=== PATIENT | male | born 1950 | race Caucasian/White ===

== ENCOUNTER → 2019-12-02 14:34 | Outpatient (CLI) | payer MEDICARE, OTHER, SELFPAY ==
[2019-12-02 12:15] VITALS: BMI 26.7
--- NOTE | 2019-12-02 14:45 | RAD_ITS ---
STUDY: X-RAY CHEST REASON FOR EXAM: Male, 69 years old. Chest pain TECHNIQUE: Frontal and lateral views of the chest COMPARISON: None. FINDINGS: The lungs are clear. There are no pleural effusions. There is no pneumothorax. The heart is normal in size. The visualized osseous structures are within normal limits. RAD/Chest PA and Lateral IMPRESSION: Clear lungs. Electronically Signed: Regis Donaldson, at 22:52 EST Tel , Service support ,
[2019-12-02 15:16] LABS: Absolute Lymphocyte Count 0.86 X10^3/uL (0.83-4.51); Basophil# 0.02 X10^3/uL; Basophil% 0.6 % (0-1); Eosinophil# 0.07 X10^3/uL; Eosinophils% 2.1 % (0-5); Hematocrit 41.8 % (40-54); Hemoglobin 14.2 g/dL (13.0-16.5); Lymphocyte # 0.86 X10^3/ul (4.0); Lymphocyte % 26.4 % (19-41); Mean Corpuscular Hgb 30.3 pg (27.0-32.0); Mean Corpuscular Volume 89.3 fL (80-94); Monocyte# 0.26 X10^3/uL; NRBC Flagged by Analyzer 0 % (0-5); Neutrophil # 2.04 X10^3/uL (2.7-7.7); Neutrophil % 62.6 % (47-70); Platelet Count 116 K/mm3 (150-450); RBC Distribution Width CV 12.1 % (11.6-14.6); RBC Distribution Width SD 39.5 fl (35.1-43.9); Red Blood Count 4.68 M/mm3 (4.6-6.2); White Blood Count 3.3 K/mm3 (4.4-11.0)
[2019-12-02 15:53] LABS: Anion Gap 4 (5-15); BUN 11 mg/dL (7-18); BUN/Creat Ratio 10.6 RATIO (10-20); Calcium,Total 9.3 mg/dL (8.5-10.1); Chloride 97 mmol/L (98-107); Creatinine, Serum 1.04 mg/dL (0.70-1.30); EST Glomerular Filtration Rate 75 mL/min (>60); Est Glom Filt Rate - Afr Amer 91 mL/min (>60); Glucose 104 mg/dL (74-106); Sodium Level 130 mmol/L (136-145); Thyroid Stim Hormone (TSH) 2.17 uIU/mL (0.358-3.74)
== END ==
PROVIDERS: Referring Provider Internal Medicine Cardiovascular Disease; Visit Provider Internal Medicine Cardiovascular Disease
DX: R07.9 Chest pain, unspecified (principal); E87.1 Hypo-osmolality and hyponatremia
CPT/HCPCS: 36415; 71046; 80048; 84443; 85025

== ENCOUNTER → 2019-12-16 06:31 | Outpatient (CLI) | payer MEDICARE, OTHER, SELFPAY ==
[2019-12-02 12:15] VITALS: BMI 26.7
--- NOTE | 2019-12-16 12:14 | STRESSREP ---
Stress Test Report Exercise myocardial perfusion stress test. 69-year-old man with a history of chest pain. Medications: Omeprazole. Stress protocol: Resting EKG demonstrates normal sinus rhythm with a rate of 76 bpm normal intervals are noted resting blood pressure is 132/84 mmHg. The patient exercised according to the regular Andres protocol for a total duration of 4 minutes and 15 seconds. Patient completed 1 minute and 15 seconds to stage II of the Andres protocol the maximum heart rate attained was 133 bpm which was 88% of maximum predicted heart rate the maximum workload was 6 metabolic equivalents. At rest there were nonspecific ST-T wave changes noted with no meet the criteria for ischemia at peak exercise upsloping ST changes were noted with no meet the criteria for ischemia. During recovery however there was mild downsloping ST depression of approximately 2 mm suggestive of ischemia. The patient also experienced mild bilateral arm pain and left-sided chest discomfort. The resting blood pressure was 132/84 with a peak blood pressure 190/86. Myocardial perfusion protocol. 11.9 mCi of technetium 99m sestamibi was injected at rest. The patient exercised according to regular Andres protocol for 4 minutes and 15 seconds attaining 88% of maximum predicted heart rate at peak exercise 34.2 mCi of technetium 99m sestamibi was injected stress images were obtained stress and rest images were reconstructed and compared in the short axis vertical and horizontal long axis. Gated images were also obtained Perfusion SPECT analysis: Review of the stress images demonstrate normal uptake of tracer noted in the septum anterior wall and lateral wall. There is a medium-sized defect noted in the mid inferior wall extending to the apex. The resting images demonstrate near complete reversibility suggesting a moderate amount of inferior ischemia. Gated SPECT analysis: The gated ejection fraction is noted to be 69%. Conclusion: Abnormal exercise myocardial perfusion stress test at a moderate workload with evidence of inferior ischemia. Intermediate risk scan. Preserved ejection fraction.
== END ==
PROVIDERS: Referring Provider Internal Medicine Cardiovascular Disease; Visit Provider Internal Medicine Cardiovascular Disease
DX: R07.9 Chest pain, unspecified (principal)
CPT/HCPCS: 78452; 93017; A9500; A4216

== ENCOUNTER 2019-12-18 06:50 | Day surgery (SDC) | payer MEDICARE, OTHER, SELFPAY ==
[2019-12-02 12:15] VITALS: BMI 26.7
[2019-12-17 09:12] VITALS: BMI 26.7
[2019-12-18] VITALS (28 sets, daily range): BP systolic 106–177; BP diastolic 56–100; PULSE 60–74; RESP 12–20; TEMP 36.5–36.9; O2SAT 95–100; BMI 26.4
--- NOTE | 2019-12-18 08:25 | CL.D_ITS ---
Patient Name: DARIEL SUERO Study Date: 12/18/2019 Performing: Lyle Albert MD Ht: 66.92 inches 170 cm : 1950 Wt: 171.96 lbs 78 kg Age: 69 Gender: male BSA: 1.89 PROCEDURE(S) PERFORMED HC46-TTR/COR/LV CLINICAL PROFILE AND INDICATIONS Indications: Suspected CAD Heart Failure: None Stress/Imaging Date: 12/16/2019Stress Test with SPECT MPI: Positive High Risk CAD Presentations: Unstable angina. CONCLUSIONS Significant CAD with high-grade right coronary lesion and mild to moderate disease noted in the LAD RECOMMENDATIONS Referred for immediate PCI DESCRIPTION OF PROCEDURE The patient arrived to the procedure lab. The risks and benefits of the procedure as well as a full d escription of our services here and current unavailability of surgical backup were fully explained to the patient and/or their significant other prior to the catheterization. The Timeout was completed, verifying the correct patient and procedure. The patient's procedural site was prepped and draped in the usual fashion. Local anesthetic was given subcutaneously to right groin region with Lidocaine 2%. Using a modified Seldinger technique, arterial access was obtained via the right femoral artery, a 5 Fr sheath was inserted. Left Coronary Artery selective angiography was performed in multiple views u sing a 5 Fr. JL4 catheter. Right Coronary Artery selective angiography was then performed in multiple views using a 5 Fr. 3DRC (Glenn) catheter. Left Ventriculography was performed in CARVALHO projection using a 5 Fr. Pigtail catheter. LV to AO pullback pressures were then recorded. CORONARY ANGIOGRAPHY DOMINANCE: Right Dominant LEFT HEART ASSESSMENT Left Ventricular Ejection Fraction: by LV Gram 60 % Normal LV wall motion Normal Left Ventricular systolic function LEFT MAIN: Moderate calcification, No significant disease noted LEFT ANTERIOR DESCENDING ARTERY: Mild luminal irregularities less than 30% DIAGONAL 1: Proximal - 60 % Stenosis CIRCUMFLEX ARTERY: Mild luminal irregularities less than 30% RIGHT CORONARY ARTERY: PROX RCA: 99 % Stenosis RT PDA: Proximal - Mild luminal irregularities COMPLICATIONS PROCEDURE MEDICATIONS Versed 1 mg IV Versed 1 mg IV Oxygen: 2 L/min via nasal cannula SUMMARY OF HEMODYNAMIC DATA Time AIR REST ECG 07:07:30 AO 118/68 (91) SA 08:03:39 LV 133/0, 3 08:10:00 LV 137/0, 3 08:10:06 LV 127/2, 5 08:10:40 LVp 140/2, 7 08:10:56 AOp () 08:11:01 Signed By Lyle Albert MD On 12/18/2019 08:24:58 Lyle Albert MD
[2019-12-18 09:01] LABS: ACT Activated Clotting Time 219 sec (74-137)
--- NOTE | 2019-12-18 09:04 | CL.I_ITS ---
Patient Name: DARIEL SUERO Study Date: 12/18/2019 Performing: Deny Varela MD Ht: 66.92 inches 170 cm : 1950 Wt: 171.96 lbs 78 kg Age: 69 Gender: male BSA: 1.89 PROCEDURE(S) PERFORMED HJ46-UXV W OR WO PTCA, SINGLE CORONARY ARTERY CLINICAL PROFILE AND CO-MORBIDITIES Indications: Suspected CAD, New Onset Angina <= 2 months Heart Failure: None Stress/Imaging Date: 12/16/2019 Stress Test with SPECT MPI: Positive High Risk Angina Classification Anginal Classification w/in 2 Weeks: CCS I CAD Presentations: Unstable angina. Unstable angina. Comorbidities/Risk Factors: Hypertension Dyslipidemia CONCLUSIONS Successful PTCA/NATALIO mid RCA with a 3.0 x 16 Promus Synergy stent; 85%-->0%, no dissection. RECOMMENDATIONS Highly recommend quitting all tobacco products Follow up with primary production clerks supervisor Risk factor modification ASA Indefinitley Plavix for at least 12 months Routine post interventional care Refer for Outpatient Cardiac Rehab Manual sheath removal per protocol Follow up with Dr. Albert Manual sheath removal; sheath sized up to 7Fr given small oozing around sheath at conclusion of proce dure. Medical management of mid LAD disease unless or until pt has recurrent symptoms. DESCRIPTION OF PROCEDURE The patient arrived to the procedure lab. The risks and benefits of the procedure as well as a full d escription of our services here and current unavailability of surgical backup were fully explained to the patient and/or their significant other prior to the catheterization. The Timeout was completed, verifying the correct patient and procedure. The patient's procedural site was prepped and draped in the usual fashion. Local anesthetic was given subcutaneously to right groin region with Lidocaine 2% Using a modified Seldinger technique,arterial access was obtained via the right femoral artery, a 5Fr sheath was inserted. Left Coronary Artery selective angiography was performed in multiple views usin g a 5 Fr. JL4 catheter. Right Coronary Artery selective angiography was then performed in multiple vi ews using a 5 Fr. 3DRC (Glenn) catheter. Left Ventriculography was performed in CARVALHO projection usi ng a 5 Fr. Pigtail catheter. LV to AO pullback pressures were then recorded.The images were reviewed and options discussed. A decision was then made to proceed with an Intervention, IVUS o r other adjunct procedure. Arterial sheath was exchanged for a 6 Fr Sheath. HSII Guide catheter was inserted and engaged int o the RCA. BMW Guide wire was advanced to the RCA. 2x12 emerge Balloon catheter was inserted. Balloon catheter was advanced across lesion in the right coronary, proximal. PTCA balloon inflated at 6 atms for 15 secs. PTCA balloon inflated at 6atms for 4 secs. 3x16 synergy Drug Eluting stent was inserted . Drug Eluting stent was advanced across the lesion in the right coronary, proximal. Angiogram perfor med post stent deployment. Arterial sheath was exchanged for a 7 Fr Sheath. Contrast was injected thr ough the sheath and the Right Iliac and Femoral artery were assessed for possible closure device. Th e arterial sheath was sutured in place and capped INTERVENTION INFORMATION LESION SITE: RCA (Proximal) Lesion Complexity: Non-High/Non-C, lesion at bifurcation: No, thrombus present: No, lesion length: 16 mm, culprit lesion: Yes Pre Stenosis: 85 % Pre intervention GIUSEPPE flow: 3 PROCEDURE: Drug Eluting Stent with pre dilatation. Post Stenosis: 0 % Post intervention GIUSEPPE flow: 3 Lesion Devices: Wilcox .014 BMW [place] Straight 190cm Rhythmia Medicaltronic 6 Fr HSII 100cm Guide Catheter Sanchez Sci EMERGE MR 2.00x12 BALLOON Sanchez Sci Synergy MR NATALIO 3.00x16 COMPLICATIONS No Complications PROCEDURE MEDICATIONS Versed 1 mg IV Versed 1 mg IV Oxygen: 2 L/min via nasal cannula Heparin 6000 unit(s) IV 12/18/2019 08:29:34 Nitro 200 mcg IC 12/18/2019 08:31:15 Nitro 200 mcg IC 12/18/2019 08:31:15 IV Bolus: .9 NaCl 450 ml total 12/18/2019 08:44:07 SUMMARY OF HEMODYNAMIC DATA Time AIR REST ECG 07:07:30 AO 118/68 (91) SA 08:03:39 LV 133/0, 3 08:10:00 LV 137/0, 3 08:10:06 LV 127/2, 5 08:10:40 LVp 140/2, 7 08:10:56 AOp 0/-31 (68) 08:11:01 Signed By Deny Varela MD On 12/18/2019 09:03:33 Deny Varela MD
--- NOTE | 2019-12-18 09:21 | EKG12_ITS ---
Test Reason : POST PCI Blood Pressure : / mmHG Vent. Rate : 067 BPM Atrial Rate : 067 BPM P-R Int : 192 ms QRS Dur : 096 ms QT Int : 384 ms P-R-T Axes : 052 028 030 degrees QTc Int : 405 ms Normal sinus rhythm Normal ECG No previous ECGs available Confirmed by MITCH LINO ([id number]), general expeditor KODI MEI ([id number]) on 12/24/2019 9:56:23 AM Referred By: Lyle Albert Confirmed By:MITCH LINO
[2019-12-18] MEDS: 0.9% Normal Saline 1,000 ML 150 ML IV (09:34)
--- NOTE | 2019-12-18 10:31 | CRPHASE1_ITS ---
Patient Communication PHII Cardiac Rehab Discussed with Patient:: Yes Guide to Cardiac Rehab Given to Patient:: Yes Cardiac Rehab Facility Choice List Given to Patient:: Yes Choice Program [facility] CR PHII:: Communication Given to CR, Refer to [facility] [employer] Set Up Operator:: Deny Varela Phase II Cardiac Rehab:: Yes Sessions:: 36 sessions - 3 days/wk, 12 weeks Risk Factors/Lifestyle Smoking Status: Former smoker Hx Hypertension: No Hx Diabetes Mellitus Type 1: No Hx Diabetes Mellitus Type 2: No Hx Dyslipidemia: No Hx Obesity: No - BMI 26.8 Stress: Home/Family Family History: Family History (Last Reviewed 12/02/19 @ 14:08 by Lyle Albert MD) Mother Cancer Ascending aortic aneurysm CVA (cerebral vascular accident) Brother Cancer Other Hypertension Phase I Education Given On:: [place], Nutrition, Antiplatelet medication Issues Affecting Care:: None Knowledge of Condition:: Yes Learning Preferences: Verbal, Written Discharge/Home/Social Eval Discharge Disposition: Home Marital Status: - at bedside Cardiac Rehabilitation Info Cardiac Rehabilitation Program Information: Cardiac Rehabilitation is important for patients like you who are recovering from a heart problem. Cardiac rehabilitation programs are recognized as integral to the continued care of the patient with coronary heart disease. The cardiac rehabilitation program is designed to optimize a patient's physical, psychological, and social functioning. Health care management associate work in cardiac rehabilitation programs and assist you with getting the treatments you need to get stronger and healthier - like exercise, healthy eating habits, and medications. Cardiac rehabilitation has been show to help people with heart problems live longer and have better life enjoyment than people who do not go to cardiac rehabilitation. Please contact the Cardiac Rehabilitation Program at [facility] at in two weeks if you have not heard from them.
--- NOTE | 2019-12-18 10:35 | CRPH1.INSTRU ---
General Education CAD and cardiac anatomy and function:: Patient communicates acknowledgment Explanation of diagnoses and procedures:: Patient communicates acknowledgment Sign/Symptoms of SC:: Patient communicates acknowledgment Antiplatelet therapy: Patient communicates acknowledgment Proper use of NTG-SL: Not instructed Emergency procedures and activation of EMS: Patient communicates acknowledgment Compliance of all prescribed medications: Patient communicates acknowledgment Smoking Recommendations Include:: Previous smoker; encourage continued cessation Nicotine/Smoking Response Code:: Patient communicates acknowledgment Dyslipidemia Dyslipidemia Response Code:: Patient communicates acknowledgment Overweight/Obesity Patient Overweight/Obesity Risk Factors Are:: BMI Normal [24-29 & > 65 years old] Overweight/Obesity:: Patient communicates acknowledgment Hypertension Hypertension:: Patient communicates acknowledgment Heart Disease Heart Disease Response Code:: Patient communicates acknowledgment Diabetes Patient Diabetes Risk Factors Are:: No documented hx of diabetes Diabetes:: Patient communicates acknowledgment Metabolic Syndrome Metabolic Syndrome Response Code:: Patient communicates acknowledgment Sedentary Sedentary Response Code:: Patient communicates acknowledgment Stress Stress Response Code:: Patient communicates acknowledgment
[2019-12-18] MEDS: Lisinopril 5 MG Tablet PO ×2 (10:44→10:45)
[2019-12-18] MEDS: Metoprolol Tartrate 25 MG Tablet 12.5 MG PO ×2 (10:44→21:04)
[2019-12-18] MEDS: 0.9% Saline Lock 10 ML Syringe IV (10:45)
[2019-12-18 11:06] LABS: ACT Activated Clotting Time 158 sec (74-137)
--- NOTE | 2019-12-18 15:38 | DCINST_ITS ---
Discharge Diet: Low fat/ Low Cholesterol Discharge Activity: Return to Normal Activity May shower in (days): 1 Lifting Restrictions: 10 pounds and also avoid any pushing or pulling for 3 days after your test. Call your doctor if your incision/area has: Continuous Slow Oozing, Sudden Increased Bleeding, Increased Pain/ Swelling, Increased Redness, Foul Smelling Discharge, Swelling at the incision site Call your doctor if you observe: Fever of 101 or Higher, Shortness of breath, Dizziness, Chest pain Remove Dressing in (days):: 1 Additional Dressing/Incision Instructions:: Keep the dressing (bandage) on until the next morning. You may then shower, but do not take a tub bath for 5 days after your test. It is normal to have some tenderness and discomfort at the puncture site. Sometimes bruising also occurs. However, if pain, numbness, or coldness occurs below the puncture site (in your leg, toes, arms or fingers) call your doctor at once. You may have a small, marble sized knot at the puncture site. This is normal. Do not rub it. It will go away in 4-6 weeks. Bleeding can occur from the area where the puncture was done. Blood may spurt or drip from the site. If blood spurts, apply pressure right away to stop bleeding and call 911. Although rare, bleeding into the tissue (hematoma) can also occur. If this happens, a large, firm area goose egg under the skin will appear. If any of these occur, lie down as flat as you can and have someone apply firm pressure to the cath site with a gauze pad or a clean washcloth for 10-15 minutes. Call 911 or go to the Emergency Department. Additional Instructions: You will need to stay on your Plavix for at least one year prior to stopping this. Several new medications were started. Each of these will help protect your heart. You were started on 1: Metoprolol, this is a low dose and is a beta maranda which does help control your heart rate 2: Lisinopril- this is a LIZANDRO inhibitor and controls your blood pressure 3: Atorvastatin: this is a statin and will help lower your cholesterol. If you cholesterol has not been elevated, this will help with the plaque build up in your arteries. 4: Aspirin: You will need to stay on the baby ASA indefinitely 5: Plavix: this was started prior to your heart cath, this is an antiplatelet, it will help to keep you stent open. You will need to be on this for at least one year prior to stopping. If you have any concerns please call the [facility] You have a f/u appt with us on 12/30/2019 at 1530 Allergies/Adverse Reactions: Allergies clindamycin Allergy (Verified 12/02/19 12:16) Other Penicillins Allergy (Verified 12/02/19 12:16) Rash Sulfa (Sulfonamide Antibiotics) Allergy (Verified 12/02/19 12:16) Hives tetracycline [Tetracycline] Allergy (Verified 12/02/19 12:16) Anaphylaxis Medications to take at Discharge ibuprofen 200 mg capsule 200 mg PO Q6H PRN 12/01/19 latanoprost 0.005 % eye drops 1 drp OPHTHALMIC DAILY 12/01/19 lorazepam 1 mg tablet 1 mg PO BID PRN 12/01/19 omeprazole 20 mg tablet,delayed release 20 mg PO DAILY 12/01/19 fluconazole 200 mg tablet 400 mg PO .weekly tab 12/02/19 aspirin 81 mg tablet,delayed release 81 mg PO DAILY 12/16/19 Atorvastatin Calcium [Lipitor] 80 mg PO QHS #30 tab 12/18/19 Clopidogrel Bisulfate [Clopidogrel] 75 mg PO DAILY #30 tab 12/18/19 Lisinopril [Zestril] 5 mg PO DAILY #30 tab 12/18/19 Metoprolol Tartrate [Lopressor (beta maranda)] 12.5 mg PO BID #30 tab 12/18/19 Nitroglycerin (INPATIENT USE) [Nitrostat] 0.4 mg SUBLINGUAL Q5M PRN #25 tab.subl 12/18/19 The following prescriptions were given: Clopidogrel Bisulfate [Clopidogrel] 75 mg PO DAILY #30 tab Transmission Status: Pending to [facility] Atorvastatin Calcium [Lipitor] 80 mg PO QHS #30 tab Transmission Status: Pending to [facility] Metoprolol Tartrate [Lopressor (beta maranda)] 12.5 mg PO BID #30 tab Transmission Status: Pending to [facility] Nitroglycerin (INPATIENT USE) [Nitrostat] 0.4 mg SUBLINGUAL Q5M PRN #25 tab.subl PRN Reason: Cardiac/Chest Pain Transmission Status: Pending to [facility] Lisinopril [Zestril] 5 mg PO DAILY #30 tab Transmission Status: Pending to [facility] Orders to be completed after discharge: Phase II, Outpatient Cardiac Rehab Location: None Selected Primary Care Physician: Neo Yeung MD [Primary Care Provider] - Test Results: Test results from this visit will be discussed in further detail at your follow- up appointment, if applicable. Please Follow Up With: Kimberley Packer PA When: 12/30/2019 at 3:30 pm Cardiac Rehabilitation Info Cardiac Rehabilitation Program Information: Cardiac Rehabilitation is important for patients like you who are recovering from a heart problem. Cardiac rehabilitation programs are recognized as integral to the continued care of the patient with coronary heart disease. The cardiac rehabilitation program is designed to optimize a patient's physical, psychological, and social functioning. Health career consultant work in cardiac rehabilitation programs and assist you with getting the treatments you need to get stronger and healthier - like exercise, healthy eating habits, and medications. Cardiac rehabilitation has been show to help people with heart problems live longer and have better life enjoyment than people who do not go to cardiac rehabilitation. Please contact the Cardiac Rehabilitation Program at [facility] at in two weeks if you have not heard from them.
[2019-12-18] MEDS: Atorvastatin Calcium 80 MG Tablet PO (21:04)
[2019-12-18] MEDS: Latanoprost 0.005% 1 Bottle 1 DRP OPHTHALMIC (21:06)
[2019-12-19] VITALS (12 sets, daily range): BP systolic 104–137; BP diastolic 57–77; PULSE 58–79; RESP 12–20; TEMP 36.5–36.8; O2SAT 94–99
[2019-12-19] MEDS: LORazepam 1 MG Tablet PO (00:17)
[2019-12-19 04:43] LABS: Hematocrit 36.3 % (40-54); Hemoglobin 12.4 g/dL (13.0-16.5); Mean Corp Hgb Conc 34.2 g/dL (32-36); Mean Corpuscular Hgb 30.2 pg (27.0-32.0); Mean Corpuscular Volume 88.5 fL (80-94); Mean Platelet Vol. 8.7 fl (6.2-12.0); Platelet Count 158 K/mm3 (150-450); RBC Distribution Width CV 12.4 % (11.6-14.6); White Blood Count 4.4 K/mm3 (4.4-11.0)
[2019-12-19 05:02] LABS: ALB/GLOB Ratio 1.2 RATIO (0.9-2.4); AST(SGOT) 18 U/L (15-37); Alanine Aminotransfer ALT/SGPT 28 U/L (16-61); Albumin, Serum 3.4 g/dL (3.2-5.0); Alkaline Phosphatase 60 U/L (45-117); Anion Gap 7 (5-15); BUN 10 mg/dL (7-18); BUN/Creat Ratio 12.7 RATIO (10-20); Calcium,Total 8.6 mg/dL (8.5-10.1); Chloride 101 mmol/L (98-107); Creatinine, Serum 0.79 mg/dL (0.70-1.30); EST Glomerular Filtration Rate 103 mL/min (>60); Est Glom Filt Rate - Afr Amer 125 mL/min (>60); Estimated Creatinine Clearance 65.18 ml/min; Globulin 2.8 g/dL (2.2-4.2); Glucose 101 mg/dL (74-106); Potassium 3.8 mmol/L (3.5-5.1); Protein, Total 6.2 g/dL (6.4-8.2); Sodium Level 133 mmol/L (136-145)
[2019-12-19] MEDS: Clopidogrel Bisulfate 75 MG Tablet PO (08:35)
[2019-12-19] MEDS: Aspirin E.C. 81 MG Tablet PO (08:35)
[2019-12-19] MEDS: Metoprolol Tartrate 25 MG Tablet 12.5 MG PO (08:35)
[2019-12-19] MEDS: Lisinopril 5 MG Tablet PO (08:36)
[2019-12-19] MEDS: Pantoprazole Sodium 20 MG Tablet PO (08:36)
--- NOTE | 2019-12-19 09:27 | PCM.PN.CARD ---
Subjectve: Patient doing very well, feels much better after his angioplasty. No 24-hour events. No chest pain. EKG shows normal sinus rhythm, no acute changes. Telemetry negative. Right groin is clean/dry/intact without evidence of thrills, bruits or hematoma. Hemoglobin and creatinine within nominal limits. Objective: Vital Signs Temp Pulse Resp BP Pulse Ox 97.7 F L 79 17 127/75 H 97 12/19/19 04:00 12/19/19 08:35 12/19/19 06:00 12/19/19 06:00 12/19/19 06:00 Oxygen Delivery Method Room Air Weight: 168 lb 3.403 oz Body Mass Index (BMI) 26.4 Intake and Output for Last 24 Hours 12/17/19 12/18/19 12/19/19 23:59 23:59 23:59 Intake Total 1820 / 1820 300 / 300 Output Total 1900 / 1900 500 / 500 Balance -80 / -80 -200 / -200 General: Awake, Alert, Oriented x 3 HEENT: PERRL, EOMI, Sclera Non Icteric Neck: Supple, Good ROM, No Lymph Node Enlargement Lungs: Clear to auscultation Cardiovascular: Regular Rhythm, Normal S1, Normal S2, No Murmurs, No Rubs, No Gallops Vascular: No Carotid Bruits, Normal Femoral Pulses, Normal Radial Pulses, Normal Dorsalis Pedal Pulse, Normal Posterior Tibial Pulses Abdomen: Bowel Sounds Present, Soft, Non Tender, No HSM, No Organomegaly Extremities: No Cyanosis, No Clubbing, No edema Neurological: No Focal Motor or Sensory Deficit 12/19/19 04:20: WBC 4.4, RBC 4.10 L, Hgb 12.4 L, Hct 36.3 L, MCV 88.5, MCH 30.2, MCHC 34.2, Plt Count 158, MPV 8.7 12/19/19 04:20: Sodium 133 L, Potassium 3.8, Chloride 101, Carbon Dioxide 25.0, Anion Gap 7, BUN 10, Creatinine 0.79, Est GFR (MDRD) Af Amer 125, Est GFR (MDRD) Non-Af 103, BUN/Creatinine Ratio 12.7, Glucose 101, Calcium 8.6, Total Bilirubin 0.50 Rhythm: EKG: ECHO: Stress Test: Cardiac Cath: PCI: CT Surgery: Holter monitor: EPS: PPM: CXR: Chest CT Scan: Medical Necessity - Tobacco Use Smoking Status: Former smoker Assessment/Plan 1. Coronary artery disease: Patient status post angioplasty and stenting of his right coronary artery receiving a 3.0 816 Promus Synergy stent with an excellent result. The patient has immediately felt better, and is doing quite well. Telemetry is negative. EKG is within normal limits. Right groin is clean/dry/intact. The patient will continue his baby aspirin, Plavix, and low-dose lisinopril and metoprolol. He will be enrolled in cardiac rehab, and adjustments will be made to his antihypertensive therapy going forward. 2. Hyperlipidemia: Continue statin based medications. Repeat lipid profile at the conclusion of cardiac rehab. 3. Patient may be discharged home and follow-up with Dr. Albert going forward. Code Visit Inpatient E&M: 06151 Subs Hosp L2
--- NOTE | 2019-12-19 10:00 | EKG12_ITS ---
Test Reason : POST PCI Blood Pressure : / mmHG Vent. Rate : 066 BPM Atrial Rate : 066 BPM P-R Int : 176 ms QRS Dur : 096 ms QT Int : 390 ms P-R-T Axes : 051 027 035 degrees QTc Int : 408 ms Normal sinus rhythm Normal ECG When compared with ECG of 18-DEC-2019 09:28, MANUAL COMPARISON REQUIRED, DATA IS UNCONFIRMED Confirmed by MITCH LINO ([id number]), copy editor KODI MEI ([id number]) on 12/24/2019 9:56:33 AM Referred By: Lyle Albert Confirmed By:MITCH LINO
== END 2019-12-19 09:30 | disposition home or self-care (01) ==
LOC: CLSP 06:50 → ICU 09:09
PROVIDERS: Internal Medicine Cardiovascular Disease; Referring Provider Internal Medicine Cardiovascular Disease; Visit Provider Internal Medicine Cardiovascular Disease
DX: I25.110 Atherosclerotic heart disease of native coronary artery with unstable angina pectoris (principal); E87.1 Hypo-osmolality and hyponatremia; I10 Essential (primary) hypertension; E78.5 Hyperlipidemia, unspecified; K21.9 Gastro-esophageal reflux disease without esophagitis; Z79.82 Long term (current) use of aspirin; Z79.02 Long term (current) use of antithrombotics/antiplatelets; Z79.899 Other long term (current) drug therapy; Z87.891 Personal history of nicotine dependence; Z95.5 Presence of coronary angioplasty implant and graft
CPT/HCPCS: 80053; 85027; 85347; 92928; 93005; 93458; 99152; 99153; J7030; J7040; Q9967; A4216; C1725; C1769; C1874; C1887; C1894; C9600

== ENCOUNTER → 2020-01-07 07:43 | Outpatient (CLI) | payer MEDICARE, OTHER, SELFPAY ==
[2019-12-30 15:30] VITALS: BMI 25.7
--- NOTE | 2020-01-07 08:13 | CR.ITP_ITS ---
Diagnosis - General Information Admitting Diagnosis: PCI with stent Personal Learning Style:: Audio/Visual, Demonstration, Group, Individual Preference, Written Barriers to Learning: Vision Impairment - wears glasses Stage of change r/t lifestyle modifications:: Action Gave educational material for:: Treating Heart Disease, Emotions & Heart Disease, Stress Management & Relaxation, Sleep Disorders & Heart Disease, How The Heart Works, What it means to have Heart Disease, How Coronary Artery Disease is Diagnosed, Heart Procedures, What Heart Medications Do, Risk Factors & Modifications, Living an Active Life, Nutrition - Education/Goals Individual Counseling: Initial Assessment: Abnormal Cholesterol Levels, Overweight/Obesity, Sedentary Lifestyle Cardiac Rehabilitation Goals: 1. Maintain the individual as the primary focus of care. 2. To improve the patient's quality of life. 3. Identification of cardiac risk factors and provide cardiac risk factor management. 4. Enhance the psychosocial status of the patient. 5. Reconditioning enough to allow the patient to resume customary activities. 6. Control symptoms of cardiac disease Personal Goals: Initial Assessment: Improve energy level, Participate in home exercise program, Improve knowledge of cardiac disease, Improve muscle strength and endurance, Other goal: Scale for measuring improvement of personal goals: Enter appropriate number in Comments. 2 = Unchanged. 3 = Slightly Better. 4 = Moderate Improvement. 5 = Met my Goal - Diagnosis & Disease Process Outcomes/Goals: Pt IDs own risk factors & lifestyle modifications by Session 10, Verbalizes symptoms of angina & response by session 3., Pt independently manages, Other Additional Outcomes/Goals: Plan/Interventions: Assist Pt to ID & engage in lifestyle modification to reduce CVD risk, Instruct on individual risk factors, Review symptoms of angina & emergency actions, Review secondary diagnosis & identify educational needs., Other see comment - Safety Referral to Physical Therapy: No Referral to [facility] Case Management: No Fall Risk Assessed:: Yes Assistive Devices:: None Exercise - Initial Assessment - Visit Date of Eval: 01/07/20 Mets: Pre-: >5 METS for 30 minutes by discharge - Physician Prescribed Exercise Modalities: Treadmill, Biodyne, Rower, Airdyne, NuStep, SciFit Frequency: 3x/week for 12 weeks [36 sessions] Intensity: 60-80% of age predicted maximum heart rate reserve METs - Progression 0.5-1.0 weekly:: 0.5-1.0 progression - Outcomes & Goals Goals:: Verbalizes understanding of THR, RPE & goal METS by session 6, Documents in home exercise log/reports 30 min aerobic 5 day/wk by DC, Demonstrates accurate pulse taking by DC, Other additional outcome/goals: see below - Intervention & Plan Exercise Program Goals: Instruct on personal THR & RPE, Instruct on MET level & personal MET goal, Show patient to take own pulse /validate performance until accurate, Instruct on home exercise, Other additional plan/int - Physical Activity Home Exercise Physical Activity - Home Exercise: Safe Exercise, Warm-up, Self-monitoring, Cool-Down, Home Exercise > 30 min Daily, Sitting Time <3 hours/daily - Outcomes & Goals Outcomes/Goals: Demonstrates correct Warm-up/exercise Cool-Down (S3) if = 2.5 METs, Verbalizes symptoms of exercise intolerance by Session 3 (S3), Demonstrate safe equipment use (S3) & follows exercise prescrition (6), Other: See below - Intervention & Plan Plan/Intervention: Instruct warm-up & cool-down if exercising at > 2 METs, Instruct on symptoms of exercise intolerance & actions to take, Instruct & monitor on saf, Assess intial functional capacity & safety risk, Other See below Nutrition - Initial Assessment - Program Goals Nutrition Program Goals: LDL <100 optimal. 100 - 129 Near optimal. 130 - 159 Borderline High. 160 - 189 High. Total Cholesterol <200 desirable. 200 - 239 Borderline High. >/= 240 High. HDL < 40 Low >/=60 High. Triglycerides <150 desirable. <199 optimal. VlDL 5 - 40. HgbA1C <7%. BMI <25 - Cholesterol/Lipids Determine presence & major risk factors that modify LDL goal: Hypertension or hypertensive medication, Low HDL cholesterol <40 mg/dL* Outcomes/Goals: Pt IDs own risk factors & lifestyle modifications by Session 10, Verbalizes symptoms of angina & response by session 3., Pt independently manages, Other Additional Outcomes/Goals: Intervention/Plan: Advocate for lipid panel cholesterol medication if applicable, Instruct on personal lipid levels & lipid goals/NCEP guidelines, Instruct on cholesterol, Other additional plan/int Referral to dietitian:: No - Diabetes (Other Core Measures) Diabetes Type: Not Applicable - Weight Mgt (Other Care) Not Applicable: Yes Height: 5 ft 7 in Weight:: 159 lb BMI: 24.9 Diagnosis Overweight/Obesity BMI> 30% ICD-10 E66: No Diagnosis High BMI/Morbid Obesity BMI> 35% ICD-10 Z68: No Outcomes/Goals: Pt sets, maintains & shows weight loss goal & trend during rehab, Other additional outcomes/goals Intervention/Plan: Other additional plan/interventions - Healthy Eating Habits Will attend diet classes:: Yes Outcomes/Goals:: Consume diet rich in vegs,fruits,whole grain/high fiber,fish,lean meat, Limit sat/trans fats,cholesterol & added salts & sugars, Other additional outcome/goals: Intervention/Plan:: Assess current eating habits, Other Additional plan/interventions - Education Gave educational materials for:: Healthy eating Medical - Initial Assessment - Visit Date of Eval: 01/07/20 - Medication Compliance Preventative Medication(s):: Aspirin, LIZANDRO inhibitor, Clopidogrel/P2Y12 inhibit, Statin/lipid, Beta maranda H/O mental health issues: depression, anxiety, or addiction?: No Doesn?t believe in the benefits of treatment?: No Believes medications are unnecessary or harmful?: No Has a concern about medication side effects?: No Expresses concern over the cost of medications?: No Outcomes/Goals: Verbalizes medications,desired effect & common side effects @ DC, Pt self-reports following medication regimen, Keeps card in wallet w/medications listed by DC, Other additional outcome/goals: Interventions/plans: Instruct on medication effects & side effects, Review medication list w/patient every two weeks, Instruct importance of taking meds as ordered & assist problem solving, Other additional - Tobacco Use Tobacco Use: Non-smoker How long ago did you quit using tobacco products?: Greater than or equal to 6 months ago - quit 20 years ago Do you use smokeless tobacco?: No Outcomes/Goals: Other additional outcome/goals Interventions/plan: Assist pt to develop strategies to achieve/maintain quit date - maintain - Hypertension [place] [employer] Hypertension Guidelines: [place] [employer] Hypertension Guidelines. Normal BP Less than 120/80. Elevated BP 120/80. Hypertension Stage 1: BP 130-139/80-89. Hypertesnion Stage 2: BP 140 or higher/90 or higher. Hypertension Crisis: BP higher than 180/120 Outcomes/Goals: Able to verbalize/achieve optimal blood pressure <130/80, Incorporates diet changes & exercise for blood pressure control by DC, Other additional outcomes/goals - Tobacco Cessation Referral Smoking Cessation Referral:: No Individual Education/Counseling:: No Education Schedule Given:: Yes Psychosocial - Initial Assess - VIsit Date of Eval: 01/07/20 History of previous Mental disease:: No - Target Goals Target Goals: Assess presence or absence of depression. Using a valid screening tool, maximizes coping skills. Positive support system - Psychosocial Test Tool Used:: Lorin Leary QOL Cardiac, PHQ-9 Questionnaire Self-reported stress:: no phq-9 Severity: Severity. 1-4 Minimal Depression. 5-9 Mild Depression. 10-14 Moderate Depression. 15-19 Moderately Sever Depression. 20-27 Severe Depression. Rule: See PHQ-9 Score: 1 - Referral to Behavioral Health PS - Interventions: Yes Attend Stress Management Classes - group setting, No Referral to Behavioral Health if PHQ-9 score >9:, No Referral to [facility], No Referral to Physician if PHQ-9 if score is 5-9: - Outcomes/Goals: See list Psychosocial Outcomes/Goals:: ID's personal stressors & 2 strategies to manage stress by discharge - Intervention/Plan: See List Interventions/Plan:: Assess stressors,coping strategies & signs of derpression on admission, Instruct/assist pt to develop coping & personal stress Mgt strategies, Refer to Behavioral Health if appropriate, Refer to Physician if appropriate, Instruct patient to recognize signs & symptoms of depression, Instruct patient to recog, Other additional plan/intervention Patient Health Questionnaire Initial Assessment 1. Little interest or pleasure in doing things: Not at all 2. Feeling down, depressed, or hopeless: Not at all 3. Trouble falling or staying asleep, or sleeping too much: Not at all 4. Feeling tired or having little energy: Several days 5. Poor appetite or overeating: Not at all 6. Feeling bad about yourself -- or that you are a failure or have let yourself or your family down: Not at all 7. Trouble concentrating on things, such as reading the newspaper or watching te levision: Not at all 8. Moving or speaking so slowly that other people could have noticed. Or the opposite - being so fidgety or restless that you have been moving around a lot more than usual: Not at all 9. Thoughts that you would be better off , or of hurting yourself in some way: Not at all How difficult have these problems made it for you to do your work, take care of things at home, or get along with other people?: Not difficult at all Total Score: 1 SIRI-Q SV Test - Statements CAD is a disease of the arteries in the heart: False Examples of risk factors for heart disease: True Angina is chest pain or discomfort: True The benefits of resistance training include: True Eating more meat and dairy products: False Anti-platelet medications such as aspirin are important: True The only effective way to manage stress: False An exercise warm-up slowly increases heart rate: I Don't Know Prepared, processed foods usually have high sodium: True Depression is common after a heart attack: I Don't Know The statin medications lower cholesterol: True To control blood pressure, lower the amount of sodium: True If someone gets chest discomfort during walking: False Transfats are partially hydrogenated vegetable oils: True Sleep apnea that is not treated increases the risk: True To control cholesterol, one should become a vegetarian: False Someone knows if he/she is exercising at the right level: True Diabetes cannot be prevented with exercise & health eating: True Stress is a large risk for heart attack: True A diet that can help lower blood pressure is rich in: True - Total Score Total Correct Responses: 16 Self-Efficacy Initial Assessment We would like to know how confident you are in doing certain activities. Please select your confidence level for:: Select your confidence level for the following using the scale 1-10 where 1 is not at all confident and 10 is totally confident. Your score is the average of all 6 responses. Fatigue: How confident are you that you can keep the fatigue caused by your disease from interfering with the things you want to do? Select Number: 10 Physical Discomfort or Pain: How confident are you that you can keep the ph ysical discomfort or pain of your disease from interfering with the things you want to do? Select Number: 10 Emotional Distress: How confident are you that you can keep the emotional distress caused by your disease from interfering with the things you want to do? Select Number: 10 Other Symptoms or Health Problems: How confident are you that you can keep other symptoms or health problems from interfering with the things you want to do? Select Number: 10 Different Tasks and Activities: How confident are you that you can do the different tasks and activities needed to manage your health condition so as to reduce your need to see a doctor? Select Number: 10 Medication: How confident are you that you can do things other than just taking medication to reduce how much your illness affects your everyday life? Select Number: 10 Total Score:: 10 Nutrition Survey - Nutrition Survey Instructions Scoring Instructions: Scoring is as follows: Yes = 1 points. No = 0 point. Patient score that is >/=12 is considered to be at potential nutritional risk and could benefit from a referral to a registered dietitian. - Nutrition Survey Initial Have you lost >10 lbs over the past 2 months without trying?: No Are you following a special diet at home for diabetes, low fat, or low salt?: No Are you interested in meeting with a dietitian for help understanding your diet?: Yes Do you eat less than 3 meals a day?: No Do you eat fatty meats (garcia, sausage, ribs, etc), fried foods, desserts, large amounts of salad dressings, margarine, butter, or cheese most days?: Yes Do you have food allergies? [Enter types in comment field]: No Do you eat in restaurants more than 3 times a week?: No Do you season food with salt, seasoning salt, or garlic salt?: Yes Do you used canned, boxed, frozen meals, or soups, seasoning packets?: Yes Total Score:: 4
--- NOTE | 2020-01-07 08:16 | CR.HP_ITS ---
CR - History & Physical - General Arrival date:: 01/07/20 Arrival time:: 08:22 Date of Referral:: 12/18/19 Date of CR Evaluation:: 01/07/20 Referring Physician: Dr. Betty Albert Primary Diagnosis: PCI with stent - History of Present Cardiac Event Onset Date: Enter Onset Date of cardiac illnesses in Comment field below Current stable Angina Pectoris:: No Acute Myocardial Infarction within 12 months:: No Coronary Artery Bypass Graft:: No Heart valve replacement or repair:: No PTCA or coronary stenting:: Yes - 12/18/19 Heart or Heart-Lung Transplant:: No Heart Failure EF <35%:: No Type of Symptoms:: chest pain and across both arms between 3-4 am. Noted more fatigue. Interventions with present event:: nuclear stress test, heart cath Were there any complications?: no - Medications Home Medications: Ambulatory Orders Medication Instructions Recorded ibuprofen 200 mg capsule 200 mg PO Q6H PRN 12/01/19 latanoprost 0.005 % eye drops 1 drp OPHTHALMIC DAILY 12/01/19 lorazepam 1 mg tablet 1 mg PO BID PRN 12/01/19 omeprazole 20 mg tablet,delayed 20 mg PO DAILY 12/01/19 release fluconazole 200 mg tablet 400 mg PO .weekly tab 12/02/19 aspirin 81 mg tablet,delayed 81 mg PO DAILY 12/16/19 release Atorvastatin Calcium [Lipitor] 80 mg PO QHS #30 tab 12/18/19 Clopidogrel Bisulfate [Clopidogrel] 75 mg PO DAILY #30 tab 12/18/19 Lisinopril [Zestril] 5 mg PO DAILY #30 tab 12/18/19 Metoprolol Tartrate [Lopressor 12.5 mg PO BID #30 tab 12/18/19 (beta maranda)] Nitroglycerin (INPATIENT USE) 0.4 mg SUBLINGUAL Q5M PRN #25 12/18/19 [Nitrostat] tab.subl - Allergies Allergies/Adverse Reactions: Allergies clindamycin Allergy (Verified 12/30/19 15:30) Other Penicillins Allergy (Verified 12/30/19 15:30) Rash Sulfa (Sulfonamide Antibiotics) Allergy (Verified 12/30/19 15:30) Hives tetracycline [Tetracycline] Allergy (Verified 12/30/19 15:30) Anaphylaxis - Sleep Disorder Evaluation Hx of Sleep Apnea: No Do you snore loudly (louder than talking or can be heard through closed doors)?: No Do you often feel tired/ fatigued/ sleepy during daytime?: No Has anyone observed you stop breathing during sleep?: No History of Hypertension (for STOP score): No STOP Results: Negative Advanced Directives - Advanced Directives 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 of 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: Yes Living Will: Yes Advance Directives Information Provided: Yes Advance Directives on File: No Past Medical History - Past Medical Illness Medical History: Past Medical History (Last Reviewed 01/01/20 @ 15:42 by BRIGHT Horan) Atherosclerosis of coronary artery without angina pectoris (Chronic) I25.10 Hyponatremia (Chronic) E87.1 GERD (gastroesophageal reflux disease) K21.9 Squamous cell carcinoma - Past Surgical History Surgical History: Past Surgical History (Last Reviewed 01/01/20 @ 15:42 by BRIGHT Horan) Stented coronary artery (Chronic) Onset Date: 12/18/19 Z95.5 Successful PTCA/NATALIO mid RCA with a 3.0 x 16 Promus Synergy stent H/O cervical spine surgery Z98.890 History of repair of rotator cuff Z98.890 left Surgical History: rotator cuff repair, - - cervical spinal surgery - Family History Summary Family History: Family History (Last Reviewed 01/01/20 @ 15:42 by BRIGHT Horan) Mother Cancer Ascending aortic aneurysm Carotid artery disease CVA (cerebral vascular accident) Brother Cancer Other Hypertension Social History - Smoking History Smoking Status: Former smoker - quit 20 years ago Hx Tobacco Use: No Hx Smoking Exposure: No - Alcohol Use Alcohol Usage: Yes - usually up to 12 / week, beer, wine - Substance Abuse Hx Substance Use: No - Occupation Occupation (List type of work in comments):: Retired - Hobbies, Recreation, Social Activities Hobbies: Other - metal working, golf Recreational Activities: I am able to engage in all my recreational activities Social Environment - Status Marital Status: - Current Living Arrangements Living Environment:: Spouse - Children How many children do you have?: 0 - Safety Do you feel safe in your surroundings?: Yes - Assistance Do you need any assistance at home?: no Review of Systems - Review of Systems Hints: Right click = Denies (Slash). Left click = Reports (Pledger) Review of Present Symptoms: Reports: Dizziness/Lightheadedness - only standing up quickly, Appetite - Normal, Appetite - Special Diet, Sleep - Normal. Denies: Shortness of Breath at Rest, Shortness of Breath with Exertion, PVD, Operative Discomfort, Angina, Wound Healing, Fatigue, Heart Arrhythmia/Irregularities, Sexual Changes - Pain Is Patient Pain Free?: No Pain Location: neck Pain Level: 3/10 Previous experience dealing with pain?: rub neck and hot showers, 2 Ibuprofen at bedtime Risk Factor Assessment - Vital Signs Pulse Ox: 98 - Pulse Pulse Rate: 65 Pulse Rhythm: Regular - Hypertension Blood Pressure Sitting - Right Arm: 128/70 Blood Pressure Sitting - Left Arm: 112/70 - Obesity Height: 5 ft 7 in Weight:: 159 lb Weight in Pounds: 159.0 lbs Weight Source: Stated by Patient Body Mass Index (BMI): 24.9 Nutritional Referral for Obesity: No - Physical Inactivity Physical Inactivity: Recreational activity - doing some exercise daily - Risk Stratification Risk Guidelines: Lowest Risk: Risk Factor for Smoking, Risk Factor for Diabetes, Risk Factor for Obesity, Risk Factor for Hypertension, Risk Factor for Sedentary Lifestyle, Risk Factor for Depression, Moderate Risk: Risk Factor for Dyslipidemia - For Smoking Smoking Risk Guidelines: Smoking Low Risk: None or quit greater than 6 months ago. Smoking Moderate Risk: Smoker or quit 6 months or less ago. Smoking High Risk: Smoker - For Dyslipidemia Dyslipidemia Risk Guidelines: Low Risk: Moderate Risk: High Risk: 15-25% fat 25.1-29% fat >/= 30% fat. <7% sat fat 7-9% sat fat >9% sat fat. <150 mg chol 150-299 mg chol >/= 300 mg chol. LDL <100 LDL 100-129 LDL >/= 130. Chol/HDL ratio <5.0 Chol/HDL ratio 5.0-6.0 Chol/HDL ratio >6.0. Triglycerides <100 Triglycerides 100- 149 Triglycerides >/= 150 - For Diabetes Mellitus Diabetes Risk Guidelines: Diabetes Low Risk: HgA1c <6.5% and/or FBG <120. Diabetes Moderate Risk: HgA1c 6.6-7.9% and/or FBG 120-180. Diabetes High Risk: HgA1c >/= 8% and/or FBG >180 - For Obesity/Overweight Obesity/Overweight Risk Guidelines: Obesity Low Risk: BMI <25.0. Obesity Moderate Risk: BMI 25-29.9. Obesity High Risk: BMI >/= 30.0 - For Hypertension Hypertension Risk Guidelines: Hypertension Low Risk: Systolic <120 and Diastolic <80. Hypertension Moderate Risk: Systolic 120-139 and Diastolic 80-89. Hypertension High Risk: Systolic >/= 140 and Diastolic >/= 90 - For Sedentary Lifestyle Sedentary Lifestyle Risk Guidelines: Sedentary Lifestyle Low Risk: >/= 1,500 kcal/week. Sedentary Lifestyle Moderate Risk: 700-1,499 kcal/week. Sedentary Lifestyle High Risk: < 700 kcal/week - For Depression Depression Risk Guidelines: Depression Low Risk: Not clinically depressed. Depression Moderate Risk: Mildly depressed. Depression High Risk: Clinically depressed - Family History Family History: Family History (Last Reviewed 01/01/20 @ 15:42 by BRIGHT Horan) Mother Cancer Ascending aortic aneurysm CVA (cerebral vascular accident) Brother Cancer Other Hypertension Motivation - Motivation to Participate On a scale of 1 to 10, how prepared are you to commit to attending program?: 10
[2020-01-07 08:53] VITALS: BP 112/70; BP 128/70; PULSE 65; O2SAT 98; BMI 24.9
[2020-01-07 09:28] VITALS: BMI 24.9
== END ==
PROVIDERS: Referring Provider Internal Medicine Cardiovascular Disease; Visit Provider Internal Medicine Cardiovascular Disease
DX: Z95.5 Presence of coronary angioplasty implant and graft (principal)

== ENCOUNTER 2020-01-29 10:15 | Outpatient (RCR) | payer MEDICARE, OTHER, SELFPAY ==
[2019-12-30 15:30] VITALS: BMI 25.7
== END 2020-02-02 23:59 ==
LOC: CR 10:15
PROVIDERS: Referring Provider Internal Medicine Cardiovascular Disease; Visit Provider Internal Medicine Cardiovascular Disease
DX: I25.10 Atherosclerotic heart disease of native coronary artery without angina pectoris (principal); Z95.5 Presence of coronary angioplasty implant and graft
CPT/HCPCS: 93798

== ENCOUNTER → 2020-03-22 09:56 | Outpatient (CLI) | payer MEDICARE, OTHER, SELFPAY ==
[2020-01-07 09:28] VITALS: BMI 24.9
[2020-03-18 14:12] VITALS: BMI 23.9
[2020-03-22 10:47] LABS: AST(SGOT) 40 U/L (15-37); Alanine Aminotransfer ALT/SGPT 47 U/L (16-61); Albumin, Serum 3.9 g/dL (3.2-5.0); Alkaline Phosphatase 78 U/L (45-117); Bilirubin, Direct 0.23 mg/dL (0.00-0.30); Cholesterol 106 mg/dL (200); High Density Lipoprotein 44 mg/dL; Protein, Total 6.9 g/dL (6.4-8.2); Triglycerides 52 mg/dL; Very Low Density Lipoprotein 10 mg/dL (5-40)
== END ==
PROVIDERS: Referring Provider Internal Medicine Cardiovascular Disease; Visit Provider Internal Medicine Cardiovascular Disease
DX: I25.10 Atherosclerotic heart disease of native coronary artery without angina pectoris (principal)
CPT/HCPCS: 36415; 80061; 80076

== ENCOUNTER → 2020-09-15 15:49 | Outpatient (CLI) | payer MEDICARE, OTHER, SELFPAY ==
[2020-01-07 09:28] VITALS: BMI 24.9
[2020-03-18 14:12] VITALS: BMI 23.9
[2020-09-15 17:46] LABS: Absolute Lymphocyte Count 1.02 X10^3/uL (0.83-4.51); Absolute Neutrophil Count 2.6 X10^3/uL (2.0-7.7); Basophil# 0.03 X10^3/uL; Basophil% 0.7 % (0-1); Eosinophil# 0.17 X10^3/uL; Eosinophils% 4.1 % (0-5); Hematocrit 38.7 % (40-54); Hemoglobin 12.9 g/dL (13.0-16.5); Lymphocyte # 1.02 X10^3/ul (4.0); Lymphocyte % 24.5 % (19-41); Mean Corp Hgb Conc 33.3 g/dL (32-36); Mean Corpuscular Hgb 30.7 pg (27.0-32.0); Mean Corpuscular Volume 92.1 fL (80-94); Mean Platelet Vol. 9.7 fl (6.2-12.0); Monocyte# 0.35 X10^3/uL; Monocyte% 8.4 % (0-10); NRBC Flagged by Analyzer 0 % (0-5); Neutrophil # 2.59 X10^3/uL (2.7-7.7); Neutrophil % 62.1 % (47-70); Platelet Count 157 K/mm3 (150-450); RBC Distribution Width CV 12.2 % (11.6-14.6); RBC Distribution Width SD 41.4 fl (35.1-43.9); White Blood Count 4.2 K/mm3 (4.4-11.0)
[2020-09-15 18:33] LABS: ALB/GLOB Ratio 1.3 RATIO (0.9-2.4); AST(SGOT) 27 U/L (15-37); Alanine Aminotransfer ALT/SGPT 37 U/L (16-61); Alkaline Phosphatase 96 U/L (45-117); Anion Gap 4 (5-15); BUN 17 mg/dL (7-18); BUN/Creat Ratio 16.8 RATIO (10-20); Calcium,Total 8.9 mg/dL (8.5-10.1); Chloride 98 mmol/L (98-107); Creatinine, Serum 1.01 mg/dL (0.70-1.30); EST Glomerular Filtration Rate 78 mL/min (>60); Est Glom Filt Rate - Afr Amer 94 mL/min (>60); Globulin 3.1 g/dL (2.2-4.2); Glucose 98 mg/dL (74-106); PSA,Total - Annual Screen 1.87 ng/mL (0.00-4.00); Potassium 4.2 mmol/L (3.5-5.1); Protein, Total 7.1 g/dL (6.4-8.2); Sodium Level 131 mmol/L (136-145); Thyroid Stim Hormone (TSH) 1.76 uIU/mL (0.358-3.74)
[2020-09-15 19:12] LABS: Hepatitis C Antibody Non-Reactive (Nonreactive); Vitamin D,25 Hydroxy 83.5 ng/mL
== END ==
PROVIDERS: Visit Provider Family Medicine Geriatric Medicine
DX: R53.83 Other fatigue (principal); Z12.5 Encounter for screening for malignant neoplasm of prostate; Z13.89 Encounter for screening for other disorder; E55.9 Vitamin D deficiency, unspecified
CPT/HCPCS: 36415; 80053; 82306; 84153; 84443; 85025; 86803; G0103

== ENCOUNTER → 2020-09-23 07:45 | Outpatient (CLI) | payer MEDICARE, OTHER, SELFPAY ==
[2020-01-07 09:28] VITALS: BMI 24.9
[2020-03-18 14:12] VITALS: BMI 23.9
--- NOTE | 2020-09-23 07:47 | AAVD_ITS ---
Reason For Study: AAA Without rupture Aorta Measurements Aorta Doppler Measurements Proximal aorta measures1.56 x 1.66cm. in cross- Peak systolic flow velocities within the proximal sectional axis. aorta measure 62.0 cm/sec. Proximal aorta measures1.66cm. in longitudinal Peak systolic flow velocities within the mid aorta axis. measure 75.4 cm/sec. Mid aorta measures1.95 x 1.89cm. in cross- Peak systolic flow velocities within the distal sectional axis. aorta measure 77.6 cm/sec. Mid aorta measures1.9cm. in longitudinal axis. Distal aorta measures1.56 x 1.59cm. in cross- sectional axis. Distal aorta measures1.52cm. in longitudinal axis. Left Iliac Artery Left iliac artery measures 0.86 x 0.88 cm. in the cross-sectional axis. Left iliac artery measures 0.83 cm. in the longitudinal axis. Peak systolic velocity in the left iliac artery measures 61.4 cm/sec. Right Iliac Artery Right iliac artery measures 0.83 x 0.89 cm. in the cross-sectional axis. Right iliac artery measures 0.82 cm. in the longitudinal axis. Peak systolic velocity in the right iliac artery measures 128.6 cm/sec. Procedure Aorta IVC Iliac vasculature or bypass grafts [id number]. Exam performed in department. Interpretation Summary The dimensions of the intra-abdominal aorta appear normal, without evidence of aneurysmal dilatation. The iliac arteries appear normal in size bilaterally. The intra-abdominal aorta and iliac arteries appear to be patent, demonstrating normal, pulsatile arterial flow. Ordering Physician: Brayan Pierre Referring Physician: Brayan Pierre Chi Performed By: Josey Villafana RVT and Student
== END ==
PROVIDERS: PCP Family Medicine Geriatric Medicine; Referring Provider Family Medicine Geriatric Medicine; Visit Provider Family Medicine Geriatric Medicine
DX: I71.4 Abdominal aortic aneurysm, without rupture (principal)
CPT/HCPCS: 93978

== ENCOUNTER → 2020-09-26 14:35 | Outpatient (CLI) | payer MEDICARE, OTHER, SELFPAY ==
[2020-01-07 09:28] VITALS: BMI 24.9
[2020-03-18 14:12] VITALS: BMI 23.9
[2020-09-26 15:18] LABS: Urine Sodium 66 mmol/L (Not Establ.)
[2020-09-26 15:47] LABS: Anion Gap 5 (5-15); BUN 20 mg/dL (7-18); BUN/Creat Ratio 17.9 RATIO (10-20); Chloride 97 mmol/L (98-107); Creatinine, Serum 1.12 mg/dL (0.70-1.30); EST Glomerular Filtration Rate 69 mL/min (>60); Est Glom Filt Rate - Afr Amer 83 mL/min (>60); Glucose 96 mg/dL (74-106); Potassium 4.1 mmol/L (3.5-5.1); Sodium Level 129 mmol/L (136-145)
[2020-09-26 16:27] LABS: Osmolality, Serum 271 mOsm/KG (280-301); Osmolality, Urine 426 mOsm/KG
== END ==
PROVIDERS: PCP Family Medicine Geriatric Medicine; Visit Provider Family Medicine Geriatric Medicine
DX: E87.1 Hypo-osmolality and hyponatremia (principal)
CPT/HCPCS: 36415; 80048; 83930; 83935; 84300

== ENCOUNTER → 2020-10-13 16:02 | Outpatient (CLI) | payer MEDICARE, OTHER, SELFPAY ==
[2020-01-07 09:28] VITALS: BMI 24.9
[2020-03-18 14:12] VITALS: BMI 23.9
[2020-10-13 17:45] LABS: Anion Gap 8 (5-15); BUN 14 mg/dL (7-18); BUN/Creat Ratio 15.1 RATIO (10-20); Calcium,Total 9.3 mg/dL (8.5-10.1); Chloride 95 mmol/L (98-107); Creatinine, Serum 0.93 mg/dL (0.70-1.30); EST Glomerular Filtration Rate 86 mL/min (>60); Est Glom Filt Rate - Afr Amer 104 mL/min (>60); Glucose 100 mg/dL (74-106); Sodium Level 130 mmol/L (136-145)
== END ==
PROVIDERS: PCP Family Medicine Geriatric Medicine; Visit Provider Family Medicine Geriatric Medicine
DX: E87.1 Hypo-osmolality and hyponatremia (principal)
CPT/HCPCS: 36415; 80048

== ENCOUNTER → 2020-12-12 15:13 | Outpatient (CLI) | payer MEDICARE, OTHER, SELFPAY ==
[2020-01-07 09:28] VITALS: BMI 24.9
[2020-03-18 14:12] VITALS: BMI 23.9
== END ==
PROVIDERS: PCP Family Medicine Geriatric Medicine; Referring Provider Family Medicine Geriatric Medicine; Visit Provider Family Medicine Geriatric Medicine
DX: R68.83 Chills (without fever) (principal)
CPT/HCPCS: 87633; 87635; C9803; U0005; U0003

== ENCOUNTER → 2020-12-16 10:33 | Outpatient (CLI) | payer MEDICARE, OTHER, SELFPAY ==
[2020-01-07 09:28] VITALS: BMI 24.9
[2020-03-18 14:12] VITALS: BMI 23.9
[2020-12-16 13:06] LABS: Absolute Lymphocyte Count 0.34 X10^3/uL (0.83-4.51); Absolute Neutrophil Count 7.5 X10^3/uL (2.0-7.7); Basophil# 0.01 X10^3/uL; Basophil% 0.1 % (0-1); Eosinophil# 0.01 X10^3/uL; Eosinophils% 0.1 % (0-5); Hematocrit 32.3 % (40-54); Hemoglobin 11.1 g/dL (13.0-16.5); Lymphocyte # 0.34 X10^3/ul (4.0); Lymphocyte % 3.9 % (19-41); Mean Corp Hgb Conc 34.4 g/dL (32-36); Mean Corpuscular Hgb 30.5 pg (27.0-32.0); Mean Corpuscular Volume 88.7 fL (80-94); Mean Platelet Vol. 8.9 fl (6.2-12.0); Monocyte# 0.76 X10^3/uL; Monocyte% 8.8 % (0-10); NRBC Flagged by Analyzer 0 % (0-5); Neutrophil # 7.46 X10^3/uL (2.7-7.7); Neutrophil % 86.8 % (47-70); POSITIVE DIFFERENTIAL YES; Platelet Count 252 K/mm3 (150-450); RBC Distribution Width CV 13.6 % (11.6-14.6); Red Blood Count 3.64 M/mm3 (4.6-6.2); White Blood Count 8.6 K/mm3 (4.4-11.0)
[2020-12-16 13:09] LABS: Differential Indicated SCAN CRITERIA MET
--- NOTE | 2020-12-16 13:14 | RAD_ITS ---
STUDY: X-RAY CHEST REASON FOR EXAM: Male, 70 years old. fever, short of breath TECHNIQUE: Frontal and lateral views of the chest. COMPARISON: 12/02/2019. FINDINGS: The lungs are clear and expanded. There is no demonstrated pleural abnormality. Normal size heart. Normal mediastinum and jaleel. Normal visualized pulmonary arteries. Normal visualized aortic arch and descending thoracic aorta. Normal visualized thoracic spine. Normal visualized ribs, clavicles, and shoulders. There is no demonstrated abnormality of the visualized soft tissue structures of the upper abdomen. RAD/Chest PA and Lateral IMPRESSION: Normal x-ray examination of the chest. Electronically Signed: Domenic Regalado MD at 17:16 EST , Service support ,
[2020-12-16 13:25] LABS: Anion Gap 10 (5-15); BUN 24 mg/dL (7-18); BUN/Creat Ratio 24.6 RATIO (10-20); Calcium,Total 9.1 mg/dL (8.5-10.1); Chloride 89 mmol/L (98-107); Creatinine, Serum 0.98 mg/dL (0.70-1.30); EST Glomerular Filtration Rate 81 mL/min (>60); Est Glom Filt Rate - Afr Amer 98 mL/min (>60); Glucose 128 mg/dL (74-106); Potassium 4.7 mmol/L (3.5-5.1); Sodium Level 119 mmol/L (136-145)
== END ==
PROVIDERS: PCP Family Medicine Geriatric Medicine; Referring Provider Family Medicine Geriatric Medicine; Visit Provider Family Medicine Geriatric Medicine
DX: J18.9 Pneumonia, unspecified organism (principal); N39.0 Urinary tract infection, site not specified
CPT/HCPCS: 36415; 71046; 80048; 85025; 87040; 87077; 87086; 87088; 87186; 87449

== ENCOUNTER 2020-12-18 15:08 | Inpatient (IN) | payer MEDICARE, OTHER, SELFPAY ==
[2020-01-07 09:28] VITALS: BMI 24.9
[2020-03-18 14:12] VITALS: BMI 23.9
[2020-12-18] VITALS (10 sets, daily range): BP systolic 123–177; BP diastolic 77–99; PULSE 73–97; RESP 14–20; TEMP 36.6–37.1; O2SAT 96–99; BMI 23.8; BMI 24.5; BMI 24.6
--- NOTE | 2020-12-18 15:14 | EKG12_ITS ---
Test Reason : FEVER Blood Pressure : / mmHG Vent. Rate : 087 BPM Atrial Rate : 087 BPM P-R Int : 164 ms QRS Dur : 092 ms QT Int : 348 ms P-R-T Axes : 053 038 034 degrees QTc Int : 418 ms Normal sinus rhythm Normal ECG Confirmed by ISRAEL LEIVA, MICHAEL ([id number]), newspaper managing editor FREDY RENNER ([id number]) on 12/22/2020 1:30:22 PM Referred By: Confirmed By:MICHAEL WOOD MD
--- NOTE | 2020-12-18 15:24 | ED.VIS.GEN ---
History of Present Illness Chief Complaint: Fever Informant: Patient, Significant Other Onset: Days - Onset of illness 8 days ago with fever 104.8. Cough started 4 days ago. Cough is essentially nonproductive Context: Sudden Onset Timing: Continuous Quality: Fever chills and cough Location: Generalized in respiratory Current Severity: Mild Maximum Severity: Moderate Worsened by: Nothing Relieved by: Nothing Associated Symptoms: Shaking chills today Narrative: Patient 70-year-old male who reports documented fever to 104.8 degrees starting 8 days ago. 4 days ago he developed a cough which is essentially nonproductive. He did have a negative Covid test on Saturday. Chest x-ray on Saturday was negative. He was treated for pneumonia. He lists allergy to clindamycin, penicillin, sulfa and tetracycline. He was sent to the emergency room because 2 of 2 blood cultures were positive for gram-positive cocci bacilli. Patient does report mild headache and nasal symptoms. He denies sore throat. He reports minimal dyspnea with exertion. He denies anginal or anginal equivalent symptoms. He denies GI symptoms. He denies symptoms. He does report myalgias and arthralgias. He has not noted a rash. He is presently on antibiotics and prednisone. 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 Status: Chronic (2) Hyponatremia Status: Acute Past Medical History - Allergies and Home Meds Allergies/Adverse Reactions: Allergies clindamycin Allergy (Verified 12/18/20 15:14) Other Penicillins Allergy (Verified 03/18/20 14:14) Rash Sulfa (Sulfonamide Antibiotics) Allergy (Verified 03/18/20 14:14) Hives tetracycline [Tetracycline] Allergy (Verified 03/18/20 14:14) Anaphylaxis Primary Care Physician: Brayan Pierre Chi, MD [Primary Care Provider] - Prior records reviewed: Yes - Stent placed 1 year ago Surgical History: rotator cuff repair, - - cervical spinal surgery Lives: Spouse/ Significant Other Smoking Status: Former smoker Alcohol: None Drugs: None - Family History Maternal Family History: Family History (Last Reviewed 12/18/20 @ 16:41 by Briseida Moreno NP, PRESS HELPER-C) Mother Cancer Ascending aortic aneurysm CVA (cerebral vascular accident) Brother Cancer Other Hypertension Family History: Reports: - - Leukemia Paternal Family History: Family History (Last Reviewed 12/18/20 @ 16:41 by Briseida Moreno NP, PRESS HELPER-C) Mother Cancer Ascending aortic aneurysm CVA (cerebral vascular accident) Brother Cancer Other Hypertension Family History: Reports: - - Denies known paternal medical history including cardiac history. Review of Systems General: Reports: Chills, Fever, Malaise, Sweats - Patient is presently diaphoretic.. Denies: Subjective, Weight loss Eyes: Denies: Visual changes - bilaterally, Blurred Vision - bilaterally, Diplopia ENT: Reports: Rhinorrhea. Denies: Bilateral ear pain, Sore throat Cardiovascular: Reports: Chest pain, Palpitations Respiratory: Reports: Dyspnea, Cough, Dyspnea on exertion. Denies: Orthopnea, Paroxysmal nocturnal dyspnea Gastrointestinal: Denies: Abdominal pain, Nausea, Vomiting, Diarrhea, Melena, Hematochezia Genitourinary: Denies: Dysuria, Hematuria, Frequency Musculoskeletal: Reports: Myalgias, Arthralgias. Denies: Neck pain, Back pain, Swelling, Extremity Pain, -, - Skin: Denies: Rash, Wounds Neurological: Reports: Weakness. Denies: Headache, Parasthesia Psych: Denies: Depression, Anxiety Endocrine: Denies: Polyuria, Polydipsia Hematologic: Denies: Easy bruising, Easy bleeding Physical Exam Vital Signs/Narrative: Vital Signs Temp Pulse Resp BP Pulse Ox 12/18/20 15:09 98.7 F 97 20 H 151/87 H 97 Inital Vital Signs reviewed: Yes General: Well nourished, Well developed, No Acute Distress Head: Normocephalic, Atraumatic Eyes: Perrl, EOMI. Negative for: Pale conjunctiva, Scleral icterus ENT: Moist mucous membranes, No rhinorrhea Neck: Supple, Nontender, No lymphadenopathy, No JVD Cardiovascular: Regular rate, Regular rhythm, No murmurs, Normal S1, Normal S2 Respiratory: No distress, Chest nontender, Rales - Rales noted right lower lobe with egophony and increased increased vocal fremitus.. Negative for: CTA bilaterally Abdomen: Soft, Nontender, Nondistended, Normal bowel sounds Back: Nontender, Normal Inspection Extremities: Nontender, No edema Skin: Normal color, No rash, Diaphoresis, No Trauma. Negative for: Cyanosis, Jaundice Neurological: Alert, Oriented x3, Cranial nerves II-XII grossly intact, Normal Strength, Normal Sensation Psychological: Normal affect, Normal Mood Diagnostic/Tx/Re-eval Chest X-Ray - ED: 1 View, Read by ED Physician, Normal, Heart, Lungs, Mediastinum, Bony Structures, No Acute Disease, - - Interpreted at 1632 Impressions Chest X-Ray 12/18/20 15:52 IMPRESSION: No definite acute or significant abnormality seen. Electronically Signed: Domenic Regalado MD at 16:42 EST , Service support , 12/18/20 15:52 Chest 1 View (Portable) [RAD] Stat 12/18/20 16:08 US Gallbladder [Gallbladder] [US] Stat Laboratory Results 12/18/20 12/18/20 12/18/20 15:30 15:30 15:30 WBC 10.0 RBC 3.63 L Hgb 11.2 L Hct 32.8 L MCV 90.4 MCH 30.9 MCHC 34.1 RDW Std Deviation 45.0 H RDW Coeff of George 13.7 Plt Count 281 MPV 8.6 Immature Gran % (Auto) 0.700 Neut % (Auto) 89.3 H Lymph % (Auto) 5.2 L Hodgeman % (Auto) 4.7 Eos % (Auto) 0.0 Baso % (Auto) 0.1 Absolute Neuts (auto) 8.9 H Absolute Lymphs (auto) 0.52 L Nucleated RBC % 0 Differential Comment SCANNED PT 14.7 INR 1.2 APTT 30.1 Sodium 126 L Potassium 4.4 Chloride 95 L Carbon Dioxide 21.0 Anion Gap 10 BUN 26 H Creatinine 1.01 Estim Creat Clear Calc 61.41 Est GFR (MDRD) Af Amer 94 Est GFR (MDRD) Non-Af 78 BUN/Creatinine Ratio 25.7 H Glucose 215 H Lactic Acid Calcium 8.8 Total Bilirubin 0.40 AST 133 H ALT 214 H Alkaline Phosphatase 219 H Total Protein 6.8 Albumin 2.5 L Globulin 4.3 H Albumin/Globulin Ratio 0.6 L Urine Color Urine Clarity Urine pH Ur Specific [place] Urine Protein Urine Glucose (UA) Urine Ketones Urine Occult Blood Urine Nitrite Urine Bilirubin Urine Urobilinogen Ur Leukocyte Esterase Urine RBC Urine WBC Ur Squamous Epith Cells Urine Bacteria Urine Mucus 02/14/21 02/14/21 15:30 15:55 WBC RBC Hgb Hct MCV MCH MCHC RDW Std Deviation RDW Coeff of George Plt Count MPV Immature Gran % (Auto) Neut % (Auto) Lymph % (Auto) Hod[place]eman % (Auto) Eos % (Auto) Baso % (Auto) Absolute Neuts (auto) Absolute Lymphs (auto) Nucleated RBC % Differential Comment PT INR APTT Sodium Potassium Chloride Carbon Dioxide Anion Gap BUN Creatinine Estim Creat Clear Calc Est GFR (MDRD) Af Amer Est GFR (MDRD) Non-Af BUN/Creatinine Ratio Glucose Lactic Acid 2.4 H* Calcium Total Bilirubin AST ALT Alkaline Phosphatase Total Protein Albumin Globulin Albumin/Globulin Ratio Urine Color Yellow Urine Clarity Clear Urine pH 7.0 Ur Specific [place] 1.005 Urine Protein 15 H Urine Glucose (UA) 250 H Urine Ketones Negative Urine Occult Blood 10 H Urine Nitrite Negative Urine Bilirubin Negative Urine Urobilinogen Normal Ur Leukocyte Esterase Negative Urine RBC 0 SEEN Urine WBC 0 SEEN Ur Squamous Epith Cells 0 SEEN Urine Bacteria 0 SEEN Urine Mucus 0 SEEN Ultrasound reading by radiologist is pending. The gallbladder appears normal. There is no gallstones. There may be slight dilatation of the biliary system. - EKG Initial EKG Interpretation: Sinus Rhythm - Normal sinus rhythm with a ventricular rate 87. PA interval is under 64 ms. QS duration 92 ms. QT duration 348 ms. [place] is normal. EKG is normal. - Medical Decision Making Clinically patient has right lower lobe pneumonia. Sepsis work-up was initiated. Because of his multiple allergies and knowing that he has gram-positive cocci bacillus in 2 out of 2 blood cultures he received vancomycin. She was informed he will need admission to the hospital. AST, ALT and alk phos are significantly elevated. Stat ultrasound of the gallbladder was ordered. And, 400 mg ciprofloxacin IV piggyback was ordered for gram-negative coverage. There is a port?6% incidence of elevated ALT and AST due to Zithromax. If there is no abnormality on the right upper quadrant ultrasound this is the most likely cause. - Critical Care Time Critical care time (excluding procedures): 30-74 minutes - 31 minutes, includes history, physical, review of outside records and past medical history, interpretation of laboratory results and initiation of therapy, Discussing w/Patient &/or Family/Environmental Property Assessor, Discussing w/Consultants, Arranging Admission or Transfer ED Disposition - Plan for ED Patient: Disposition: [facility] Diagnosis: Bacteremia due to Gram-positive bacteria, Lactic acidosis, Elevated liver transaminase level, Clinical right lower lobe pneumonia, Hyponatremia Referrals: Brayan Pierre Chi, MD [Primary Care Provider] -
--- NOTE | 2020-12-18 15:52 | RAD_ITS ---
STUDY: X-RAY CHEST REASON FOR EXAM: Male, 70 years old. Pt has been running a fever up to 104.8 off and on for approx one week. TECHNIQUE: Single AP portable view of the chest. COMPARISON: 12/16/2020. FINDINGS: The lungs are clear and expanded. There is no demonstrated pleural abnormality. Normal size heart. Normal mediastinum and jaleel. Normal visualized pulmonary arteries. Normal visualized aortic arch and descending thoracic aorta. There are diffuse degenerative changes of the visualized thoracic spine. Normal visualized ribs, clavicles, and shoulders. There is no demonstrated abnormality of the visualized soft tissue structures of the upper abdomen. RAD/Chest 1 View (Portable) IMPRESSION: No definite acute or significant abnormality seen. Electronically Signed: Domenic Regalado MD at 16:42 EST , Service support ,
[2020-12-18 15:53] LABS: Absolute Lymphocyte Count 0.52 X10^3/uL (0.83-4.51); Absolute Neutrophil Count 8.9 X10^3/uL (2.0-7.7); Basophil# 0.01 X10^3/uL; Basophil% 0.1 % (0-1); Hematocrit 32.8 % (40-54); Hemoglobin 11.2 g/dL (13.0-16.5); Lymphocyte # 0.52 X10^3/ul (4.0); Lymphocyte % 5.2 % (19-41); Mean Corp Hgb Conc 34.1 g/dL (32-36); Mean Corpuscular Hgb 30.9 pg (27.0-32.0); Mean Corpuscular Volume 90.4 fL (80-94); Mean Platelet Vol. 8.6 fl (6.2-12.0); Monocyte# 0.47 X10^3/uL; Monocyte% 4.7 % (0-10); NRBC Flagged by Analyzer 0 % (0-5); Neutrophil # 8.91 X10^3/uL (2.7-7.7); Neutrophil % 89.3 % (47-70); POSITIVE DIFFERENTIAL YES; Platelet Count 281 K/mm3 (150-450); RBC Distribution Width CV 13.7 % (11.6-14.6); Red Blood Count 3.63 M/mm3 (4.6-6.2)
[2020-12-18 15:58] LABS: Differential Indicated SCAN CRITERIA MET
[2020-12-18] MEDS: Vancomycin IV 1,000 MG/200 ML BAG 200 MG IV (16:01)
[2020-12-18] MEDS: 0.9% Normal Saline 1,000 ML 250 ML IV (16:01)
[2020-12-18 16:02] LABS: International Normalized Ratio 1.2; Prothrombin Time (Protime)PT. 14.7 SECONDS (11.7-14.9)
[2020-12-18 16:03] LABS: Partial Thromboplast Time 30.1 Seconds (24.1-36.2)
[2020-12-18 16:05] LABS: ALB/GLOB Ratio 0.6 RATIO (0.9-2.4); AST(SGOT) 133 U/L (15-37); Alanine Aminotransfer ALT/SGPT 214 U/L (16-61); Albumin, Serum 2.5 g/dL (3.2-5.0); Alkaline Phosphatase 219 U/L (45-117); Anion Gap 10 (5-15); BUN 26 mg/dL (7-18); BUN/Creat Ratio 25.7 RATIO (10-20); Calcium,Total 8.8 mg/dL (8.5-10.1); Chloride 95 mmol/L (98-107); Creatinine, Serum 1.01 mg/dL (0.70-1.30); EST Glomerular Filtration Rate 78 mL/min (>60); Est Glom Filt Rate - Afr Amer 94 mL/min (>60); Estimated Creatinine Clearance 61.41 ml/min; Globulin 4.3 g/dL (2.2-4.2); Glucose 215 mg/dL (74-106); Potassium 4.4 mmol/L (3.5-5.1); Protein, Total 6.8 g/dL (6.4-8.2); Sodium Level 126 mmol/L (136-145)
--- NOTE | 2020-12-18 16:08 | US_ITS ---
STUDY: ULTRASOUND GALLBLADDER REASON FOR VISIT: Male, 70 years old. Elevated liver enzymes. TECHNIQUE: Ultrasound evaluation of the gallbladder was performed with real-time and static abdi-scale imaging. TECHNICAL QUALITY: Limited. Examination limited by bowel gas. COMPARISON: CT scan 05/21/2014. FINDINGS: Gallbladder: Normal distended gallbladder. The gallbladder wall measures 2 mm. There is a negative sonographic Aldrich''s sign. There is no pericholecystic fluid. There are no gallstones. Common Bile Duct (C.B.D.): The common bile duct measures 7 mm. Incomplete evaluation of the liver shows a 10 cm mass in the right lobe which was not present on the previous exam and is consistent with neoplasm. Complete CT of the abdomen and pelvis with contrast is recommended. US/Gallbladder IMPRESSION: Normal gallbladder. Mildly dilated common bile duct. 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 Electronically Signed: Domenic Regalado MD at 18:10 EST , Service support ,
[2020-12-18 16:09] LABS: Bacteria 0 SEEN /hpf (None Seen); Color, Urine Yellow (Yellow); Glucose, Dipstick 250 mg/dl (Normal); Ketone-Dipstick Negative (Negative); Leukocyte Esterase-Dipstick Negative /ul (Negative); Mucous, Urine 0 SEEN /hpf (<or=2+); Nitrite-Dipstick Negative (Negative); Occult Blood-Urine 10 /ul (Negative); Protein-Dipstick 15 mg/dl (Negative); Red Blood Cells-Urine 0 SEEN /hpf (0-5); Specific Gravity, Urine 1.005 (1.002-1.030); Squamous Epithelial Cells - UA 0 SEEN /hpf (0-5); Urine Bilirubin Dipstick Negative (Negative); Urine Clarity Clear (Clear); Urine Urobilinogen Normal (Normal); White Blood Cells 0 SEEN /hpf (0-5)
[2020-12-18 16:17] LABS: Lactic Acid 2.4 mmol/L (0.4-1.9)
[2020-12-18 16:23] LABS: Differential Comment SCANNED
--- NOTE | 2020-12-18 16:33 | HP.PCM_ITS ---
<Briseida Moreno [employer] - Last Filed: 12/18/20 16:57> Problem List (1) Atherosclerosis of coronary artery without angina pectoris Status: Chronic Qualifiers: Coronary Disease-Associated Artery/Lesion type: sioux artery Andreafski vs. transplanted heart: sioux heart Qualified Code(s): I25.10 - Atherosclerotic heart disease of sioux coronary artery without angina pectoris (2) History of coronary artery stent placement Status: Chronic Comment: PCI-NATALIO mid RCA with a 3.0 x 16 Promus Synergy stent 12/18/2019 (3) Hyponatremia Status: Acute (4) HTN (hypertension) Status: Chronic (5) HLD (hyperlipidemia) Status: Chronic (6) GERD (gastroesophageal reflux disease) Status: Chronic History of Present Illness Date of Admission: 12/18/20 Chief Complaint: Fever, fatigue. The patient is a 70 year old M who presents to emergency room due to fever, fatigue. Notified by primary care provider of positive blood cultures. Patient states over the past week he has had fever up to 104.8 Fahrenheit. He denies cough, shortness of breath. States he has been sleeping a lot and has felt very fatigued. Denies urinary symptoms. Denies abdominal pain. States he had diarrhea for 1 day over the past week which has resolved. Denies nausea, vomiting. Patient was started on azithromycin and cefdinir on 12/16/2020 by PCP and states he has not had fever since that time. He was also started on prednisone at that time and patient states he is unsure why. Patient states he receives routine steroid injections by primary care provider for ongoing neck pain. He states he had cervical fusion approximately 5 years ago and has had ongoing mobility issues and muscle tension. He denies other associated symptoms or complaints. Denies URI symptoms. Denies loss of taste or smell. Covid test 2 days ago negative. He has a past medical history of CAD with history of PCI/NATALIO to mid RCA 12/18/2019, hypertension, hyperlipidemia, GERD. Past Medical History Past Medical History (Chronic Problems): Chronic Problems (Last Reviewed 03/18/20 @ 14:[address] Lyle Albert MD) HTN (hypertension) (Chronic) HLD (hyperlipidemia) (Chronic) GERD (gastroesophageal reflux disease) (Chronic) Atherosclerosis of coronary artery without angina pectoris (Chronic) History of coronary artery stent placement (Chronic 12/18/19) PCI-NATALIO mid RCA with a 3.0 x 16 Promus Synergy stent 12/18/2019 Hyponatremia (Chronic) Medical History: Medical History (Last Reviewed 03/18/20 @ 14:[address] Lyle Albert MD) Atherosclerosis of coronary artery without angina pectoris (Chronic) I25.10 Hyponatremia (Chronic) E87.1 GERD (gastroesophageal reflux disease) K21.9 Squamous cell carcinoma Allergies clindamycin Allergy (Verified 12/18/20 15:14) Other Penicillins Allergy (Verified 03/18/20 14:14) Rash Sulfa (Sulfonamide Antibiotics) Allergy (Verified 03/18/20 14:14) Hives tetracycline [Tetracycline] Allergy (Verified 03/18/20 14:14) Anaphylaxis Home Medications: Ambulatory Orders Medication Instructions Recorded latanoprost 0.005 % eye drops 1 drp OPHTHALMIC DAILY 12/01/19 lorazepam 1 mg tablet 1 mg PO BID PRN 12/01/19 omeprazole 20 mg tablet,delayed 20 mg PO DAILY 12/01/19 release fluconazole 200 mg tablet 400 mg PO .weekly tab 12/02/19 aspirin 81 mg tablet,delayed 81 mg PO DAILY 12/16/19 release Nitroglycerin (INPATIENT USE) 0.4 mg SUBLINGUAL Q5M PRN #25 12/18/19 [Nitrostat] tab.subl atorvastatin 80 mg tablet 80 mg PO QHS #30 tab 11/11/20 clopidogrel 75 mg tablet 75 mg PO DAILY #30 tab 11/11/20 lisinopril 5 mg tablet 5 mg PO DAILY #30 tab 11/11/20 metoprolol tartrate 25 mg tablet 12.5 mg PO BID #30 tab 11/11/20 Azithromycin [Zithromax Z-Panchito] 250 mg PO UD 12/18/20 Doxepin HCl [Sinequan] 10 mg PO PRN PRN 12/18/20 Surgical History: Surgical History (Last Reviewed 12/18/20 @ 16:41 by Briseida Moreno NP, [employer]) History of coronary artery stent placement (Chronic) Onset Date: 12/18/19 Z95.5 PCI-NATALIO mid RCA with a 3.0 x 16 Promus Synergy stent 12/18/2019 H/O cervical spine surgery Z98.890 History of repair of rotator cuff Z98.890 left Surgical History: rotator cuff repair, - - cervical spinal surgery Psychiatric History: No pertinent psych hx Lives: Spouse/ Significant Other Smoking Status: Former smoker Alcohol: Occasional Drugs: None - *Family History Maternal Family History: Family History (Last Reviewed 12/18/20 @ 16:41 by Briseida Moreno NP, [employer]-C) Mother Cancer Ascending aortic aneurysm CVA (cerebral vascular accident) Brother Cancer Other Hypertension History Items: - - Leukemia Paternal Family History: Family History (Last Reviewed 12/18/20 @ 16:41 by Briseida Moreno NP, [employer]) Mother Cancer Ascending aortic aneurysm CVA (cerebral vascular accident) Brother Cancer Other Hypertension History Items: - - Denies known paternal medical history including cardiac h istory. Review of Systems Constitutional: Reports: Chills, Fever, Malaise, Fatigue HEENT: Denies: Head Aches, Sinus Congestion, Sinus Drainage Cardiovascular: Denies: Chest Pain, Palpitations Respiratory: Denies: Cough, Shortness of breath at rest, Sputum production Gastrointestinal: Denies: Abdominal Pain, Nausea, Vomiting Genitourinary: Denies: Dysuria Musculoskeletal: Denies: Joint Pain, Joint Tenderness Skin: Denies: Rash, Wounds Neurological: Denies: Numbness, Tingling, Focal weakness Psychiatric: Denies: Anxiety, Depression, Homicidal Ideations, Suicidal Ideations Hematologic/ Lymphatic: Denies: Easy Bruising, Easy Bleeding VTE Information - Inpt Only VTE Present on Admission: No VTE Mechan Device Prophylaxis: None VTE Pharm Prophylaxis ordered?: Yes Patient Problems: Active and Suspected Problems (Last Reviewed 03/18/20 @ 14:[address] Lyle Albert MD) Bacteremia due to Gram-positive bacteria (Acute) Lactic acidosis (Acute) Elevated liver transaminase level (Acute) - Physical Exam Vitals/I&O's: Vital Signs Temp Pulse Resp BP Pulse Ox 97.8 F 82 19 H 149/77 H 98 12/18/20 16:14 12/18/20 16:14 12/18/20 16:14 12/18/20 16:14 12/18/20 16:14 Oxygen Delivery Method Room Air Weight: 148 lb Body Mass Index (BMI) 23.8 General: Alert, Oriented x3, Cooperative HEENT: Atraumatic, PERRLA, EOMI, Normocephalic Neck: Supple, No JVD, Negative Carotid Bruits Lungs: Clear to auscultation, Normal air movement Cardiovascular: Regular rate, No murmurs Abdomen: Bowel Sounds Present, Soft, Non Tender, Non-Distended Extremities: No clubbing, No cyanosis, No edema, Capillary Refill Less than 3 Seconds Skin: No rashes, No breakdown Musculoskeletal: No Tenderness to Palpation of Joints or Extremities Neurological: Cranial nerves II-XII grossly intact, Neuro grossly intact Psych/Mental Status: Normal Affect, Appropriate Laboratory Results 12/18/20 15:30: WBC 10.0, RBC 3.63 L, Hgb 11.2 L, Hct 32.8 L, MCV 90.4, MCH 30.9, MCHC 34.1, RDW Std Deviation 45.0 H, RDW Coeff of George 13.7, Plt Count 281, MPV 8.6, Immature Gran % (Auto) 0.700, Neut % (Auto) 89.3 H, Lymph % (Auto) 5.2 L, Izard % (Auto) 4.7, Eos % (Auto) 0.0, Baso % (Auto) 0.1, Absolute Neuts (auto) 8.9 H, Absolute Lymphs (auto) 0.52 L, Nucleated RBC % 0, Differential Comment SCANNED 12/18/20 15:30: PT 14.7, INR 1.2, APTT 30.1 12/18/20 15:30: Sodium 126 L, Potassium 4.4, Chloride 95 L, Carbon Dioxide 21.0, Anion Gap 10, BUN 26 H, Creatinine 1.01, Estim Creat Clear Calc 61.41, Est GFR (MDRD) Af Amer 94, Est GFR (MDRD) Non-Af 78, BUN/Creatinine Ratio 25.7 H, Glucos e 215 H, Calcium 8.8, Total Bilirubin 0.40, AST 133 H, ALT 214 H, Alkaline Phosphatase 219 H, Total Protein 6.8, Albumin 2.5 L, Globulin 4.3 H, Albumin/Globulin Ratio 0.6 L 12/18/20 15:30: Lactic Acid 2.4 H* 12/18/20 15:55: Urine Color Yellow, Urine Clarity Clear, Urine pH 7.0, Ur Specific Hood 1.005, Urine Protein 15 H, Urine Glucose (UA) 250 H, Urine Ketones Negative, Urine Occult Blood 10 H, Urine Nitrite Negative, Urine Bilirubin Negative, Urine Urobilinogen Normal, Ur Leukocyte Esterase Negative, Urine RBC 0 SEEN, Urine WBC 0 SEEN, Ur Squamous Epith Cells 0 SEEN, Urine Bacteria 0 SEEN, Urine Mucus 0 SEEN Current Medications Sodium Chloride () 1,000 mls @ 250 mls/hr IV .Q4H ELDA Last Admin: 12/18/20 16:01 Dose: 250 mls/hr Documented by: Ciprofloxacin (Cipro) 400 mg in 200 mls @ 200 mls/hr IV X1 ONE Stop: 12/18/20 17:17 Assessment/Plan All Active Problems (Last Reviewed 03/18/20 @ 14:[address] Lyle Albert MD) Bacteremia due to Gram-positive bacteria (Acute) Lactic acidosis (Acute) Elevated liver transaminase level (Acute) Liver mass (Acute) Abnormal nuclear stress test (Resolved) Chest pain (Resolved) 1. Severe sepsis secondary to GPC bacteremia-unclear etiology. Initiated on azithromycin and cefdinir 12/16/20. Blood cultures preliminary growing gram-posit maddison cocci. Urine culture 12/16/2020 grew mixed gram-positive organisms less than 1000 colony count. Covid test negative 12/12/20. Will repeat PCR. Continue IV Cipro and IV Vanc. Repeat cultures drawn in ER. IV fluids per sepsis protocol. Obtain echocardiogram. ID consult. Gallbladder ultrasound pending. 2. Hyponatremia-improved from prior lab on Saturday. Suspect secondary to hypovolemia. IV fluids, trend BMP. 3. Transaminitis/elevated alk phos-unclear etiology. Patient denies abdominal pain. Stat gallbladder ultrasound ordered in ED, pending. 4. Hyperglycemia-suspect secondary to recent steroid use. 5. CAD with history of PCI/NATALIO to mid RCA 12/18/2019-continue aspirin, statin, Plavix, metoprolol, lisinopril. 6. Hypertension-continue lisinopril, metoprolol. 7. Hyperlipidemia-continue statin. 8. GERD-continue PPI. 9. Chronic normocytic anemia-mild, stable. DVT prophylaxis- Lovenox sc CODE STATUS: Discussed in length with patient and patient's who is healthcare power of mergers and acquisitions attorney in length including differences between full code, DNR CCA and DNR CC. Patient requests full code status. This patient was seen by ANTHONY Obrien under the supervision of Dr. Nancy diaz. <Roseann Rivera - Last Filed: 12/18/20 19:38> Problem List (1) Liver mass Status: Acute (2) HTN (hypertension) Status: Chronic (3) HLD (hyperlipidemia) Status: Chronic (4) GERD (gastroesophageal reflux disease) Status: Chronic (5) Bacteremia due to Gram-positive bacteria Status: Acute (6) Lactic acidosis Status: Acute (7) Elevated liver transaminase level Status: Acute (8) Atherosclerosis of coronary artery without angina pectoris Status: Chronic Qualifiers: Coronary Disease-Associated Artery/Lesion type: sioux artery Andreafski vs. transplanted heart: sioux heart Qualified Code(s): I25.10 - Atherosclerotic heart disease of sioux coronary artery without angina pectoris (9) History of coronary artery stent placement Status: Chronic Comment: PCI-NATALIO mid RCA with a 3.0 x 16 Promus Synergy stent 12/18/2019 (10) Hyponatremia Status: Chronic History of Present Illness Mr. Johnston is a 70 year old WM with a PMH of CAD status post PCI, HTN, HPL, and GERD who presented to the emergency department on 12/18/2020 to being notified by his primary care provider that he had positive blood cultures. The patient reports that he had been feeling poorly for approximately a week or so and was undergoing outpatient work-up by his primary care physician. He had multiple tests and reports that he had a T-max of 104.8 earlier this week. He denied fever, shortness of breath, chest pain, sputum production, chills, nausea, vomiting, diarrhea, constipation, tingling, numbness, or weakness. He does state that he is just had general malaise and had increased fatigue. He has been undergoing Kenalog, Norflex and Toradol injections weekly by his primary care physician for chronic neck pain that he has had since he had a fusion. He has been taking cefdinir and azithromycin since Saturday to 10/23/2021. He had a negative Covid rapid test 2 days ago. Vital signs in the emergency department are overall unremarkable other than elevated blood pressure with systolics from 150-170. His CBC showed a mild anemia with a hemoglobin of 11.2 appears that this is relatively stable for him over the last approximate year, coag studies were unremarkable, his CMP showed hyponatremia with a sodium of 126 and it appears that his baseline is 130-135 (this has been a chronic issue for him since 2013), a mildly elevated BUN at 26 with a normal creatinine, a mildly elevated lactic acid at 2.4, elevated transaminases with an alk phos of 219, an ALT of 214, and an AST of 133. With his positive cultures in the emergency department he was given vancomycin. I suspect based on the cultures being gram-positive and change that this is going to be a staph species. 2 of 2 cultures from different sites were positive for the same organisms though, so I suspect this is a real infection. His transaminases were overall markedly elevated when compared to previous studies and therefore liver ultrasound was obtained in the emergency department. The ultrasound showed a normal gallbladder, a mildly dilated common bile duct and a probable neoplastic liver mass that was [address] in size[address] A [address] with IV and p.o. contrast of the abdomen and pelvis was ordered and is pending at the time of this dictation. The patient was admitted to medical surgical unit for antibiotics, consultation to infectious disease and hematology oncology. Past Medical History Medical History: Medical History (Last Reviewed 12/18/20 @ 19:[address] Roseann Rivera DO) Atherosclerosis of coronary artery without angina pectoris (Chronic) I25.10 Hyponatremia (Chronic) E87.1 GERD (gastroesophageal reflux disease) K21.9 Squamous cell carcinoma Allergies clindamycin Allergy (Verified 12/18/20 15:14) Other Penicillins Allergy (Verified 03/18/20 14:14) Rash Sulfa (Sulfonamide Antibiotics) Allergy (Verified 03/18/20 14:14) Hives tetracycline [Tetracycline] Allergy (Verified 03/18/20 14:14) Anaphylaxis Surgical History: Surgical History (Last Reviewed 12/18/20 @ 19:[address] Roseann Rivera DO) History of coronary artery stent placement (Chronic) Onset Date: 12/18/19 Z95.5 PCI-NATALIO mid RCA with a 3.0 x 16 Promus Synergy stent 12/18/2019 H/O cervical spine surgery Z98.890 History of repair of rotator cuff Z98.890 left - *Family History Maternal Family History: Family History (Last Reviewed 12/18/20 @ 19:[address] Roseann Rivera DO) Mother Cancer Ascending aortic aneurysm CVA (cerebral vascular accident) Brother Cancer Other Hypertension Paternal Family History: Family History (Last Reviewed 12/18/20 @ 19:[address] Roseann Rivera DO) Mother Cancer Ascending aortic aneurysm CVA (cerebral vascular accident) Brother Cancer Other Hypertension Review of Systems Constitutional: Reports: Chills, Fever, Malaise, Weakness, Fatigue. Denies: Anorexia, Weight Change Eyes: Denies: Blurred vision, Cataracts, Conjunctivae Inflammation, Double vision, Drainage, Eyelid Inflammation, Pain, Redness, Vision Change HEENT: Denies: Difficulty Hearing, Dysphasia, Ear Pain, Eye Pain, Head Aches, Nasal bleeding, Nasal Congestion, Post Nasal Drip, Sinus Congestion, Sinus Drainage, Sore Throat, Visual Changes Cardiovascular: Denies: Chest Pain, Claudication, Chest Pressure, Chest Tightness, Edema, Heaviness, Light Headedness, Orthopnea, Palpitations, Paroxysmal Noc. Dyspnea, Syncope Respiratory: Denies: Cough, Hemoptysis, Pleuritic Pain, Shortness of Breath, Shortness of breath upon exertion, Sputum production, Wheezing Gastrointestinal: Denies: Abdominal Pain, Constipation, Diarrhea, Dyspepsia, Hematemesis, Hematochezia, Nausea, Melena, Vomiting Genitourinary: Denies: Dysuria, Frequency, Hematuria, Hesitancy, Incontinence, Nocturia, Retention, Urgency Musculoskeletal: Reports: Neck Pain - Chronic. Denies: Back Pain, Joint Pain, Joint stiffness, Joint swelling, Muscle pain Skin: Denies: Dryness, Jaundice, Lesions, Pruritis, Rash, Skin Changes, Wounds Neurological: Denies: Balance problems, Blurred vision, Double vision, Change in Speech, Slurred speech, Confusion, Difficulty swallowing, Focal weakness, Headaches, Incoordination, Numbness, Tingling, Tremor, Seizures Psychiatric: Denies: Anxiety, Depression Endocrine: Denies: Change in Body Habitus, Heat/ Cold Intolerance, Polydipsia, Polyuria Hematologic/ Lymphatic: Denies: Adenopathy, Anemia, Easy Bruising, Easy Bleeding, Petechiae, Purpura - Physical Exam Vitals/I&O's: Vital Signs Temp Pulse Resp BP Pulse Ox 98.0 F 84 20 H 171/99 H 98 12/18/20 19:00 12/18/20 19:00 12/18/20 19:00 12/18/20 19:00 12/18/20 19:00 Oxygen Delivery Method Room Air Weight: 67.132 kg Body Mass Index (BMI) 23.8 Intake and Output for Last 24 Hours 12/16/20 12/17/20 12/18/20 23:59 23:59 23:59 Intake Total 400 / 400 Balance 400 / 400 General: Alert, Oriented x3, Cooperative, No apparent distress, Well developed, Well nourished, - - Very pleasant older white male, sitting up in bed, appears comfortable, at bedside HEENT: Atraumatic, PERRLA, EOMI, Normocephalic, EAC Clear Oral: Moist Mucosa, No Gingival or Mucosal Lesions/ Ulcerations, - - Fair dentition, no infection noted Neck: Supple, No JVD, Negative Carotid Bruits, Negative Hepatojugular Reflux, No Nodes, No Nuchal Rigidity, Trachea Midline, Thyroid Normal Size and Texture Lungs: Clear to auscultation, Normal air movement, No rhonchi, No wheeze, No rales Cardiovascular: Regular rate, Regular Rhythm, Normal S1, Normal S2, No murmurs, No Ectopic Activity, No rub noted, No Gallop Abdomen: Bowel Sounds Present, Soft, Non Tender, Non-Distended, No Hepato- splenomegaly Extremities: No clubbing, No cyanosis, No edema, Capillary Refill Less than 3 Seconds, Peripheral Pulses Normal Skin: No rashes, No breakdown Musculoskeletal: No Tenderness to Palpation of Joints or Extremities, No Muscle Wasting, Arthritic Changes Lymphatic: No Cervical, Supraclavicular, or Inguinal Adenopathy Neurological: Cranial nerves II-XII grossly intact, Deep Tendon Reflexes 2+/4 and Symmetrical, Neuro grossly intact, Muscle tone normal, Sensory exam intact to light touch and pain, Coordination normal Laboratory Results 12/18/20 15:30: WBC 10.0, RBC 3.63 L, Hgb 11.2 L, Hct 32.8 L, MCV 90.4, MCH 30.9, MCHC 34.1, RDW Std Deviation 45.0 H, RDW Coeff of George 13.7, Plt Count 281, MPV 8.6, Immature Gran % (Auto) 0.700, Neut % (Auto) 89.3 H, Lymph % (Auto) 5.2 L, Izard % (Auto) 4.7, Eos % (Auto) 0.0, Baso % (Auto) 0.1, Absolute Neuts (auto) 8.9 H, Absolute Lymphs (auto) 0.52 L, Nucleated RBC % 0, Differential Comment SCANNED 12/18/20 15:30: PT 14.7, INR 1.2, APTT 30.1 12/18/20 15:30: Sodium 126 L, Potassium 4.4, Chloride 95 L, Carbon Dioxide 21.0, Anion Gap 10, BUN 26 H, Creatinine 1.01, Estim Creat Clear Calc 61.41, Est GFR (MDRD) Af Amer 94, Est GFR (MDRD) Non-Af 78, BUN/Creatinine Ratio 25.7 H, Glucose 215 H, Calcium 8.8, Total Bilirubin 0.40, AST 133 H, ALT 214 H, Alkaline Phosphatase 219 H, Total Protein 6.8, Albumin 2.5 L, Globulin 4.3 H, Albumin/Globulin Ratio 0.6 L 12/18/20 15:30: Lactic Acid 2.4 H* 12/18/20 15:55: Urine Color Yellow, Urine Clarity Clear, Urine pH 7.0, Ur Specific Hood 1.005, Urine Protein 15 H, Urine Glucose (UA) 250 H, Urine Ketones Negative, Urine Occult Blood 10 H, Urine Nitrite Negative, Urine Bilirubin Negative, Urine Urobilinogen Normal, Ur Leukocyte Esterase Negative, Urine RBC 0 SEEN, Urine WBC 0 SEEN, Ur Squamous Epith Cells 0 SEEN, Urine Bacte rodger 0 SEEN, Urine Mucus 0 SEEN 12/18/20 17:21: COVID-19 (RAJAN) Pending Current Medications Sodium Chloride () 1,000 mls @ 250 mls/hr IV .Q4H ELDA Last Admin: 12/18/20 16:01 Dose: 250 mls/hr Documented by: Iopamidol (Contrast Allergy Safety Check) 0 ml IV X1 [facility] Assessment/Plan ASSESSMENT Severe sepsis secondary to gram-positive bacteremia -Source uncertain at this time-? Related to mass versus recent injections Mild lactic acidosis Liver mass Hyponatremia Transaminitis Mildly dilated common bile duct Hyperglycemia CAD status post PCI in 2019 HTN HPL GERD Chronic anemia PLAN -Continue vancomycin and cefepime -Echocardiogram -Would recommend repeat blood cultures on 12/20/2020 -Consult infectious disease -Fluid restriction of 1500 cc daily -CT with IV and p.o. contrast of the abdomen and pelvis -Will likely need a biopsy of this mass -Would be able to stop Plavix as his PCI was 1 year ago today -Check AFP, CA 19-9, CEA -Consult oncology -Continue home medications -Lovenox for DVT prophylaxis -Full code Inpatient E&M: 04727 Init Hosp L3
[2020-12-18] MEDS: Ciprofloxacin 400 MG/200 ML BAG 200 MG IV (17:30)
--- NOTE | 2020-12-18 18:57 | CT_ITS ---
STUDY: CT ABDOMEN AND PELVIS WITH CONTRAST REASON FOR EXAM: Male, 70 years old. FEVER X 1 WEEK, FATIGUE, + BLOOD CULTURES, CONCERN FOR HEPATIC NEOPLASM ON US EARLIER, HX APPY, CAD, HTN, SQUAMOUS CELL CA RADIATION DOSAGE (If Supplied By Facility): CTDIvol = ( 12.57 ) mGy, DLP = ( 990.70 ) mGycm TECHNIQUE: Transaxial images were obtained from the dome of the diaphragm to the symphysis pubis with oral contrast. Oral and amp; IV Gastrografin and amp; 100mL Isovue-370 was administered. Sagittal and coronal images were reconstructed. Individualized dose optimization techniques were used for this CT. COMPARISON: Previous CT scan 05/21/2014, previous ultrasound earlier today. FINDINGS: The visualized lung bases are unremarkable. The visualized portions of the heart are within normal limits. Confirmation of abnormal liver showing a multiloculated mass in the posterior dome of the right lobe. Greatest dimension approximately 9.8 cm. Mildly enhancing wall and septations. Findings could be either abscess or neoplasm. Biopsy recommended. Also noted on this study is marked splenomegaly. Spleen measures 15.9 x 12.6 x 16.5 cm. Enlargement of the portal vein is seen, measuring 3 cm across. Splenic vein also markedly enlarged. Grossly negative gallbladder and pancreas. Unremarkable adrenal glands and kidneys. Normal visualized stomach. Normal small intestine. There are multiple colonic diverticula consistent with diverticulosis. There is non-visualization of the appendix. There is diffuse atherosclerotic calcification of the abdominal aorta, without a demonstrated aneurysm. Normal inferior vena cava. Normal retroperitoneum. Normal urinary bladder. Normal abdominal wall. There are diffuse degenerative changes of the visualized lumbar spine. CT/Abdomen/Pelvis WITH Contrast IMPRESSION: Confirmation of 9.8 cm multiloculated mass in the posterior right hepatic lobe. This could be abscess or neoplasm. Biopsy recommended. Marked splenomegaly. Electronically Signed: Domenic Regalado MD at 21:53 EST , Service support ,
[2020-12-18 19:46] LABS: Reflex Lactate? Y
--- NOTE | 2020-12-18 20:04 | ECHOD_ITS ---
Reason For Study: Bacteremia Procedure This was a 2D Doppler, Color Flow transthoracic echocardiogram. Myocardial strain analysis was performed in this exam to aid in the assessment of cardiac function. The study was technically difficult. Exam performed portable in patient room. Left Ventricle Normal LV size. Sigmoid septum. Left ventricular systolic function is normal. The estimated ejection fraction is 65 %. The global longitudinal strain = -22 % (normal). No evidence for diastolic dysfunction. Right Ventricle Normal RV size. Normal systolic function. Atria Normal left atrium. Normal right atrium. No doppler evidence for ASD. Mitral Valve There is no mitral annular calcification. Mild diffuse mitral valve thickening. The mitral valve chordae are thickened and/or calcified. Mild (1+) mitral valve insufficiency. Tricuspid Valve Normal tricuspid valve. Trivial tricuspid valve insufficiency. Right ventricular systolic pressure estimated to be 29 mmHg. Aortic Valve Trisinus/trileaflet aortic valve. Normal aortic valve. Pulmonic Valve The pulmonic valve is not well visualized. Great Vessels The aortic root is not well visualized. Pericardium/Pleural No pericardial effusion. MMode/2D Measurements & Calculations LVIDd: 3.9 cm IVSd: 1.0 cm LA dimension: 3.5 cm LVIDs: 2.2 cm LVPWd: 1.2 cm RVDd: 3.3 cm FS: 43.7 % LAV(MOD-bp): 29.1 ml LA A4 area: 13.4 cm2 RA A4 area: 12.8 cm2 LAV(MOD-bp) Indexed: 16.4 ml/m2 LAV(MOD-sp2): 23.7 ml LAV(MOD-sp4): 30.7 ml Time Measurements MV dec time: 0.20 sec Doppler Measurements & Calculations MV E max rafael: 71.2 cm/sec Lat Peak E' Rafael: 10.1 cm/sec Med Peak E' Rafael: 7.3 cm/sec MV A max rafael: 86.8 cm/sec E/E' lat: 7.0 E/E' med: 9.8 MV E/A: 0.82 MV V2 max: 86.7 cm/sec MV P1/2t max rafael: 74.4 cm/sec Ao V2 max: 101.4 cm/sec MV max P.0 mmHg MV P1/2t: 49.8 msec Ao max P.1 mmHg MV V2 mean: 53.3 cm/sec MV dec slope: 437.4 cm/sec2 MV mean P.3 mmHg MVA(P1/2t): 4.4 cm2 MV V2 VTI: 17.6 cm LV V1 max: 93.8 cm/sec PA V2 max: 75.1 cm/sec TR max raafel: 252.4 cm/sec LV V1 max P.5 mmHg TR max P.5 mmHg Interpretation Summary The study was technically difficult. Left ventricular systolic function is normal. The estimated ejection fraction is 65 %. The global longitudinal strain = -22 % (normal). Sigmoid septum. Mild diffuse mitral valve thickening. The mitral valve chordae are thickened and/or calcified. Mild (1+) mitral valve insufficiency. Trivial tricuspid valve insufficiency. Right ventricular systolic pressure estimated to be 29 mmHg. No evidence for diastolic dysfunction. Ordering Physician: Briseida Moreno Referring Physician: Brayan Pierre Chi Performed By: Jean Pierre Jordan RCS
--- NOTE | 2020-12-18 20:51 | PCM.RX.CS ---
Consult Pharmacy has been consulted to manage selected antiobiotic: Vancomycin Type of Consult: New start Suspected Infection: Sepsis Labs: Sodium 126 mmol/L (136-145) L 12/18/20 15:30 Potassium 4.4 mmol/L (3.5-5.1) 12/18/20 15:30 Chloride 95 mmol/L (98-107) L 12/18/20 15:30 Carbon Dioxide 21.0 mmol/L (21.0-32.0) 12/18/20 15:30 Anion Gap 10 (5-15) 12/18/20 15:30 BUN 26 mg/dL (7-18) H 12/18/20 15:30 Creatinine 1.01 mg/dL (0.70-1.30) 12/18/20 15:30 Est GFR (MDRD) Af Amer 94 mL/min (>60) 12/18/20 15:30 Est GFR (MDRD) Non-Af 78 mL/min (>60) 12/18/20 15:30 BUN/Creatinine Ratio 25.7 RATIO (10-20) H 12/18/20 15:30 Glucose 215 mg/dL (74-106) H 12/18/20 15:30 Weight used for dosin kg Estimated Creatinine Clearance: 61.4 Goal Trough: 15-20 mcg/mL Pharmacy Plan for Drug Dosing: Pharmacy Service will continue to monitor and adjust dosing as required. Medications Vancomycin HCl 750 mg/ Sodium (Chloride) 265 mls @ 250 mls/hr IV Q12H ELDA Discontinued Medications Vancomycin HCl (Vancomycin) 1,000 mg in 200 mls @ 200 mls/hr IV NOW STA Stop: 12/18/20 16:16 Last Admin: 12/18/20 17:15 Dose: Infused Documented by: Follow-Up Labs: Trough Vancomycin Labs to be done on [date and time ordered]: 12/20 @ 9798
[2020-12-18 21:03] LABS: Lactic Acid 2.2 mmol/L (0.4-1.9)
[2020-12-18] MEDS: Metoprolol Tartrate 25 MG Tablet 12.5 MG PO (21:53)
[2020-12-18] MEDS: 0.9% Normal Saline 1,000 ML 125 ML IV (22:30)
[2020-12-19] VITALS (11 sets, daily range): BP systolic 132–162; BP diastolic 73–91; PULSE 66–87; RESP 14–18; TEMP 36.7–38.7; O2SAT 97–98
[2020-12-19] MEDS: metroNIDAZOLE 500 MG/100 ML BAG 100 MG IV ×2 (00:12→07:02)
--- NOTE | 2020-12-19 06:51 | NURSING ---
12/18/2020 220 Antibiotic hung late d/t no IV pumps available on floor. Marco, RN
--- NOTE | 2020-12-19 06:59 | CT_ITS ---
STUDY: CT CERVICAL SPINE WITHOUT CONTRAST REASON FOR EXAM: Male, 70 years old. NECK PAIN, PREV NECK SURG 6 YRS AGO, CAD-STENTS, HTN, SQUAMOUS CELL CARCINOMA RADIATION DOSAGE (If Supplied By Facility): CTDIvol = ( 19.79 ) mGy, DLP = ( 460.81 ) mGycm TECHNIQUE: High resolution transaxial imaging was performed without contrast material. Sagittal and coronal images were reconstructed. Individualized dose optimization techniques were used for this CT. COMPARISON: None FINDINGS: Normal craniovertebral junction. There are degenerative changes of the anterior atlantoaxial articulation. Normal odontoid process. Normal cervical lordosis. Normal vertebral bodies and posterior osseous elements. C2-3: Moderate right facet hypertrophy with ankylosis of facet joint produces mild right neural foraminal stenosis. Mild left facet hypertrophy produces mild left neural foraminal stenosis. No central spinal stenosis. C3-4: Status post anterior cervical discectomy and fusion with anatomic alignment and no spinal stenosis or neural foraminal stenosis. C4-5: Moderate right facet hypertrophy produces moderate left neural foraminal stenosis. Mild right facet hypertrophy produces mild right neural foraminal stenosis. No central spinal stenosis. C5-6: Moderate bilateral facet hypertrophy with mild bilateral neural foraminal stenosis. Mild broad disc osteophyte complex produces mild spinal stenosis. C6-7: Status post anterior cervical discectomy and fusion with anatomic alignment and no spinal stenosis or neural foraminal stenosis. C7-T1: Normal endplates. Normal disc height and morphology. Normal central canal and intervertebral neuroforamina. Normal visualized soft tissue structures. CT/Spine Cervical without Contras IMPRESSION: Postsurgical changes and degenerative disc disease as described above. Electronically Signed: Will Espinosa MD at 9:53 EST Tel , Service support ,
--- NOTE | 2020-12-19 07:14 | PCS.PANDOC ---
PANDEMIC DOCUMENTATION INITIATED: Date: 12/18/20 Time: 2004
[2020-12-19 07:22] LABS: Absolute Lymphocyte Count 0.98 X10^3/uL (0.83-4.51); Absolute Neutrophil Count 5.7 X10^3/uL (2.0-7.7); Basophil# 0.01 X10^3/uL; Basophil% 0.1 % (0-1); Eosinophil# 0.02 X10^3/uL; Eosinophils% 0.3 % (0-5); Hematocrit 31.1 % (40-54); Hemoglobin 10.3 g/dL (13.0-16.5); Lymphocyte # 0.98 X10^3/ul (4.0); Lymphocyte % 13.4 % (19-41); Mean Corp Hgb Conc 33.1 g/dL (32-36); Mean Corpuscular Hgb 30.6 pg (27.0-32.0); Mean Corpuscular Volume 92.3 fL (80-94); Mean Platelet Vol. 8.6 fl (6.2-12.0); Monocyte# 0.55 X10^3/uL; Monocyte% 7.5 % (0-10); NRBC Flagged by Analyzer 0 % (0-5); Neutrophil % 77.7 % (47-70); Platelet Count 274 K/mm3 (150-450); RBC Distribution Width CV 13.6 % (11.6-14.6); RBC Distribution Width SD 46.5 fl (35.1-43.9); Red Blood Count 3.37 M/mm3 (4.6-6.2); White Blood Count 7.3 K/mm3 (4.4-11.0)
[2020-12-19 07:38] LABS: ALB/GLOB Ratio 0.8 RATIO (0.9-2.4); AST(SGOT) 115 U/L (15-37); Alanine Aminotransfer ALT/SGPT 240 U/L (16-61); Albumin, Serum 2.3 g/dL (3.2-5.0); Alkaline Phosphatase 198 U/L (45-117); Anion Gap 7 (5-15); BUN 19 mg/dL (7-18); BUN/Creat Ratio 26.6 RATIO (10-20); Calcium,Total 8.2 mg/dL (8.5-10.1); Chloride 100 mmol/L (98-107); Creatinine, Serum 0.71 mg/dL (0.70-1.30); EST Glomerular Filtration Rate 116 mL/min (>60); Est Glom Filt Rate - Afr Amer 140 mL/min (>60); Estimated Creatinine Clearance 62.03 ml/min; Glucose 124 mg/dL (74-106); Potassium 4.1 mmol/L (3.5-5.1); Protein, Total 5.3 g/dL (6.4-8.2); Sodium Level 130 mmol/L (136-145)
[2020-12-19] MEDS: Pantoprazole Sodium 20 MG Tablet PO (08:34)
[2020-12-19] MEDS: Metoprolol Tartrate 25 MG Tablet 12.5 MG PO ×2 (08:34→21:38)
[2020-12-19] MEDS: Lisinopril 5 MG Tablet PO (08:34)
[2020-12-19 09:19] LABS: International Normalized Ratio 1.3; Prothrombin Time (Protime)PT. 15.5 SECONDS (11.7-14.9)
--- NOTE | 2020-12-19 10:27 | MRI_ITS ---
STUDY: MRI ABDOMEN WITH AND WITHOUT CONTRAST REASON FOR EXAM: Male, 70 years old. liver mass vs abcess, ruq PAIN, FEVER TECHNIQUE: Standardized fat and water weighted pulse sequences were obtained in all 3 orthogonal planes post contrast administration. IV Yes YES was administered for the contrast portion of the examination. COMPARISON: CT 12/18/2020 FINDINGS: The visualized lung bases are unremarkable. The visualized portions of the heart are within normal limits. 9.5 cm T1 hypointense, T2 hyperintense mass in the posterior segment the right lobe of liver demonstrates peripheral septal enhancement suggestive of a multiseptated cystic mass. Differential diagnosis includes echinicoccal cyst, hepatic abscess, biliary cystadenoma, or necrotic metastasis. Normal gallbladder and extrahepatic biliary system. There is moderate splenomegaly. Normal pancreas. Normal bilateral adrenal glands. Normal right kidney. Normal left kidney. Normal visualized stomach. Normal small intestine. Normal colon. There is non-visualization of the appendix. Normal abdominal aorta. Normal inferior vena cava. Normal retroperitoneum. Normal abdominal wall. Normal osseous structures. MRI/MRI Abd WITH and W/O Contrast IMPRESSION: MRI confirms a enhancing multiseptated cystic mass in the posterior segment the right lobe of the liver. Differential diagnosis includes echinococcal cyst, hepatic abscess, biliary cystadenoma, or necrotic metastasis. Electronically Signed: Will Espinosa MD at 16:56 EST Tel , Service support ,
--- NOTE | 2020-12-19 11:33 | CON.PCM_ITS ---
Reason for Consult Date of Consultation: 12/19/20 History of Present Illness: The patient is a 70 year old M Presented to the ER yesterday due to gram- positive cocci bacteremia obtained at his PCPs office on 12/16. Patient states prior to that he was having fevers for about a week to have a high fever about 1 04. Patient did get some antibiotics at the PCPs office. Previously patient was getting some Kenalog shots for his neck patient states he has got about 3 of these with about 3 weeks in between and also did therapy.Patient CT abdomen pelvis which showed liver mass versus abscess.Patient has not had a fever here per the records. Past Medical History Past Medical History (Chronic Problems): Chronic Problems (Last Reviewed 12/18/20 @ 19:[address] Roseann Rivera DO) HTN (hypertension) (Chronic) HLD (hyperlipidemia) (Chronic) GERD (gastroesophageal reflux disease) (Chronic) Atherosclerosis of coronary artery without angina pectoris (Chronic) History of coronary artery stent placement (Chronic 12/18/19) PCI-NATALIO mid RCA with a 3.0 x 16 Promus Synergy stent 12/18/2019 Hyponatremia (Chronic) Medical History: Medical History (Last Reviewed 12/18/20 @ 19:[address] Roseann Rivera DO) Atherosclerosis of coronary artery without angina pectoris (Chronic) I25.10 Hyponatremia (Chronic) E87.1 GERD (gastroesophageal reflux disease) K21.9 Squamous cell carcinoma Allergies clindamycin Allergy (Verified 12/18/20 15:14) Other Penicillins Allergy (Verified 03/18/20 14:14) Rash Sulfa (Sulfonamide Antibiotics) Allergy (Verified 03/18/20 14:14) Hives tetracycline [Tetracycline] Allergy (Verified 03/18/20 14:14) Anaphylaxis Home Medications: Ambulatory Orders Medication Instructions Recorded latanoprost 0.005 % eye drops 1 drp OPHTHALMIC DAILY 12/01/19 lorazepam 1 mg tablet 1 mg PO BID PRN 12/01/19 omeprazole 20 mg tablet,delayed 20 mg PO DAILY 12/01/19 release fluconazole 200 mg tablet 400 mg PO .weekly tab 12/02/19 aspirin 81 mg tablet,delayed 81 mg PO DAILY 12/16/19 release Nitroglycerin (INPATIENT USE) 0.4 mg SUBLINGUAL Q5M PRN #25 12/18/19 [Nitrostat] tab.subl atorvastatin 80 mg tablet 80 mg PO QHS #30 tab 11/11/20 clopidogrel 75 mg tablet 75 mg PO DAILY #30 tab 11/11/20 lisinopril 5 mg tablet 5 mg PO DAILY #30 tab 11/11/20 metoprolol tartrate 25 mg tablet 12.5 mg PO BID #30 tab 11/11/20 Azithromycin [Zithromax Z-Panchito] 250 mg PO UD 12/18/20 Doxepin HCl [Sinequan] 10 mg PO PRN PRN 12/18/20 Surgical History: Surgical History (Last Reviewed 12/18/20 @ 19:[address] Roseann Rivera DO) History of coronary artery stent placement (Chronic) Onset Date: 12/18/19 Z95.5 PCI-NATALIO mid RCA with a 3.0 x 16 Promus Synergy stent 12/18/2019 H/O cervical spine surgery Z98.890 History of repair of rotator cuff Z98.890 left Surgical History: rotator cuff repair, - - cervical spinal surgery Psychiatric History: No pertinent psych hx Lives: Spouse/ Significant Other Smoking Status: Former smoker Alcohol: Occasional Drugs: None - *Family History Maternal Family History: Family History (Last Reviewed 12/18/20 @ 19:[address] Roseann Rivera DO) Mother Cancer Ascending aortic aneurysm CVA (cerebral vascular accident) Brother Cancer Other Hypertension History Items: - - Leukemia Paternal Family History: Family History (Last Reviewed 12/18/20 @ 19:[address] Roseann Rivera DO) Mother Cancer Ascending aortic aneurysm CVA (cerebral vascular accident) Brother Cancer Other Hypertension History Items: - - Denies known paternal medical history including cardiac history. Review of Systems Constitutional: Reports: Fever Eyes: Denies: Drainage HEENT: Denies: Difficulty Swallowing Cardiovascular: Denies: Chest Pain Respiratory: Denies: Cough Gastrointestinal: Reports: Abdominal Pain. Denies: Diarrhea Genitourinary: Denies: Dysuria Skin: Denies: Jaundice Psychiatric: Denies: Anxiety, Depression Hematologic/ Lymphatic: Denies: Anemia Patient Problems: Active and Suspected Problems (Last Reviewed 12/18/20 @ 19:[address] Roseann Rivera DO) Bacteremia due to Gram-positive bacteria (Acute) Lactic acidosis (Acute) Elevated liver transaminase level (Acute) Liver mass (Acute) - Physical Exam Vitals/I&O's: Vital Signs Temp Pulse Resp BP Pulse Ox 98.9 F 84 18 162/91 H 98 12/19/20 08:30 12/19/20 08:34 12/19/20 08:30 12/19/20 08:30 12/19/20 08:30 Oxygen Delivery Method Room Air Weight: 152 lb 1.903 oz Body Mass Index (BMI) 24.5 Intake and Output for Last 24 Hours 12/17/20 12/18/20 12/19/20 23:59 23:59 23:59 Intake Total 1450 / 1690 1462.50 / 1462.50 Balance 1450 / 1690 1462.50 / 1462.50 General: Alert, Oriented x3, Cooperative, No apparent distress HEENT: Atraumatic Lungs: Normal air movement Cardiovascular: Regular rate Abdomen: Soft, Non-Distended, Tender - Mild right upper quadrant, no peritoneal signs Extremities: No clubbing, No cyanosis, No edema Neurological: Cranial nerves II-XII grossly intact Psych/Mental Status: Normal Affect Laboratory Results 12/18/20 15:30: WBC 10.0, RBC 3.63 L, Hgb 11.2 L, Hct 32.8 L, MCV 90.4, MCH 30.9, MCHC 34.1, RDW Std Deviation 45.0 H, RDW Coeff of George 13.7, Plt Count 281, MPV 8.6, Immature Gran % (Auto) 0.700, Neut % (Auto) 89.3 H, Lymph % (Auto) 5.2 L, [place] % (Auto) 4.7, Eos % (Auto) 0.0, Baso % (Auto) 0.1, Absolute Neuts (auto) 8.9 H, Absolute Lymphs (auto) 0.52 L, Nucleated RBC % 0, Differential Comment SCANNED 12/18/20 15:30: PT 14.7, INR 1.2, APTT 30.1 12/18/20 15:30: Sodium 126 L, Potassium 4.4, Chloride 95 L, Carbon Dioxide 21.0, Anion Gap 10, BUN 26 H, Creatinine 1.01, Estim Creat Clear Calc 61.41, Est GFR (MDRD) Af Amer 94, Est GFR (MDRD) Non-Af 78, BUN/Creatinine Ratio 25.7 H, Glucose 215 H, Calcium 8.8, Total Bilirubin 0.40, AST 133 H, ALT 214 H, Alkaline Phosphatase 219 H, Total Protein 6.8, Albumin 2.5 L, Globulin 4.3 H, Albumi n/Globulin Ratio 0.6 L 12/18/20 15:30: Lactic Acid 2.4 H* 12/18/20 15:55: Urine Color Yellow, Urine Clarity Clear, Urine pH 7.0, Ur Specific Nursery 1.005, Urine Protein 15 H, Urine Glucose (UA) 250 H, Urine Ketones Negative, Urine Occult Blood 10 H, Urine Nitrite Negative, Urine Bilirubin Negative, Urine Urobilinogen Normal, Ur Leukocyte Esterase Negative, Urine RBC 0 SEEN, Urine WBC 0 SEEN, Ur Squamous Epith Cells 0 SEEN, Urine Bacteria 0 SEEN, Urine Mucus 0 SEEN 12/18/20 17:21: COVID-19 (RAJAN) Not Detected 12/18/20 20:14: Lactic Acid 2.2 H* 12/19/20 05:52: WBC 7.3, RBC 3.37 L, Hgb 10.3 L, Hct 31.1 L, MCV 92.3, MCH 30.6, MCHC 33.1, RDW Std Deviation 46.5 H, RDW Coeff of George 13.6, Plt Count 274, MPV 8.6, Immature Gran % (Auto) 1.000 H, Neut % (Auto) 77.7 H, Lymph % (Auto) 13.4 L , [place] % (Auto) 7.5, Eos % (Auto) 0.3, Baso % (Auto) 0.1, Absolute Neuts (auto) 5.7, Absolute Lymphs (auto) 0.98, Nucleated RBC % 0 12/19/20 05:52: Sodium 130 L, Potassium 4.1, Chloride 100, Carbon Dioxide 23.0, Anion Gap 7, BUN 19 H, Creatinine 0.71, Estim Creat Clear Calc 62.03, Est GFR (MDRD) Af Amer 140, Est GFR (MDRD) Non-Af 116, BUN/Creatinine Ratio 26.6 H, Glucose 124 H, Calcium 8.2 L, Total Bilirubin 0.40, AST 115 H, ALT 240 H, Alkaline Phosphatase 198 H, Total Protein 5.3 L, Albumin 2.3 L, Globulin 3.0, Albumin/Globulin Ratio 0.8 L 12/19/20 05:58: Tumor Marker AFP Cancelled, Carcinoembryonic Ag Cancelled, CEA Serial Monitoring Cancelled, CA 19-9 Antigen Cancelled 12/19/20 08:37: PT 15.5 H, INR 1.3, APTT 34.0 Current Medications Acetaminophen (Acetaminophen 325 Mg Tablet) 650 mg PO Q6H PRN PRN PRN Reason: Pain Score 1-10/Temp > 100.7 F Hydralazine HCl (Hydralazine 20 Mg/Ml Vial) 10 mg IV Q6H PRN PRN PRN Reason: sbp>160 Sodium Chloride () 1,000 mls @ 125 mls/hr IV .Q8H [facility] Last Infusion: 12/19/20 08:35 Dose: 125 mls/hr Documented by: Meropenem 1 gm/ Sodium (Chloride) 120 mls @ 33 mls/hr IV Q8 [facility] Last Admin: 12/19/20 10:12 Dose: 33 mls/hr Documented by: Latanoprost (Latanoprost 0.005% 1 Bottle) 1 drop OPHTHALMIC DAILY [facility] Last Admin: 12/19/20 08:35 Dose: Not Given Documented by: Lisinopril (Lisinopril 5 Mg Tablet) 5 mg PO DAILY [facility] Last Admin: 12/19/20 08:34 Dose: 5 mg Documented by: Metoprolol Tartrate (Metoprolol Tartrate 25 Mg Tablet) 12.5 mg PO BID [facility] Last Admin: 12/19/20 08:34 Dose: 12.5 mg Documented by: Ondansetron HCl (Ondansetron 4 Mg/2 Ml Vial) 4 mg IV Q8H PRN PRN PRN Reason: NAUSEA/VOMITING Oxycodone HCl (Oxycodone 5 Mg Tablet) 5 mg PO Q4H PRN PRN PRN Reason: Pain Score 4-10 Pantoprazole Sodium (Pantoprazole Sodium 20 Mg Tablet) 20 mg PO DAILY [facility] Last Admin: 12/19/20 08:34 Dose: 20 mg Documented by: Sodium Chloride (0.9% Saline Lock 10 Ml Syringe) 10 - 40 ml IV UD PRN PRN Reason: SALINE FLUSH Assessment/Plan All Active Problems (Last Reviewed 12/18/20 @ 19:[address] Roseann Miguel, DO) Bacteremia due to Gram-positive bacteria (Acute) Lactic acidosis (Acute) Elevated liver transaminase level (Acute) Liver mass (Acute) Abnormal nuclear stress test (Resolved) Chest pain (Resolved) 70-year-old male with a liver mass Versus abscess, Bacteremia?gram-positive cocci from12/16. 1. Liver mass?did discuss with Dr. Horan (radiologist). He is unsure if it could be neoplasm or abscess. We will plan to get an MRI as biopsy/Drain is n ot possible today as patient has been on Plavix and IR would like Plavix to be held for 5 days. Addendum: patient did have fever of 101 this afternoon. Helena Moore M.D. Pager: [phone] [facility] [address] [place] [address], [facility], [address] [place] [address] Office: [phone] Inpatient E&M: [id number] Init Hosp L3
--- NOTE | 2020-12-19 11:44 | CASEMGMT ---
HAYDEE GUERRA assessment: Face to Face with patient for initial transition planning/care coordination assessment. HAYDEE GUERRA introduced self and role at [facility], pt voices understanding and consents to assessment at this time. Pt is sitting up in bed in no distress at this time. Pt is A/Ox4 at this time and answers all questions appropriately at this time. Care providers, pharmacy, and demographics verified at this time. Presentation: Pt has been running a fever up to 104.8 off and on for approx one week. was seen by mona and placed on antibx for UTI. Pt was called and told to come in today for positive blood cultures. Admitting dx: Severe sepsis, bacteremia PCP: Mona Specialists: Bety, cardio; alex Desir Preferred Pharmacy: [facility] Insurance: MCR/MMO Prescription Benefit: MCR D Living Will/HPOA: Pt states has LW/HPOA and is aware that they are not on file at [facility] at this time. states she will try to bring in. LNOK: Dawn Johnston, Living Arrangements: Pt states lives with in ranch-style home with a couple steps in and states no concerns at home at this time. Pt states is independent with ADL's. Transportation: Pt states drives self and states no transportation concerns at this time. DME/HHC: Pt states no current DME or need for any at this time. Pt states no hx of HHC or SNF in the past. Pt states no concerns with going home at time of discharge. Pt states is retired. Pt states does not smoke cigarettes or drink ETOH. Pt states no further concerns/needs at this time. CM to follow for any further discharge planning/needs. Advised pt to ask for CM if any further questions/concerns/needs arise, voices understanding. Pt Goal: Home Plan[place] HAYDEE GUERRA
[2020-12-19] MEDS: 0.9% Normal Saline 1,000 ML 125 ML IV ×2 (12:00→21:38)
--- NOTE | 2020-12-19 13:40 | EKG12_ITS ---
Test Reason : CP Blood Pressure : / mmHG Vent. Rate : 093 BPM Atrial Rate : 093 BPM P-R Int : 162 ms QRS Dur : 094 ms QT Int : 334 ms P-R-T Axes : 052 032 037 degrees QTc Int : 415 ms Normal sinus rhythm Normal ECG Confirmed by ISRAEL LEIVA, MICHAEL ([id number]), acquisition editor FREDY RENNER ([id number]) on 12/22/2020 1:55:50 PM Referred By: ELPIDIO Confirmed By:MICHAEL WOOD MD
--- NOTE | 2020-12-19 13:44 | PCM.PROGNOTE ---
Patient Problems: Active and Suspected Problems (Last Reviewed 12/18/20 @ 19:[address] Roseann Rivera, DO) Bacteremia due to Gram-positive bacteria (Acute) Lactic acidosis (Acute) Elevated liver transaminase level (Acute) Liver mass (Acute) Subjective: Patient seen and examined. Reports fever this afternoon with sudden onset of feeling flushed and sharp pain in his rib area which radiated to his back. EKG unremarkable. Temp 101.7. - Physical Exam Vitals/I&O's: Vital Signs Temp Pulse Resp BP Pulse Ox 101.7 F H 84 18 162/91 H 98 12/19/20 13:42 12/19/20 08:34 12/19/20 08:30 12/19/20 08:30 12/19/20 08:30 Oxygen Delivery Method Room Air Weight: 152 lb 1.903 oz Body Mass Index (BMI) 24.5 Intake and Output for Last 24 Hours 12/17/20 12/18/20 12/19/20 23:59 23:59 23:59 Intake Total 1450 / 1690 2235.00 / 2235.00 Balance 1450 / 1690 2235.00 / 2235.00 General: Alert, Oriented x3, Cooperative HEENT: Atraumatic, PERRLA, EOMI, Normocephalic Neck: Supple, No JVD, Negative Carotid Bruits Lungs: Clear to auscultation, Normal air movement Cardiovascular: Regular rate, No murmurs Abdomen: Bowel Sounds Present, Soft, Non Tender, Non-Distended Extremities: No clubbing, No cyanosis, No edema, Capillary Refill Less than 3 Seconds Skin: No rashes, No breakdown Musculoskeletal: No Tenderness to Palpation of Joints or Extremities Neurological: Cranial nerves II-XII grossly intact, Neuro grossly intact Psych/Mental Status: Normal Affect, Appropriate Laboratory Results 12/18/20 15:30: WBC 10.0, RBC 3.63 L, Hgb 11.2 L, Hct 32.8 L, MCV 90.4, MCH 30.9, MCHC 34.1, RDW Std Deviation 45.0 H, RDW Coeff of George 13.7, Plt Count 281, MPV 8.6, Immature Gran % (Auto) 0.700, Neut % (Auto) 89.3 H, Lymph % (Auto) 5.2 L, Winn % (Auto) 4.7, Eos % (Auto) 0.0, Baso % (Auto) 0.1, Absolute Neuts (auto) 8.9 H, Absolute Lymphs (auto) 0.52 L, Nucleated RBC % 0, Differential Comment SCANNED 12/18/20 15:30: PT 14.7, INR 1.2, APTT 30.1 12/18/20 15:30: Sodium 126 L, Potassium 4.4, Chloride 95 L, Carbon Dioxide 21.0, Anion Gap 10, BUN 26 H, Creatinine 1.01, Estim Creat Clear Calc 61.41, Est GFR (MDRD) Af Amer 94, Est GFR (MDRD) Non-Af 78, BUN/Creatinine Ratio 25.7 H, Glucose 215 H, Calcium 8.8, Total Bilirubin 0.40, AST 133 H, ALT 214 H, Alkaline Phosphatase 219 H, Total Protein 6.8, Albumin 2.5 L, Globulin 4.3 H, Albumin/Globulin Ratio 0.6 L 12/18/20 15:30: Lactic Acid 2.4 H* 12/18/20 15:55: Urine Color Yellow, Urine Clarity Clear, Urine pH 7.0, Ur Specific [place] 1.005, Urine Protein 15 H, Urine Glucose (UA) 250 H, Urine Ketones Negative, Urine Occult Blood 10 H, Urine Nitrite Negative, Urine Bilirubin Negative, Urine Urobilinogen Normal, Ur Leukocyte Esterase Negative, Urine RBC 0 SEEN, Urine WBC 0 SEEN, Ur Squamous Epith Cells 0 SEEN, Urine Bacteria 0 SEEN, Urine Mucus 0 SEEN 12/18/20 17:21: COVID-19 (RAJAN) Not Detected 12/18/20 20:14: Lactic Acid 2.2 H* 12/19/20 05:52: WBC 7.3, RBC 3.37 L, Hgb 10.3 L, Hct 31.1 L, MCV 92.3, MCH 30.6, MCHC 33.1, RDW Std Deviation 46.5 H, RDW Coeff of George 13.6, Plt Count 274, MPV 8.6, Immature Gran % (Auto) 1.000 H, Neut % (Auto) 77.7 H, Lymph % (Auto) 13.4 L, Winn % (Auto) 7.5, Eos % (Auto) 0.3, Baso % (Auto) 0.1, Absolute Neuts (auto) 5.7, Absolute Lymphs (auto) 0.98, Nucleated RBC % 0 12/19/20 05:52: Sodium 130 L, Potassium 4.1, Chloride 100, Carbon Dioxide 23.0, Anion Gap 7, BUN 19 H, Creatinine 0.71, Estim Creat Clear Calc 62.03, Est GFR (MDRD) Af Amer 140, Est GFR (MDRD) Non-Af 116, BUN/Creatinine Ratio 26.6 H, Glucose 124 H, Calcium 8.2 L, Total Bilirubin 0.40, AST 115 H, ALT 240 H, Alkaline Phosphatase 198 H, Total Protein 5.3 L, Albumin 2.3 L, Globulin 3.0, Albumin/Globulin Ratio 0.8 L 12/19/20 05:58: Tumor Marker AFP Cancelled, Carcinoembryonic Ag Cancelled, CEA Serial Monitoring Cancelled, CA 19-9 Antigen Cancelled 12/19/20 08:37: PT 15.5 H, INR 1.3, APTT 34.0 Current Medications Acetaminophen (Acetaminophen 325 Mg Tablet) 650 mg PO Q6H PRN PRN PRN Reason: Pain Score 1-10/Temp > 100.7 F Hydralazine HCl (Hydralazine 20 Mg/Ml Vial) 10 mg IV Q6H PRN PRN PRN Reason: sbp>160 Sodium Chloride () 1,000 mls @ 125 mls/hr IV .Q8H [facility] Last Admin: 12/19/20 12:00 Dose: 125 mls/hr Documented by: Meropenem 1 gm/ Sodium (Chloride) 120 mls @ 33 mls/hr IV Q8 [facility] Last Admin: 12/19/20 10:12 Dose: 33 mls/hr Documented by: Latanoprost (Latanoprost 0.005% 1 Bottle) 1 drop OPHTHALMIC DAILY [facility] Last Admin: 12/19/20 08:35 Dose: Not Given Documented by: Lisinopril (Lisinopril 5 Mg Tablet) 5 mg PO DAILY [facility] Last Admin: 12/19/20 08:34 Dose: 5 mg Documented by: Metoprolol Tartrate (Metoprolol Tartrate 25 Mg Tablet) 12.5 mg PO BID [facility] Last Admin: 12/19/20 08:34 Dose: 12.5 mg Documented by: Ondansetron HCl (Ondansetron 4 Mg/2 Ml Vial) 4 mg IV Q8H PRN PRN PRN Reason: NAUSEA/VOMITING Oxycodone HCl (Oxycodone 5 Mg Tablet) 5 mg PO Q4H PRN PRN PRN Reason: Pain Score 4-10 Pantoprazole Sodium (Pantoprazole Sodium 20 Mg Tablet) 20 mg PO DAILY [facility] Last Admin: 12/19/20 08:34 Dose: 20 mg Documented by: Sodium Chloride (0.9% Saline Lock 10 Ml Syringe) 10 - 40 ml IV UD PRN PRN Reason: SALINE FLUSH Medical Necessity - Tobacco Use Smoking Status: Former smoker Assessment/Plan All Active Problems (Last Reviewed 12/18/20 @ 19:[address] Roseann Rivera, DO) Bacteremia due to Gram-positive bacteria (Acute) Lactic acidosis (Acute) Elevated liver transaminase level (Acute) Liver mass (Acute) Abnormal nuclear stress test (Resolved) Chest pain (Resolved) 1. Severe sepsis secondary to strep bacteremia, possible liver abscess- Initiated on azithromycin and cefdinir 12/16/20. Blood cultures preliminary growing strep. Urine culture 12/16/2020 grew mixed gram-positive organisms less than 1000 colony count. Covid test negative 12/12/20. Repeat PCR negative as well. Continue IV meropenem. Repeat blood cultures pending. Echocardiogram pending. ID consult. General surgery consulted. CT of abdomen pelvis shows 9.8 cm multiloculated mass which could be abscess versus neoplasm. Unable to obtain biopsy at this time due to aspirin, Plavix which are now on hold. Plan for MRI of abdomen with and without contrast for further evaluation. 2. Hyponatremia-improved. Suspect secondary to hypovolemia. IV fluids, trend BMP. 3. Transaminitis/elevated alk phos-secondary to liver mass as noted on CT per above. MRI with and without contrast of abdomen pending. 4. Hyperglycemia-suspect secondary to recent steroid use as well as active infection. 5. CAD with history of PCI/NATALIO to mid RCA 12/18/2019-continue aspirin, statin, Plavix, metoprolol, lisinopril. 6. Hypertension-continue lisinopril, metoprolol. 7. Hyperlipidemia-continue statin. 8. GERD-continue PPI. 9. Chronic normocytic anemia-mild, stable. DVT prophylaxis- Lovenox sc This patient was seen by ANTHONY Obrien under the supervision of Dr. Nuñez.
[2020-12-19] MEDS: Acetaminophen 325 MG Tablet 650 MG PO (13:48)
--- NOTE | 2020-12-19 15:08 | CON.PCM_ITS ---
Problem List (1) Bacteremia due to Gram-positive bacteria Status: Acute Reason for Consult: bacteremia Consulted by: Dr. Nuñez History of Present Illness: The patient is a 70 year old M presented to [facility] 12/18 with bacteremia. Sx started about a week prior with fever, fatigue, not feeling well, diarrhea. No recent infections, dental work, or abx. No change in taste or smell. Some mild RUQ pain which resolved quickly. Has not seen a dentist in 1.5 years. Reports normal colonoscopy about 3 years ago. Saw PCP, bcx sent, started on azithro and cefdinir. Fever resolved, came to ED, imaging show liver collection. On cefepime, changed to meropenem. Reports rash with PCN as a child. Full ROS performed and neg except as noted above. - Medical History Past Medical History (Chronic Problems): Chronic Problems (Last Reviewed 12/18/20 @ 19:[address] Roseann Rivera, DO) HTN (hypertension) (Chronic) HLD (hyperlipidemia) (Chronic) GERD (gastroesophageal reflux disease) (Chronic) Atherosclerosis of coronary artery without angina pectoris (Chronic) History of coronary artery stent placement (Chronic 12/18/19) PCI-NATALIO mid RCA with a 3.0 x 16 Promus Synergy stent 12/18/2019 Hyponatremia (Chronic) Allergies/Adverse Reactions: Allergies clindamycin Allergy (Verified 12/18/20 15:14) Other Penicillins Allergy (Verified 03/18/20 14:14) Rash Sulfa (Sulfonamide Antibiotics) Allergy (Verified 03/18/20 14:14) Hives tetracycline [Tetracycline] Allergy (Verified 03/18/20 14:14) Anaphylaxis Home Medications: Ambulatory Orders Medication Instructions Recorded latanoprost 0.005 % eye drops 1 drp OPHTHALMIC DAILY 12/01/19 lorazepam 1 mg tablet 1 mg PO BID PRN 12/01/19 omeprazole 20 mg tablet,delayed 20 mg PO DAILY 12/01/19 release fluconazole 200 mg tablet 400 mg PO .weekly tab 12/02/19 aspirin 81 mg tablet,delayed 81 mg PO DAILY 12/16/19 release Nitroglycerin (INPATIENT USE) 0.4 mg SUBLINGUAL Q5M PRN #25 12/18/19 [Nitrostat] tab.subl atorvastatin 80 mg tablet 80 mg PO QHS #30 tab 11/11/20 clopidogrel 75 mg tablet 75 mg PO DAILY #30 tab 11/11/20 lisinopril 5 mg tablet 5 mg PO DAILY #30 tab 11/11/20 metoprolol tartrate 25 mg tablet 12.5 mg PO BID #30 tab 11/11/20 Azithromycin [Zithromax Z-Panchito] 250 mg PO UD 12/18/20 Doxepin HCl [Sinequan] 10 mg PO PRN PRN 12/18/20 - Social History SMOKING STATUS:: Former smoker Vital Signs Temp Pulse Resp BP Pulse Ox 101.7 F H 84 18 162/91 H 98 12/19/20 13:42 12/19/20 08:34 12/19/20 08:30 12/19/20 08:30 12/19/20 08:30 Oxygen Delivery Method Room Air Weight: 69 kg Body Mass Index (BMI) 24.5 Laboratory Tests Past 24 Hrs 12/18/20 12/18/20 12/18/20 15:30 15:30 15:30 WBC 10.0 RBC 3.63 L Hgb 11.2 L Hct 32.8 L MCV 90.4 MCH 30.9 MCHC 34.1 RDW Std Deviation 45.0 H RDW Coeff of George 13.7 Plt Count 281 MPV 8.6 Immature Gran % (Auto) 0.700 Neut % (Auto) 89.3 H Lymph % (Auto) 5.2 L Morrison % (Auto) 4.7 Eos % (Auto) 0.0 Baso % (Auto) 0.1 Absolute Neuts (auto) 8.9 H Absolute Lymphs (auto) 0.52 L Nucleated RBC % 0 Differential Comment SCANNED PT 14.7 INR 1.2 APTT 30.1 Sodium 126 L Potassium 4.4 Chloride 95 L Carbon Dioxide 21.0 Anion Gap 10 BUN 26 H Creatinine 1.01 Estim Creat Clear Calc 61.41 Est GFR (MDRD) Af Amer 94 Est GFR (MDRD) Non-Af 78 BUN/Creatinine Ratio 25.7 H Glucose 215 H Lactic Acid Calcium 8.8 Total Bilirubin 0.40 AST 133 H ALT 214 H Alkaline Phosphatase 219 H Total Protein 6.8 Albumin 2.5 L Globulin 4.3 H Albumin/Globulin Ratio 0.6 L Tumor Marker AFP Carcinoembryonic Ag CEA Serial Monitoring CA 19-9 Antigen Urine Color Urine Clarity Urine pH Ur Specific [place] Urine Protein Urine Glucose (UA) Urine Ketones Urine Occult Blood Urine Nitrite Urine Bilirubin Urine Urobilinogen Ur Leukocyte Esterase Urine RBC Urine WBC Ur Squamous Epith Cells Urine Bacteria Urine Mucus COVID-19 (RAJAN) 12/18/20 12/18/20 12/18/20 15:30 15:55 17:21 WBC RBC Hgb Hct MCV MCH MCHC RDW Std Deviation RDW Coeff of George Plt Count MPV Immature Gran % (Auto) Neut % (Auto) Lymph % (Auto) [place] % (Auto) Eos % (Auto) Baso % (Auto) Absolute Neuts (auto) Absolute Lymphs (auto) Nucleated RBC % Differential Comment PT INR APTT Sodium Potassium Chloride Carbon Dioxide Anion Gap BUN Creatinine Estim Creat Clear Calc Est GFR (MDRD) Af Amer Est GFR (MDRD) Non-Af BUN/Creatinine Ratio Glucose Lactic Acid 2.4 H* Calcium Total Bilirubin AST ALT Alkaline Phosphatase Total Protein Albumin Globulin Albumin/Globulin Ratio Tumor Marker AFP Carcinoembryonic Ag CEA Serial Monitoring CA 19-9 Antigen Urine Color Yellow Urine Clarity Clear Urine pH 7.0 Ur Specific [place] 1.005 Urine Protein 15 H Urine Glucose (UA) 250 H Urine Ketones Negative Urine Occult Blood 10 H Urine Nitrite Negative Urine Bilirubin Negative Urine Urobilinogen Normal Ur Leukocyte Esterase Negative Urine RBC 0 SEEN Urine WBC 0 SEEN Ur Squamous Epith Cells 0 SEEN Urine Bacteria 0 SEEN Urine Mucus 0 SEEN COVID-19 (RAJAN) Not Detected 12/18/20 12/19/20 12/19/20 20:14 05:52 05:52 WBC 7.3 RBC 3.37 L Hgb 10.3 L Hct 31.1 L MCV 92.3 MCH 30.6 MCHC 33.1 RDW Std Deviation 46.5 H RDW Coeff of George 13.6 Plt Count 274 MPV 8.6 Immature Gran % (Auto) 1.000 H Neut % (Auto) 77.7 H Lymph % (Auto) 13.4 L [place] % (Auto) 7.5 Eos % (Auto) 0.3 Baso % (Auto) 0.1 Absolute Neuts (auto) 5.7 Absolute Lymphs (auto) 0.98 Nucleated RBC % 0 Differential Comment PT INR APTT Sodium 130 L Potassium 4.1 Chloride 100 Carbon Dioxide 23.0 Anion Gap 7 BUN 19 H Creatinine 0.71 Estim Creat Clear Calc 62.03 Est GFR (MDRD) Af Amer 140 Est GFR (MDRD) Non-Af 116 BUN/Creatinine Ratio 26.6 H Glucose 124 H Lactic Acid 2.2 H* Calcium 8.2 L Total Bilirubin 0.40 AST 115 H ALT 240 H Alkaline Phosphatase 198 H Total Protein 5.3 L Albumin 2.3 L Globulin 3.0 Albumin/Globulin Ratio 0.8 L Tumor Marker AFP Carcinoembryonic Ag CEA Serial Monitoring CA 19-9 Antigen Urine Color Urine Clarity Urine pH Ur Specific [place] Urine Protein Urine Glucose (UA) Urine Ketones Urine Occult Blood Urine Nitrite Urine Bilirubin Urine Urobilinogen Ur Leukocyte Esterase Urine RBC Urine WBC Ur Squamous Epith Cells Urine Bacteria Urine Mucus COVID-19 (RAJAN) 12/19/20 12/19/20 05:58 08:37 WBC RBC Hgb Hct MCV MCH MCHC RDW Std Deviation RDW Coeff of George Plt Count MPV Immature Gran % (Auto) Neut % (Auto) Lymph % (Auto) [place] % (Auto) Eos % (Auto) Baso % (Auto) Absolute Neuts (auto) Absolute Lymphs (auto) Nucleated RBC % Differential Comment PT 15.5 H INR 1.3 APTT 34.0 Sodium Potassium Chloride Carbon Dioxide Anion Gap BUN Creatinine Estim Creat Clear Calc Est GFR (MDRD) Af Amer Est GFR (MDRD) Non-Af BUN/Creatinine Ratio Glucose Lactic Acid Calcium Total Bilirubin AST ALT Alkaline Phosphatase Total Protein Albumin Globulin Albumin/Globulin Ratio Tumor Marker AFP Cancelled Carcinoembryonic Ag Cancelled CEA Serial Monitoring Cancelled CA 19-9 Antigen Cancelled Urine Color Urine Clarity Urine pH Ur Specific [place] Urine Protein Urine Glucose (UA) Urine Ketones Urine Occult Blood Urine Nitrite Urine Bilirubin Urine Urobilinogen Ur Leukocyte Esterase Urine RBC Urine WBC Ur Squamous Epith Cells Urine Bacteria Urine Mucus COVID-19 (RAJAN) - Other Studies Radiology: [] reviewed Other Studies: [] Route of nutrition/ use of supplements: [] Nutritional Intake: [] IV Site: [] Doherty Catheter: [] - Physical Exam General: Alert, Oriented x3, Cooperative, No apparent distress HEENT: Atraumatic, PERRLA, EOMI Neck: Supple, No Nodes Lungs: Clear to auscultation, Normal air movement Cardiovascular: Regular rate, Regular Rhythm, Murmur Abdomen: Soft, Non Tender, Non-Distended Extremities: No edema Skin: No rashes, - - splinter hemorrhages on L 3rd finger and R 2nd finger, 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 IV Site: Peripheral, without redness Musculoskeletal: No Tenderness to Palpation of Joints or Extremities Neurological: Cranial nerves II-XII grossly intact - Assessment/Plan Antibiotics: [] Assessment/Plan: [] Active and Suspected Problems (Last Reviewed 12/18/20 @ 19:[address] Roseann Rivera, DO) Bacteremia due to Gram-positive bacteria (Acute) Lactic acidosis (Acute) Elevated liver transaminase level (Acute) Liver mass (Acute) alpha hemolytic strep bacteremia with possible liver abscess vs malignancy - TTE pending, MRCP pending. Narrow abx back to cefepime/flagyl. Will get dental xrays to try to rule out dental abscess as a source. Will follow, thank you, d/w primary team.
--- NOTE | 2020-12-19 15:40 | RAD_ITS ---
STUDY: X-RAY - MANDIBLE (COMPLETE) REASON FOR EXAM: Male, 70 years old. eval for dental abscess, pt denies any pain TECHNIQUE: 5 view(s) of the mandible were obtained. COMPARISON: None. FINDINGS: Normal mandible. Normal visualized right temporomandibular joint. Normal visualized left temporomandibular joint. The remaining visualized osseous structures are normal. The soft tissue structures are unremarkable. RAD/Mandible Min 4 Views IMPRESSION: Normal x-ray examination of the mandible. Electronically Signed: Will Espinosa MD at 17:14 EST Tel , Service support ,
[2020-12-19 17:31] LABS: SARS-COV-2 TOTAL ABS Nonreactive (Nonreactive)
[2020-12-19] MEDS: metroNIDAZOLE 500 MG Tablet PO (21:39)
[2020-12-20] VITALS (12 sets, daily range): BP systolic 116–148; BP diastolic 58–82; PULSE 67–104; RESP 18; TEMP 36.8–39.4; O2SAT 95–98
[2020-12-20] MEDS: Acetaminophen 325 MG Tablet 650 MG PO ×3 (00:19→20:29)
[2020-12-20] MEDS: 0.9% Normal Saline 1,000 ML 125 ML IV ×3 (05:39→21:46)
[2020-12-20] MEDS: metroNIDAZOLE 500 MG Tablet PO ×3 (05:39→21:53)
[2020-12-20 07:18] LABS: Hematocrit 30.4 % (40-54); Mean Corp Hgb Conc 32.9 g/dL (32-36); Mean Corpuscular Hgb 29.9 pg (27.0-32.0); Mean Corpuscular Volume 90.7 fL (80-94); Mean Platelet Vol. 8.6 fl (6.2-12.0); Platelet Count 255 K/mm3 (150-450); RBC Distribution Width CV 13.5 % (11.6-14.6); RBC Distribution Width SD 45.6 fl (35.1-43.9); Red Blood Count 3.35 M/mm3 (4.6-6.2); White Blood Count 7.7 K/mm3 (4.4-11.0)
[2020-12-20 07:33] LABS: Anion Gap 7 (5-15); BUN 16 mg/dL (7-18); BUN/Creat Ratio 21.2 RATIO (10-20); Calcium,Total 8.4 mg/dL (8.5-10.1); Chloride 98 mmol/L (98-107); Creatinine, Serum 0.75 mg/dL (0.70-1.30); EST Glomerular Filtration Rate 109 mL/min (>60); Est Glom Filt Rate - Afr Amer 131 mL/min (>60); Estimated Creatinine Clearance 62.03 ml/min; Glucose 111 mg/dL (74-106); Potassium 4.1 mmol/L (3.5-5.1); Sodium Level 128 mmol/L (136-145)
[2020-12-20 08:46] LABS: AST(SGOT) 69 U/L (15-37); Alanine Aminotransfer ALT/SGPT 204 U/L (16-61); Albumin, Serum 2.1 g/dL (3.2-5.0); Alkaline Phosphatase 170 U/L (45-117); Bilirubin, Direct 0.22 mg/dL (0.00-0.30); Globulin 3.9 g/dL (2.2-4.2)
--- NOTE | 2020-12-20 09:07 | PCM.PN.SRG ---
Patient Problems: Active and Suspected Problems (Last Reviewed 12/18/20 @ 19:[address] Roseann Rivera, DO) Bacteremia due to Gram-positive bacteria (Acute) Lactic acidosis (Acute) Elevated liver transaminase level (Acute) Liver mass (Acute) Subjective: Patient still been having occasional fevers 101-102. Patient states he still hasDiscomfort with deep breaths. - Physical Exam Vitals/I&O's: Vital Signs Temp Pulse Resp BP Pulse Ox 99.1 F 92 18 126/76 H 95 12/20/20 02:30 12/20/20 07:00 12/20/20 02:30 12/20/20 02:30 12/20/20 02:30 Oxygen Delivery Method Room Air Weight: 152 lb 1.903 oz Body Mass Index (BMI) 24.5 Intake and Output for Last 24 Hours 12/18/20 12/19/20 12/20/20 23:59 23:59 23:59 Intake Total 1450 / 1690 3935.00 / 3935.00 1600 / 1600 Balance 1450 / 1690 3935.00 / 3935.00 1600 / 1600 General: Alert, Oriented x3, Cooperative, No apparent distress HEENT: Atraumatic Abdomen: Soft, Non-Distended, Tender - Mild in the right upper quadrant, No peritoneal signs Microbiology Past 72 Hours 12/18/20 15:55 Urine, Clean Catch Urine Culture - Preliminary Culture exhibits no growth. 12/19/20 11:20 Stool C. difficile DNA Amplification - Final Laboratory Results 12/18/20 15:30: SARS Serology Nonreactive 12/19/20 08:37: PT 15.5 H, INR 1.3, APTT 34.0 12/20/20 06:35: WBC 7.7, RBC 3.35 L, Hgb 10.0 L, Hct 30.4 L, MCV 90.7, MCH 29.9, MCHC 32.9, RDW Std Deviation 45.6 H, RDW Coeff of George 13.5, Plt Count 255, MPV 8.6 12/20/20 06:35: Sodium 128 L, Potassium 4.1, Chloride 98, Carbon Dioxide 23.0, Anion Gap 7, BUN 16, Creatinine 0.75, Estim Creat Clear Calc 62.03, Est GFR (MDRD) Af Amer 131, Est GFR (MDRD) Non-Af 109, BUN/Creatinine Ratio 21.2 H, Glucose 111 H, Calcium 8.4 L 12/20/20 06:35: Total Bilirubin 0.70, Direct Bilirubin 0.22, AST 69 H, ALT 204 H, Alkaline Phosphatase 170 H, Total Protein 6.0 L, Albumin 2.1 L, Globulin 3.9 Current Medications Acetaminophen (Acetaminophen 325 Mg Tablet) 650 mg PO Q6H PRN PRN PRN Reason: Pain Score 1-10/Temp > 100.7 F Last Admin: 12/20/20 00:19 Dose: 650 mg Documented by: Hydralazine HCl (Hydralazine 20 Mg/Ml Vial) 10 mg IV Q6H PRN PRN PRN Reason: sbp>160 Sodium Chloride () 1,000 mls @ 125 mls/hr IV .Q8H COUNTS INCLUDE 234 BEDS AT THE [facility] Last Admin: 12/20/20 05:39 Dose: 125 mls/hr Documented by: Cefepime HCl 2 gm/ Sodium (Chloride) 100 mls @ 200 mls/hr IV Q8 COUNTS INCLUDE 234 BEDS AT THE [facility] Last Infusion: 12/20/20 06:10 Dose: Infused Documented by: Latanoprost (Latanoprost 0.005% 1 Bottle) 1 drop OPHTHALMIC DAILY COUNTS INCLUDE 234 BEDS AT THE [facility] Last Admin: 12/19/20 08:35 Dose: Not Given Documented by: Lisinopril (Lisinopril 5 Mg Tablet) 5 mg PO DAILY COUNTS INCLUDE 234 BEDS AT THE [facility] Last Admin: 12/19/20 08:34 Dose: 5 mg Documented by: Metoprolol Tartrate (Metoprolol Tartrate 25 Mg Tablet) 12.5 mg PO BID COUNTS INCLUDE 234 BEDS AT THE [facility] Last Admin: 12/19/20 21:38 Dose: 12.5 mg Documented by: Metronidazole (Metronidazole 500 Mg Tablet) 500 mg PO TID COUNTS INCLUDE 234 BEDS AT THE [facility] Last Admin: 12/20/20 05:39 Dose: 500 mg Documented by: Ondansetron HCl (Ondansetron 4 Mg/2 Ml Vial) 4 mg IV Q8H PRN PRN PRN Reason: NAUSEA/VOMITING Oxycodone HCl (Oxycodone 5 Mg Tablet) 5 mg PO Q4H PRN PRN PRN Reason: Pain Score 4-10 Pantoprazole Sodium (Pantoprazole Sodium 20 Mg Tablet) 20 mg PO DAILY COUNTS INCLUDE 234 BEDS AT THE [facility] Last Admin: 12/19/20 08:34 Dose: 20 mg Documented by: Sodium Chloride (0.9% Saline Lock 10 Ml Syringe) 10 - 40 ml IV UD PRN PRN Reason: SALINE FLUSH Medical Necessity - Tobacco Use Smoking Status: Former smoker Assessment/Plan All Active Problems (Last Reviewed 12/18/20 @ 19:[address] Roseann Rivera, DO) Bacteremia due to Gram-positive bacteria (Acute) Lactic acidosis (Acute) Elevated liver transaminase level (Acute) Liver mass (Acute) Abnormal nuclear stress test (Resolved) Chest pain (Resolved) 70-year-old male with a likely liver abscess, Bacteremia?gram-positive cocci from 12/16. 1. Liver mass?Patient's MRI report still does not distinguish the etiology of the mass. Did also discuss this with hepatobiliary surgeon and he did agree it looks like an abscess on CT/MRI. Either way would plan to await drain placement by IR which will be scheduled for Saturday due to Plavix. We will plan to keep patient off the Plavix as patient will likely need multiple drains as this is multicystic/lobulated. Did discuss with patient that this can be a longer process and surgery is the very last resort. We will also plan on talking to patient's . Helena Moore M.D. Pager: [phone] [facility] [address] [place] [address], Outpatient [place], [address] [place] [address] Office: [phone] Inpatient E&M: [id number] [facility] [address]
[2020-12-20] MEDS: Metoprolol Tartrate 25 MG Tablet 12.5 MG PO ×2 (10:26→21:53)
[2020-12-20] MEDS: Lisinopril 5 MG Tablet PO (10:28)
[2020-12-20] MEDS: Pantoprazole Sodium 20 MG Tablet PO (10:28)
--- NOTE | 2020-12-20 10:45 | PCM.PN.ID ---
Patient Problems: Active and Suspected Problems (Last Reviewed 12/18/20 @ 19:[address] Roseann Rivera, DO) Bacteremia due to Gram-positive bacteria (Acute) Lactic acidosis (Acute) Elevated liver transaminase level (Acute) Liver mass (Acute) Subjective: Fever last night, still diarrhea and some RUQ pain. - Physical Exam Vitals/I&O's: Vital Signs Temp Pulse Resp BP Pulse Ox 99.7 F H 104 H 18 148/82 H 97 12/20/20 08:30 12/20/20 10:26 12/20/20 08:30 12/20/20 10:26 12/20/20 08:30 Oxygen Delivery Method Room Air Weight: 69 kg Body Mass Index (BMI) 24.5 Intake and Output for Last 24 Hours 12/18/20 12/19/20 12/20/20 23:59 23:59 23:59 Intake Total 1450 / 1690 3935.00 / 3935.00 1600 / 1600 Balance 1450 / 1690 3935.00 / 3935.00 1600 / 1600 General: Alert, Cooperative, No apparent distress Lungs: Clear to auscultation, Normal air movement Cardiovascular: Regular rate, Regular Rhythm Abdomen: Soft, Non Tender, Non-Distended Skin: No rashes Microbiology Past 72 Hours 12/19/20 11:20 Stool Enteric Bacteriology - Final 12/18/20 15:55 Urine, Clean Catch Urine Culture - Preliminary Culture exhibits no growth. 12/19/20 11:20 Stool C. difficile DNA Amplification - Final Laboratory Results 12/18/20 15:30: SARS Serology Nonreactive 12/20/20 06:35: WBC 7.7, RBC 3.35 L, Hgb 10.0 L, Hct 30.4 L, MCV 90.7, MCH 29.9, MCHC 32.9, RDW Std Deviation 45.6 H, RDW Coeff of George 13.5, Plt Count 255, MPV 8.6 12/20/20 06:35: Sodium 128 L, Potassium 4.1, Chloride 98, Carbon Dioxide 23.0, Anion Gap 7, BUN 16, Creatinine 0.75, Estim Creat Clear Calc 62.03, Est GFR (MDRD) Af Amer 131, Est GFR (MDRD) Non-Af 109, BUN/Creatinine Ratio 21.2 H, Glucose 111 H, Calcium 8.4 L 02/16/21 06:35: Total Bilirubin 0.70, Direct Bilirubin 0.22, AST 69 H, ALT 204 H, Alkaline Phosphatase 170 H, Total Protein 6.0 L, Albumin 2.1 L, Globulin 3.9 Current Medications Acetaminophen (Acetaminophen 325 Mg Tablet) 650 mg PO Q6H PRN PRN PRN Reason: Pain Score 1-10/Temp > 100.7 F Last Admin: 12/20/20 10:26 Dose: 650 mg Documented by: Hydralazine HCl (Hydralazine 20 Mg/Ml Vial) 10 mg IV Q6H PRN PRN PRN Reason: sbp>160 Sodium Chloride () 1,000 mls @ 125 mls/hr IV .Q8H [facility] Last Admin: 12/20/20 05:39 Dose: 125 mls/hr Documented by: Cefepime HCl 2 gm/ Sodium (Chloride) 100 mls @ 200 mls/hr IV Q8 [facility] Last Infusion: 12/20/20 06:10 Dose: Infused Documented by: Latanoprost (Latanoprost 0.005% 1 Bottle) 1 drop OPHTHALMIC DAILY [facility] Last Admin: 12/20/20 10:30 Dose: Not Given Documented by: Lisinopril (Lisinopril 5 Mg Tablet) 5 mg PO DAILY [facility] Last Admin: 12/20/20 10:28 Dose: 5 mg Documented by: Metoprolol Tartrate (Metoprolol Tartrate 25 Mg Tablet) 12.5 mg PO BID [facility] Last Admin: 12/20/20 10:26 Dose: 12.5 mg Documented by: Metronidazole (Metronidazole 500 Mg Tablet) 500 mg PO TID [facility] Last Admin: 12/20/20 05:39 Dose: 500 mg Documented by: Ondansetron HCl (Ondansetron 4 Mg/2 Ml Vial) 4 mg IV Q8H PRN PRN PRN Reason: NAUSEA/VOMITING Oxycodone HCl (Oxycodone 5 Mg Tablet) 5 mg PO Q4H PRN PRN PRN Reason: Pain Score 4-10 Pantoprazole Sodium (Pantoprazole Sodium 20 Mg Tablet) 20 mg PO DAILY [facility] Last Admin: 12/20/20 10:28 Dose: 20 mg Documented by: Sodium Chloride (0.9% Saline Lock 10 Ml Syringe) 10 - 40 ml IV UD PRN PRN Reason: SALINE FLUSH Medical Necessity - Tobacco Use Smoking Status: Former smoker Route of nutrition/ use of supplements: [] Nutritional Intake: [] IV Site: [] Doherty Catheter: [] - Assessment/Plan Antibiotics: [] Assessment/Plan: [] Active and Suspected Problems (Last Reviewed 12/18/20 @ 19:[address] Roseann Rivera, DO) Bacteremia due to Gram-positive bacteria (Acute) Lactic acidosis (Acute) Elevated liver transaminase level (Acute) Liver mass (Acute) alpha hemolytic strep bacteremia with possible liver abscess vs malignancy - TTE pending, MRCP report reviewed. Cont cefepime/flagyl. Cdiff neg. Dental xray neg for abscess. Plan is for aspiration in 2 days. Will follow, d/w primary team.
--- NOTE | 2020-12-20 14:30 | PN_ITS ---
<Briseida Moreno [employer] - Last Filed: 12/20/20 14:40> Patient Problems: Active and Suspected Problems (Last Reviewed 12/18/20 @ 19:[address] Roseann diaz, DO) Bacteremia due to Gram-positive bacteria (Acute) Lactic acidosis (Acute) Elevated liver transaminase level (Acute) Liver mass (Acute) Subjective: Patient seen and examined. Reports ongoing right rib area discomfort. Patient reports this is improved from prior. Fever improved. Patient reports intermittent diarrhea. Denies other symptoms or complaints. - Physical Exam Vitals/I&O's: Vital Signs Temp Pulse Resp BP Pulse Ox 99.7 F H 104 H 18 148/82 H 97 12/20/20 08:30 12/20/20 10:26 12/20/20 08:30 12/20/20 10:26 12/20/20 08:30 Oxygen Delivery Method Room Air Weight: 152 lb 1.903 oz Body Mass Index (BMI) 24.5 Intake and Output for Last 24 Hours 12/18/20 12/19/20 12/20/20 23:59 23:59 23:59 Intake Total 1450 / 1690 3935.00 / 3935.00 2840 / 2840 Balance 1450 / 1690 3935.00 / 3935.00 2840 / 2840 General: Alert, Oriented x3, Cooperative HEENT: Atraumatic, PERRLA, EOMI, Normocephalic Neck: Supple, No JVD, Negative Carotid Bruits Lungs: Clear to auscultation, Normal air movement Cardiovascular: Regular rate, No murmurs Abdomen: Bowel Sounds Present, Soft, Non Tender Extremities: No clubbing, No cyanosis, No edema, Capillary Refill Less than 3 Seconds Skin: No rashes, No breakdown Musculoskeletal: No Tenderness to Palpation of Joints or Extremities Neurological: Cranial nerves II-XII grossly intact, Neuro grossly intact Psych/Mental Status: Normal Affect, Appropriate Microbiology Past 72 Hours 12/19/20 11:20 Stool Enteric Bacteriology - Final 12/18/20 15:55 Urine, Clean Catch Urine Culture - Preliminary Culture exhibits no growth. 12/19/20 11:20 Stool C. difficile DNA Amplification - Final Laboratory Results 12/18/20 15:30: SARS Serology Nonreactive 12/20/20 06:35: WBC 7.7, RBC 3.35 L, Hgb 10.0 L, Hct 30.4 L, MCV 90.7, MCH 29.9, MCHC 32.9, RDW Std Deviation 45.6 H, RDW Coeff of George 13.5, Plt Count 255, MPV 8.6 12/20/20 06:35: Sodium 128 L, Potassium 4.1, Chloride 98, Carbon Dioxide 23.0, Anion Gap 7, BUN 16, Creatinine 0.75, Estim Creat Clear Calc 62.03, Est GFR (MDRD) Af Amer 131, Est GFR (MDRD) Non-Af 109, BUN/Creatinine Ratio 21.2 H, Glucose 111 H, Calcium 8.4 L 12/20/20 06:35: Total Bilirubin 0.70, Direct Bilirubin 0.22, AST 69 H, ALT 204 H , Alkaline Phosphatase 170 H, Total Protein 6.0 L, Albumin 2.1 L, Globulin 3.9 Current Medications Acetaminophen (Acetaminophen 325 Mg Tablet) 650 mg PO Q6H PRN PRN PRN Reason: Pain Score 1-10/Temp > 100.7 F Last Admin: 12/20/20 10:26 Dose: 650 mg Documented by: Hydralazine HCl (Hydralazine 20 Mg/Ml Vial) 10 mg IV Q6H PRN PRN PRN Reason: sbp>160 Sodium Chloride () 1,000 mls @ 125 mls/hr IV .Q8H ON LICENSE OF [facility] Last Admin: 12/20/20 14:03 Dose: 125 mls/hr Documented by: Cefepime HCl 2 gm/ Sodium (Chloride) 100 mls @ 200 mls/hr IV Q8 ON LICENSE OF [facility] Last Admin: 12/20/20 14:03 Dose: 200 mls/hr Documented by: Latanoprost (Latanoprost 0.005% 1 Bottle) 1 drop OPHTHALMIC DAILY ON [facility] OF [facility] Last Admin: 12/20/20 10:30 Dose: Not Given Documented by: Lisinopril (Lisinopril 5 Mg Tablet) 5 mg PO DAILY [facility] OF [facility] Last Admin: 12/20/20 10:28 Dose: 5 mg Documented by: Metoprolol Tartrate (Metoprolol Tartrate 25 Mg Tablet) 12.5 mg PO BID ON [facility] OF [facility] Last Admin: 12/20/20 10:26 Dose: 12.5 mg Documented by: Metronidazole (Metronidazole 500 Mg Tablet) 500 mg PO TID ON [facility] OF [facility] Last Admin: 12/20/20 14:15 Dose: 500 mg Documented by: Ondansetron HCl (Ondansetron 4 Mg/2 Ml Vial) 4 mg IV Q8H PRN PRN PRN Reason: NAUSEA/VOMITING Oxycodone HCl (Oxycodone 5 Mg Tablet) 5 mg PO Q4H PRN PRN PRN Reason: Pain Score 4-10 Pantoprazole Sodium (Pantoprazole Sodium 20 Mg Tablet) 20 mg PO DAILY ON [facility] OF [facility] Last Admin: 12/20/20 10:28 Dose: 20 mg Documented by: Sodium Chloride (0.9% Saline Lock 10 Ml Syringe) 10 - 40 ml IV UD PRN PRN Reason: SALINE FLUSH Medical Necessity - Tobacco Use Smoking Status: Former smoker Assessment/Plan All Active Problems (Last Reviewed 12/18/20 @ 19:[address] Roseann Rivera, DO) Bacteremia due to Gram-positive bacteria (Acute) Lactic acidosis (Acute) Elevated liver transaminase level (Acute) Liver mass (Acute) Abnormal nuclear stress test (Resolved) Chest pain (Resolved) 1. Severe sepsis secondary to strep bacteremia, liver abscess- Initiated on azithromycin and cefdinir 12/16/20. Prior blood cultures preliminary growing strep. Urine culture 12/16/2020 grew mixed gram-positive organisms less than 1000 colony count. Covid test negative 12/12/20. Repeat PCR negative as well. Continue IV cefepime and IV Flagyl. Repeat blood cultures pending. Echocardiogram demonstrates an EF of 65%. ID consulted. General surgery consulted. CT of abdomen pelvis shows 9.8 cm multiloculated mass which could be abscess versus neoplasm. Unable to obtain biopsy at this time due to aspirin, Plavix which are now on hold. Plan for drain placement on Saturday. MRI of abdomen completed which was also nonspecific for abscess versus metastasis. 2. Liver mass-suspected abscess. Plan for drain placement on Saturday, Plavix on hold. 3. Acute on chronic hyponatremia-improved. Trend BMP. 4. Hyperglycemia-suspect secondary to recent steroid use as well as active infection. Check hemoglobin A1c. 5. CAD with history of PCI/NATALIO to mid RCA 12/18/2019-continue aspirin, statin, Plavix, metoprolol, lisinopril. 6. Hypertension-continue lisinopril, metoprolol. 7. Hyperlipidemia-continue statin. 8. GERD-continue PPI. 9. Chronic normocytic anemia-mild, stable. DVT prophylaxis- Lovenox sc This patient was seen by ANTHONY Obrien under the supervision of Dr. Soto. <Lakeisha Soto - Last Filed: 12/21/20 07:55> - Physical Exam Vitals/I&O's: Vital Signs Temp Pulse Resp BP Pulse Ox 98.3 F 86 18 116/58 L 98 12/20/20 14:30 12/20/20 15:00 12/20/20 14:30 12/20/20 14:30 12/20/20 14:30 Oxygen Delivery Method Room Air Weight: 69 kg Body Mass Index (BMI) 24.5 Intake and Output for Last 24 Hours 12/18/20 12/19/20 12/20/20 23:59 23:59 23:59 Intake Total 1450 / 1690 3935.00 / 3935.00 3420 / 3420 Balance 1450 / 1690 3935.00 / 3935.00 3420 / 3420 Microbiology Past 72 Hours 12/19/20 11:20 Stool Enteric Bacteriology - Final 12/18/20 15:55 Urine, Clean Catch Urine Culture - Preliminary Culture exhibits no growth. 12/19/20 11:20 Stool C. difficile DNA Amplification - Final Laboratory Results 12/20/20 06:35: WBC 7.7, RBC 3.35 L, Hgb 10.0 L, Hct 30.4 L, MCV 90.7, MCH 29.9, MCHC 32.9, RDW Std Deviation 45.6 H, RDW Coeff of George 13.5, Plt Count 255, MPV 8.6 12/20/20 06:35: Sodium 128 L, Potassium 4.1, Chloride 98, Carbon Dioxide 23.0, Anion Gap 7, BUN 16, Creatinine 0.75, Estim Creat Clear Calc 62.03, Est GFR (MDRD) Af Amer 131, Est GFR (MDRD) Non-Af 109, BUN/Creatinine Ratio 21.2 H, Glucose 111 H, Calcium 8.4 L 12/20/20 06:35: Total Bilirubin 0.70, Direct Bilirubin 0.22, AST 69 H, ALT 204 H , Alkaline Phosphatase 170 H, Total Protein 6.0 L, Albumin 2.1 L, Globulin 3.9 12/20/20 06:35: Hemoglobin A1c 6.2 H Current Medications Acetaminophen (Acetaminophen 325 Mg Tablet) 650 mg PO Q6H PRN PRN PRN Reason: Pain Score 1-10/Temp > 100.7 F Last Admin: 12/20/20 10:26 Dose: 650 mg Documented by: Hydralazine HCl (Hydralazine 20 Mg/Ml Vial) 10 mg IV Q6H PRN PRN PRN Reason: sbp>160 Sodium Chloride () 1,000 mls @ 125 mls/hr IV .Q8H ON [facility] OF [facility] Last Admin: 12/20/20 14:03 Dose: 125 mls/hr Documented by: Cefepime HCl 2 gm/ Sodium (Chloride) 100 mls @ 200 mls/hr IV Q8 [facility] Last Infusion: 12/20/20 14:57 Dose: Infused Documented by: Latanoprost (Latanoprost 0.005% 1 Bottle) 1 drop OPHTHALMIC DAILY ON [facility] Last Admin: 12/20/20 10:30 Dose: Not Given Documented by: Lisinopril (Lisinopril 5 Mg Tablet) 5 mg PO DAILY [facility] Last Admin: 12/20/20 10:28 Dose: 5 mg Documented by: Metoprolol Tartrate (Metoprolol Tartrate 25 Mg Tablet) 12.5 mg PO BID ON [facility] OF [facility] Last Admin: 12/20/20 10:26 Dose: 12.5 mg Documented by: Metronidazole (Metronidazole 500 Mg Tablet) 500 mg PO TID ON [facility] Last Admin: 12/20/20 14:15 Dose: 500 mg Documented by: Ondansetron HCl (Ondansetron 4 Mg/2 Ml Vial) 4 mg IV Q8H PRN PRN PRN Reason: NAUSEA/VOMITING Oxycodone HCl (Oxycodone 5 Mg Tablet) 5 mg PO Q4H PRN PRN PRN Reason: Pain Score 4-10 Pantoprazole Sodium (Pantoprazole Sodium 20 Mg Tablet) 20 mg PO DAILY [facility] Last Admin: 12/20/20 10:28 Dose: 20 mg Documented by: Sodium Chloride (0.9% Saline Lock 10 Ml Syringe) 10 - 40 ml IV UD PRN PRN Reason: SALINE FLUSH Assessment/Plan This patient was seen in conjunction with Briseida Moreno NP. I have independently interviewed and examined the patient and reviewed pertinent historical, laboratory, and other data. Please refer to her note for patient's presentation, findings, and recommendations. Patient was seen and examined. Pain is fairly controlled. Denies any fever or chills. No acute events overnight. Vitals were reviewed -stable Physical Exam: Gen: Comfortable, not pale, not jaundiced, alert oriented x3 CVS:HS I +II, regular, no murmurs RESP: CTA GI: BS present and normal, nontender, no palpable organs EXT:No edema Labs reviewed: ASSESSMENT: 1. Severe sepss secondary to strept bacteremia, liver abscess 2. Hyponatremia 3. Hyperglycemia 4. Hypertension 5. Hyperlipidemia 6. GERD 7. CAD s/p PCI Meds reviewed Plan: Continue on Cefepime and Flagyl Await IR drain placement on Saturday Repeat labs in am Inpatient E&M: [id number] [facility] L3
[2020-12-20 15:54] LABS: Hemoglobin A1c 6.2 % (3.8-5.6)
[2020-12-21] VITALS (10 sets, daily range): BP systolic 119–147; BP diastolic 65–92; PULSE 62–83; RESP 16–18; TEMP 36.2–36.8; O2SAT 96–99
[2020-12-21] MEDS: 0.9% Normal Saline 1,000 ML 125 ML IV ×3 (06:13→22:00)
[2020-12-21] MEDS: Acetaminophen 325 MG Tablet 650 MG PO ×3 (06:13→19:58)
[2020-12-21] MEDS: metroNIDAZOLE 500 MG Tablet PO ×3 (06:14→23:05)
[2020-12-21 07:26] LABS: Hematocrit 32.1 % (40-54); Hemoglobin 10.7 g/dL (13.0-16.5); Mean Corp Hgb Conc 33.3 g/dL (32-36); Mean Corpuscular Hgb 30.3 pg (27.0-32.0); Mean Corpuscular Volume 90.9 fL (80-94); Mean Platelet Vol. 8.6 fl (6.2-12.0); Platelet Count 290 K/mm3 (150-450); RBC Distribution Width CV 13.6 % (11.6-14.6); RBC Distribution Width SD 44.7 fl (35.1-43.9); Red Blood Count 3.53 M/mm3 (4.6-6.2); White Blood Count 9.3 K/mm3 (4.4-11.0)
[2020-12-21 07:53] LABS: ALB/GLOB Ratio 0.5 RATIO (0.9-2.4); AST(SGOT) 45 U/L (15-37); Alanine Aminotransfer ALT/SGPT 167 U/L (16-61); Albumin, Serum 2.2 g/dL (3.2-5.0); Alkaline Phosphatase 186 U/L (45-117); Anion Gap 5 (5-15); BUN 14 mg/dL (7-18); BUN/Creat Ratio 20.7 RATIO (10-20); Calcium,Total 8.8 mg/dL (8.5-10.1); Chloride 100 mmol/L (98-107); Creatinine, Serum 0.68 mg/dL (0.70-1.30); EST Glomerular Filtration Rate 123 mL/min (>60); Est Glom Filt Rate - Afr Amer 149 mL/min (>60); Estimated Creatinine Clearance 62.03 ml/min; Globulin 4.3 g/dL (2.2-4.2); Glucose 115 mg/dL (74-106); Potassium 4.1 mmol/L (3.5-5.1); Protein, Total 6.5 g/dL (6.4-8.2); Sodium Level 130 mmol/L (136-145)
[2020-12-21] MEDS: Pantoprazole Sodium 20 MG Tablet PO ×3 (10:21)
[2020-12-21] MEDS: Lisinopril 5 MG Tablet PO (10:21)
[2020-12-21] MEDS: Metoprolol Tartrate 25 MG Tablet 12.5 MG PO ×2 (10:21→23:06)
--- NOTE | 2020-12-21 12:20 | PCM.PROGNOTE ---
<JoshBriseida LEATHER STITCHER - Last Filed: 12/21/20 12:29> Patient Problems: Active and Suspected Problems (Last Reviewed 12/18/20 @ 19:[address] Roseann Rivera DO) Bacteremia due to Gram-positive bacteria (Acute) Lactic acidosis (Acute) Elevated liver transaminase level (Acute) Liver mass (Acute) Subjective: Patient seen and examined. Reports improvement in fever. Denies current symptoms or complaints. - Physical Exam Vitals/I&O's: Vital Signs Temp Pulse Resp BP Pulse Ox 97.4 F L 73 18 129/65 H 98 12/21/20 10:00 12/21/20 10:21 12/21/20 10:00 12/21/20 10:12/21/20 10:00 Oxygen Delivery Method Room Air Weight: 152 lb 1.903 oz Body Mass Index (BMI) 24.5 Intake and Output for Last 24 Hours 12/19/20 12/20/20 12/21/20 23:59 23:59 23:59 Intake Total 3935.00 / 3935.00 4964.58 / 4964.58 1340 / 1340 Balance 3935.00 / 3935.00 4964.58 / 4964.58 1340 / 1340 General: Alert, Oriented x3, Cooperative HEENT: Atraumatic, PERRLA, EOMI, Normocephalic Neck: Supple, No JVD, Negative Carotid Bruits Lungs: Clear to auscultation, Normal air movement Cardiovascular: Regular rate, No murmurs Abdomen: Bowel Sounds Present, Soft, Non Tender, Non-Distended Extremities: No clubbing, No cyanosis, No edema, Capillary Refill Less than 3 Seconds Skin: No rashes, No breakdown Musculoskeletal: No Tenderness to Palpation of Joints or Extremities Neurological: Cranial nerves II-XII grossly intact, Neuro grossly intact Psych/Mental Status: Normal Affect, Appropriate Microbiology Past 72 Hours 12/18/20 15:55 Urine, Clean Catch Urine Culture - Final Culture exhibits no growth. 12/19/20 11:20 Stool Enteric Bacteriology - Final 12/19/20 11:20 Stool C. difficile DNA Amplification - Final Laboratory Results 12/20/20 06:35: Hemoglobin A1c 6.2 H 12/21/20 06:40: WBC 9.3, RBC 3.53 L, Hgb 10.7 L, Hct 32.1 L, MCV 90.9, MCH 30.3, MCHC 33.3, RDW Std Deviation 44.7 H, RDW Coeff of George 13.6, Plt Count 290, MPV 8.6 12/21/20 06:40: Sodium 130 L, Potassium 4.1, Chloride 100, Carbon Dioxide 25.0, Anion Gap 5, BUN 14, Creatinine 0.68 L, Estim Creat Clear Calc 62.03, Est GFR (MDRD) Af Amer 149, Est GFR (MDRD) Non-Af 123, BUN/Creatinine Ratio 20.7 H, Glucose 115 H, Calcium 8.8, Total Bilirubin 0.60, AST 45 H, ALT 167 H, Alkaline Phosphatase 186 H, Total Protein 6.5, Albumin 2.2 L, Globulin 4.3 H, Albumin/Globulin Ratio 0.5 L Current Medications Acetaminophen (Acetaminophen 325 Mg Tablet) 650 mg PO Q6H PRN PRN PRN Reason: Pain Score 1-10/Temp > 100.7 F Last Admin: 12/21/20 06:13 Dose: 650 mg Documented by: Hydralazine HCl (Hydralazine 20 Mg/Ml Vial) 10 mg IV Q6H PRN PRN PRN Reason: sbp>160 Sodium Chloride () 1,000 mls @ 125 mls/hr IV .Q8H [facility] Last Admin: 12/21/20 06:13 Dose: 125 mls/hr Documented by: Cefepime HCl 2 gm/ Sodium (Chloride) 100 mls @ 200 mls/hr IV Q8 [facility] Last Infusion: 12/21/20 06:43 Dose: Infused Documented by: Latanoprost (Latanoprost 0.005% 1 Bottle) 1 drop OPHTHALMIC DAILY [facility] Last Admin: 12/21/20 10:21 Dose: Not Given Documented by: Lisinopril (Lisinopril 5 Mg Tablet) 5 mg PO DAILY [facility] Last Admin: 12/21/20 10:21 Dose: 5 mg Documented by: Metoprolol Tartrate (Metoprolol Tartrate 25 Mg Tablet) 12.5 mg PO BID [facility] Last Admin: 12/21/20 10:21 Dose: 12.5 mg Documented by: Metronidazole (Metronidazole 500 Mg Tablet) 500 mg PO TID [facility] Last Admin: 12/21/20 06:14 Dose: 500 mg Documented by: Ondansetron HCl (Ondansetron 4 Mg/2 Ml Vial) 4 mg IV Q8H PRN PRN PRN Reason: NAUSEA/VOMITING Oxycodone HCl (Oxycodone 5 Mg Tablet) 5 mg PO Q4H PRN PRN PRN Reason: Pain Score 4-10 Pantoprazole Sodium (Pantoprazole Sodium 20 Mg Tablet) 20 mg PO DAILY [facility] Last Admin: 12/21/20 10:21 Dose: 20 mg Documented by: Sodium Chloride (0.9% Saline Lock 10 Ml Syringe) 10 - 40 ml IV UD PRN PRN Reason: SALINE FLUSH Medical Necessity - Tobacco Use Smoking Status: Former smoker Assessment/Plan All Active Problems (Last Reviewed 12/18/20 @ 19:[address] Roseann Rivera, DO) Bacteremia due to Gram-positive bacteria (Acute) Lactic acidosis (Acute) Elevated liver transaminase level (Acute) Liver mass (Acute) Abnormal nuclear stress test (Resolved) Chest pain (Resolved) 1. Severe sepsis secondary to strep bacteremia, liver abscess- Initiated on azithromycin and cefdinir 12/16/20 as outpatient. Prior blood cultures preliminary grew strep. Urine culture 12/16/2020 grew mixed gram-positive organisms less than 1000 colony count. Covid test negative 12/12/20. Repeat PCR negative as well. Continue IV cefepime and IV Flagyl. Repeat blood cultures pending. Echocardiogram demonstrates an EF of 65%. ID consulted. General surgery consulted. CT of abdomen pelvis shows 9.8 cm multiloculated mass which could be abscess versus neoplasm. Unable to obtain biopsy at this time due to Plavix which is on hold. Plan for drain placement on Saturday. MRI of abdomen completed which was also nonspecific for abscess versus metastasis. 2. Liver mass-suspected abscess. Plan for drain placement on Saturday, Plavix on hold. 3. Acute on chronic hyponatremia-improved. Trend BMP. 4. Hyperglycemia-hemoglobin A1c 6.2%. Recommend carb controlled diet and repeat hemoglobin A1c as outpatient. 5. CAD with history of PCI/NATALIO to mid RCA 12/18/2019-continue statin, metoprolol, lisinopril. Aspirin, Plavix on hold. 6. Hypertension-continue lisinopril, metoprolol. 7. Hyperlipidemia-continue statin. 8. GERD-continue PPI. 9. Chronic normocytic anemia-mild, stable. DVT prophylaxis- Lovenox sc This patient was seen by ANTHONY Obrien under the supervision of Dr. Soto. <Lakeisha Soto - Last Filed: 12/21/20 17:49> - Physical Exam Vitals/I&O's: Vital Signs Temp Pulse Resp BP Pulse Ox 97.3 F L 65 18 119/92 H 98 12/21/20 15:17 12/21/20 15:17 12/21/20 15:17 12/21/20 15:17 12/21/20 15:17 Oxygen Delivery Method Room Air Weight: 69 kg Body Mass Index (BMI) 24.5 Intake and Output for Last 24 Hours 12/19/20 12/20/20 12/21/20 23:59 23:59 23:59 Intake Total 3935.00 / 3935.00 4964.58 / 4964.58 2400.83 / 2400.83 Balance 3935.00 / 3935.00 4964.58 / 4964.58 2400.83 / 2400.83 Microbiology Past 72 Hours 12/18/20 15:30 Blood Culture (Wb) - Anticubital Left Blood Culture - Preliminary No growth in 48 hours. 12/18/20 16:00 Blood Culture (Wb) - Anticubital Right Blood Culture - Preliminary No growth in 48 hours. 12/18/20 15:55 Urine, Clean Catch Urine Culture - Final Culture exhibits no growth. 12/19/20 11:20 Stool Enteric Bacteriology - Final 12/19/20 11:20 Stool C. difficile DNA Amplification - Final Laboratory Results 12/21/20 06:40: WBC 9.3, RBC 3.53 L, Hgb 10.7 L, Hct 32.1 L, MCV 90.9, MCH 30.3, MCHC 33.3, RDW Std Deviation 44.7 H, RDW Coeff of George 13.6, Plt Count 290, MPV 8.6 12/21/20 06:40: Sodium 130 L, Potassium 4.1, Chloride 100, Carbon Dioxide 25.0, Anion Gap 5, BUN 14, Creatinine 0.68 L, Estim Creat Clear Calc 62.03, Est GFR (MDRD) Af Amer 149, Est GFR (MDRD) Non-Af 123, BUN/Creatinine Ratio 20.7 H, Glucose 115 H, Calcium 8.8, Total Bilirubin 0.60, AST 45 H, ALT 167 H, Alkaline Phosphatase 186 H, Total Protein 6.5, Albumin 2.2 L, Globulin 4.3 H, Albumin/Globulin Ratio 0.5 L Current Medications Acetaminophen (Acetaminophen 325 Mg Tablet) 650 mg PO Q6H PRN PRN PRN Reason: Pain Score 1-10/Temp > 100.7 F Last Admin: 12/21/20 12:48 Dose: 650 mg Documented by: Hydralazine HCl (Hydralazine 20 Mg/Ml Vial) 10 mg IV Q6H PRN PRN PRN Reason: sbp>160 Sodium Chloride () 1,000 mls @ 125 mls/hr IV .Q8H [facility] Last Admin: 12/21/20 12:47 Dose: 125 mls/hr Documented by: Cefepime HCl 2 gm/ Sodium (Chloride) 100 mls @ 200 mls/hr IV Q8 [facility] Last Admin: 12/21/20 15:19 Dose: 200 mls/hr Documented by: Latanoprost (Latanoprost 0.005% 1 Bottle) 1 drop OPHTHALMIC DAILY [facility] Last Admin: 12/21/20 10:21 Dose: Not Given Documented by: Lisinopril (Lisinopril 5 Mg Tablet) 5 mg PO DAILY [facility] Last Admin: 12/21/20 10:21 Dose: 5 mg Documented by: Metoprolol Tartrate (Metoprolol Tartrate 25 Mg Tablet) 12.5 mg PO BID [facility] Last Admin: 12/21/20 10:21 Dose: 12.5 mg Documented by: Metronidazole (Metronidazole 500 Mg Tablet) 500 mg PO TID [facility] Last Admin: 12/21/20 15:19 Dose: 500 mg Documented by: Ondansetron HCl (Ondansetron 4 Mg/2 Ml Vial) 4 mg IV Q8H PRN PRN PRN Reason: NAUSEA/VOMITING Oxycodone HCl (Oxycodone 5 Mg Tablet) 5 mg PO Q4H PRN PRN PRN Reason: Pain Score 4-10 Pantoprazole Sodium (Pantoprazole Sodium 20 Mg Tablet) 20 mg PO DAILY [facility] Last Admin: 12/21/20 10:21 Dose: 20 mg Documented by: Sodium Chloride (0.9% Saline Lock 10 Ml Syringe) 10 - 40 ml IV UD PRN PRN Reason: SALINE FLUSH Assessment/Plan This patient was seen in conjunction with Briseida Moreno NP. I have independently interviewed and examined the patient and reviewed pertinent historical, laboratory, and other data. Please refer to her note for patient's presentation, findings, and recommendations. Patient was seen and examined. Pain is controlled. Denies any fever or chills. No acute events overnight. Vitals were reviewed -stable Physical Exam: Gen: Comfortable, not pale, not jaundiced, alert oriented x3 CVS:HS I +II, regular, no murmurs RESP: CTA GI: BS present and normal, nontender, no palpable organs EXT:No edema Labs reviewed: ASSESSMENT: 1. Severe sepss secondary to strept bacteremia, liver abscess 2. Hyponatremia 3. Hyperglycemia 4. Hypertension 5. Hyperlipidemia 6. GERD 7. CAD s/p PCI Meds reviewed Plan: Continue on Cefepime and Flagyl Await IR drain placement on Saturday Repeat labs in am Inpatient E&M: 22950 Subs Hosp L2
--- NOTE | 2020-12-21 15:23 | PN.ID_ITS ---
Patient Problems: Active and Suspected Problems (Last Reviewed 12/18/20 @ 19:[address] Roseann Rivera, DO) Bacteremia due to Gram-positive bacteria (Acute) Lactic acidosis (Acute) Elevated liver transaminase level (Acute) Liver mass (Acute) Subjective: Feeling ok, no fever, improved today. Still some RUQ pain. - Physical Exam Vitals/I&O's: Vital Signs Temp Pulse Resp BP Pulse Ox 97.3 F L 65 18 119/92 H 98 12/21/20 15:17 12/21/20 15:17 12/21/20 15:17 12/21/20 15:17 12/21/20 15:17 Oxygen Delivery Method Room Air Weight: 69 kg Body Mass Index (BMI) 24.5 Intake and Output for Last 24 Hours 12/19/20 12/20/20 12/21/20 23:59 23:59 23:59 Intake Total 3935.00 / 3935.00 4964.58 / 4964.58 2400.83 / 2400.83 Balance 3935.00 / 3935.00 4964.58 / 4964.58 2400.83 / 2400.83 General: Alert, Cooperative, No apparent distress Lungs: Clear to auscultation, Normal air movement Cardiovascular: Regular rate, Regular Rhythm Abdomen: Soft, Non Tender, Non-Distended Skin: No rashes Microbiology Past 72 Hours 12/18/20 15:30 Blood Culture (Wb) - Anticubital Left Blood Culture - Preliminary No growth in 48 hours. 12/18/20 16:00 Blood Culture (Wb) - Anticubital Right Blood Culture - Preliminary No growth in 48 hours. 12/18/20 15:55 Urine, Clean Catch Urine Culture - Final Culture exhibits no growth. 12/19/20 11:20 Stool Enteric Bacteriology - Final 12/19/20 11:20 Stool C. difficile DNA Amplification - Final Laboratory Results 12/20/20 06:35: Hemoglobin A1c 6.2 H 12/21/20 06:40: WBC 9.3, RBC 3.53 L, Hgb 10.7 L, Hct 32.1 L, MCV 90.9, MCH 30.3, MCHC 33.3, RDW Std Deviation 44.7 H, RDW Coeff of George 13.6, Plt Count 290, MPV 8.6 12/21/20 06:40: Sodium 130 L, Potassium 4.1, Chloride 100, Carbon Dioxide 25.0, Anion Gap 5, BUN 14, Creatinine 0.68 L, Estim Creat Clear Calc 62.03, Est GFR (MDRD) Af Amer 149, Est GFR (MDRD) Non-Af 123, BUN/Creatinine Ratio 20.7 H, Glucose 115 H, Calcium 8.8, Total Bilirubin 0.60, AST 45 H, ALT 167 H, Alkaline Phosphatase 186 H, Total Protein 6.5, Albumin 2.2 L, Globulin 4.3 H, Albumin/Globulin Ratio 0.5 L Current Medications Acetaminophen (Acetaminophen 325 Mg Tablet) 650 mg PO Q6H PRN PRN PRN Reason: Pain Score 1-10/Temp > 100.7 F Last Admin: 12/21/20 12:48 Dose: 650 mg Documented by: Hydralazine HCl (Hydralazine 20 Mg/Ml Vial) 10 mg IV Q6H PRN PRN PRN Reason: sbp>160 Sodium Chloride () 1,000 mls @ 125 mls/hr IV .Q8H [facility] Last Admin: 12/21/20 12:47 Dose: 125 mls/hr Documented by: Cefepime HCl 2 gm/ Sodium (Chloride) 100 mls @ 200 mls/hr IV Q8 [facility] Last Infusion: 12/21/20 06:43 Dose: Infused Documented by: Latanoprost (Latanoprost 0.005% 1 Bottle) 1 drop OPHTHALMIC DAILY [facility] Last Admin: 12/21/20 10:21 Dose: Not Given Documented by: Lisinopril (Lisinopril 5 Mg Tablet) 5 mg PO DAILY [facility] Last Admin: 12/21/20 10:21 Dose: 5 mg Documented by: Metoprolol Tartrate (Metoprolol Tartrate 25 Mg Tablet) 12.5 mg PO BID [facility] Last Admin: 12/21/20 10:21 Dose: 12.5 mg Documented by: Metronidazole (Metronidazole 500 Mg Tablet) 500 mg PO TID [facility] Last Admin: 12/21/20 06:14 Dose: 500 mg Documented by: Ondansetron HCl (Ondansetron 4 Mg/2 Ml Vial) 4 mg IV Q8H PRN PRN PRN Reason: NAUSEA/VOMITING Oxycodone HCl (Oxycodone 5 Mg Tablet) 5 mg PO Q4H PRN PRN PRN Reason: Pain Score 4-10 Pantoprazole Sodium (Pantoprazole Sodium 20 Mg Tablet) 20 mg PO DAILY [facility] Last Admin: 12/21/20 10:21 Dose: 20 mg Documented by: Sodium Chloride (0.9% Saline Lock 10 Ml Syringe) 10 - 40 ml IV UD PRN PRN Reason: SALINE FLUSH Medical Necessity - Tobacco Use Smoking Status: Former smoker Route of nutrition/ use of supplements: [] Nutritional Intake: [] IV Site: [] Doherty Catheter: [] - Assessment/Plan Antibiotics: [] Assessment/Plan: [] Active and Suspected Problems (Last Reviewed 12/18/20 @ 19:[address] Roseann Rivera, DO) Bacteremia due to Gram-positive bacteria (Acute) Lactic acidosis (Acute) Elevated liver transaminase level (Acute) Liver mass (Acute) alpha hemolytic strep bacteremia with possible liver abscess vs malignancy - TTE showed no veg. MRCP report reviewed. Cont cefepime/flagyl. Cdiff neg. Dental xray neg for abscess. Plan is for aspiration in 2 days. Repeat bcx remain neg. Will follow
[2020-12-22] VITALS (20 sets, daily range): BP systolic 123–168; BP diastolic 59–87; PULSE 65–83; RESP 12–20; TEMP 36.6–36.9; O2SAT 97–99
[2020-12-22] MEDS: 0.9% Normal Saline 1,000 ML 125 ML IV ×2 (05:43→20:13)
[2020-12-22] MEDS: metroNIDAZOLE 500 MG Tablet PO (05:43)
[2020-12-22] MEDS: Acetaminophen 325 MG Tablet 650 MG PO ×2 (05:44→16:17)
[2020-12-22 05:51] LABS: Hemoglobin 10.8 g/dL (13.0-16.5); Mean Corp Hgb Conc 32.7 g/dL (32-36); Mean Corpuscular Hgb 29.8 pg (27.0-32.0); Mean Corpuscular Volume 91.2 fL (80-94); Mean Platelet Vol. 8.6 fl (6.2-12.0); Platelet Count 360 K/mm3 (150-450); RBC Distribution Width CV 13.3 % (11.6-14.6); RBC Distribution Width SD 45.1 fl (35.1-43.9); Red Blood Count 3.62 M/mm3 (4.6-6.2); White Blood Count 9.6 K/mm3 (4.4-11.0)
[2020-12-22 06:21] LABS: Anion Gap 8 (5-15); BUN 15 mg/dL (7-18); BUN/Creat Ratio 21.7 RATIO (10-20); Calcium,Total 8.9 mg/dL (8.5-10.1); Chloride 99 mmol/L (98-107); Creatinine, Serum 0.69 mg/dL (0.70-1.30); EST Glomerular Filtration Rate 120 mL/min (>60); Est Glom Filt Rate - Afr Amer 145 mL/min (>60); Estimated Creatinine Clearance 62.03 ml/min; Glucose 117 mg/dL (74-106); Potassium 4.3 mmol/L (3.5-5.1); Sodium Level 129 mmol/L (136-145)
--- NOTE | 2020-12-22 08:00 | CT_ITS ---
PROCEDURE: CT DIRECTED ABSCESS DRAINAGE, PERITONEAL DATE OF EXAMINATION: 12/22/2020. INDICATION: Male, 70 years old. Abscess of the right hepatic lobe. PHYSICIAN: Zane Horan M.D. CONSENT: Written informed consent was obtained having explained the risks, benefits and alternatives in detail with the patient who accepted the risks and agreed to proceed. Laboratory review and clinical assessment was performed. CONSCIOUS SEDATION PROTOCOL: The Drugs used were: 2 mg Versed, IV., and 50 mcg Fentanyl, IV. The sedation time was: 26 minutes. Conscious sedation was started at 1:44 PM and terminated at 2:10 PM. The conscious sedation protocol was independently monitored. RADIATION DOSAGE (If Supplied By Facility): CTDIvol = ( 14.45 ) mGy, DLP = ( 538.53 ) mGycm. Individualized dose optimization techniques were utilized. TECHNIQUE: CT sections were made through the abdomen and pelvis revealing an abscess in the posterior right lobe of the liver. The skin surface was prepped and draped in a sterile fashion. Puncture of this collection was performed initially with a 5 Telugu catheter and fluid was aspirated. Drainage catheter was then inserted into the collection and formed into position. Additional fluid was aspirated for a total of approximately 110 cc of cloudy purulent fluid. The catheter was sutured into position to allow for continued drainage. Followup CT sections reveals good position of the catheter. CT/Abscess/Fistula/Sinus Tract IMPRESSION: 1. CT directed drainage of a fluid collection using CT image guidance and image documentation as described. 2. Conscious Sedation protocol utilized with independent monitoring Electronically Signed: Zane Horan MD at 14:31 EST , Service support ,
--- NOTE | 2020-12-22 09:40 | PN.SURG_ITS ---
Patient Problems: Active and Suspected Problems (Last Reviewed 12/18/20 @ 19:[address] Roseann Rivera, DO) Bacteremia due to Gram-positive bacteria (Acute) Lactic acidosis (Acute) Elevated liver transaminase level (Acute) Liver mass (Acute) Subjective: Plan for IR drainage of likely liver abscess tomorrow, No more fevers patient states pain has improved as well - Physical Exam Vitals/I&O's: Vital Signs Temp Pulse Resp BP Pulse Ox 98.4 F 77 20 H 168/73 H 97 12/22/20 04:17 12/22/20 07:00 12/22/20 04:17 12/22/20 04:17 12/22/20 07:42 Oxygen Delivery Method Room Air Weight: 152 lb 1.903 oz Body Mass Index (BMI) 24.5 Intake and Output for Last 24 Hours 12/20/20 12/21/20 12/22/20 23:59 23:59 23:59 Intake Total 4964.58 / 4964.58 3872.08 / 4672.08 2531.25 / 2531.25 Balance 4964.58 / 4964.58 3872.08 / 4672.08 2531.25 / 2531.25 General: Alert, Oriented x3, Cooperative, No apparent distress HEENT: Atraumatic Lungs: Normal air movement Cardiovascular: Regular rate Abdomen: Soft, Non Tender, Non-Distended Microbiology Past 72 Hours 12/18/20 15:30 Blood Culture (Wb) - Anticubital Left Blood Culture - Preliminary No growth in 48 hours. 12/18/20 16:00 Blood Culture (Wb) - Anticubital Right Blood Culture - Preliminary No growth in 48 hours. 12/18/20 15:55 Urine, Clean Catch Urine Culture - Final Culture exhibits no growth. 12/19/20 11:20 Stool Enteric Bacteriology - Final 12/19/20 11:20 Stool C. difficile DNA Amplification - Final Laboratory Results 12/22/20 05:14: WBC 9.6, RBC 3.62 L, Hgb 10.8 L, Hct 33.0 L, MCV 91.2, MCH 29.8, MCHC 32.7, RDW Std Deviation 45.1 H, RDW Coeff of George 13.3, Plt Count 360, MPV 8.6 12/22/20 05:14: Sodium 129 L, Potassium 4.3, Chloride 99, Carbon Dioxide 22.0, Anion Gap 8, BUN 15, Creatinine 0.69 L, Estim Creat Clear Calc 62.03, Est GFR (MDRD) Af Amer 145, Est GFR (MDRD) Non-Af 120, BUN/Creatinine Ratio 21.7 H, Glucose 117 H, Calcium 8.9 Current Medications Acetaminophen (Acetaminophen 325 Mg Tablet) 650 mg PO Q6H PRN PRN PRN Reason: Pain Score 1-10/Temp > 100.7 F Last Admin: 12/22/20 05:44 Dose: 650 mg Documented by: Enoxaparin Sodium (Enoxaparin 40 Mg/0.4 Ml Syringe) 40 mg SC DAILY@0600 [facility] Last Admin: 12/22/20 06:37 Dose: Not Given Documented by: Hydralazine HCl (Hydralazine 20 Mg/Ml Vial) 10 mg IV Q6H PRN PRN PRN Reason: sbp>160 Sodium Chloride () 1,000 mls @ 125 mls/hr IV .Q8H [facility] Last Infusion: 12/22/20 05:51 Dose: 0 mls/hr Documented by: Cefepime HCl 2 gm/ Sodium (Chloride) 100 mls @ 200 mls/hr IV Q8 [facility] Last Infusion: 12/22/20 06:37 Dose: Infused Documented by: Latanoprost (Latanoprost 0.005% 1 Bottle) 1 drop OPHTHALMIC DAILY [facility] Last Admin: 12/21/20 10:21 Dose: Not Given Documented by: Lisinopril (Lisinopril 5 Mg Tablet) 5 mg PO DAILY [facility] Last Admin: 12/21/20 10:21 Dose: 5 mg Documented by: Metoprolol Tartrate (Metoprolol Tartrate 25 Mg Tablet) 12.5 mg PO BID [facility] Last Admin: 12/21/20 23:06 Dose: 12.5 mg Documented by: Metronidazole (Metronidazole 500 Mg Tablet) 500 mg PO TID [facility] Last Admin: 12/22/20 05:43 Dose: 500 mg Documented by: Ondansetron HCl (Ondansetron 4 Mg/2 Ml Vial) 4 mg IV Q8H PRN PRN PRN Reason: NAUSEA/VOMITING Oxycodone HCl (Oxycodone 5 Mg Tablet) 5 mg PO Q4H PRN PRN PRN Reason: Pain Score 4-10 Pantoprazole Sodium (Pantoprazole Sodium 20 Mg Tablet) 20 mg PO DAILY [facility] Last Admin: 12/21/20 10:21 Dose: 20 mg Documented by: Sodium Chloride (0.9% Saline Lock 10 Ml Syringe) 10 - 40 ml IV UD PRN PRN Reason: SALINE FLUSH Medical Necessity - Tobacco Use Smoking Status: Former smoker Assessment/Plan All Active Problems (Last Reviewed 12/18/20 @ 19:[address] Roseann Rivera, DO) Bacteremia due to Gram-positive bacteria (Acute) Lactic acidosis (Acute) Elevated liver transaminase level (Acute) Liver mass (Acute) Abnormal nuclear stress test (Resolved) Chest pain (Resolved) 70-year-old male with a liver mass Likely abscess, Bacteremia?gram-positive cocci from 12/16. 1. Plan for IR drainage of likely liver abscess tomorrow. Will hold Lovenox. Also get culture sent from drainage order placed. Patient is aware that this may take multiple drains to resolve this issue. Helena Moore M.D. Pager: [phone] [facility] [address] [place] [address], Outpatient [facility], [address] [place] [address] Office: [phone] Inpatient E&M: [id number] [facility] H[facility] L2
[2020-12-22] MEDS: Pantoprazole Sodium 20 MG Tablet PO (09:58)
[2020-12-22] MEDS: Metoprolol Tartrate 25 MG Tablet 12.5 MG PO ×2 (09:59→21:41)
[2020-12-22] MEDS: Lisinopril 5 MG Tablet PO (09:59)
[2020-12-22] MEDS: Midazolam 2 MG/2 ML Syringe IV (13:44)
[2020-12-22] MEDS: fentaNYL 100 MCG/2 ML Ampul IV (13:44)
[2020-12-22] MEDS: Lidocaine 2% (20 ml mdv) 20 ML Vial INFILT (13:55)
--- NOTE | 2020-12-22 19:08 | PN_ITS ---
Patient Problems: Active and Suspected Problems (Last Reviewed 12/18/20 @ 19:[address] Roseann Rivera, DO) Bacteremia due to Gram-positive bacteria (Acute) Lactic acidosis (Acute) Elevated liver transaminase level (Acute) Liver mass (Acute) Reason for Visit: Follow-up on severe sepsis/liver abscess Subjective: Patient was seen and examined. No new complaints. Patient was going for IR drainage this afternoon. Denies any fever or chills. Objective: Physical Exam: Gen: Comfortable, not pale, not jaundiced, alert oriented x3 CVS:HS I +II, regular, no murmurs RESP: CTA GI: BS present and normal, right upper quadrant tenderness, no palpable organs EXT:No edema Vitals/I&O's: Vital Signs Temp Pulse Resp BP Pulse Ox 97.8 F 75 16 129/76 H 97 12/22/20 15:05 12/22/20 17:00 12/22/20 15:05 12/22/20 15:05 12/22/20 15:05 Oxygen Flow Rate (L/min) [6] 2 Oxygen Flow Rate (L/min) [5] 2 Oxygen Flow Rate (L/min) [4] 2 Oxygen Flow Rate (L/min) [3] 2 Oxygen Flow Rate (L/min) [2] 2 Oxygen Flow Rate (L/min) [1 ( 2 Initial Baseline)] Oxygen Delivery Method [6] Nasal Cannula Oxygen Delivery Method [5] Nasal Cannula Oxygen Delivery Method [4] Nasal Cannula Oxygen Delivery Method [3] Nasal Cannula Oxygen Delivery Method [2] Nasal Cannula Oxygen Delivery Method [1 ( Nasal Cannula Initial Baseline)] Oxygen Delivery Method Room Air Weight: 69 kg Body Mass Index (BMI) 24.5 Intake and Output for Last 24 Hours 12/20/20 12/21/20 12/22/20 23:59 23:59 23:59 Intake Total 4964.58 / 4964.58 3872.08 / 4672.08 3051.25 / 3051.25 Output Total 120 / 120 Balance 4964.58 / 4964.58 3872.08 / 4672.08 2931.25 / 2931.25 Microbiology Past 72 Hours 12/18/20 15:30 Blood Culture (Wb) - Anticubital Left Blood Culture - Preliminary No growth in 48 hours. 12/18/20 16:00 Blood Culture (Wb) - Anticubital Right Blood Culture - Preliminary No growth in 48 hours. 12/18/20 15:55 Urine, Clean Catch Urine Culture - Final Culture exhibits no growth. 12/19/20 11:20 Stool Enteric Bacteriology - Final 12/19/20 11:20 Stool C. difficile DNA Amplification - Final Laboratory Results 12/22/20 05:14: WBC 9.6, RBC 3.62 L, Hgb 10.8 L, Hct 33.0 L, MCV 91.2, MCH 29.8, MCHC 32.7, RDW Std Deviation 45.1 H, RDW Coeff of George 13.3, Plt Count 360, MPV 8.6 12/22/20 05:14: Sodium 129 L, Potassium 4.3, Chloride 99, Carbon Dioxide 22.0, Anion Gap 8, BUN 15, Creatinine 0.69 L, Estim Creat Clear Calc 62.03, Est GFR (MDRD) Af Amer 145, Est GFR (MDRD) Non-Af 120, BUN/Creatinine Ratio 21.7 H, Glucose 117 H, Calcium 8.9 Current Medications Acetaminophen (Acetaminophen 325 Mg Tablet) 650 mg PO Q6H PRN PRN PRN Reason: Pain Score 1-10/Temp > 100.7 F Last Admin: 12/22/20 16:17 Dose: 650 mg Documented by: Enoxaparin Sodium (Enoxaparin 40 Mg/0.4 Ml Syringe) 40 mg SC DAILY@0600 [facility] Last Admin: 12/22/20 06:37 Dose: Not Given Documented by: Hydralazine HCl (Hydralazine 20 Mg/Ml Vial) 10 mg IV Q6H PRN PRN PRN Reason: sbp>160 Sodium Chloride () 1,000 mls @ 125 mls/hr IV .Q8H [facility] Last Infusion: 12/22/20 15:15 Dose: 125 mls/hr Documented by: Cefepime HCl 2 gm/ Sodium (Chloride) 100 mls @ 200 mls/hr IV Q8 [facility] Last Infusion: 12/22/20 15:53 Dose: Infused Documented by: Sodium Chloride () 500 mls @ 15 mls/hr IV .[id number] [facility] Stop: 12/22/20 23:59 Last Admin: 12/22/20 13:44 Dose: Not Given Documented by: Lisinopril (Lisinopril 5 Mg Tablet) 5 mg PO DAILY [facility] Last Admin: 12/22/20 09:59 Dose: 5 mg Documented by: Metoprolol Tartrate (Metoprolol Tartrate 25 Mg Tablet) 12.5 mg PO BID [facility] Last Admin: 12/22/20 09:59 Dose: 12.5 mg Documented by: Midazolam HCl (Midazolam 2 Mg/2 Ml Syringe) 1 - 2 mg IV UD PRN PRN Reason: Procedural Sedation Stop: 12/22/20 23:59 Last Admin: 12/22/20 13:44 Dose: 2 mg Documented by: Ondansetron HCl (Ondansetron 4 Mg/2 Ml Vial) 4 mg IV Q8H PRN PRN PRN Reason: NAUSEA/VOMITING Oxycodone HCl (Oxycodone 5 Mg Tablet) 5 mg PO Q4H PRN PRN PRN Reason: Pain Score 4-10 Pantoprazole Sodium (Pantoprazole Sodium 20 Mg Tablet) 20 mg PO DAILY [facility] Last Admin: 12/22/20 09:58 Dose: 20 mg Documented by: Sodium Chloride (0.9% Saline Lock 10 Ml Syringe) 10 - 40 ml IV UD PRN PRN Reason: SALINE FLUSH STROKE Vital Signs/Narrative: Vital Signs Pulse 12/22/20 17:00 75 Medical Necessity - Tobacco Use Smoking Status: Former smoker Assessment/Plan All Active Problems (Last Reviewed 12/18/20 @ 19:[address] Roseann Rivera, DO) Bacteremia due to Gram-positive bacteria (Acute) Lactic acidosis (Acute) Elevated liver transaminase level (Acute) Liver mass (Acute) Abnormal nuclear stress test (Resolved) Chest pain (Resolved) 1. Severe sepsis secondary to strept bacteremia, liver abscess, improved Blood cultures on was positive for Streptococcus. Repeat blood cultures have been negative. Going for IR CT-guided abscess drainage; follow-up on cultures Continue on IV cefepime. ID following, repeat blood work in a.m. 2. Hyponatremia, chronic, will continue to follow 3.Hypertension, controlled, continue lisinopril and metoprolol 5. Hyperlipidemia, off atorvastatin for now 6. GERD, continue PPI 7. CAD s/p PCI, aspirin and Plavix on hold Continue metoprolol 8. DVT prophylaxis?Lovenox on hold post procedure Inpatient E&M: [id number] [facility] Hosp L2
[2020-12-22] MEDS: oxyCODONE 5 MG Tablet PO (20:17)
[2020-12-23] VITALS (14 sets, daily range): BP systolic 117–139; BP diastolic 63–81; PULSE 65–93; RESP 16–18; TEMP 36.6–36.9; O2SAT 96–98
[2020-12-23] MEDS: 0.9% Normal Saline 1,000 ML 125 ML IV ×3 (05:18→22:06)
[2020-12-23] MEDS: Pantoprazole Sodium 20 MG Tablet PO (08:30)
[2020-12-23] MEDS: Lisinopril 5 MG Tablet PO (08:31)
[2020-12-23] MEDS: Metoprolol Tartrate 25 MG Tablet 12.5 MG PO ×2 (08:31→21:40)
--- NOTE | 2020-12-23 13:28 | PCM.PN.HOSP ---
Patient Problems: Active and Suspected Problems (Last Reviewed 12/18/20 @ 19:[address] Roseann Rivera, DO) Bacteremia due to Gram-positive bacteria (Acute) Lactic acidosis (Acute) Elevated liver transaminase level (Acute) Liver mass (Acute) Reason for Visit: Follow-up on severe sepsis/liver abscess Subjective: Patient was seen and examined. He had an IR placement of drain to liver abscess. DAVID drain has geovanna pus -about 170 mils over the last 24 hours. Patient denies any fever or chills. Discussed with infectious disease, plan will be for PICC line and long-term IV antibiotics. Objective: Physical Exam: Gen: Comfortable, not pale, not jaundiced, alert oriented x3 CVS:HS I +II, regular, no murmurs RESP: CTA GI: BS present and normal, DAVID drain present with pus, right upper quadrant tenderness, no palpable organs EXT:No edema Vitals/I&O's: Vital Signs Temp Pulse Resp BP Pulse Ox 98.0 F 65 16 122/68 H 96 12/23/20 08:35 12/23/20 11:55 12/23/20 08:35 12/23/20 08:35 12/23/20 08:35 Oxygen Flow Rate (L/min) [6] 2 Oxygen Flow Rate (L/min) [5] 2 Oxygen Flow Rate (L/min) [4] 2 Oxygen Flow Rate (L/min) [3] 2 Oxygen Flow Rate (L/min) [2] 2 Oxygen Flow Rate (L/min) [1 ( 2 Initial Baseline)] Oxygen Delivery Method [6] Nasal Cannula Oxygen Delivery Method [5] Nasal Cannula Oxygen Delivery Method [4] Nasal Cannula Oxygen Delivery Method [3] Nasal Cannula Oxygen Delivery Method [2] Nasal Cannula Oxygen Delivery Method [1 ( Nasal Cannula Initial Baseline)] Oxygen Delivery Method Room Air Weight: 69 kg Body Mass Index (BMI) 24.5 Intake and Output for Last 24 Hours 12/21/20 12/22/20 12/23/20 23:59 23:59 23:59 Intake Total 3872.08 / 4672.08 3772.08 / 4072.08 3931.25 / 3931.25 Output Total 120 / 120 50 / 50 Balance 3872.08 / 4672.08 3652.08 / 3952.08 3881.25 / 3881.25 Microbiology Past 72 Hours 02/18/21 14:17 Wound Abcess - Abdominal Gram Stain - Final 12/22/20 14:17 Wound Abcess - Abdominal Wound Culture - Preliminary No growth-Final to follow 12/18/20 15:30 Blood Culture (Wb) - Anticubital Left Blood Culture - Preliminary No growth in 48 hours. 12/18/20 16:00 Blood Culture (Wb) - Anticubital Right Blood Culture - Preliminary No growth in 48 hours. 12/18/20 15:55 Urine, Clean Catch Urine Culture - Final Culture exhibits no growth. 12/19/20 11:20 Stool Enteric Bacteriology - Final Current Medications Acetaminophen (Acetaminophen 325 Mg Tablet) 650 mg PO Q6H PRN PRN PRN Reason: Pain Score 1-10/Temp > 100.7 F Last Admin: 12/22/20 16:17 Dose: 650 mg Documented by: Enoxaparin Sodium (Enoxaparin 40 Mg/0.4 Ml Syringe) 40 mg SC DAILY@0600 [facility] Last Admin: 12/22/20 06:37 Dose: Not Given Documented by: Hydralazine HCl (Hydralazine 20 Mg/Ml Vial) 10 mg IV Q6H PRN PRN PRN Reason: sbp>160 Sodium Chloride () 1,000 mls @ 125 mls/hr IV .Q8H [facility] Last Admin: 12/23/20 13:22 Dose: 125 mls/hr Documented by: Ceftriaxone Sodium 2 gm/ (Sodium Chloride) 50 mls @ 100 mls/hr IV Q24 [facility] Lisinopril (Lisinopril 5 Mg Tablet) 5 mg PO DAILY [facility] Last Admin: 12/23/20 08:31 Dose: 5 mg Documented by: Metoprolol Tartrate (Metoprolol Tartrate 25 Mg Tablet) 12.5 mg PO BID [facility] Last Admin: 12/23/20 08:31 Dose: 12.5 mg Documented by: Metronidazole (Metronidazole 500 Mg Tablet) 500 mg PO TID [facility] Ondansetron HCl (Ondansetron 4 Mg/2 Ml Vial) 4 mg IV Q8H PRN PRN PRN Reason: NAUSEA/VOMITING Oxycodone HCl (Oxycodone 5 Mg Tablet) 5 mg PO Q4H PRN PRN PRN Reason: Pain Score 4-10 Last Admin: 12/22/20 20:17 Dose: 5 mg Documented by: Pantoprazole Sodium (Pantoprazole Sodium 20 Mg Tablet) 20 mg PO DAILY [facility] Last Admin: 12/23/20 08:30 Dose: 20 mg Documented by: Sodium Chloride (0.9% Saline Lock 10 Ml Syringe) 10 - 40 ml IV UD PRN PRN Reason: SALINE FLUSH STROKE Vital Signs/Narrative: Vital Signs Pulse 12/23/20 11:55 65 Medical Necessity - Tobacco Use Smoking Status: Former smoker Assessment/Plan All Active Problems (Last Reviewed 12/18/20 @ 19:[address] Roseann Rivera, DO) Bacteremia due to Gram-positive bacteria (Acute) Lactic acidosis (Acute) Elevated liver transaminase level (Acute) Liver mass (Acute) Abnormal nuclear stress test (Resolved) Chest pain (Resolved) 1. Severe sepsis secondary to strept bacteremia, liver abscess, status post IR CT-guided abscess drainage Blood cultures on was positive for Streptococcus. Repeat blood cultures have been negative. Wound cultures growing gram-positive cocci Discussed with ID; plan is for PICC line in long-term antibiotics -IV ceftriaxone and p.o. Flagyl for 4 weeks 2. Hyponatremia, chronic, will continue to follow 3.Hypertension, controlled, continue lisinopril and metoprolol 5. Hyperlipidemia, off atorvastatin for now 6. GERD, continue PPI 7. CAD s/p PCI, aspirin and Plavix on hold Continue metoprolol 8. DVT prophylaxis?Lovenox on hold post procedure Inpatient E&M: [id number] [facility] Hosp L3
[2020-12-23] MEDS: metroNIDAZOLE 500 MG Tablet PO ×2 (14:00→21:39)
--- NOTE | 2020-12-23 14:00 | PN.SURG_ITS ---
Patient Problems: Active and Suspected Problems (Last Reviewed 12/18/20 @ 19:[address] Roseann Rivera, DO) Bacteremia due to Gram-positive bacteria (Acute) Lactic acidosis (Acute) Elevated liver transaminase level (Acute) Liver mass (Acute) Subjective: Patient denies any issues. Drain was placed yesterday and put out 110 cc of purulent drainage instruct placement. Since then patient has had about 30 today plus some in the DAVID.Gram stain growing gram-positive cocci - Physical Exam Vitals/I&O's: Vital Signs Temp Pulse Resp BP Pulse Ox 98.0 F 65 16 122/68 H 96 12/23/20 08:35 12/23/20 11:55 12/23/20 08:35 12/23/20 08:35 12/23/20 08:35 Oxygen Flow Rate (L/min) [6] 2 Oxygen Flow Rate (L/min) [5] 2 Oxygen Flow Rate (L/min) [4] 2 Oxygen Flow Rate (L/min) [3] 2 Oxygen Flow Rate (L/min) [2] 2 Oxygen Flow Rate (L/min) [1 ( 2 Initial Baseline)] Oxygen Delivery Method [6] Nasal Cannula Oxygen Delivery Method [5] Nasal Cannula Oxygen Delivery Method [4] Nasal Cannula Oxygen Delivery Method [3] Nasal Cannula Oxygen Delivery Method [2] Nasal Cannula Oxygen Delivery Method [1 ( Nasal Cannula Initial Baseline)] Oxygen Delivery Method Room Air Weight: 152 lb 1.903 oz Body Mass Index (BMI) 24.5 Intake and Output for Last 24 Hours 12/21/20 12/22/20 12/23/20 23:59 23:59 23:59 Intake Total 3872.08 / 4672.08 3772.08 / 4072.08 3931.25 / 3931.25 Output Total 120 / 120 50 / 50 Balance 3872.08 / 4672.08 3652.08 / 3952.08 3881.25 / 3881.25 General: Alert, Oriented x3, Cooperative, No apparent distress Lungs: Normal air movement Cardiovascular: Regular rate Abdomen: Soft, Non-Distended, - - DAVID with purulent drainage in the right back Microbiology Past 72 Hours 12/22/20 14:17 Wound Abcess - Abdominal Gram Stain - Final 12/22/20 14:17 Wound Abcess - Abdominal Wound Culture - Preliminary No growth-Final to follow 12/18/20 15:30 Blood Culture (Wb) - Anticubital Left Blood Culture - Preliminary No growth in 48 hours. 12/18/20 16:00 Blood Culture (Wb) - Anticubital Right Blood Culture - Preliminary No growth in 48 hours. 12/18/20 15:55 Urine, Clean Catch Urine Culture - Final Culture exhibits no growth. 12/19/20 11:20 Stool Enteric Bacteriology - Final Current Medications Acetaminophen (Acetaminophen 325 Mg Tablet) 650 mg PO Q6H PRN PRN PRN Reason: Pain Score 1-10/Temp > 100.7 F Last Admin: 12/22/20 16:17 Dose: 650 mg Documented by: Enoxaparin Sodium (Enoxaparin 40 Mg/0.4 Ml Syringe) 40 mg SC DAILY@0600 [facility] Last Admin: 12/22/20 06:37 Dose: Not Given Documented by: Hydralazine HCl (Hydralazine 20 Mg/Ml Vial) 10 mg IV Q6H PRN PRN PRN Reason: sbp>160 Sodium Chloride () 1,000 mls @ 125 mls/hr IV .Q8H [facility] Last Admin: 12/23/20 13:22 Dose: 125 mls/hr Documented by: Ceftriaxone Sodium 2 gm/ (Sodium Chloride) 50 mls @ 100 mls/hr IV Q24 [facility] Lisinopril (Lisinopril 5 Mg Tablet) 5 mg PO DAILY [facility] Last Admin: 12/23/20 08:31 Dose: 5 mg Documented by: Metoprolol Tartrate (Metoprolol Tartrate 25 Mg Tablet) 12.5 mg PO BID [facility] Last Admin: 12/23/20 08:31 Dose: 12.5 mg Documented by: Metronidazole (Metronidazole 500 Mg Tablet) 500 mg PO TID [facility] Ondansetron HCl (Ondansetron 4 Mg/2 Ml Vial) 4 mg IV Q8H PRN PRN PRN Reason: NAUSEA/VOMITING Oxycodone HCl (Oxycodone 5 Mg Tablet) 5 mg PO Q4H PRN PRN PRN Reason: Pain Score 4-10 Last Admin: 12/22/20 20:17 Dose: 5 mg Documented by: Pantoprazole Sodium (Pantoprazole Sodium 20 Mg Tablet) 20 mg PO DAILY [facility] Last Admin: 12/23/20 08:30 Dose: 20 mg Documented by: Sodium Chloride (0.9% Saline Lock 10 Ml Syringe) 10 - 40 ml IV UD PRN PRN Reason: SALINE FLUSH Medical Necessity - Tobacco Use Smoking Status: Former smoker Assessment/Plan All Active Problems (Last Reviewed 12/18/20 @ 19:[address] Roseann Rivera, DO) Bacteremia due to Gram-positive bacteria (Acute) Lactic acidosis (Acute) Elevated liver transaminase level (Acute) Liver mass (Acute) Abnormal nuclear stress test (Resolved) Chest pain (Resolved) 70-year-old male with a liver abscess, Bacteremia?gram-positive cocci from 12/16. 1. We will continue DAVID drain over the weekend likely plan for repeat CAT scan on Saturday and patient will likely need replacement or additional drain placed as original abscess cavity was quite loculated. Gram stain also showing gram-posi tive cocci. 2. Continue IV antibiotics per ID Helena Moore M.D. Pager: [phone] [facility] [address] [place] [address], Outpatient [place], [address] [place] [address] Office: [phone] Inpatient E&M: [id number] [facility] Hosp L1
[2020-12-23] MEDS: Acetaminophen 325 MG Tablet 650 MG PO (14:18)
--- NOTE | 2020-12-23 14:28 | PCM.PN.ID ---
Patient Problems: Active and Suspected Problems (Last Reviewed 12/18/20 @ 19:[address] Roseann Rivera, DO) Bacteremia due to Gram-positive bacteria (Acute) Lactic acidosis (Acute) Elevated liver transaminase level (Acute) Liver mass (Acute) Subjective: Feeling ok, drain in place, no fever - Physical Exam Vitals/I&O's: Vital Signs Temp Pulse Resp BP Pulse Ox 98.0 F 65 16 122/68 H 96 12/23/20 08:35 12/23/20 11:55 12/23/20 08:35 12/23/20 08:35 12/23/20 08:35 Oxygen Flow Rate (L/min) [6] 2 Oxygen Flow Rate (L/min) [5] 2 Oxygen Flow Rate (L/min) [4] 2 Oxygen Flow Rate (L/min) [3] 2 Oxygen Flow Rate (L/min) [2] 2 Oxygen Flow Rate (L/min) [1 ( 2 Initial Baseline)] Oxygen Delivery Method [6] Nasal Cannula Oxygen Delivery Method [5] Nasal Cannula Oxygen Delivery Method [4] Nasal Cannula Oxygen Delivery Method [3] Nasal Cannula Oxygen Delivery Method [2] Nasal Cannula Oxygen Delivery Method [1 ( Nasal Cannula Initial Baseline)] Oxygen Delivery Method Room Air Weight: 69 kg Body Mass Index (BMI) 24.5 Intake and Output for Last 24 Hours 12/21/20 12/22/20 12/23/20 23:59 23:59 23:59 Intake Total 3872.08 / 4672.08 3772.08 / 4072.08 3931.25 / 3931.25 Output Total 120 / 120 50 / 50 Balance 3872.08 / 4672.08 3652.08 / 3952.08 3881.25 / 3881.25 General: Alert, Cooperative, No apparent distress Lungs: Clear to auscultation, Normal air movement Cardiovascular: Regular rate, Regular Rhythm Abdomen: Soft, Non Tender, Non-Distended Skin: No rashes Microbiology Past 72 Hours 12/22/20 14:17 Wound Abcess - Abdominal Gram Stain - Final 12/22/20 14:17 Wound Abcess - Abdominal Wound Culture - Preliminary No growth-Final to follow 12/18/20 15:30 Blood Culture (Wb) - Anticubital Left Blood Culture - Preliminary No growth in 48 hours. 12/18/20 16:00 Blood Culture (Wb) - Anticubital Right Blood Culture - Preliminary No growth in 48 hours. 12/18/20 15:55 Urine, Clean Catch Urine Culture - Final Culture exhibits no growth. 12/19/20 11:20 Stool Enteric Bacteriology - Final Current Medications Acetaminophen (Acetaminophen 325 Mg Tablet) 650 mg PO Q6H PRN PRN PRN Reason: Pain Score 1-10/Temp > 100.7 F Last Admin: 12/23/20 14:18 Dose: 650 mg Documented by: Enoxaparin Sodium (Enoxaparin 40 Mg/0.4 Ml Syringe) 40 mg SC DAILY@0600 [facility] Last Admin: 12/22/20 06:37 Dose: Not Given Documented by: Hydralazine HCl (Hydralazine 20 Mg/Ml Vial) 10 mg IV Q6H PRN PRN PRN Reason: sbp>160 Sodium Chloride () 1,000 mls @ 125 mls/hr IV .Q8H [facility] Last Admin: 12/23/20 13:22 Dose: 125 mls/hr Documented by: Ceftriaxone Sodium 2 gm/ (Sodium Chloride) 50 mls @ 100 mls/hr IV Q24 [facility] Last Admin: 12/23/20 13:59 Dose: 100 mls/hr Documented by: Lisinopril (Lisinopril 5 Mg Tablet) 5 mg PO DAILY [facility] Last Admin: 12/23/20 08:31 Dose: 5 mg Documented by: Metoprolol Tartrate (Metoprolol Tartrate 25 Mg Tablet) 12.5 mg PO BID [facility] Last Admin: 12/23/20 08:31 Dose: 12.5 mg Documented by: Metronidazole (Metronidazole 500 Mg Tablet) 500 mg PO TID [facility] Last Admin: 12/23/20 14:00 Dose: 500 mg Documented by: Ondansetron HCl (Ondansetron 4 Mg/2 Ml Vial) 4 mg IV Q8H PRN PRN PRN Reason: NAUSEA/VOMITING Oxycodone HCl (Oxycodone 5 Mg Tablet) 5 mg PO Q4H PRN PRN PRN Reason: Pain Score 4-10 Last Admin: 12/22/20 20:17 Dose: 5 mg Documented by: Pantoprazole Sodium (Pantoprazole Sodium 20 Mg Tablet) 20 mg PO DAILY [facility] Last Admin: 12/23/20 08:30 Dose: 20 mg Documented by: Sodium Chloride (0.9% Saline Lock 10 Ml Syringe) 10 - 40 ml IV UD PRN PRN Reason: SALINE FLUSH Medical Necessity - Tobacco Use Smoking Status: Former smoker Route of nutrition/ use of supplements: [] Nutritional Intake: [] IV Site: [] Doherty Catheter: [] - Assessment/Plan Antibiotics: [] Assessment/Plan: [] Active and Suspected Problems (Last Reviewed 12/18/20 @ 19:[address] Roseann Rivera, DO) Bacteremia due to Gram-positive bacteria (Acute) Lactic acidosis (Acute) Elevated liver transaminase level (Acute) Liver mass (Acute) alpha hemolytic strep bacteremia with possible liver abscess vs malignancy - TTE showed no veg. MRCP report reviewed. On cefepime/flagyl. Cdiff neg. Dental xray neg for abscess. Aspiration and drain placement 12/22, gram stain showing heavy purulence and GPC. Repeat bcx remain neg. Will order picc and 4 week course of iv ceftriaxone and po flagyl. Counseled re: avoiding etoh and monitoring for peripheral neuropathy. May be able to stop abx early or change to po prior to 4 weeks depending on progress of abscess on repeat imaging. Will follow, wrote rx, d/w case packer, ID followup in 2 weeks.
--- NOTE | 2020-12-23 15:01 | CASEMGMT ---
Per Dr. Swanson, pt to have Rocephin q24hrs at discharge. This RN CM to room and pt/ would like to have [facility] set up with [facility] for at home antibx at this time and per Dr. Swanson, pt may discharge saturday. Referral faxed to [facility] at this time. Dr. Soto then notified this RN CM that Dr. Moore would like pt to stay until Saturday for f/u CT scan and cultures. Pt/ updated at this time and this RN CM to f/u on Saturday. SStaten RN CM
[2020-12-24] VITALS (13 sets, daily range): BP systolic 129–154; BP diastolic 71–81; PULSE 66–101; RESP 16–18; TEMP 36.3–37.1; O2SAT 97–100
[2020-12-24 05:51] LABS: Absolute Lymphocyte Count 1.52 X10^3/uL (0.83-4.51); Absolute Neutrophil Count 4.5 X10^3/uL (2.0-7.7); Basophil# 0.02 X10^3/uL; Basophil% 0.3 % (0-1); Eosinophil# 0.06 X10^3/uL; Eosinophils% 0.9 % (0-5); Hematocrit 33.2 % (40-54); Hemoglobin 10.8 g/dL (13.0-16.5); Lymphocyte # 1.52 X10^3/ul (4.0); Lymphocyte % 22.5 % (19-41); Mean Corp Hgb Conc 32.5 g/dL (32-36); Mean Corpuscular Hgb 29.9 pg (27.0-32.0); Mean Platelet Vol. 8.4 fl (6.2-12.0); Monocyte% 7.4 % (0-10); NRBC Flagged by Analyzer 0 % (0-5); Neutrophil # 4.47 X10^3/uL (2.7-7.7); Neutrophil % 66.2 % (47-70); Platelet Count 357 K/mm3 (150-450); RBC Distribution Width CV 13.4 % (11.6-14.6); RBC Distribution Width SD 45.5 fl (35.1-43.9); Red Blood Count 3.61 M/mm3 (4.6-6.2); White Blood Count 6.8 K/mm3 (4.4-11.0)
[2020-12-24] MEDS: 0.9% Normal Saline 1,000 ML 125 ML IV ×3 (06:01→20:50)
[2020-12-24] MEDS: metroNIDAZOLE 500 MG Tablet PO ×3 (06:01→20:52)
[2020-12-24 06:23] LABS: ALB/GLOB Ratio 0.5 RATIO (0.9-2.4); AST(SGOT) 50 U/L (15-37); Alanine Aminotransfer ALT/SGPT 114 U/L (16-61); Albumin, Serum 2.2 g/dL (3.2-5.0); Alkaline Phosphatase 202 U/L (45-117); Anion Gap 7 (5-15); BUN 13 mg/dL (7-18); BUN/Creat Ratio 20.6 RATIO (10-20); Chloride 98 mmol/L (98-107); Creatinine, Serum 0.63 mg/dL (0.70-1.30); EST Glomerular Filtration Rate 133 mL/min (>60); Est Glom Filt Rate - Afr Amer 161 mL/min (>60); Estimated Creatinine Clearance 62.03 ml/min; Globulin 4.7 g/dL (2.2-4.2); Glucose 118 mg/dL (74-106); Potassium 4.3 mmol/L (3.5-5.1); Protein, Total 6.9 g/dL (6.4-8.2); Sodium Level 128 mmol/L (136-145)
--- NOTE | 2020-12-24 08:09 | PCM.PN.SRG ---
Patient Problems: Active and Suspected Problems (Last Reviewed 12/18/20 @ 19:[address] Roseann Rivera, DO) Bacteremia due to Gram-positive bacteria (Acute) Lactic acidosis (Acute) Elevated liver transaminase level (Acute) Liver mass (Acute) Subjective: decreased outpt from drain. will plan for repeat CT on saturday with IV contrast; likely pt will need drain placed in a new area as the abscess is multi loculated. - Physical Exam Vitals/I&O's: Vital Signs Temp Pulse Resp BP Pulse Ox 97.8 F 78 16 129/75 H 97 12/24/20 06:15 12/24/20 06:15 12/24/20 06:15 12/24/20 06:15 12/24/20 06:15 Oxygen Flow Rate (L/min) [6] 2 Oxygen Flow Rate (L/min) [5] 2 Oxygen Flow Rate (L/min) [4] 2 Oxygen Flow Rate (L/min) [3] 2 Oxygen Flow Rate (L/min) [2] 2 Oxygen Flow Rate (L/min) [1 ( 2 Initial Baseline)] Oxygen Delivery Method [6] Nasal Cannula Oxygen Delivery Method [5] Nasal Cannula Oxygen Delivery Method [4] Nasal Cannula Oxygen Delivery Method [3] Nasal Cannula Oxygen Delivery Method [2] Nasal Cannula Oxygen Delivery Method [1 ( Nasal Cannula Initial Baseline)] Oxygen Delivery Method Room Air Weight: 152 lb 1.903 oz Body Mass Index (BMI) 24.5 Intake and Output for Last 24 Hours 12/22/20 12/23/20 12/24/20 23:59 23:59 23:59 Intake Total 3772.08 / 4072.08 4981.25 / 5221.25 1429.58 / 1429.58 Output Total 120 / 120 60 / 60 3 / 3 Balance 3652.08 / 3952.08 4921.25 / 5161.25 1426.58 / 1426.58 General: Alert, Oriented x3, Cooperative, No apparent distress HEENT: Atraumatic Lungs: Normal air movement Cardiovascular: Regular rate Abdomen: Soft, Non Tender, Non-Distended, - - DAVID - purulent drainage Extremities: No clubbing, No cyanosis, No edema Microbiology Past 72 Hours 12/18/20 15:30 Blood Culture (Wb) - Anticubital Left Blood Culture - Final No growth in 5 days. 12/18/20 16:00 Blood Culture (Wb) - Anticubital Right Blood Culture - Final No growth in 5 days. 12/22/20 14:17 Wound Abcess - Abdominal Gram Stain - Final 12/22/20 14:17 Wound Abcess - Abdominal Wound Culture - Preliminary No growth-Final to follow 12/18/20 15:55 Urine, Clean Catch Urine Culture - Final Culture exhibits no growth. Laboratory Results 12/24/20 05:28: WBC 6.8, RBC 3.61 L, Hgb 10.8 L, Hct 33.2 L, MCV 92.0, MCH 29.9, MCHC 32.5, RDW Std Deviation 45.5 H, RDW Coeff of George 13.4, Plt Count 357, MPV 8.4, Immature Gran % (Auto) 2.700 H, Neut % (Auto) 66.2, Lymph % (Auto) 22.5, Kerr % (Auto) 7.4, Eos % (Auto) 0.9, Baso % (Auto) 0.3, Absolute Neuts (auto) 4.5, Absolute Lymphs (auto) 1.52, Nucleated RBC % 0 12/24/20 05:28: Sodium 128 L, Potassium 4.3, Chloride 98, Carbon Dioxide 23.0, Anion Gap 7, BUN 13, Creatinine 0.63 L, Estim Creat Clear Calc 62.03, Est GFR (MDRD) Af Amer 161, Est GFR (MDRD) Non-Af 133, BUN/Creatinine Ratio 20.6 H, Glucose 118 H, Calcium 9.0, Total Bilirubin 0.30, AST 50 H, ALT 114 H, Alkaline Phosphatase 202 H, Total Protein 6.9, Albumin 2.2 L, Globulin 4.7 H, Albumin/Globulin Ratio 0.5 L Current Medications Acetaminophen (Acetaminophen 325 Mg Tablet) 650 mg PO Q6H PRN PRN PRN Reason: Pain Score 1-10/Temp > 100.7 F Last Admin: 12/23/20 14:18 Dose: 650 mg Documented by: Enoxaparin Sodium (Enoxaparin 40 Mg/0.4 Ml Syringe) 40 mg SC DAILY@0600 [facility] Last Admin: 12/22/20 06:37 Dose: Not Given Documented by: Hydralazine HCl (Hydralazine 20 Mg/Ml Vial) 10 mg IV Q6H PRN PRN PRN Reason: sbp>160 Sodium Chloride () 1,000 mls @ 125 mls/hr IV .Q8H [facility] Last Admin: 12/24/20 06:01 Dose: 125 mls/hr Documented by: Ceftriaxone Sodium 2 gm/ (Sodium Chloride) 50 mls @ 100 mls/hr IV Q24 [facility] Last Infusion: 12/23/20 14:29 Dose: Infused Documented by: Lactobacillus Acidophilus (Lactobacillus Acidophilus) 2 tablet PO BID [facility] Last Admin: 12/23/20 22:14 Dose: 2 tablet Documented by: Lisinopril (Lisinopril 5 Mg Tablet) 5 mg PO DAILY [facility] Last Admin: 12/23/20 08:31 Dose: 5 mg Documented by: Metoprolol Tartrate (Metoprolol Tartrate 25 Mg Tablet) 12.5 mg PO BID [facility] Last Admin: 12/23/20 21:40 Dose: 12.5 mg Documented by: Metronidazole (Metronidazole 500 Mg Tablet) 500 mg PO TID [facility] Last Admin: 12/24/20 06:01 Dose: 500 mg Documented by: Ondansetron HCl (Ondansetron 4 Mg/2 Ml Vial) 4 mg IV Q8H PRN PRN PRN Reason: NAUSEA/VOMITING Oxycodone HCl (Oxycodone 5 Mg Tablet) 5 mg PO Q4H PRN PRN PRN Reason: Pain Score 4-10 Last Admin: 12/22/20 20:17 Dose: 5 mg Documented by: Pantoprazole Sodium (Pantoprazole Sodium 20 Mg Tablet) 20 mg PO DAILY [facility] Last Admin: 12/23/20 08:30 Dose: 20 mg Documented by: Sodium Chloride (0.9% Saline Lock 10 Ml Syringe) 10 - 40 ml IV UD PRN PRN Reason: SALINE FLUSH Medical Necessity - Tobacco Use Smoking Status: Former smoker Assessment/Plan All Active Problems (Last Reviewed 12/18/20 @ 19:[address] Roseann Rivera DO) Bacteremia due to Gram-positive bacteria (Acute) Lactic acidosis (Acute) Elevated liver transaminase level (Acute) Liver mass (Acute) Abnormal nuclear stress test (Resolved) Chest pain (Resolved) 70-year-old male with a liver abscess, Bacteremia?gram-positive cocci from 12/16. 1. continue DAVID drain. plan for repeat CAT scan on Saturday and patient will likely need replacement or additional drain placed as original abscess cavity was quite loculated. Gram stain also showing gram-positive cocci. 2. Continue IV antibiotics per ID, PICC line placed Helena Moore M.D. Pager: [phone] [facility] [address] [place] [address], [facility]patient [facility], [address] [place] [address] Office: [phone] Inpatient E&M: [id number] [facility] Hosp L1
--- NOTE | 2020-12-24 08:20 | PCM.PN.HOSP ---
Patient Problems: Active and Suspected Problems (Last Reviewed 12/18/20 @ 19:[address] Roseann Rivera, DO) Bacteremia due to Gram-positive bacteria (Acute) Lactic acidosis (Acute) Elevated liver transaminase level (Acute) Liver mass (Acute) Reason for Visit: Follow-up on severe sepsis/liver abscess Subjective: Patient was seen and examined. Had his PICC line placed yesterday. His DAVID drain continues to drain pus; output is decreasing. Denies any fever or chills. Objective: Physical Exam: Gen: Comfortable, not pale, not jaundiced, alert oriented x3 CVS:HS I +II, regular, no murmurs RESP: CTA GI: BS present and normal, DAVID drain present with pus, right upper quadrant tenderness, no palpable organs EXT:No edema Vitals/I&O's: Vital Signs Temp Pulse Resp BP Pulse Ox 97.8 F 78 16 129/75 H 97 12/24/20 06:15 12/24/20 06:15 12/24/20 06:15 12/24/20 06:15 12/24/20 06:15 Oxygen Flow Rate (L/min) [6] 2 Oxygen Flow Rate (L/min) [5] 2 Oxygen Flow Rate (L/min) [4] 2 Oxygen Flow Rate (L/min) [3] 2 Oxygen Flow Rate (L/min) [2] 2 Oxygen Flow Rate (L/min) [1 ( 2 Initial Baseline)] Oxygen Delivery Method [6] Nasal Cannula Oxygen Delivery Method [5] Nasal Cannula Oxygen Delivery Method [4] Nasal Cannula Oxygen Delivery Method [3] Nasal Cannula Oxygen Delivery Method [2] Nasal Cannula Oxygen Delivery Method [1 ( Nasal Cannula Initial Baseline)] Oxygen Delivery Method Room Air Weight: 69 kg Body Mass Index (BMI) 24.5 Intake and Output for Last 24 Hours 12/22/20 12/23/20 12/24/20 23:59 23:59 23:59 Intake Total 3772.08 / 4072.08 4981.25 / 5221.25 1429.58 / 1429.58 Output Total 120 / 120 60 / 60 3 / 3 Balance 3652.08 / 3952.08 4921.25 / 5161.25 1426.58 / 1426.58 Microbiology Past 72 Hours 12/18/20 15:30 Blood Culture (Wb) - Anticubital Left Blood Culture - Final No growth in 5 days. 12/18/20 16:00 Blood Culture (Wb) - Anticubital Right Blood Culture - Final No growth in 5 days. 12/22/20 14:17 Wound Abcess - Abdominal Gram Stain - Final 12/22/20 14:17 Wound Abcess - Abdominal Wound Culture - Preliminary No growth-Final to follow 12/18/20 15:55 Urine, Clean Catch Urine Culture - Final Culture exhibits no growth. Laboratory Results 12/24/20 05:28: WBC 6.8, RBC 3.61 L, Hgb 10.8 L, Hct 33.2 L, MCV 92.0, MCH 29.9, MCHC 32.5, RDW Std Deviation 45.5 H, RDW Coeff of George 13.4, Plt Count 357, MPV 8.4, Immature Gran % (Auto) 2.700 H, Neut % (Auto) 66.2, Lymph % (Auto) 22.5, Porter % (Auto) 7.4, Eos % (Auto) 0.9, Baso % (Auto) 0.3, Absolute Neuts (auto) 4.5, Absolute Lymphs (auto) 1.52, Nucleated RBC % 0 12/24/20 05:28: Sodium 128 L, Potassium 4.3, Chloride 98, Carbon Dioxide 23.0, Anion Gap 7, BUN 13, Creatinine 0.63 L, Estim Creat Clear Calc 62.03, Est GFR (MDRD) Af Amer 161, Est GFR (MDRD) Non-Af 133, BUN/Creatinine Ratio 20.6 H, Glucose 118 H, Calcium 9.0, Total Bilirubin 0.30, AST 50 H, ALT 114 H, Alkaline Phosphatase 202 H, Total Protein 6.9, Albumin 2.2 L, Globulin 4.7 H, Albumin/Globulin Ratio 0.5 L Current Medications Acetaminophen (Acetaminophen 325 Mg Tablet) 650 mg PO Q6H PRN PRN PRN Reason: Pain Score 1-10/Temp > 100.7 F Last Admin: 12/23/20 14:18 Dose: 650 mg Documented by: Enoxaparin Sodium (Enoxaparin 40 Mg/0.4 Ml Syringe) 40 mg SC DAILY@0600 [facility] Last Admin: 12/22/20 06:37 Dose: Not Given Documented by: Hydralazine HCl (Hydralazine 20 Mg/Ml Vial) 10 mg IV Q6H PRN PRN PRN Reason: sbp>160 Sodium Chloride () 1,000 mls @ 125 mls/hr IV .Q8H [facility] Last Admin: 12/24/20 06:01 Dose: 125 mls/hr Documented by: Ceftriaxone Sodium 2 gm/ (Sodium Chloride) 50 mls @ 100 mls/hr IV Q24 [facility] Last Infusion: 12/23/20 14:29 Dose: Infused Documented by: Lactobacillus Acidophilus (Lactobacillus Acidophilus) 2 tablet PO BID [facility] Last Admin: 12/23/20 22:14 Dose: 2 tablet Documented by: Lisinopril (Lisinopril 5 Mg Tablet) 5 mg PO DAILY [facility] Last Admin: 12/23/20 08:31 Dose: 5 mg Documented by: Metoprolol Tartrate (Metoprolol Tartrate 25 Mg Tablet) 12.5 mg PO BID [facility] Last Admin: 12/23/20 21:40 Dose: 12.5 mg Documented by: Metronidazole (Metronidazole 500 Mg Tablet) 500 mg PO TID [facility] Last Admin: 12/24/20 06:01 Dose: 500 mg Documented by: Ondansetron HCl (Ondansetron 4 Mg/2 Ml Vial) 4 mg IV Q8H PRN PRN PRN Reason: NAUSEA/VOMITING Oxycodone HCl (Oxycodone 5 Mg Tablet) 5 mg PO Q4H PRN PRN PRN Reason: Pain Score 4-10 Last Admin: 12/22/20 20:17 Dose: 5 mg Documented by: Pantoprazole Sodium (Pantoprazole Sodium 20 Mg Tablet) 20 mg PO DAILY [facility] Last Admin: 12/23/20 08:30 Dose: 20 mg Documented by: Sodium Chloride (0.9% Saline Lock 10 Ml Syringe) 10 - 40 ml IV UD PRN PRN Reason: SALINE FLUSH STROKE Vital Signs/Narrative: Vital Signs Temp Pulse Resp BP Pulse Ox 12/24/20 06:15 97.8 F 78 16 129/75 H 97 Medical Necessity - Tobacco Use Smoking Status: Former smoker Assessment/Plan All Active Problems (Last Reviewed 12/18/20 @ 19:[address] Roseann Rivera DO) Bacteremia due to Gram-positive bacteria (Acute) Lactic acidosis (Acute) Elevated liver transaminase level (Acute) Liver mass (Acute) Abnormal nuclear stress test (Resolved) Chest pain (Resolved) 1. Severe sepsis secondary to strept bacteremia, liver abscess, status post IR CT-guided abscess drainage Blood cultures on was positive for Streptococcus. Repeat blood cultures have been negative. Wound cultures growing gram-positive cocci Discussed with ID; plan is for PICC line in long-term antibiotics -IV ceftriaxone and p.o. Flagyl for [address] scan of the liver planned for tomorrow 2. Hyponatremia, chronic, will continue to follow 3.Hypertension, controlled, continue lisinopril and metoprolol 5. Hyperlipidemia, off atorvastatin for now 6. GERD, continue PPI 7. CAD s/p PCI, aspirin and Plavix on hold Continue metoprolol 8. DVT prophylaxis?Lovenox on hold post procedure Inpatient E&M: [id number] [facility] Hosp L3
[2020-12-24] MEDS: Pantoprazole Sodium 20 MG Tablet PO (09:22)
[2020-12-24] MEDS: Lisinopril 5 MG Tablet PO (09:22)
[2020-12-24] MEDS: Metoprolol Tartrate 25 MG Tablet 12.5 MG PO ×2 (09:23→20:52)
[2020-12-25] VITALS (10 sets, daily range): BP systolic 107–135; BP diastolic 64–89; PULSE 70–85; RESP 16–18; TEMP 36.8–36.9; O2SAT 97–100
[2020-12-25] MEDS: Enoxaparin 40 MG/0.4 ML Syringe SC (06:08)
[2020-12-25] MEDS: metroNIDAZOLE 500 MG Tablet PO ×3 (06:08→21:03)
[2020-12-25 06:29] LABS: Absolute Neutrophil Count 6.4 X10^3/uL (2.0-7.7); Basophil# 0.04 X10^3/uL; Basophil% 0.4 % (0-1); Eosinophil# 0.05 X10^3/uL; Eosinophils% 0.6 % (0-5); Hematocrit 34.8 % (40-54); Hemoglobin 11.6 g/dL (13.0-16.5); Lymphocyte % 17.9 % (19-41); Mean Corp Hgb Conc 33.3 g/dL (32-36); Mean Corpuscular Hgb 30.5 pg (27.0-32.0); Mean Corpuscular Volume 91.6 fL (80-94); Mean Platelet Vol. 8.4 fl (6.2-12.0); Monocyte# 0.68 X10^3/uL; Monocyte% 7.6 % (0-10); NRBC Flagged by Analyzer 0 % (0-5); Neutrophil # 6.41 X10^3/uL (2.7-7.7); Neutrophil % 71.6 % (47-70); Platelet Count 368 K/mm3 (150-450); RBC Distribution Width CV 13.5 % (11.6-14.6); RBC Distribution Width SD 45.4 fl (35.1-43.9)
[2020-12-25 07:20] LABS: ALB/GLOB Ratio 0.5 RATIO (0.9-2.4); AST(SGOT) 44 U/L (15-37); Alanine Aminotransfer ALT/SGPT 103 U/L (16-61); Albumin, Serum 2.4 g/dL (3.2-5.0); Alkaline Phosphatase 199 U/L (45-117); Anion Gap 7 (5-15); BUN 10 mg/dL (7-18); BUN/Creat Ratio 15.4 RATIO (10-20); Calcium,Total 8.7 mg/dL (8.5-10.1); Chloride 97 mmol/L (98-107); Creatinine, Serum 0.65 mg/dL (0.70-1.30); EST Glomerular Filtration Rate 129 mL/min (>60); Est Glom Filt Rate - Afr Amer 156 mL/min (>60); Estimated Creatinine Clearance 62.03 ml/min; Globulin 4.9 g/dL (2.2-4.2); Glucose 111 mg/dL (74-106); Potassium 4.1 mmol/L (3.5-5.1); Protein, Total 7.3 g/dL (6.4-8.2); Sodium Level 128 mmol/L (136-145)
[2020-12-25] MEDS: 0.9% Normal Saline 1,000 ML 125 ML IV ×2 (08:32→18:13)
--- NOTE | 2020-12-25 08:32 | CT_ITS ---
EXAM: CT ABDOMEN WITH INTRAVENOUS CONTRAST CLINICAL INDICATION: LIVER ABSCESS TECHNIQUE: Helically acquired images were obtained of the abdomen with intravenous contrast. This CT exam was performed using one or more of the following dose reduction techniques: automated exposure control, adjustment of the mA and/or kV according to patient size, and/or use of iterative reconstruction technique. This report was created using [employer] report generation technology. CONTRAST: IV 100mL Isovue-300 COMPARISON: 12/22/2020, 12/19/2020 FINDINGS: LOWER THORAX: Atelectasis in the right more than left lung base. No cardiomegaly. No significant pericardial effusion. Atherosclerosis of the coronary arteries. LIVER: 6.1 x 8.1 x 5.8 cm loculated, septated cystic mass/collection of the posterior right hepatic lobe is redemonstrated, mildly smaller when compared to prior MRI (previously measured 7.4 x 9.8 x 8.6 cm). A drainage catheter is seen along the posterior collection (image 20 series 2), however, several relatively sizable (4 cm) discrete, localized fluid pockets are anterior and superior to the drainage catheter. GALLBLADDER AND BILE DUCTS: Unremarkable. No calcified gallstones. No gallbladder distention or wall edema. No intra- or extrahepatic biliary ductal dilation. PANCREAS: Unremarkable. No focal cystic or solid mass. SPLEEN: Persistent splenomegaly (16 cm craniocaudal). ADRENALS: Unremarkable. No nodules. KIDNEYS AND URETERS: Unremarkable. Normal renal size and position. No hydronephrosis. STOMACH AND BOWEL: Unremarkable. No stomach or bowel distention. No focal inflammatory change. INTRAPERITONEAL SPACE: Unremarkable. No ascites or other fluid collection. No free air. BONES/JOINTS: Degenerative changes of the lumbar spine. No suspicious lytic or blastic abnormality. SOFT TISSUES: Unremarkable. No discrete abdominal wall hernia. VASCULATURE: Atherosclerosis of the abdominal aorta and iliac arteries. Abdominal aorta is non-dilated. LYMPH NODES: No enlarged lymph nodes. CT/Abdomen WITH IV Contrast IMPRESSION: 1. Persistent but mildly smaller septated/loculated posterior right hepatic fluid collection; status post percutaneous drainage catheter insertion. Sizable (4 cm) undrained pockets of fluid anterior and superior to the drainage catheter persist. 2. Persistent splenomegaly (16 cm craniocaudal). Electronically Signed: Juan Miguel Jaime MD (Brooks) at 14:28 EST , Service support ,
--- NOTE | 2020-12-25 08:32 | PCM.PN.SRG ---
Patient Problems: Active and Suspected Problems (Last Reviewed 12/18/20 @ 19:[address] Roseann Rivera, DO) Bacteremia due to Gram-positive bacteria (Acute) Lactic acidosis (Acute) Elevated liver transaminase level (Acute) Liver mass (Acute) Subjective: Denies any abdominal pain, minimal drainage from DAVID yesterday we will plan for CT abdomen with contrast with plans of likely repeat drainage tomorrow. - Physical Exam Vitals/I&O's: Vital Signs Temp Pulse Resp BP Pulse Ox 98.2 F 79 16 135/81 H 97 12/25/20 02:42 12/25/20 07:37 12/25/20 02:42 12/25/20 02:42 12/25/20 02:42 Oxygen Flow Rate (L/min) [6] 2 Oxygen Flow Rate (L/min) [5] 2 Oxygen Flow Rate (L/min) [4] 2 Oxygen Flow Rate (L/min) [3] 2 Oxygen Flow Rate (L/min) [2] 2 Oxygen Flow Rate (L/min) [1 ( 2 Initial Baseline)] Oxygen Delivery Method [6] Nasal Cannula Oxygen Delivery Method [5] Nasal Cannula Oxygen Delivery Method [4] Nasal Cannula Oxygen Delivery Method [3] Nasal Cannula Oxygen Delivery Method [2] Nasal Cannula Oxygen Delivery Method [1 ( Nasal Cannula Initial Baseline)] Oxygen Delivery Method Room Air Weight: 152 lb 1.903 oz Body Mass Index (BMI) 24.5 Intake and Output for Last 24 Hours 12/23/20 12/24/20 12/25/20 23:59 23:59 23:59 Intake Total 4981.25 / 5221.25 3252.50 / 3252.50 Output Total 60 / 60 3 / 3 Balance 4921.25 / 5161.25 3249.50 / 3249.50 General: Alert, Oriented x3, Cooperative, No apparent distress HEENT: Atraumatic Lungs: Normal air movement Cardiovascular: Regular rate Abdomen: Soft, Non Tender, Non-Distended, - - DAVID right purulent Microbiology Past 72 Hours 12/22/20 14:17 Wound Abcess - Abdominal Gram Stain - Final 12/22/20 14:17 Wound Abcess - Abdominal Wound Culture - Final No growth aerobically. 12/22/20 14:17 Wound Abcess - Abdominal Anaerobic Culture - Preliminary No growth in 48 hours. 12/18/20 15:30 Blood Culture (Wb) - Anticubital Left Blood Culture - Final No growth in 5 days. 12/18/20 16:00 Blood Culture (Wb) - Anticubital Right Blood Culture - Final No growth in 5 days. Laboratory Results 12/25/20 05:58: WBC 9.0, RBC 3.80 L, Hgb 11.6 L, Hct 34.8 L, MCV 91.6, MCH 30.5, MCHC 33.3, RDW Std Deviation 45.4 H, RDW Coeff of George 13.5, Plt Count 368, MPV 8.4, Immature Gran % (Auto) 1.900 H, Neut % (Auto) 71.6 H, Lymph % (Auto) 17.9 L, Clark % (Auto) 7.6, Eos % (Auto) 0.6, Baso % (Auto) 0.4, Absolute Neuts (auto) 6.4, Absolute Lymphs (auto) 1.60, Nucleated RBC % 0 12/25/20 05:58: Sodium 128 L, Potassium 4.1, Chloride 97 L, Carbon Dioxide 24.0, Anion Gap 7, BUN 10, Creatinine 0.65 L, Estim Creat Clear Calc 62.03, Est GFR (MDRD) Af Amer 156, Est GFR (MDRD) Non-Af 129, BUN/Creatinine Ratio 15.4, Glucose 111 H, Calcium 8.7, Total Bilirubin 0.40, AST 44 H, ALT 103 H, Alkaline Phosphatase 199 H, Total Protein 7.3, Albumin 2.4 L, Globulin 4.9 H, Albumin/Globulin Ratio 0.5 L Current Medications Acetaminophen (Acetaminophen 325 Mg Tablet) 650 mg PO Q6H PRN PRN PRN Reason: Pain Score 1-10/Temp > 100.7 F Last Admin: 12/23/20 14:18 Dose: 650 mg Documented by: Enoxaparin Sodium (Enoxaparin 40 Mg/0.4 Ml Syringe) 40 mg SC DAILY@0600 [facility] Last Admin: 12/25/20 06:08 Dose: 40 mg Documented by: Hydralazine HCl (Hydralazine 20 Mg/Ml Vial) 10 mg IV Q6H PRN PRN PRN Reason: sbp>160 Sodium Chloride () 1,000 mls @ 125 mls/hr IV .Q8H [facility] Last Admin: 12/24/20 20:50 Dose: 125 mls/hr Documented by: Ceftriaxone Sodium 2 gm/ (Sodium Chloride) 50 mls @ 100 mls/hr IV Q24 [facility] Last Infusion: 12/24/20 09:50 Dose: Infused Documented by: Lactobacillus Acidophilus (Lactobacillus Acidophilus) 2 tablet PO BID [facility] Last Admin: 12/24/20 20:51 Dose: 2 tablet Documented by: Lisinopril (Lisinopril 5 Mg Tablet) 5 mg PO DAILY [facility] Last Admin: 12/24/20 09:22 Dose: 5 mg Documented by: Metoprolol Tartrate (Metoprolol Tartrate 25 Mg Tablet) 12.5 mg PO BID [facility] Last Admin: 12/24/20 20:52 Dose: 12.5 mg Documented by: Metronidazole (Metronidazole 500 Mg Tablet) 500 mg PO TID [facility] Last Admin: 12/25/20 06:08 Dose: 500 mg Documented by: Ondansetron HCl (Ondansetron 4 Mg/2 Ml Vial) 4 mg IV Q8H PRN PRN PRN Reason: NAUSEA/VOMITING Oxycodone HCl (Oxycodone 5 Mg Tablet) 5 mg PO Q4H PRN PRN PRN Reason: Pain Score 4-10 Last Admin: 12/22/20 20:17 Dose: 5 mg Documented by: Pantoprazole Sodium (Pantoprazole Sodium 20 Mg Tablet) 20 mg PO DAILY [facility] Last Admin: 12/24/20 09:22 Dose: 20 mg Documented by: Sodium Chloride (0.9% Saline Lock 10 Ml Syringe) 10 - 40 ml IV UD PRN PRN Reason: SALINE FLUSH Medical Necessity - Tobacco Use Smoking Status: Former smoker Assessment/Plan All Active Problems (Last Reviewed 12/18/20 @ 19:[address] Roseann Rivera, DO) Bacteremia due to Gram-positive bacteria (Acute) Lactic acidosis (Acute) Elevated liver transaminase level (Acute) Liver mass (Acute) Abnormal nuclear stress test (Resolved) Chest pain (Resolved) 70-year-old male with a liver abscess, Bacteremia?gram-positive cocci from 12/16. 1. Repeat CAT scan with IV contrast today will likely need additional drainage on Saturday. Hopefully could DC after additional drainage completed on Saturday and plan to follow-up as an outpatient for additional CAT scans and drains. 2. Continue IV antibiotics per ID, PICC line placed Helena Moore M.D. Pager: [phone] [facility] [address] [place] [address], Outpatient [place], [address] [place] [address] Office: [phone] Inpatient E&M: 74998 Subs Hosp L2
[2020-12-25] MEDS: Pantoprazole Sodium 20 MG Tablet PO (11:01)
[2020-12-25] MEDS: Metoprolol Tartrate 25 MG Tablet 12.5 MG PO ×2 (11:01→21:03)
[2020-12-25] MEDS: Lisinopril 5 MG Tablet PO (11:02)
--- NOTE | 2020-12-25 16:09 | PN_ITS ---
Patient Problems: Active and Suspected Problems (Last Reviewed 12/18/20 @ 19:[address] Roseann Rivera, DO) Bacteremia due to Gram-positive bacteria (Acute) Lactic acidosis (Acute) Elevated liver transaminase level (Acute) Liver mass (Acute) Reason for Visit: Follow-up on severe sepsis/liver abscess Subjective: Patient was seen and examined. No acute events overnight. He denied any fever or chills Repeat CT scan of the abdomen showed persistent but smaller septated or loculated posterior right hepatic fluid collection, undrained pockets of fluid anteriorly and superior to the drainage catheter persists. Vitals/I&O's: Vital Signs Temp Pulse Resp BP Pulse Ox 98.5 F 80 16 123/77 H 100 12/25/20 14:08 12/25/20 14:08 12/25/20 14:08 12/25/20 14:08 12/25/20 14:08 Oxygen Flow Rate (L/min) [6] 2 Oxygen Flow Rate (L/min) [5] 2 Oxygen Flow Rate (L/min) [4] 2 Oxygen Flow Rate (L/min) [3] 2 Oxygen Flow Rate (L/min) [2] 2 Oxygen Flow Rate (L/min) [1 ( 2 Initial Baseline)] Oxygen Delivery Method [6] Nasal Cannula Oxygen Delivery Method [5] Nasal Cannula Oxygen Delivery Method [4] Nasal Cannula Oxygen Delivery Method [3] Nasal Cannula Oxygen Delivery Method [2] Nasal Cannula Oxygen Delivery Method [1 ( Nasal Cannula Initial Baseline)] Oxygen Delivery Method Room Air Weight: 69 kg Body Mass Index (BMI) 24.5 Intake and Output for Last 24 Hours 12/23/20 12/24/20 12/25/20 23:59 23:59 23:59 Intake Total 4981.25 / 5221.25 3252.50 / 3252.50 1050 / 1050 Output Total 60 / 60 3 / 3 Balance 4921.25 / 5161.25 3249.50 / 3249.50 1050 / 1050 Microbiology Past 72 Hours 12/22/20 14:17 Wound Abcess - Abdominal Gram Stain - Final 12/22/20 14:17 Wound Abcess - Abdominal Wound Culture - Final No growth aerobically. 12/22/20 14:17 Wound Abcess - Abdominal Anaerobic Culture - Preliminary No growth in 48 hours. 12/18/20 15:30 Blood Culture (Wb) - Anticubital Left Blood Culture - Final No growth in 5 days. 12/18/20 16:00 Blood Culture (Wb) - Anticubital Right Blood Culture - Final No growth in 5 days. Laboratory Results 12/25/20 05:58: WBC 9.0, RBC 3.80 L, Hgb 11.6 L, Hct 34.8 L, MCV 91.6, MCH 30.5, MCHC 33.3, RDW Std Deviation 45.4 H, RDW Coeff of George 13.5, Plt Count 368, MPV 8.4, Immature Gran % (Auto) 1.900 H, Neut % (Auto) 71.6 H, Lymph % (Auto) 17.9 L , Hoke % (Auto) 7.6, Eos % (Auto) 0.6, Baso % (Auto) 0.4, Absolute Neuts (auto) 6.4, Absolute Lymphs (auto) 1.60, Nucleated RBC % 0 12/25/20 05:58: Sodium 128 L, Potassium 4.1, Chloride 97 L, Carbon Dioxide 24.0, Anion Gap 7, BUN 10, Creatinine 0.65 L, Estim Creat Clear Calc 62.03, Est GFR (MDRD) Af Amer 156, Est GFR (MDRD) Non-Af 129, BUN/Creatinine Ratio 15.4, Glucose 111 H, Calcium 8.7, Total Bilirubin 0.40, AST 44 H, ALT 103 H, Alkaline Phosphatase 199 H, Total Protein 7.3, Albumin 2.4 L, Globulin 4.9 H, Albumin/Globulin Ratio 0.5 L Current Medications Acetaminophen (Acetaminophen 325 Mg Tablet) 650 mg PO Q6H PRN PRN PRN Reason: Pain Score 1-10/Temp > 100.7 F Last Admin: 12/23/20 14:18 Dose: 650 mg Documented by: Hydralazine HCl (Hydralazine 20 Mg/Ml Vial) 10 mg IV Q6H PRN PRN PRN Reason: sbp>160 Sodium Chloride () 1,000 mls @ 125 mls/hr IV .Q8H [facility] Last Admin: 12/25/20 15:26 Dose: Not Given Documented by: Ceftriaxone Sodium 2 gm/ (Sodium Chloride) 50 mls @ 100 mls/hr IV Q24 [facility] Last Infusion: 12/25/20 11:27 Dose: Infused Documented by: Lactobacillus Acidophilus (Lactobacillus Acidophilus) 2 tablet PO BID [facility] Last Admin: 12/25/20 11:00 Dose: 2 tablet Documented by: Lisinopril (Lisinopril 5 Mg Tablet) 5 mg PO DAILY [facility] Last Admin: 12/25/20 11:02 Dose: 5 mg Documented by: Metoprolol Tartrate (Metoprolol Tartrate 25 Mg Tablet) 12.5 mg PO BID [facility] Last Admin: 12/25/20 11:01 Dose: 12.5 mg Documented by: Metronidazole (Metronidazole 500 Mg Tablet) 500 mg PO TID [facility] Last Admin: 12/25/20 14:24 Dose: 500 mg Documented by: Ondansetron HCl (Ondansetron 4 Mg/2 Ml Vial) 4 mg IV Q8H PRN PRN PRN Reason: NAUSEA/VOMITING Oxycodone HCl (Oxycodone 5 Mg Tablet) 5 mg PO Q4H PRN PRN PRN Reason: Pain Score 4-10 Last Admin: 12/22/20 20:17 Dose: 5 mg Documented by: Pantoprazole Sodium (Pantoprazole Sodium 20 Mg Tablet) 20 mg PO DAILY [facility] Last Admin: 12/25/20 11:01 Dose: 20 mg Documented by: Sodium Chloride (0.9% Saline Lock 10 Ml Syringe) 10 - 40 ml IV UD PRN PRN Reason: SALINE FLUSH STROKE Vital Signs/Narrative: Vital Signs Temp Pulse Resp BP Pulse Ox 12/25/20 14:08 98.5 F 80 16 123/77 H 100 12/25/20 13:07 79 Medical Necessity - Tobacco Use Smoking Status: Former smoker Assessment/Plan All Active Problems (Last Reviewed 12/18/20 @ 19:[address] Roseann Rivera, DO) Bacteremia due to Gram-positive bacteria (Acute) Lactic acidosis (Acute) Elevated liver transaminase level (Acute) Liver mass (Acute) Abnormal nuclear stress test (Resolved) Chest pain (Resolved) 70-year-old male with past medical history of hypertension, hyperlipidemia, chronic hyponatremia who presented with fever and fatigue and found to have severe sepsis secondary to liver abscesses. 1. Severe sepsis secondary to strept bacteremia, liver abscess, status post IR CT-guided abscess drainage Blood cultures on was positive for Streptococcus. Repeat blood cultures have been negative. Wound cultures growing gram-positive cocci Repeat CT scan of the abdomen showed persistent but smaller septated or loculated posterior right hepatic fluid collection, undrained pockets of fluid anteriorly and superior to the drainage catheter persists. Discussed with ID; plan is for PICC line in long-term antibiotics -IV ceftriaxone and p.o. Flagyl for 4 weeks 2. Hyponatremia, chronic- patient has history of chronic alcohol use and quit weeks ago Patient is euvolemic; Suspect SIADH as the etiology. Not on diuretics We will initiate work-up for SIADH with serum osmolality, urine osmolality, urine sodium, TSH, We will start trial of empiric fluid restriction, repeat blood work in a.m. 3.Hypertension, controlled, continue lisinopril and metoprolol 5. Hyperlipidemia, off atorvastatin for now 6. GERD, continue PPI 7. CAD s/p PCI, aspirin and Plavix on hold Continue metoprolol 8. DVT prophylaxis?Lovenox on hold post procedure Inpatient E&M: 99975 Subs Hosp L2
[2020-12-25 16:50] LABS: Thyroid Stim Hormone (TSH) 1.93 uIU/mL (0.358-3.74)
[2020-12-25 17:13] LABS: Osmolality, Serum 266 mOsm/KG (280-301)
[2020-12-25 20:26] LABS: Urine Sodium 113 mmol/L (Not Establ.)
[2020-12-25 20:31] LABS: Osmolality, Urine 406 mOsm/KG
[2020-12-26] VITALS (19 sets, daily range): BP systolic 104–136; BP diastolic 61–83; PULSE 67–103; RESP 10–20; TEMP 36.6–37.7; O2SAT 94–100
[2020-12-26] MEDS: 0.9% Normal Saline 1,000 ML 125 ML IV ×2 (02:06→10:06)
[2020-12-26] MEDS: Acetaminophen 325 MG Tablet 650 MG PO ×2 (02:09→15:31)
[2020-12-26] MEDS: metroNIDAZOLE 500 MG Tablet PO ×2 (05:06→13:23)
[2020-12-26 05:24] LABS: Absolute Lymphocyte Count 1.08 X10^3/uL (0.83-4.51); Basophil# 0.04 X10^3/uL; Basophil% 0.5 % (0-1); Eosinophil# 0.07 X10^3/uL; Eosinophils% 0.9 % (0-5); Hematocrit 30.9 % (40-54); Hemoglobin 10.3 g/dL (13.0-16.5); Lymphocyte # 1.08 X10^3/ul (4.0); Lymphocyte % 13.6 % (19-41); Mean Corp Hgb Conc 33.3 g/dL (32-36); Mean Corpuscular Hgb 30.5 pg (27.0-32.0); Mean Corpuscular Volume 91.4 fL (80-94); Mean Platelet Vol. 8.1 fl (6.2-12.0); Monocyte# 0.64 X10^3/uL; Monocyte% 8.1 % (0-10); NRBC Flagged by Analyzer 0 % (0-5); Neutrophil % 75.5 % (47-70); Platelet Count 278 K/mm3 (150-450); RBC Distribution Width CV 13.6 % (11.6-14.6); RBC Distribution Width SD 45.9 fl (35.1-43.9); Red Blood Count 3.38 M/mm3 (4.6-6.2); White Blood Count 7.9 K/mm3 (4.4-11.0)
[2020-12-26 05:33] LABS: International Normalized Ratio 1.3; Prothrombin Time (Protime)PT. 15.5 SECONDS (11.7-14.9)
[2020-12-26 05:34] LABS: Partial Thromboplast Time 31.5 Seconds (24.1-36.2)
[2020-12-26 05:47] LABS: ALB/GLOB Ratio 0.5 RATIO (0.9-2.4); AST(SGOT) 36 U/L (15-37); Alanine Aminotransfer ALT/SGPT 83 U/L (16-61); Albumin, Serum 2.3 g/dL (3.2-5.0); Alkaline Phosphatase 178 U/L (45-117); Anion Gap 6 (5-15); BUN 13 mg/dL (7-18); Calcium,Total 8.5 mg/dL (8.5-10.1); Chloride 101 mmol/L (98-107); Creatinine, Serum 0.72 mg/dL (0.70-1.30); EST Glomerular Filtration Rate 114 mL/min (>60); Est Glom Filt Rate - Afr Amer 138 mL/min (>60); Estimated Creatinine Clearance 62.03 ml/min; Globulin 4.6 g/dL (2.2-4.2); Glucose 119 mg/dL (74-106); Potassium 4.3 mmol/L (3.5-5.1); Protein, Total 6.9 g/dL (6.4-8.2); Sodium Level 131 mmol/L (136-145)
--- NOTE | 2020-12-26 08:00 | CT_ITS ---
PROCEDURE: CT DIRECTED ABSCESS DRAINAGE, PERITONEAL DATE OF EXAMINATION: 12/26/2020. INDICATION: Male, 70 years old. Right hepatic abscess. PHYSICIAN: Zane Horan M.D. CONSENT: Written informed consent was obtained having explained the risks, benefits and alternatives in detail with the patient who accepted the risks and agreed to proceed. Laboratory review and clinical assessment was performed. CONSCIOUS SEDATION PROTOCOL: The Drugs used were: 3 mg Versed, IV., and 75 mcg Fentanyl, IV. The sedation time was: 60 minutes. Conscious sedation was started at 9:20 AM and terminated at 10:20 AM. The conscious sedation protocol was independently monitored. RADIATION DOSAGE (If Supplied By Facility): CTDIvol = ( 25 ) mGy, DLP = ( 1851.74 ) mGycm TECHNIQUE: CT sections were made through the abdomen and pelvis revealing an abscess in the right lobe of the liver. The skin surface was prepped and draped in a sterile fashion. Puncture of this collection was performed initially with a 18-gauge spinal needle and fluid was aspirated. Drainage catheter was then inserted into the collection and formed into position. Additional fluid was aspirated for a total of approximately 40 cc of cloudy red fluid. The catheter was sutured into position to allow for continued drainage. Followup CT sections reveals good position of the catheter. CT/Abscess/Fistula/Sinus Tract IMPRESSION: 1. CT directed drainage of a fluid collection using CT image guidance and image documentation as described. 2. Conscious Sedation protocol utilized with independent monitoring Electronically Signed: Zane Horan MD at 11:26 EST , Service support ,
[2020-12-26] MEDS: fentaNYL 100 MCG/2 ML Ampul IV ×2 (09:11→10:02)
[2020-12-26] MEDS: Midazolam 2 MG/2 ML Syringe IV ×2 (09:11→10:02)
--- NOTE | 2020-12-26 09:30 | CASEMGMT ---
Addendum entered by Josey Gonzalez 12/26/20 13:11: Per Dr. Moore, pt will be discharged today. [facility] and [facility] updated at this time, voice understanding. Pt/ updated on all, voice understanding and voice no further questions/concerns/needs at this time. [facility] at [facility] states she will call to discuss financials and delivery. Dr. Moore provided pt with a drain log sheet as well at this time. Emily HUBBARD CM Addendum entered by Josey Gonzalez 12/26/20 12:56: [facility] at [facility] states they can accept pt at this time and is aware pt may be discharged later today. [facility] is aware that pt's Rocephin dose was given at about 12n today, voices understanding. Carmel at [facility] is also aware that pt may be discharged later today and will need supplies set up for infusion at 12n tomorrow. Awaiting Dr. Moore to give final ok for discharge. [facility] at [facility] also wants to make sure that pt's is educated on adeline drain prior to discharge and Carole HUBBARD aware, voices understanding. Emily HUBBARD CM Addendum entered by Josey Gonzalez 12/26/20 10:57: Spoke with Carmel at [facility] and she states pt's total for antibx and supplies for a week will be $170.57 at this time. Pt/ to be updated when pt returns from getting 2nd drain placed. [facility] at [facility] aware that [facility] will likely accept pt at this time, voices understanding. This RN CM to call and update Carmel at [phone] once pt updated and d/c planned. CM to follow. Emily HUBBARD CM Original Note: [facility] to call this HAYDEE GUERRA today with cost of IV antibx/supplies. Call [place] [facility] and [facility] agencies and both state they cannot do IV antibx at this time. Attempted to call [facility] and they did not answer at this time and unable to leave a message for them to call back at this time. Call to [facility] and per [facility], they should be able to take pt at this time. Referral faxed to [facility] at this time. CM to follow. Emily HUBBARD CM
[2020-12-26] MEDS: Lidocaine 2% (20 ml mdv) 20 ML Vial INFILT (09:50)
--- NOTE | 2020-12-26 11:14 | PN.SURG_ITS ---
Patient Problems: Active and Suspected Problems (Last Reviewed 12/18/20 @ 19:[address] Roseann Rivera, DO) Bacteremia due to Gram-positive bacteria (Acute) Lactic acidosis (Acute) Elevated liver transaminase level (Acute) Liver mass (Acute) Subjective: Patient had additional drainage completed and previous drain removed in IR. Got 40 cc of red/cloudy purulent material - Physical Exam Vitals/I&O's: Vital Signs Temp Pulse Resp BP Pulse Ox 97.8 F 76 18 120/73 97 12/26/20 08:06 12/26/20 11:05 12/26/20 11:05 12/26/20 11:05 12/26/20 11:05 Oxygen Flow Rate (L/min) [19] 1 Oxygen Flow Rate (L/min) [18] 1 Oxygen Flow Rate (L/min) [17] 1 Oxygen Flow Rate (L/min) [16] 1 Oxygen Flow Rate (L/min) [15] 1 Oxygen Flow Rate (L/min) [14] 1 Oxygen Flow Rate (L/min) [13] 1 Oxygen Flow Rate (L/min) [12] 2 Oxygen Flow Rate (L/min) [11] 1 Oxygen Flow Rate (L/min) [1] 2 Oxygen Flow Rate (L/min) [10] 1 Oxygen Flow Rate (L/min) [9] 1 Oxygen Flow Rate (L/min) [8] 1 Oxygen Flow Rate (L/min) [7] 2 Oxygen Flow Rate (L/min) [6] 2 Oxygen Flow Rate (L/min) [5] 2 Oxygen Flow Rate (L/min) [4] 2 Oxygen Flow Rate (L/min) [3] 2 Oxygen Flow Rate (L/min) [2] 2 Oxygen Flow Rate (L/min) [1 ( 2 Initial Baseline)] Oxygen Delivery Method [19] Nasal Cannula Oxygen Delivery Method [18] Nasal Cannula Oxygen Delivery Method [17] Nasal Cannula Oxygen Delivery Method [16] Nasal Cannula Oxygen Delivery Method [15] Nasal Cannula Oxygen Delivery Method [14] Nasal Cannula Oxygen Delivery Method [13] Nasal Cannula Oxygen Delivery Method [12] Nasal Cannula Oxygen Delivery Method [11] Nasal Cannula Oxygen Delivery Method [1] Nasal Cannula Oxygen Delivery Method [10] Nasal Cannula Oxygen Delivery Method [9] Nasal Cannula Oxygen Delivery Method [8] Nasal Cannula Oxygen Delivery Method [7] Nasal Cannula Oxygen Delivery Method [6] Nasal Cannula Oxygen Delivery Method [5] Nasal Cannula Oxygen Delivery Method [4] Nasal Cannula Oxygen Delivery Method [3] Nasal Cannula Oxygen Delivery Method [2] Nasal Cannula Oxygen Delivery Method [1 ( Nasal Cannula Initial Baseline)] Oxygen Delivery Method Room Air Weight: 152 lb 1.903 oz Body Mass Index (BMI) 24.5 Intake and Output for Last 24 Hours 12/24/20 12/25/20 12/26/20 23:59 23:59 23:59 Intake Total 3252.50 / 3252.50 2049 985.42 / 985.42 Output Total Balance 3249.50 / 3249.50 2049 985.42 / 985.42 General: Alert, Oriented x3, Cooperative, No apparent distress Lungs: Normal air movement Cardiovascular: Regular rate Abdomen: Soft, Non Tender, Non-Distended, - - DAVID cloudy red/purulent Microbiology Past 72 Hours 12/22/20 14:17 Wound Abcess - Abdominal Gram Stain - Final 12/22/20 14:17 Wound Abcess - Abdominal Wound Culture - Final No growth aerobically. 12/22/20 14:17 Wound Abcess - Abdominal Anaerobic Culture - Preliminary No growth in 48 hours. 12/18/20 15:30 Blood Culture (Wb) - Anticubital Left Blood Culture - Final No growth in 5 days. 12/18/20 16:00 Blood Culture (Wb) - Anticubital Right Blood Culture - Final No growth in 5 days. Laboratory Results 12/25/20 05:58: TSH 1.93 12/25/20 16:37: Serum Osmolality 266 L 12/25/20 18:23: Ur Random Sodium 113 12/25/20 18:23: Urine Osmolality 406 12/26/20 05:16: WBC 7.9, RBC 3.38 L, Hgb 10.3 L, Hct 30.9 L, MCV 91.4, MCH 30.5, MCHC 33.3, RDW Std Deviation 45.9 H, RDW Coeff of George 13.6, Plt Count 278, MPV 8.1, Immature Gran % (Auto) 1.400 H, Neut % (Auto) 75.5 H, Lymph % (Auto) 13.6 L , [place] % (Auto) 8.1, Eos % (Auto) 0.9, Baso % (Auto) 0.5, Absolute Neuts (auto) 6.0, Absolute Lymphs (auto) 1.08, Nucleated RBC % 0 12/26/20 05:16: Sodium 131 L, Potassium 4.3, Chloride 101, Carbon Dioxide 24.0, Anion Gap 6, BUN 13, Creatinine 0.72, Estim Creat Clear Calc 62.03, Est GFR (MDRD) Af Amer 138, Est GFR (MDRD) Non-Af 114, BUN/Creatinine Ratio 18.0, Glucose 119 H, Calcium 8.5, Total Bilirubin 0.30, AST 36, ALT 83 H, Alkaline Phosphatase 178 H, Total Protein 6.9, Albumin 2.3 L, Globulin 4.6 H, Albumin/Globulin Ratio 0.5 L 12/26/20 05:16: PT 15.5 H, INR 1.3, APTT 31.5 Current Medications Acetaminophen (Acetaminophen 325 Mg Tablet) 650 mg PO Q6H PRN PRN PRN Reason: Pain Score 1-10/Temp > 100.7 F Last Admin: 12/26/20 02:09 Dose: 650 mg Documented by: Fentanyl Citrate (Fentanyl 100 Mcg/2 Ml Ampul) 25 - 50 mcg IV UD PRN PRN Reason: Procedural Pain Control Stop: 12/26/20 23:59 Last Admin: 12/26/20 10:02 Dose: 25 mcg Documented by: Hydralazine HCl (Hydralazine 20 Mg/Ml Vial) 10 mg IV Q6H PRN PRN PRN Reason: sbp>160 Sodium Chloride () 1,000 mls @ 125 mls/hr IV .Q8H [facility] TO [facility] Last Admin: 12/26/20 02:06 Dose: 125 mls/hr Documented by: Ceftriaxone Sodium 2 gm/ (Sodium Chloride) 50 mls @ 100 mls/hr IV Q24 [facility] Last Infusion: 12/25/20 11:27 Dose: Infused Documented by: Lactobacillus Acidophilus (Lactobacillus Acidophilus) 2 tablet PO BID [facility] Last Admin: 12/25/20 21:03 Dose: 2 tablet Documented by: Lisinopril (Lisinopril 5 Mg Tablet) 5 mg PO DAILY [facility] Last Admin: 12/25/20 11:02 Dose: 5 mg Documented by: Metoprolol Tartrate (Metoprolol Tartrate 25 Mg Tablet) 12.5 mg PO BID [facility] Last Admin: 12/25/20 21:03 Dose: 12.5 mg Documented by: Metronidazole (Metronidazole 500 Mg Tablet) 500 mg PO TID [facility] Last Admin: 12/26/20 05:06 Dose: 500 mg Documented by: Midazolam HCl (Midazolam 2 Mg/2 Ml Syringe) 1 - 2 mg IV UD PRN PRN Reason: Procedural Sedation Stop: 12/26/20 23:59 Last Admin: 12/26/20 10:02 Dose: 1 mg Documented by: Ondansetron HCl (Ondansetron 4 Mg/2 Ml Vial) 4 mg IV Q8H PRN PRN PRN Reason: NAUSEA/VOMITING Oxycodone HCl (Oxycodone 5 Mg Tablet) 5 mg PO Q4H PRN PRN PRN Reason: Pain Score 4-10 Last Admin: 12/22/20 20:17 Dose: 5 mg Documented by: Pantoprazole Sodium (Pantoprazole Sodium 20 Mg Tablet) 20 mg PO DAILY [facility] Last Admin: 12/25/20 11:01 Dose: 20 mg Documented by: Sodium Chloride (0.9% Saline Lock 10 Ml Syringe) 10 - 40 ml IV UD PRN PRN Reason: SALINE FLUSH Medical Necessity - Tobacco Use Smoking Status: Former smoker Assessment/Plan All Active Problems (Last Reviewed 12/18/20 @ 19:[address] Roseann Rivera, DO) Bacteremia due to Gram-positive bacteria (Acute) Lactic acidosis (Acute) Elevated liver transaminase level (Acute) Liver mass (Acute) Abnormal nuclear stress test (Resolved) Chest pain (Resolved) 70-year-old male with a liver abscess, Bacteremia?gram-positive cocci from 12/16. 1. Okay to MI home with IV antibiotics per ID PICC line in place. Will have patient follow-up with me later this week likely repeat CT later this week. 2. Continue off Plavix. Helena Moore M.D. Pager: [phone] [facility] [address] [place] [address], Outpatient [facility], [address] [place] [address] Office: [phone] Inpatient E&M: [id number] Subs Hosp L2
[2020-12-26] MEDS: Lisinopril 5 MG Tablet PO (11:58)
[2020-12-26] MEDS: Metoprolol Tartrate 25 MG Tablet 12.5 MG PO (11:58)
[2020-12-26] MEDS: Pantoprazole Sodium 20 MG Tablet PO (11:59)
--- NOTE | 2020-12-26 14:26 | PN.ID_ITS ---
Patient Problems: Active and Suspected Problems (Last Reviewed 12/18/20 @ 19:[address] Roseann Rivera DO) Bacteremia due to Gram-positive bacteria (Acute) Lactic acidosis (Acute) Elevated liver transaminase level (Acute) Liver mass (Acute) Subjective: Feeling better, new drain placed, no fever - Physical Exam Vitals/I&O's: Vital Signs Temp Pulse Resp BP Pulse Ox 98.1 F 74 18 136/65 H 97 12/26/20 12:01 12/26/20 12:01 12/26/20 12:01 12/26/20 12:01 12/26/20 13:42 Oxygen Flow Rate (L/min) [19] 1 Oxygen Flow Rate (L/min) [18] 1 Oxygen Flow Rate (L/min) [17] 1 Oxygen Flow Rate (L/min) [16] 1 Oxygen Flow Rate (L/min) [15] 1 Oxygen Flow Rate (L/min) [14] 1 Oxygen Flow Rate (L/min) [13] 1 Oxygen Flow Rate (L/min) [12] 2 Oxygen Flow Rate (L/min) [11] 1 Oxygen Flow Rate (L/min) [1] 2 Oxygen Flow Rate (L/min) [10] 1 Oxygen Flow Rate (L/min) [9] 1 Oxygen Flow Rate (L/min) [8] 1 Oxygen Flow Rate (L/min) [7] 2 Oxygen Flow Rate (L/min) [6] 2 Oxygen Flow Rate (L/min) [5] 2 Oxygen Flow Rate (L/min) [4] 2 Oxygen Flow Rate (L/min) [3] 2 Oxygen Flow Rate (L/min) [2] 2 Oxygen Flow Rate (L/min) [1 ( 2 Initial Baseline)] Oxygen Delivery Method [19] Nasal Cannula Oxygen Delivery Method [18] Nasal Cannula Oxygen Delivery Method [17] Nasal Cannula Oxygen Delivery Method [16] Nasal Cannula Oxygen Delivery Method [15] Nasal Cannula Oxygen Delivery Method [14] Nasal Cannula Oxygen Delivery Method [13] Nasal Cannula Oxygen Delivery Method [12] Nasal Cannula Oxygen Delivery Method [11] Nasal Cannula Oxygen Delivery Method [1] Nasal Cannula Oxygen Delivery Method [10] Nasal Cannula Oxygen Delivery Method [9] Nasal Cannula Oxygen Delivery Method [8] Nasal Cannula Oxygen Delivery Method [7] Nasal Cannula Oxygen Delivery Method [6] Nasal Cannula Oxygen Delivery Method [5] Nasal Cannula Oxygen Delivery Method [4] Nasal Cannula Oxygen Delivery Method [3] Nasal Cannula Oxygen Delivery Method [2] Nasal Cannula Oxygen Delivery Method [1 ( Nasal Cannula Initial Baseline)] Oxygen Delivery Method Room Air Weight: 69 kg Body Mass Index (BMI) 24.5 Intake and Output for Last 24 Hours 12/24/20 12/25/20 12/26/20 23:59 23:59 23:59 Intake Total 3252.50 / 3252.50 2049 2035.42 / 2034.42 Output Total 240 / 240 Balance 3249.50 / 3249.50 2049 1795.42 / 179.42 General: Alert, Cooperative, No apparent distress Lungs: Clear to auscultation, Normal air movement Cardiovascular: Regular rate, Regular Rhythm Abdomen: Soft, Non Tender, Non-Distended Skin: No rashes Microbiology Past 72 Hours 12/22/20 14:17 Wound Abcess - Abdominal Gram Stain - Final 12/22/20 14:17 Wound Abcess - Abdominal Wound Culture - Final No growth aerobically. 12/22/20 14:17 Wound Abcess - Abdominal Anaerobic Culture - Preliminary No growth in 48 hours. 12/18/20 15:30 Blood Culture (Wb) - Anticubital Left Blood Culture - Final No growth in 5 days. 12/18/20 16:00 Blood Culture (Wb) - Anticubital Right Blood Culture - Final No growth in 5 days. Laboratory Results 12/25/20 05:58: TSH 1.93 12/25/20 16:37: Serum Osmolality 266 L 12/25/20 18:23: Ur Random Sodium 113 12/25/20 18:23: Urine Osmolality 406 12/26/20 05:16: WBC 7.9, RBC 3.38 L, Hgb 10.3 L, Hct 30.9 L, MCV 91.4, MCH 30.5, MCHC 33.3, RDW Std Deviation 45.9 H, RDW Coeff of George 13.6, Plt Count 278, MPV 8.1, Immature Gran % (Auto) 1.400 H, Neut % (Auto) 75.5 H, Lymph % (Auto) 13.6 L , [place] % (Auto) 8.1, Eos % (Auto) 0.9, Baso % (Auto) 0.5, Absolute Neuts (auto) 6.0, Absolute Lymphs (auto) 1.08, Nucleated RBC % 0 12/26/20 05:16: Sodium 131 L, Potassium 4.3, Chloride 101, Carbon Dioxide 24.0, Anion Gap 6, BUN 13, Creatinine 0.72, Estim Creat Clear Calc 62.03, Est GFR (MDRD) Af Amer 138, Est GFR (MDRD) Non-Af 114, BUN/Creatinine Ratio 18.0, Glucose 119 H, Calcium 8.5, Total Bilirubin 0.30, AST 36, ALT 83 H, Alkaline Phosphatase 178 H, Total Protein 6.9, Albumin 2.3 L, Globulin 4.6 H, Albumin/Globulin Ratio 0.5 L 12/26/20 05:16: PT 15.5 H, INR 1.3, APTT 31.5 Current Medications Acetaminophen (Acetaminophen 325 Mg Tablet) 650 mg PO Q6H PRN PRN PRN Reason: Pain Score 1-10/Temp > 100.7 F Last Admin: 12/26/20 02:09 Dose: 650 mg Documented by: Hydralazine HCl (Hydralazine 20 Mg/Ml Vial) 10 mg IV Q6H PRN PRN PRN Reason: sbp>160 Sodium Chloride () 1,000 mls @ 125 mls/hr IV .Q8H [facility] Last Admin: 12/26/20 10:06 Dose: 125 mls/hr Documented by: Ceftriaxone Sodium 2 gm/ (Sodium Chloride) 50 mls @ 100 mls/hr IV Q24 [facility] Last Infusion: 12/26/20 12:30 Dose: Infused Documented by: Lactobacillus Acidophilus (Lactobacillus Acidophilus) 2 tablet PO BID [facility] Last Admin: 12/26/20 11:58 Dose: 2 tablet Documented by: Lisinopril (Lisinopril 5 Mg Tablet) 5 mg PO DAILY [facility] Last Admin: 12/26/20 11:58 Dose: 5 mg Documented by: Metoprolol Tartrate (Metoprolol Tartrate 25 Mg Tablet) 12.5 mg PO BID [facility] Last Admin: 12/26/20 11:58 Dose: 12.5 mg Documented by: Metronidazole (Metronidazole 500 Mg Tablet) 500 mg PO TID [facility] Last Admin: 12/26/20 13:23 Dose: 500 mg Documented by: Ondansetron HCl (Ondansetron 4 Mg/2 Ml Vial) 4 mg IV Q8H PRN PRN PRN Reason: NAUSEA/VOMITING Oxycodone HCl (Oxycodone 5 Mg Tablet) 5 mg PO Q4H PRN PRN PRN Reason: Pain Score 4-10 Last Admin: 12/22/20 20:17 Dose: 5 mg Documented by: Pantoprazole Sodium (Pantoprazole Sodium 20 Mg Tablet) 20 mg PO DAILY [facility] Last Admin: 12/26/20 11:59 Dose: 20 mg Documented by: Sodium Chloride (0.9% Saline Lock 10 Ml Syringe) 10 - 40 ml IV UD PRN PRN Reason: SALINE FLUSH Medical Necessity - Tobacco Use Smoking Status: Former smoker Route of nutrition/ use of supplements: [] Nutritional Intake: [] IV Site: [] Doherty Catheter: [] - Assessment/Plan Antibiotics: [] Assessment/Plan: [] Active and Suspected Problems (Last Reviewed 12/18/20 @ 19:[address] Roseann Rivera, DO) Bacteremia due to Gram-positive bacteria (Acute) Lactic acidosis (Acute) Elevated liver transaminase level (Acute) Liver mass (Acute) alpha hemolytic strep bacteremia with possible liver abscess vs malignancy - TTE showed no veg. On ceftriaxone/flagyl. Cdiff neg. Dental xray neg for abscess. Aspiration and drain placement 12/22, gram stain showing heavy purulence and GPC, new drain placed 12/26. Repeat bcx remain neg. Ok for d/c on 4 week course of iv ceftriaxone and po flagyl. Counseled re: avoiding etoh and monitoring for peripheral neuropathy. May be able to stop abx early or change to po prior to 4 weeks depending on progress of abscess on repeat imaging. Will follow, d/w transplant case manager, ID followup in 2 weeks.
--- NOTE | 2020-12-26 14:41 | DCINST_ITS ---
- Discharge Diagnoses Current Active Problems: Current Active and Chronic Problems (Last Reviewed 12/18/20 @ 19:[address] Roseann Rivera DO) HTN (hypertension) (Chronic) HLD (hyperlipidemia) (Chronic) GERD (gastroesophageal reflux disease) (Chronic) Bacteremia due to Gram-positive bacteria (Acute) Lactic acidosis (Acute) Elevated liver transaminase level (Acute) Liver mass (Acute) Atherosclerosis of coronary artery without angina pectoris (Chronic) History of coronary artery stent placement (Chronic 12/18/19) PCI-NATALIO mid RCA with a 3.0 x 16 Promus Synergy stent 12/18/2019 Hyponatremia (Chronic) You will use the following diet at home:: No restrictions Your food should be the consistency of: Regular Your liquids should be the consistency of: Regular/Thin Discharge Activity: Return to Normal Activity Weight Bearing Status: Full weight bearing Instructions: Liver Biopsy, Caring for Your Alex Tao Drainage Tube Allergies/Adverse Reactions: Allergies clindamycin Allergy (Verified 12/18/20 15:14) Other Penicillins Allergy (Verified 03/18/20 14:14) Rash Sulfa (Sulfonamide Antibiotics) Allergy (Verified 03/18/20 14:14) Hives tetracycline [Tetracycline] Allergy (Verified 03/18/20 14:14) Anaphylaxis Medications to take at Discharge omeprazole 20 mg tablet,delayed release 20 mg PO DAILY 12/01/19 atorvastatin 80 mg tablet 80 mg PO QHS #30 tab 11/11/20 lisinopril 5 mg tablet 5 mg PO DAILY #30 tab 11/11/20 metoprolol tartrate 25 mg tablet 12.5 mg PO BID #30 tab 11/11/20 Doxepin HCl [Sinequan] 10 mg PO PRN PRN 12/18/20 Ceftriaxone 2 gm IV Q24 #28 vial 12/23/20 Metronidazole [Flagyl] 500 mg PO TID #90 tab 12/23/20 metroNIDAZOLE [Flagyl] 500 mg PO TID tab 12/26/20 The following prescriptions were given: Ceftriaxone 2 gm IV Q24 #28 vial Prescription Printed Metronidazole [Flagyl] 500 mg PO TID #90 tab Transmission Status: Received by [facility] [employer] Primary Care Physician: Brayan Pierre Chi, MD [Primary Care Provider] - Please follow up with your Primary Care Physician in: DIRECTED Test Results: Test results from this visit will be discussed in further detail at your follow- up appointment, if applicable. Please Follow Up With: Helena Moore MD When: DIRECTED Please Follow Up With: Sandoval Swanson MD When: DIRECTED
--- NOTE | 2020-12-26 15:14 | PHA.DC.MC ---
Pharmacy Service has performed discharge medication reconciliation and counseling for this patient. 1. CEFTRIAXONE 2GM IV Q24H THRU 01/19/21 2. METRONIDAZOLE 500MG PO TID FOR 30 DAYS The patient's discharge medication list was reviewed for discrepancies and discrepancies were resolved. Home Medications omeprazole 20 mg tablet,delayed release 20 mg PO DAILY 12/01/19 atorvastatin 80 mg tablet 80 mg PO QHS #30 tab 11/11/20 lisinopril 5 mg tablet 5 mg PO DAILY #30 tab 11/11/20 metoprolol tartrate 25 mg tablet 12.5 mg PO BID #30 tab 11/11/20 Doxepin HCl [Sinequan] 10 mg PO PRN PRN 12/18/20 Ceftriaxone 2 gm IV Q24 #28 vial 12/23/20 Metronidazole [Flagyl] 500 mg PO TID #90 tab 12/23/20 The patient was counseled on the following discharge medications and changes in medications for homegoing were reviewed. The Reason for Use, instructions for use, and potential side effects were reviewed for all new medications. The patient's questions regarding all of their medications were answered. The patient was able to verbally demonstrate an understanding of their discharge medications. Patient counseled by warehouse packaging supervisor, Veronica.
--- NOTE | 2020-12-28 18:16 | PCM.DC.SUM ---
Discharge Date and Diagnosis - Problem List Patient Problems: Active and Suspected Problems (Last Reviewed 12/18/20 @ 19:[address] Roseann Rivera DO) Bacteremia due to Gram-positive bacteria (Acute) Lactic acidosis (Acute) Elevated liver transaminase level (Acute) Liver mass (Acute) Date of Admission: 12/18/20 Date of Discharge: 12/26/20 - Primary Discharge Diagnosis Acute Problems: Active Problems (Last Reviewed 12/18/20 @ 19:[address] Roseann Rivera DO) #1 severe sepsis secondary to alpha hemolytic streptococcal bacteremia from liver abscess #2 liver abscess secondary to Streptococcus #3 hyponatremia-chronic #4 essential hypertension #5 hyperlipidemia #6 coronary artery disease - Secondary Discharge Diagnosis Chronic Problems: Chronic Problems (Last Reviewed 12/18/20 @ 19:[address] Roseann Rivera DO) HTN (hypertension) (Chronic) HLD (hyperlipidemia) (Chronic) GERD (gastroesophageal reflux disease) (Chronic) Atherosclerosis of coronary artery without angina pectoris (Chronic) History of coronary artery stent placement (Chronic 12/18/19) PCI-NATALIO mid RCA with a 3.0 x 16 Promus Synergy stent 12/18/2019 Hyponatremia (Chronic) Hospital Course and Treatment Procedures: 2-D Echocardiogram, PICC line placement, - - CT directed right lobe of liver abscess drainage Summary of Care Provided: The patient is a 70 year old M was seen in the emergency room at [facility] with a chief complaint of fever starting approximately 8 days prior. He was sent to the ER for evaluation after 2 of his blood cultures were positive for gram-positive cocci. Work-up in the emergency room included an ultrasound of the right upper quadrant which reveals a suspicion for hepatic neoplasm, patient had elevated liver functions and lactic acidosis, he was felt by the emergency room to clinically have a right lower lobe pneumonia although no definite infiltrate was noted on the chest x-ray. Patient was admitted for severe sepsis-the source of this was unknown at the time of admission, he was placed on IV antibiotics and seen in consultation with infectious diseases. Further work-up during the patient's admission revealed him to have a liver abscess, radiology performed a drainage of the liver abscess and placement of a drain, drainage from the liver abscess did not grow out any organisms. Echocardiogram showed no evidence of vegetation, PICC line was placed for outpatient IV antibiotic treatment. On 12/26/2020, patient was seen and examined: On examination he appeared in good health and spirits. Vital signs as documented. Skin warm and dry and without overt rashes. Neck without JVD, neck was supple, trachea midline, thyroid was normal. Lungs clear bilaterally, normal air movement was noted. Heart exam notable for regular rhythm, normal sounds and absence of murmurs, rubs or gallops. Abdomen unremarkable and without evidence of organomegaly, masses, or abdominal aortic enlargement. Bowel sounds are present, abdomen is not distended. Extremities nonedematous, no cyanosis was noted, no clubbing was noted. Neuro: Cranial nerves II through XII are grossly intact, no focal motor deficits were noted, sensation to light touch and pinprick intact, motor exam 5/5 throughout. Psych: Patient is alert and oriented x3, he does not appear anxious or depressed, he does not appear agitated. Patient appeared to be stable for discharge on 12/26/2020 in stable condition. Patient Problems: Active and Suspected Problems (Last Reviewed 12/18/20 @ 19:[address] Roseann Rivera, DO) Bacteremia due to Gram-positive bacteria (Acute) Lactic acidosis (Acute) Elevated liver transaminase level (Acute) Liver mass (Acute) - Physical Exam Vitals/I&O's: Vital Signs Temp Pulse Resp BP Pulse Ox 99.8 F H 72 18 118/62 99 12/26/20 15:33 12/26/20 15:33 12/26/20 15:33 12/26/20 15:33 12/26/20 15:33 Oxygen Flow Rate (L/min) [19] 1 Oxygen Flow Rate (L/min) [18] 1 Oxygen Flow Rate (L/min) [17] 1 Oxygen Flow Rate (L/min) [16] 1 Oxygen Flow Rate (L/min) [15] 1 Oxygen Flow Rate (L/min) [14] 1 Oxygen Flow Rate (L/min) [13] 1 Oxygen Flow Rate (L/min) [12] 2 Oxygen Flow Rate (L/min) [11] 1 Oxygen Flow Rate (L/min) [1] 2 Oxygen Flow Rate (L/min) [10] 1 Oxygen Flow Rate (L/min) [9] 1 Oxygen Flow Rate (L/min) [8] 1 Oxygen Flow Rate (L/min) [7] 2 Oxygen Flow Rate (L/min) [6] 2 Oxygen Flow Rate (L/min) [5] 2 Oxygen Flow Rate (L/min) [4] 2 Oxygen Flow Rate (L/min) [3] 2 Oxygen Flow Rate (L/min) [2] 2 Oxygen Flow Rate (L/min) [1 ( 2 Initial Baseline)] Oxygen Delivery Method [19] Nasal Cannula Oxygen Delivery Method [18] Nasal Cannula Oxygen Delivery Method [17] Nasal Cannula Oxygen Delivery Method [16] Nasal Cannula Oxygen Delivery Method [15] Nasal Cannula Oxygen Delivery Method [14] Nasal Cannula Oxygen Delivery Method [13] Nasal Cannula Oxygen Delivery Method [12] Nasal Cannula Oxygen Delivery Method [11] Nasal Cannula Oxygen Delivery Method [1] Nasal Cannula Oxygen Delivery Method [10] Nasal Cannula Oxygen Delivery Method [9] Nasal Cannula Oxygen Delivery Method [8] Nasal Cannula Oxygen Delivery Method [7] Nasal Cannula Oxygen Delivery Method [6] Nasal Cannula Oxygen Delivery Method [5] Nasal Cannula Oxygen Delivery Method [4] Nasal Cannula Oxygen Delivery Method [3] Nasal Cannula Oxygen Delivery Method [2] Nasal Cannula Oxygen Delivery Method [1 ( Nasal Cannula Initial Baseline)] Oxygen Delivery Method Room Air Weight: 69 kg Body Mass Index (BMI) 24.5 Intake and Output for Last 24 Hours 12/26/20 12/27/20 12/28/20 23:59 23:59 23:59 Intake Total 2714.59 / 2714.59 Output Total 240 / 240 Balance 2474.59 / 2474.59 Microbiology Past 72 Hours 12/22/20 14:17 Wound Abcess - Abdominal Gram Stain - Final 12/22/20 14:17 Wound Abcess - Abdominal Wound Culture - Final No growth aerobically. 12/22/20 14:17 Wound Abcess - Abdominal Anaerobic Culture - Final No growth in 5 days. Discharge Activity: Return to Normal Activity Weight Bearing Status: Full weight bearing Home Medications: Medications to take at Discharge omeprazole 20 mg tablet,delayed release 20 mg PO DAILY 12/01/19 atorvastatin 80 mg tablet 80 mg PO QHS #30 tab 11/11/20 lisinopril 5 mg tablet 5 mg PO DAILY #30 tab 11/11/20 metoprolol tartrate 25 mg tablet 12.5 mg PO BID #30 tab 11/11/20 Doxepin HCl [Sinequan] 10 mg PO PRN PRN 12/18/20 Ceftriaxone 2 gm IV Q24 #28 vial 12/23/20 Metronidazole [Flagyl] 500 mg PO TID #90 tab 12/23/20 Following Prescriptions Were Given to Patient: Ceftriaxone 2 gm IV Q24 #28 vial Prescription Printed Metronidazole [Flagyl] 500 mg PO TID #90 tab Transmission Status: Received by [facility] Primary Care Physician: Brayan Pierre Chi, MD [Primary Care Provider] - Please follow up with your Primary Care Physician in: DIRECTED Please Follow Up With: Helena Moore MD When: DIRECTED Please Follow Up With: Sandoval Swanson MD When: DIRECTED Patient Instructions: Liver Biopsy, Caring for Your Alex Tao Drainage Tube Disposition: Home Minutes spent on discharge:: 32 Patient Condition:: Stable Medical Necessity - Tobacco Use Smoking Status: Former smoker Meaningful Use Info Meaningful Use Diagnoses (Choose all that apply): None applicable Inpatient E&M: [id number] [facility]
== END 2020-12-26 15:44 | disposition home health service (06) | DRG 871 ==
LOC: ED 17:41 → PCU 18:04
PROVIDERS: Internal Medicine; Surgery; Admitting Provider Nurse Practitioner Family; Emergency Provider Emergency Medicine; PCP Family Medicine Geriatric Medicine; Visit Provider Internal Medicine
DX: A40.9 Streptococcal sepsis, unspecified (principal); K75.0 Abscess of liver; R65.20 Severe sepsis without septic shock; J18.9 Pneumonia, unspecified organism; N39.0 Urinary tract infection, site not specified; E87.1 Hypo-osmolality and hyponatremia; E87.2 Acidosis; I25.10 Atherosclerotic heart disease of native coronary artery without angina pectoris; I10 Essential (primary) hypertension; E78.5 Hyperlipidemia, unspecified; R73.9 Hyperglycemia, unspecified; T38.0X5A Adverse effect of glucocorticoids and synthetic analogues, initial encounter; Y92.9 Unspecified place or not applicable; K21.9 Gastro-esophageal reflux disease without esophagitis; Z79.82 Long term (current) use of aspirin; Z79.02 Long term (current) use of antithrombotics/antiplatelets; Z79.899 Other long term (current) drug therapy; Z87.891 Personal history of nicotine dependence; Z95.5 Presence of coronary angioplasty implant and graft
CPT/HCPCS: 20501; 36415; 36569; 70110; 71045; 71046; 72125; 74160; 74177; 74183; 76705; 77012; 80048; 80053; 80076; 81001; 83036; 83605; 83930; 83935; 84300; 84443; 85025; 85027; 85610; 85730; 86769; 87040; 87070; 87075; 87077; 87086; 87088; 87186; 87205; 87449; 87493; 87506; 87635; 93005; 93306; 99155; 99156; 99157; 99285; A9575; J2185; J7030; J7050; Q9967; A4216; J0696; J0744; U0002

== ENCOUNTER → 2020-12-29 10:23 | Outpatient (CLI) | payer MEDICARE, OTHER, SELFPAY ==
[2020-01-07 09:28] VITALS: BMI 24.9
[2020-12-18 20:09] VITALS: BMI 24.5
--- NOTE | 2020-12-29 10:25 | CT_ITS ---
STUDY: CT ABDOMEN WITH CONTRAST REASON FOR EXAM: Male, 70 years old. Liver abscess RADIATION DOSAGE (If Supplied By Facility): CTDIvol = ( 10.08 ) mGy, DLP = ( 378.03 ) mGycm TECHNIQUE: Transaxial images were obtained post I.V. administration of IV 100mL Isovue-370, and oral contrast. Sagittal and coronal images were reconstructed. Individualized dose optimization techniques were used for this CT. COMPARISON: Comparison is made with prior study dated 12/25/2020. FINDINGS: There are increased markings at the right lung base suggestive of right basilar atelectasis and minimal pleural effusion. The visualized portions of the heart are within normal limits. The previously seen catheter drainage of the abscess in the posterior aspect of the right lobe of the liver has been displaced. The abscesses have decreased in size and appearance as compared to prior study. Normal gallbladder and extrahepatic biliary system. Moderate splenomegaly with the multiple areas of decreased attenuation within the spleen. This is unchanged. Normal pancreas. The remainder of the examination is unchanged. CT/Abdomen WITH IV Contrast IMPRESSION: Interval decrease in size of the abscess in the posterior aspect of the right lobe of the liver with displacement of the catheter. The abscess has decreased in size. Splenomegaly with multiple hypodense nodules within the spleen. Electronically Signed: Zane Horan MD at 12:07 EST , Service support ,
== END ==
PROVIDERS: PCP Family Medicine Geriatric Medicine; Referring Provider Surgery; Visit Provider Surgery
DX: K75.0 Abscess of liver (principal); B96.89 Other specified bacterial agents as the cause of diseases classified elsewhere
CPT/HCPCS: 74160; Q9967

== ENCOUNTER → 2021-01-06 11:46 | Outpatient (CLI) | payer MEDICARE, OTHER, SELFPAY ==
[2020-01-07 09:28] VITALS: BMI 24.9
[2020-12-18 20:09] VITALS: BMI 24.5
[2021-01-06 12:43] LABS: Anion Gap 6 (5-15); BUN 16 mg/dL (7-18); BUN/Creat Ratio 24.3 RATIO (10-20); Calcium,Total 8.9 mg/dL (8.5-10.1); Chloride 96 mmol/L (98-107); Creatinine, Serum 0.66 mg/dL (0.70-1.30); EST Glomerular Filtration Rate 127 mL/min (>60); Est Glom Filt Rate - Afr Amer 154 mL/min (>60); Glucose 88 mg/dL (74-106); Potassium 3.9 mmol/L (3.5-5.1); Sodium Level 128 mmol/L (136-145)
== END ==
PROVIDERS: PCP Family Medicine Geriatric Medicine; Visit Provider Family Medicine Geriatric Medicine
DX: E87.1 Hypo-osmolality and hyponatremia (principal)
CPT/HCPCS: 36415; 80048

== ENCOUNTER → 2021-02-02 13:14 | Outpatient (CLI) | payer MEDICARE, OTHER, SELFPAY ==
[2020-01-07 09:28] VITALS: BMI 24.9
[2020-12-18 20:09] VITALS: BMI 24.5
--- NOTE | 2021-02-02 13:16 | CT_ITS ---
STUDY: CT ABDOMEN AND PELVIS WITH CONTRAST REASON FOR EXAM: Male, 70 years old. LIVER ABSCESS RADIATION DOSAGE (If Supplied By Facility): CTDIvol = ( 9.94 ) mGy, DLP = ( 711.02 ) mGycm TECHNIQUE: Transaxial images were obtained from the dome of the diaphragm to the symphysis pubis without oral contrast. Oral and amp; IV Readi-CAT and amp; 100mL Isovue-370 was administered. Sagittal and coronal images were reconstructed. Individualized dose optimization techniques were used for this CT. COMPARISON: 12/29/2020. FINDINGS: Right basilar dependent atelectasis. Atherosclerosis of the coronary arteries. Interval near complete resolution of the patient''s known right hepatic lobe abscess. An approximately 6 x 2.5 cm ill-defined hypodensity is noted in the region of the abscess, which may represent phlegmon. No discrete drainable abscess. Splenomegaly measuring up to 15.4 cm. Unremarkable pancreas, adrenals, and bilateral kidneys. No definite cholelithiasis. Bowel loops nonobstructed. No free air or free fluid. No adenopathy. Vascular calcification noted with no abdominal aortic aneurysm. Sections through the pelvis demonstrate an enlarged prostate gland protruding into the lumen of the urinary bladder. Correlation with rectal examination and serum PSA levels recommended. Multilevel thoracolumbar spondylosis is unchanged. Degenerative changes of the bilateral hip joints redemonstrated. CT/Abdomen/Pelvis WITH Contrast IMPRESSION: Interval near complete resolution of the right hepatic lobe abscess. Residual ill-defined hypodensity in the posterior segment of the right lobe, likely phlegmon. No drainable abscess. Moderate splenomegaly. Enlarged prostate gland. Electronically Signed: Dwain Arellano MD at 3:30 EDT Tel , Service support ,
[2021-02-02] MEDS: 0.9% Saline Lock 10 ML Syringe IV (13:40)
== END ==
PROVIDERS: PCP Family Medicine Geriatric Medicine; Referring Provider Internal Medicine Infectious Disease; Visit Provider Internal Medicine Infectious Disease
DX: K75.0 Abscess of liver (principal); N40.0 Benign prostatic hyperplasia without lower urinary tract symptoms; R16.1 Splenomegaly, not elsewhere classified
CPT/HCPCS: 74177; Q9967; A4216

== ENCOUNTER → 2021-05-05 11:15 | Outpatient (CLI) | payer MEDICARE, OTHER, SELFPAY ==
[2020-01-07 09:28] VITALS: BMI 24.9
[2021-03-21 08:08] VITALS: BMI 23.3
--- NOTE | 2021-05-05 11:25 | RAD_ITS ---
STUDY: X-RAY - RIGHT SHOULDER REASON FOR EXAM: Male, 70 years old. Fall 3 weeks ago, right arm numbness TECHNIQUE: 4 view(s) of the shoulder. COMPARISON: None. FINDINGS: There is mild degenerative arthrosis of the glenohumeral articulation. There is degenerative arthrosis of the acromioclavicular joint without inferior osseous spur formation. Normal acromion. Normal humeral head and visualized proximal humerus. The soft tissue structures are unremarkable. Normal visualized pulmonary apex. RAD/Shoulder min 2 Views IMPRESSION: Mild arthrosis of the glenohumeral and acromioclavicular joints. Electronically Signed: Juan Miguel Jaime MD ([place]) at 12:03 EDT , Service support ,
--- NOTE | 2021-05-05 11:25 | RAD_ITS ---
STUDY: X-RAY - CERVICAL SPINE REASON FOR EXAM: Male, 70 years old. NECK PAIN TECHNIQUE: 3 view(s) of the cervical spine were obtained. COMPARISON: 12/19/2020 FINDINGS: Normal anterior atlantoaxial articulation. Normal odontoid process. There is straightening of the normal cervical lordosis. Operative fusion at C3-C4 and C6-C7. Severe multilevel facet arthropathy particularly in the mid cervical levels. Degenerative anterolisthesis of C5-C6 is approximately 2 mm. No demonstrated fracture. There are atherosclerotic vascular calcifications of the carotid arteries. RAD/Cerv Spine 2 or 3 Views IMPRESSION: Degenerative and operative changes, as above, not significantly changed since 12/19/2020 Electronically Signed: Juan Miguel Jaime MD ([place]) at 12:04 EDT , Service support ,
== END ==
PROVIDERS: PCP Family Medicine Geriatric Medicine; Referring Provider Family Medicine Geriatric Medicine; Visit Provider Family Medicine Geriatric Medicine
DX: M54.2 Cervicalgia (principal); M25.511 Pain in right shoulder
CPT/HCPCS: 72040; 73030

== ENCOUNTER → 2021-06-14 13:20 | Outpatient (CLI) | payer MEDICARE, OTHER, SELFPAY ==
[2020-01-07 09:28] VITALS: BMI 24.9
[2021-03-21 08:08] VITALS: BMI 23.3
--- NOTE | 2021-06-14 14:05 | NEURO ---
NCS and/or EMG Patient Report Ordering Doctor: Brayan Pierre Chi DATE OF SERVICE: 06/14/21 Leonel Johnston presents for electrodiagnostic testing of the right upper limb. He reports numbness and tingling in the first 2 digits of the right hand. Electrodiagnostic findings: Right median motor nerve demonstrates normal distal latency, amplitude and conduction velocity. Normal right ulnar motor response. Normal median and ulnar F-wave. Prolonged right median sensory latency at the wrist. Normal ulnar and radial sensory responses. On needle EMG, all muscles tested in the right upper limbs showed no evidence of denervation with normal motor unit action potentials. Electrodiagnostic impression: This is an abnormal study in the right upper limb 1. Electrodiagnostic findings suggestive of right-sided median mononeuropathy. This is consistent with a mild right carpal tunnel syndrome.
== END ==
PROVIDERS: PCP Family Medicine Geriatric Medicine; Referring Provider Family Medicine Geriatric Medicine; Visit Provider Family Medicine Geriatric Medicine
DX: R20.9 Unspecified disturbances of skin sensation (principal); R20.2 Paresthesia of skin
CPT/HCPCS: 95886; 95910

== ENCOUNTER → 2021-09-20 09:30 | Outpatient (CLI) | payer MEDICARE, OTHER, SELFPAY ==
[2020-01-07 09:28] VITALS: BMI 24.9
[2021-09-20 12:53] LABS: Absolute Lymphocyte Count 1.28 X10^3/uL (0.83-4.51); Absolute Neutrophil Count 1.3 X10^3/uL (2.0-7.7); Basophil# 0.01 X10^3/uL; Basophil% 0.3 % (0-1); Eosinophil# 0.07 X10^3/uL; Eosinophils% 2.4 % (0-5); Hematocrit 38.9 % (40-54); Lymphocyte # 1.28 X10^3/ul (0.83-4.51); Lymphocyte % 43.1 % (19-41); Mean Corp Hgb Conc 33.4 g/dL (32-36); Mean Corpuscular Hgb 31.1 pg (27.0-32.0); Mean Corpuscular Volume 93.1 fL (80-94); Mean Platelet Vol. 9.5 fl (6.2-12.0); Monocyte# 0.29 X10^3/uL; Monocyte% 9.8 % (0-10); NRBC Flagged by Analyzer 0 % (0-5); Neutrophil # 1.32 X10^3/uL (2.7-7.7); Neutrophil % 44.4 % (47-70); Platelet Count 115 K/mm3 (150-450); RBC Distribution Width CV 12.8 % (11.6-14.6); RBC Distribution Width SD 43.6 fl (35.1-43.9); Red Blood Count 4.18 M/mm3 (4.6-6.2)
[2021-09-20 13:10] LABS: Vitamin D,25 Hydroxy 63.7 ng/mL
[2021-09-20 13:35] LABS: ALB/GLOB Ratio 1.1 RATIO (0.9-2.4); AST(SGOT) 25 U/L (15-37); Alanine Aminotransfer ALT/SGPT 39 U/L (16-61); Albumin, Serum 3.6 g/dL (3.2-5.0); Alkaline Phosphatase 71 U/L (45-117); Anion Gap 5 (5-15); BUN 14 mg/dL (7-18); BUN/Creat Ratio 13.2 RATIO (10-20); Calcium,Total 9.3 mg/dL (8.5-10.1); Chloride 99 mmol/L (98-107); Creatinine, Serum 1.06 mg/dL (0.70-1.30); EST Glomerular Filtration Rate 73 mL/min (>60); Est Glom Filt Rate - Afr Amer 89 mL/min (>60); Globulin 3.3 g/dL (2.2-4.2); Glucose 120 mg/dL (74-106); Potassium 4.3 mmol/L (3.5-5.1); Protein, Total 6.9 g/dL (6.4-8.2); Sodium Level 133 mmol/L (136-145); Thyroid Stim Hormone (TSH) 2.09 uIU/mL (0.358-3.74)
== END ==
PROVIDERS: PCP Family Medicine Geriatric Medicine; Visit Provider Family Medicine Geriatric Medicine
DX: I10 Essential (primary) hypertension (principal); E55.9 Vitamin D deficiency, unspecified
CPT/HCPCS: 36415; 80053; 82306; 84443; 85025

== ENCOUNTER → 2021-10-24 11:34 | Outpatient (CLI) | payer MEDICARE, OTHER, SELFPAY ==
[2020-01-07 09:28] VITALS: BMI 24.9
[2021-10-24 12:17] LABS: Absolute Lymphocyte Count 1.15 X10^3/uL (0.83-4.51); Absolute Neutrophil Count 1.6 X10^3/uL (2.0-7.7); Basophil# 0.01 X10^3/uL; Basophil% 0.3 % (0-1); Eosinophil# 0.03 X10^3/uL; Hematocrit 39.6 % (40-54); Lymphocyte # 1.15 X10^3/ul (0.83-4.51); Lymphocyte % 37.3 % (19-41); Mean Corp Hgb Conc 32.8 g/dL (32-36); Mean Corpuscular Volume 91.5 fL (80-94); Mean Platelet Vol. 8.9 fl (6.2-12.0); Monocyte# 0.26 X10^3/uL; Monocyte% 8.4 % (0-10); NRBC Flagged by Analyzer 0 % (0-5); Neutrophil # 1.63 X10^3/uL (2.7-7.7); Platelet Count 117 K/mm3 (150-450); RBC Distribution Width CV 12.6 % (11.6-14.6); RBC Distribution Width SD 41.9 fl (35.1-43.9); Red Blood Count 4.33 M/mm3 (4.6-6.2); White Blood Count 3.1 K/mm3 (4.4-11.0)
== END ==
PROVIDERS: PCP Family Medicine Geriatric Medicine; Visit Provider Family Medicine Geriatric Medicine
DX: D69.6 Thrombocytopenia, unspecified (principal)
CPT/HCPCS: 36415; 85025

== ENCOUNTER → 2022-09-14 | Outpatient (CLI) | payer MEDICARE, OTHER, SELFPAY ==
[2022-06-08 09:29] VITALS: BMI 24.9
== END | disposition home or self-care (01) ==
LOC: PSN 11:24
PROVIDERS: PCP Family Medicine Geriatric Medicine; Referring Provider Family Medicine Geriatric Medicine; Visit Provider Family Medicine Geriatric Medicine
DX: R68.83 Chills (without fever) (principal); Z20.822 Contact with and (suspected) exposure to COVID-19
CPT/HCPCS: 87635; 87804; 87807; C9803; U0003; U0005

== ENCOUNTER → 2022-09-24 | Outpatient (CLI) | payer MEDICARE, OTHER, SELFPAY ==
[2022-06-08 09:29] VITALS: BMI 24.9
[2022-09-24 10:30] LABS: Absolute Lymphocyte Count 1.36 X10^3/uL (0.83-4.51); Absolute Neutrophil Count 3.2 X10^3/uL (2.0-7.7); Basophil# 0.02 X10^3/uL; Basophil% 0.4 % (0-1); Eosinophil# 0.05 X10^3/uL; Hematocrit 41.5 % (40-54); Hemoglobin 14.2 g/dL (13.0-16.5); Lymphocyte # 1.36 X10^3/ul (0.83-4.51); Lymphocyte % 27.6 % (19-41); Mean Corp Hgb Conc 34.2 g/dL (32-36); Mean Corpuscular Hgb 31.4 pg (27.0-32.0); Mean Corpuscular Volume 91.8 fL (80-94); Mean Platelet Vol. 8.5 fl (6.2-12.0); Monocyte# 0.32 X10^3/uL; Monocyte% 6.5 % (0-10); NRBC Flagged by Analyzer 0 % (0-5); Neutrophil # 3.15 X10^3/uL (2.7-7.7); Neutrophil % 64.1 % (47-70); Platelet Count 138 K/mm3 (150-450); RBC Distribution Width CV 13.2 % (11.6-14.6); RBC Distribution Width SD 44.6 fl (35.1-43.9); Red Blood Count 4.52 M/mm3 (4.6-6.2); White Blood Count 4.9 K/mm3 (4.4-11.0)
[2022-09-24 10:58] LABS: Vitamin D,25 Hydroxy 58.2 ng/mL
[2022-09-24 11:05] LABS: AST(SGOT) 24 U/L (15-37); Alanine Aminotransfer ALT/SGPT 47 U/L (16-61); Albumin, Serum 3.6 g/dL (3.2-5.0); Alkaline Phosphatase 96 U/L (45-117); Anion Gap 4 (5-15); BUN 15 mg/dL (7-18); BUN/Creat Ratio 18.8 RATIO (10-20); Calcium,Total 9.3 mg/dL (8.5-10.1); Chloride 98 mmol/L (98-107); EST Glomerular Filtration Rate 101 mL/min (>60); Est Glom Filt Rate - Afr Amer 122 mL/min (>60); Globulin 3.6 g/dL (2.2-4.2); Glucose 103 mg/dL (74-106); Potassium 4.4 mmol/L (3.5-5.1); Protein, Total 7.2 g/dL (6.4-8.2); Sodium Level 132 mmol/L (136-145); Thyroid Stim Hormone (TSH) 1.32 uIU/mL (0.358-3.74)
--- NOTE | 2022-09-24 15:47 | NEURO ---
NCS and/or EMG Patient Report Ordering Doctor: Raffy Raymond DATE OF SERVICE: 09/24/22 Indication: Bilateral hand pain and stiffness. No localized or radicular neck pain. Evaluate for peripheral nerve entrapment. Findings: Nerve conduction studies were performed in the right and left upper extremities. The right median motor study recording the abductor pollicis brevis showed a normal amplitude, normal distal latency and normal conduction velocity. The right ulnar motor study recording the abductor digiti minimi showed a normal amplitude, normal distal latency and normal conduction velocity. No conduction block or focal slowing was present across the elbow. The right median sensory response recording digit two showed a normal amplitude, latency and conduction velocity. The right ulnar sensory response recording digit five showed a normal amplitude, latency and conduction velocity. The right radial sensory response recording over the extensor snuff box showed a normal amplitude, latency and conduction velocity. The left median motor study recording the abductor pollicis brevis showed a normal amplitude, normal distal latency and normal conduction velocity. The left ulnar motor study recording the abductor digiti minimi showed a normal amplitude, normal distal latency and normal conduction velocity. No conduction block or focal slowing was present across the elbow. The left median sensory response recording digit two showed a normal amplitude, latency and conduction velocity. The left ulnar sensory response recording digit five showed a normal amplitude, latency and conduction velocity. The left radial sensory response recording over the extensor snuff box showed a normal amplitude, latency and conduction velocity. Right median-ulnar lumbrical / interosseous motor latencies showed a normal median latency compared to the ulnar. Left median-ulnar lumbrical / interosseous motor latencies showed a normal median latency compared to the ulnar. Needle EMG of the right upper extremity muscles was performed. No denervation was seen in any muscle. All motor unit morphology, activation and recruitment patterns were normal. Limited needle EMG of the left upper extremity muscles was performed. No denervation was seen in any muscle. All motor unit morphology, activation and recruitment patterns were normal. Impression: This is a normal study. There is no electrophysiologic evidence of entrapment neuropathy in either upper extremity. In addition, there is no electrophysiologic evidence of cervical radiculopathy in the right upper extremity. Alejandro Rosa D.O. Multi Select Codes Neurology Neurology Interp Codes: 76471-46 [facility] [place] done w/nerv tst walters (interp) (59), 86356-77 Musc test done w/n test comp (interp) and 92645-11 Nr cndj test 13/> studies (interp)
== END | disposition home or self-care (01) ==
LOC: PSN 13:45
PROVIDERS: PCP Family Medicine Geriatric Medicine; Referring Provider Physician Assistant; Visit Provider Physician Assistant
DX: M19.011 Primary osteoarthritis, right shoulder (principal); M79.642 Pain in left hand; M79.641 Pain in right hand; R20.2 Paresthesia of skin; I10 Essential (primary) hypertension; E55.9 Vitamin D deficiency, unspecified
CPT/HCPCS: 36415; 80053; 82306; 84443; 85025; 95885; 95886; 95913

== ENCOUNTER → 2022-11-13 | Outpatient (CLI) | payer MEDICARE, SELFPAY ==
[2022-06-08 09:29] VITALS: BMI 24.9
--- NOTE | 2022-11-13 10:44 | EKG12_ITS ---
Test Reason : PREOP Blood Pressure : / mmHG Vent. Rate : 070 BPM Atrial Rate : 070 BPM P-R Int : 176 ms QRS Dur : 094 ms QT Int : 386 ms P-R-T Axes : 050 041 043 degrees QTc Int : 416 ms Normal sinus rhythm Normal ECG Confirmed by EVIE REYES MD ([id number]), production editor KODI MEI ([id number]) on 11/14/2022 10:28:18 AM Referred By: THOMAS Confirmed By:EVIE REYES MD
[2022-11-13 12:28] LABS: Hematocrit 40.3 % (40-54); Hemoglobin 13.2 g/dL (13.0-16.5); Mean Corp Hgb Conc 32.8 g/dL (32-36); Mean Corpuscular Hgb 30.3 pg (27.0-32.0); Mean Corpuscular Volume 92.4 fL (80-94); Mean Platelet Vol. 9.4 fl (6.2-12.0); Platelet Count 128 K/mm3 (150-450); RBC Distribution Width CV 12.9 % (11.6-14.6); Red Blood Count 4.36 M/mm3 (4.6-6.2); White Blood Count 3.5 K/mm3 (4.4-11.0)
[2022-11-13 12:56] LABS: Anion Gap 8 (5-15); BUN 12 mg/dL (7-18); BUN/Creat Ratio 14.9 RATIO (10-20); Calcium,Total 9.2 mg/dL (8.5-10.1); Chloride 95 mmol/L (98-107); Creatinine, Serum 0.81 mg/dL (0.70-1.30); EST Glomerular Filtration Rate 100 mL/min (>60); Est Glom Filt Rate - Afr Amer 121 mL/min (>60); Glucose 99 mg/dL (74-106); Potassium 4.1 mmol/L (3.5-5.1); Sodium Level 132 mmol/L (136-145)
== END | disposition home or self-care (01) ==
PROVIDERS: PCP Family Medicine Geriatric Medicine; Visit Provider Physician Assistant
DX: Z01.818 Encounter for other preprocedural examination (principal); Z01.810 Encounter for preprocedural cardiovascular examination
CPT/HCPCS: 36415; 80048; 85027; 93005

== ENCOUNTER → 2023-05-13 | Outpatient (CLI) | payer MEDICARE, SELFPAY ==
[2022-06-08 09:29] VITALS: BMI 24.9
--- NOTE | 2023-05-13 11:20 | RAD_ITS ---
STUDY: X-RAY - LUMBAR SPINE REASON FOR EXAM: Male, 72 years old. MUSCLE SPASM OF BACK TECHNIQUE: 5 view(s) of the lumbar spine were obtained including oblique views. COMPARISON: None FINDINGS: There is straightening of the normal lumbar lordosis. There is a mild degree of dextroscoliosis of the lumbar spine. There is a normal alignment of the vertebrae. There is multilevel endplate spondylosis of the lumbar vertebrae. There is multi-level degenerative disc disease with multi-level disc space narrowing. There is atherosclerotic calcification of the abdominal aorta without a demonstrated aneurysm. RAD/L/S Spine Min 4 Views IMPRESSION: Degenerative changes of the spine, as detailed above. There is straightening of the normal lumbar lordosis. Electronically Signed: Zane Horan MD at 12:25 EDT ,
== END | disposition home or self-care (01) ==
LOC: RAD 11:17
PROVIDERS: PCP Family Medicine Geriatric Medicine; Referring Provider Family Medicine Geriatric Medicine; Visit Provider Family Medicine Geriatric Medicine
DX: M62.830 Muscle spasm of back (principal)
CPT/HCPCS: 72110

== ENCOUNTER → 2023-06-04 | Outpatient (CLI) | payer MEDICARE, SELFPAY ==
[2022-06-08 09:29] VITALS: BMI 24.9
--- NOTE | 2023-06-04 15:59 | RAD_ITS ---
STUDY: X-RAY CHEST REASON FOR EXAM: Male, 72 years old. CONGESTION OF RESPIRATORY TRACT TECHNIQUE: PA and lateral COMPARISON: December 18, 2020 FINDINGS: The lungs are clear and expanded. There is no demonstrated pleural abnormality. Normal size heart. Normal mediastinum and jaleel. Normal visualized pulmonary arteries. Normal visualized aortic arch and descending thoracic aorta. Dorsal spine demonstrates mild scoliosis and degenerative change. Normal visualized ribs, clavicles, and shoulders. There is no demonstrated abnormality of the visualized soft tissue structures of the upper abdomen. No significant change since prior study RAD/Chest PA and Lateral IMPRESSION: No acute cardiopulmonary pathology Electronically Signed: Gerardo Adames MD at 22:57 EDT ,
== END | disposition home or self-care (01) ==
LOC: RAD 15:58
PROVIDERS: PCP Family Medicine Geriatric Medicine; Referring Provider Family Medicine Geriatric Medicine; Visit Provider Family Medicine Geriatric Medicine
DX: J98.8 Other specified respiratory disorders (principal)
CPT/HCPCS: 71046

== ENCOUNTER → 2023-06-05 | Outpatient (CLI) | payer MEDICARE, SELFPAY ==
[2022-06-08 09:29] VITALS: BMI 24.9
== END | disposition home or self-care (01) ==
PROVIDERS: PCP Family Medicine Geriatric Medicine; Referring Provider Family Medicine Geriatric Medicine; Visit Provider Family Medicine Geriatric Medicine
DX: R68.83 Chills (without fever) (principal)
CPT/HCPCS: 87635; 87804; 87807

== ENCOUNTER → 2023-08-13 | Outpatient (CLI) | payer MEDICARE, SELFPAY ==
[2022-06-08 09:29] VITALS: BMI 24.9
--- NOTE | 2023-08-13 17:58 | STRESSREP ---
Stress Test Report Exercise myocardial perfusion stress test. 73-year-old male with a history of known coronary artery disease Stress protocol: Resting EKG demonstrates normal sinus rhythm with a rate of 68 bpm resting blood pressure is 120/76 mmHg. The patient exercised according to the regular Andres protocol for a total duration of 7 minutes and 34 seconds attaining a maximum heart rate of 150 bpm which was 102% of maximum predicted heart rate; the maximum workload was 10.1 metabolic equivalents. At rest there were no ST or T wave changes noted to suggest ischemia and at peak exercise [address] depression were noted in the inferior lateral leads meeting the criteria for ischemia and during recovery becoming downsloping. No clinical angina was noted however the test was terminated due to the target heart rate being achieved. The peak blood pressure was 182/84 mmHg and the rate-pressure product was 22,000. Myocardial perfusion protocol. 10.8 mCi of technetium 99m sestamibi was injected at rest. The patient exercised according to regular Andres protocol for total duration of 7 minutes and 34 seconds and at peak exercise 33.3 mCi of technetium 99m sestamibi was injected stress images were obtained stress and rest images were reconstructed in comparing the short axis vertical long and horizontal long axis. Gated images were also obtained. Perfusion SPECT analysis: Review of the stress images demonstrate normal uptake of tracer noted in all areas of the myocardium. The resting images similarly demonstrate normal uptake of tracer noted in all areas of the myocardium. No areas of reversibility are noted to suggest ischemia no previous infarct was noted. Gated SPECT analysis: The gated ejection fraction is 70%. Conclusion: Exercise myocardial perfusion stress test with no obvious ischemia noted on images. EKG criteria suggestive of ischemia at a high workload Good functional capacity No clinical angina noted Preserved ejection fraction.
== END | disposition home or self-care (01) ==
LOC: CVS 07:15
PROVIDERS: PCP Family Medicine Geriatric Medicine; Referring Provider Nurse Practitioner Family; Visit Provider Nurse Practitioner Family
DX: I10 Essential (primary) hypertension (principal); E78.5 Hyperlipidemia, unspecified; E78.1 Pure hyperglyceridemia; Z95.5 Presence of coronary angioplasty implant and graft
CPT/HCPCS: 78452; 93017; A9500; A4216

== ENCOUNTER 2023-09-02 11:14 | Observation (INO) | payer MEDICARE, SELFPAY ==
[2022-06-08 09:29] VITALS: BMI 24.9
--- NOTE | 2023-08-23 09:32 | PCM.HP.BLA ---
History and Physical Date of Admission: 09/02/23 This is a 73 year-old gentleman who presents for a cardiac catheterization, following an abnormal stress test. Had initially presented with chest discomfort in 2019. He underwent a stress test which demonstrated moderate ischemia in the inferior wall. He underwent cardiac catheterization and angioplasty of the right coronary artery. He was noted to have moderate disease in the left anterior descending artery. He denies chest, arm, jaw, or neck discomfort. He denies palpitations. He denies bilateral lower extremity edema. He denies claudication. He denies shortness of breath with activity, shortness of breath at rest, orthopnea, or PND. He denies chronic cough. He denies significant, sudden weight gain. He states dizziness with quick position changes. He denies lightheadedness, near-syncope, or syncope. He denies blood in urine, blood in stool, or epistaxis. He denies fever with chills. He denies myalgia. He denies fatigue. His exercise level has remained stable via 3-4 times a week for an hour. He states blood pressure has been better controlled outside of today, including with PCP. Intake Vital Signs SEE EMR Allergies SEE EMR Medications SEE EMR FORMERLY [facility], [facility] Medical History Atherosclerosis of coronary artery without angina pectoris Bacteremia due to Gram-positive bacteria Elevated liver transaminase level Essential (primary) hypertension GERD (gastroesophageal reflux disease) Hyponatremia Lactic acidosis Liver mass Squamous cell carcinoma Surgical History H/O cervical spine surgery History of coronary artery stent placement (12/18/19) History of repair of rotator cuff Family History Mother Cancer Ascending aortic aneurysm Carotid artery disease CVA (cerebral vascular accident)Brother CancerOther Hypertension Social History Smoking Status: Former smoker quit date: 11/04/99 pack-years: 25 alcohol intake: current alcohol intake frequency: a few times a week Alcohol type: beer and wine substance use type: does not use caffeine: Yes Type: coffee Number of servings: 3 ROS Const Const: Negative for fatigue, weakness, body ache, fever(s) or chills ENT ENT: Positive for dizziness; Negative for Nosebleed/epistaxis Cardio Chest Pain: No Palpitations: No Edema: None Muscle aches with walking: None Resp Respiratory: Negative for SOB with activity, SOB at rest, SOB orthopnea\SOB lying down, Cough or paroxysmal nocturnal dyspnea GI GI: Negative nausea, vomiting blood/hematemesis, bright, red blood in stools or black,tarry stools : Negative for hematuria or frequent nighttime urination/ nocturia Musc Musc: Negative for muscle aches/ myalgia Skin Skin: Negative non-healing lesions or rash Neuro Neuro: Positive for dizziness; Negative for lightheadedness, near syncope, syncope, orthostatic symptoms or weakness Endo Endo: Negative for fatigue Allergy Allergy/Immunology: Negative for rash Cardiology Exam Const Appearance: cooperative, healthy appearing, comfortable and no acute distress Nutritional Appearance: average body habitus and well nourished Orientation: alert, awake and oriented x3 Head Head: normal to inspection Ears: hearing grossly normal bilaterally Nose: external nose normal Face and Sinus: face symmetric Mouth: moist mucous membranes Eyes General: appearance normal, both eyes and all related structures Eyelids: eyelids normal EOM: EOM intact bilaterally Neck Neck: normal visual inspection and no JVD Carotids: normal carotid upstroke Chest Chest inspection: normal inspection of the chest, symmetric chest movement and normal respiratory effort; Negative cough Auscultation: Bilateral: Clear to Auscultation Cardio Rate: regular rate Rhythm: regular rhythm Heart sounds: S1 normal and S2 normal; Negative rub, gallop or murmur GI GI: normal to inspection Neuro General: patient alert, patient awake, patient oriented x3 and CN's II-XI intact bilaterally Skin Skin: no rashes or lesions noted Extremities Pulses: Normal: Right Posterior Tibial Pulse, Left Posterior Tibial Pulse, Right Radial Pulse and Left Radial Pulse Lower Extremity Edema: None: Bilateral Psych Psychological: normal affect Supplemental Info Supplemental Information Stress test 08/13/2023: Exercise myocardial perfusion stress test. 73-year-old male with a history of known coronary artery disease Stress protocol: Resting EKG demonstrates normal sinus rhythm with a rate of 68 bpm resting blood pressure is 120/76 mmHg. The patient exercised according to the regular Andres protocol for a total duration of 7 minutes and 34 seconds attaining a maximum heart rate of 150 bpm which was 102% of maximum predicted heart rate; the maximum workload was 10.1 metabolic equivalents. At rest there were no ST or T wave changes noted to suggest ischemia and at peak exercise [address] depression were noted in the inferior lateral leads meeting the criteria for ischemia and during recovery becoming downsloping. No clinical angina was noted however the test was terminated due to the target heart rate being achieved. The peak blood pressure was 182/84 mmHg and the rate-pressure product was 22,000. Myocardial perfusion protocol. 10.8 mCi of technetium 99m sestamibi was injected at rest. The patient exercised according to regular Andres protocol for total duration of 7 minutes and 34 seconds and at peak exercise 33.3 mCi of technetium 99m sestamibi was injected stress images were obtained stress and rest images were reconstructed in comparing the short axis vertical long and horizontal long axis. Gated images were also obtained. Perfusion SPECT analysis: Review of the stress images demonstrate normal uptake of tracer noted in all areas of the myocardium. The resting images similarly demonstrate normal uptake of tracer noted in all areas of the myocardium. No areas of reversibility are noted to suggest ischemia no previous infarct was noted. Gated SPECT analysis: The gated ejection fraction is 70%. Conclusion: Exercise myocardial perfusion stress test with no obvious ischemia noted on images. EKG criteria suggestive of ischemia at a high workload Good functional capacity No clinical angina noted Preserved ejection fraction. Echocardiogram from 12/18/2020: Interpretation Summary The study was technically difficult. Left ventricular systolic function is normal. The estimated ejection fraction is 65 %. The global longitudinal strain = -22 % (normal). Sigmoid septum. Mild diffuse mitral valve thickening. The mitral valve chordae are thickened and/or calcified. Mild (1+) mitral valve insufficiency. Trivial tricuspid valve insufficiency. Right ventricular systolic pressure estimated to be 29 mmHg. No evidence for diastolic dysfunction. Stress test from 12/16/2019: Conclusion: Abnormal exercise myocardial perfusion stress test at a moderate workload with evidence of inferior ischemia. Intermediate risk scan. Preserved ejection fraction. Heart catheterization from 12/18/2019: CONCLUSIONS Significant CAD with high-grade right coronary lesion and mild to moderate disease noted in the LAD RECOMMENDATIONS Referred for immediate PCI CORONARY ANGIOGRAPHY DOMINANCE: Right Dominant LEFT HEART ASSESSMENT Left Ventricular Ejection Fraction: by LV Gram 60 % Normal LV wall motion Normal Left Ventricular systolic function LEFT MAIN: Moderate calcification, No significant disease noted LEFT ANTERIOR DESCENDING ARTERY: Mild luminal irregularities less than 30% DIAGONAL 1: Proximal - 60 % Stenosis CIRCUMFLEX ARTERY: Mild luminal irregularities less than 30% RIGHT CORONARY ARTERY: PROX RCA: 99 % Stenosis RT PDA: Proximal - Mild luminal irregularities Cardiac intervention from 12/18/2019: CONCLUSIONS Successful PTCA/NATALIO mid RCA with a 3.0 x 16 Promus Synergy stent; 85%-->0%, no dissection. Assessment and Plan Assessment and Plan (1) History of coronary artery stent placement: Status: Chronic Comment: PCI-NATALIO mid RCA with a 3.0 x 16 Promus Synergy stent 12/18/2019 Plan: Patient has a history of coronary artery disease with stent placement in 2019. He underwent a surveillance stress test on 08/13/2023 which demonstrated EKG criteria suggestive of ischemia at a high workload. Would like to proceed with a cardiac catheterization to further assess this. Depending on results, further recommendations will be made. (2) Abnormal Stress Test: He underwent a surveillance stress test on 08/13/2023 which demonstrated EKG criteria suggestive of ischemia at a high workload. Would like to proceed with a cardiac catheterization to further assess this. Depending on results, further recommendations will be made.
--- NOTE | 2023-08-27 12:33 | PCM.HP.BLA ---
History and Physical Date of Admission: 09/02/23 This is a 73 year-old gentleman who had initially presented with chest discomfort. He underwent a stress test which demonstrated moderate ischemia in the inferior wall. He underwent cardiac catheterization and angioplasty of the right coronary artery in 2019. He was noted to have moderate disease in the left anterior descending artery. He underwent a stress test on 08/13/2023 that showed EKG criteria suggestive of ischemia at a high workload. On account of this, he will proceed with heart catheterization. He denies chest, arm, jaw, or neck discomfort. He denies palpitations. He denies bilateral lower extremity edema. He denies claudication. He denies shortness of breath with activity, shortness of breath at rest, orthopnea, or PND. He denies chronic cough. He denies significant, sudden weight gain. He states dizziness with quick position changes. He denies lightheadedness, near-syncope, or syncope. He denies blood in urine, blood in stool, or epistaxis. He denies fever with chills. He denies myalgia. He denies fatigue. His exercise level has remained stable via 3-4 times a week for an hour. Intake Vital Signs: See EMR Intake Visit Reasons: [facility] Allergies clindamycin Allergy (Verified 07/20/22 11:22) OtherPenicillins Allergy (Verified 07/20/22 11:22) RashSulfa (Sulfonamide Antibiotics) Allergy (Verified 07/20/22 11:22) Hivestetracycline [Tetracycline] Allergy (Verified 07/20/22 11:22) Anaphylaxis Medications See EMR [facility] Medical History Atherosclerosis of coronary artery without angina pectoris Bacteremia due to Gram-positive bacteria Elevated liver transaminase level Essential (primary) hypertension GERD (gastroesophageal reflux disease) Hyponatremia Lactic acidosis Liver mass Squamous cell carcinoma Surgical History H/O cervical spine surgery History of coronary artery stent placement (12/18/19) History of repair of rotator cuff Family History Mother Cancer Ascending aortic aneurysm Carotid artery disease CVA (cerebral vascular accident)Brother CancerOther Hypertension Social History (Reviewed 07/23/23 @ 10:58 by Andrew Keene ADJUNCT ENGLISH INSTRUCTOR, ADJUNCT ENGLISH INSTRUCTORMakaylaC) Smoking Status: Former smoker quit date: 11/04/99 pack-years: 25 alcohol intake: current alcohol intake frequency: a few times a week Alcohol type: beer and wine substance use type: does not use caffeine: Yes Type: coffee Number of servings: 3 ROS Const Const: Negative for fatigue, weakness, body ache, fever(s) or chills ENT ENT: Positive for dizziness; Negative for Nosebleed/epistaxis Cardio Chest Pain: No Palpitations: No Edema: None Muscle aches with walking: None Resp Respiratory: Negative for SOB with activity, SOB at rest, SOB orthopnea\SOB lying down, Cough or paroxysmal nocturnal dyspnea GI GI: Negative nausea, vomiting blood/hematemesis, bright, red blood in stools or black,tarry stools : Negative for hematuria or frequent nighttime urination/ nocturia Musc Musc: Negative for muscle aches/ myalgia Skin Skin: Negative non-healing lesions or rash Neuro Neuro: Positive for dizziness; Negative for lightheadedness, near syncope, syncope, orthostatic symptoms or weakness Endo Endo: Negative for fatigue Allergy Allergy/Immunology: Negative for rash Cardiology Exam Const Appearance: cooperative, healthy appearing, comfortable and no acute distress Nutritional Appearance: average body habitus and well nourished Orientation: alert, awake and oriented x3 Head Head: normal to inspection Ears: hearing grossly normal bilaterally Nose: external nose normal Face and Sinus: face symmetric Mouth: moist mucous membranes Eyes General: appearance normal, both eyes and all related structures Eyelids: eyelids normal EOM: EOM intact bilaterally Neck Neck: normal visual inspection and no JVD Carotids: normal carotid upstroke Chest Chest inspection: normal inspection of the chest, symmetric chest movement and normal respiratory effort; Negative cough Auscultation: Bilateral: Clear to Auscultation Cardio Rate: regular rate Rhythm: regular rhythm Heart sounds: S1 normal and S2 normal; Negative rub, gallop or murmur GI GI: normal to inspection Neuro General: patient alert, patient awake, patient oriented x3 and CN's II-XI intact bilaterally Skin Skin: no rashes or lesions noted Extremities Pulses: Normal: Right Posterior Tibial Pulse, Left Posterior Tibial Pulse, Right Radial Pulse and Left Radial Pulse Lower Extremity Edema: None: Bilateral Psych Psychological: normal affect Supplemental Info Supplemental Information Echocardiogram from 12/18/2020: Interpretation Summary The study was technically difficult. Left ventricular systolic function is normal. The estimated ejection fraction is 65 %. The global longitudinal strain = -22 % (normal). Sigmoid septum. Mild diffuse mitral valve thickening. The mitral valve chordae are thickened and/or calcified. Mild (1+) mitral valve insufficiency. Trivial tricuspid valve insufficiency. Right ventricular systolic pressure estimated to be 29 mmHg. No evidence for diastolic dysfunction. Stress test from 08/13/2023: Conclusion: Exercise myocardial perfusion stress test with no obvious ischemia noted on images. EKG criteria suggestive of ischemia at a high workload Good functional capacity No clinical angina noted Preserved ejection fraction. Heart catheterization from 12/18/2019: CONCLUSIONS Significant CAD with high-grade right coronary lesion and mild to moderate disease noted in the LAD RECOMMENDATIONS Referred for immediate PCI CORONARY ANGIOGRAPHY DOMINANCE: Right Dominant LEFT HEART ASSESSMENT Left Ventricular Ejection Fraction: by LV Gram 60 % Normal LV wall motion Normal Left Ventricular systolic function LEFT MAIN: Moderate calcification, No significant disease noted LEFT ANTERIOR DESCENDING ARTERY: Mild luminal irregularities less than 30% DIAGONAL 1: Proximal - 60 % Stenosis CIRCUMFLEX ARTERY: Mild luminal irregularities less than 30% RIGHT CORONARY ARTERY: PROX RCA: 99 % Stenosis RT PDA: Proximal - Mild luminal irregularities Cardiac intervention from 12/18/2019: CONCLUSIONS Successful PTCA/NATALIO mid RCA with a 3.0 x 16 Promus Synergy stent; 85%-->0%, no dissection. Assessment and Plan Assessment and Plan (1) History of coronary artery stent placement: Status: Chronic Comment: PCI-NATALIO mid RCA with a 3.0 x 16 Promus Synergy stent 12/18/2019 Plan: He underwent surveillance stress test on 08/13/2023 that was considered to be abnormal. Given abnormal stress test and history of coronary artery disease with stenting, he will proceed with heart catheterization. Depending on results, further recommendation will be made. (2) Essential (primary) hypertension: Status: Chronic Plan: He states that his blood pressure is typically better controlled but he is asked to check this at home to ensure that it is controlled. If not, he was asked to call our office for medication adjustment. (3) HLD (hyperlipidemia): Status: Chronic Qualifiers: Hyperlipidemia type: mixed hyperlipidemia Qualified Code(s): E78.2 - Mixed hyperlipidemia Plan: This is being managed by primary care provider. He was reminded of LDL goal of 70 and below for secondary prevention. He will continue high-dose statin medication with atorvastatin 80 mg p.o. daily.
[2023-08-28 16:15] LABS: Absolute Lymphocyte Count 1.45 X10^3/uL (0.83-4.51); Absolute Neutrophil Count 2.4 X10^3/uL (2.0-7.7); Basophil# 0.02 X10^3/uL; Basophil% 0.5 % (0-1); Eosinophil# 0.02 X10^3/uL; Eosinophils% 0.5 % (0-5); Hematocrit 37.8 % (40-54); Hemoglobin 12.6 g/dL (13.0-16.5); Lymphocyte # 1.45 X10^3/ul (0.83-4.51); Lymphocyte % 34.6 % (19-41); Mean Corp Hgb Conc 33.3 g/dL (32-36); Mean Corpuscular Hgb 31.9 pg (27.0-32.0); Mean Corpuscular Volume 95.7 fL (80-94); Mean Platelet Vol. 8.7 fl (6.2-12.0); Monocyte# 0.27 X10^3/uL; Monocyte% 6.4 % (0-10); NRBC Flagged by Analyzer 0 % (0-5); Neutrophil # 2.42 X10^3/uL (2.7-7.7); Neutrophil % 57.8 % (47-70); Platelet Count 120 K/mm3 (150-450); RBC Distribution Width CV 13.1 % (11.6-14.6); RBC Distribution Width SD 46.5 fl (35.1-43.9); Red Blood Count 3.95 M/mm3 (4.6-6.2); White Blood Count 4.2 K/mm3 (4.4-11.0)
[2023-08-28 16:17] LABS: POSITIVE COUNT NO; POSITIVE DIFFERENTIAL NO; POSITIVE MORPHOLOGY NO
[2023-08-28 16:25] LABS: International Normalized Ratio 1.1; Prothrombin Time (Protime)PT. 14.2 SECONDS (11.7-14.9)
[2023-08-28 16:26] LABS: Partial Thromboplast Time 29.9 Seconds (24.1-36.2)
[2023-08-28 16:40] LABS: Anion Gap 2 (5-15); BUN 12 mg/dL (7-18); BUN/Creat Ratio 16.3 RATIO (10-20); Calcium,Total 8.7 mg/dL (8.5-10.1); Chloride 97 mmol/L (98-107); Creatinine, Serum 0.74 mg/dL (0.70-1.30); EST Glomerular Filtration Rate 111 mL/min (>60); Est Glom Filt Rate - Afr Amer 134 mL/min (>60); Glucose 147 mg/dL (74-106); Sodium Level 131 mmol/L (136-145)
[2023-09-02] VITALS (10 sets, daily range): BP systolic 119–151; BP diastolic 70–79; PULSE 77–82; RESP 16; TEMP 36.4–36.8; O2SAT 96–100; BMI 23.4
--- NOTE | 2023-09-02 09:48 | CL.D_ITS ---
Patient Name: DARIEL SUERO Study Date: 09/02/2023 Performing: Lyle Albert MD Ht: 67 inches 170.18 cm : 1950 Wt: 149.98 lbs 68.03 kg Age: 73 Gender: male BSA: 1.79 PROCEDURE(S) PERFORMED DC01-(26161)LHC/COR/LV CLINICAL PROFILE AND INDICATIONS Indications: Suspected CAD Heart Failure: None Stress/Imaging Date: 08/15/23Stress Test with SPECT MPI: Indeterminant CONCLUSIONS Severe disease involving the diagonal vessel moderately severe involving the LAD and previously placed stent in the right coronary artery being patent. RECOMMENDATIONS We will consider IFR or FFR to the LAD and then PCI to the diagonal vessel if insignificant. DESCRIPTION OF PROCEDURE The patient arrived to the procedure lab. The risks and benefits of the procedure as well as a full description of our services here and current unavailability of surgical backup were fully explained to the patient and/or their significant other prior to the catheterization. The Timeout was completed, verifying the correct patient and procedure. The patient's procedural site was prepped and draped in the usual fashion. Local anesthetic was given subcutaneously to right radial region with Lidocaine 2%. Using a modified Seldinger technique, arterial access was obtained via the right radial artery, a 6Fr sheath was inserted. Left Coronary Artery selective angiography was performed in multiple views using a 5 Fr. 4.0 [place] catheter. Right Coronary Artery selective angiography was then performed in multiple views using a 5 Fr. 4.0 [place] catheter. Left Ventriculography was performed in [place] projection using a 5 Fr. Pigtail catheter. LV to AO pullback pressures were then recorded. CORONARY ANGIOGRAPHY DOMINANCE: Right Dominant LEFT HEART ASSESSMENT Left Ventricular Ejection Fraction: by LV Gram 60 % Normal LV wall motion Normal Left Ventricular systolic function LEFT MAIN: Moderate calcification, 40 % Stenosis LEFT ANTERIOR DESCENDING ARTERY: Moderate calcification, Moderately severe lesion noted in the proximal to mid segment with a first diagonal coming off with a 95% ostial stenosis and a second diagonal which is smaller with a long 80% stenosis. Mild distal disease is noted in the LAD. CIRCUMFLEX ARTERY: Mild luminal irregularities RIGHT CORONARY ARTERY: Previously placed stent in this vessel is noted to be patent with 20 to 30% in-stent stenosis. Mild distal disease is present. AORTIC ROOT: Dilated COMPLICATIONS PROCEDURE MEDICATIONS Fentanyl 50 mcg IV Versed 1 mg IV Versed 1 mg IV Oxygen: 2 L/min via nasal cannula Heparin 4000 unit(s) IV 09/02/2023 09:46:59 SUMMARY OF HEMODYNAMIC DATA Time AIR REST ECG 07:19:29 AO 113/63 (86) SA 09:16:04 LV 120/-6, 0 09:25:09 LV 118/-4, 0 09:25:17 LV 105/-3, 0 09:25:59 LVp 105/-5, 0 09:26:04 AOp 115/57 (82) 09:26:11 Signed By Lyle Albert MD On 09/02/2023 09:48:16 Lyle Albert MD
--- NOTE | 2023-09-02 11:59 | CL.I_ITS ---
Patient Name: DARIEL SUERO Study Date: 09/02/2023 Performing: Wenceslao Lennon MD Ht: 67 inches 170.18 cm : 1950 Wt: 150.2 lbs 68.03 kg Age: 73 Gender: male BSA: 1.79 PROCEDURE(S) PERFORMED IC12-([id number])NATALIO W/WO PTCA, SINGLE CORONARY ARTERY IC10-([id number])FFR, CORONARY OR GRAFT, INITIAL VESSEL CLINICAL PROFILE AND CO-MORBIDITIES Indications: Suspected CAD Heart Failure: None Stress/Imaging Date: 08/15/23 Stress Test with SPECT MPI: Indeterminant CONCLUSIONS iFR in the LAD is consistent with stenoses that can be managed medically at this time. Successful NATALIO to ostial D1 RECOMMENDATIONS DESCRIPTION OF PROCEDURE The patient arrived to the procedure lab. The risks and benefits of the procedure as well as a full description of our services here and current unavailability of surgical backup were fully explained to the patient and/or their significant other prior to the catheterization. The Timeout was completed, verifying the correct patient and procedure. The patient's procedural site was prepped and draped in the usual fashion. Local anesthetic was given subcutaneously to right radial region with Lidocaine 2% Using a modified Seldinger technique,arterial access was obtained via the right radial artery, a 6Fr sheath was inserted. Left Coronary Artery selective angiography was performed in multiple views using a 5 Fr. 4.0 [place] catheter. Right Coronary Artery selective angiography was then performed in multiple views using a 5 Fr. 4.0 [place] catheter. Left Ventriculography was performed in [place] projection using a 5 Fr. Pigtail catheter. LV to AO pullback pressures were then recorded.The images were reviewed and options discussed. A decision was then made to proceed with an Intervention, IVUS or other adjunct procedure. XB 3.0 Guide catheter was inserted and engaged into the LCA. The FFR/iFR wire was inserted. iFR measurements were performed. iFR Ratio: 0.92 iFR Ratio: 0.91 iFR Ratio: 0.92 The FFR/iFR wire was left in place as guide wire. iFR Guide wire was repositioned to the 1st Diagonal 2.0 x 10 [place] Cutting Balloon catheter was inserted. 2.0 x 10 [place] Cutting Balloon catheter was inserted. Balloon catheter was advanced across lesion in the first diagonal, ostial. Angiogram performed post balloon dilatation. 2.25 x 12 [place] Drug Eluting stent was inserted. Drug Eluting stent was advanced across the lesion in the first diagonal, ostial. Angiogram performed pre stent deployment. Angiogram performed post stent deployment. 2.25 x 12 [place] Drug Eluting stent was advanced across the lesion in the first diagonal, ostial. Angiogram performed post stent deployment. The arterial sheath was pulled and a TR Band was applied for hemostasis. 12cc air inserted. INTERVENTION INFORMATION LESION SITE: LAD (Mid) Lesion Devices: Semanticator (FanFueledo) Coronary FFR Wire Cordis 6 Fr XB3.0 100cm Guide Catheter LESION SITE: 1st Diagonal (Ostial) Lesion Complexity: High/C, chronic total occlusion: No, lesion at bifurcation: Yes, thrombus present: No, lesion length: 20 mm, culprit lesion: Yes, Previously treated lesion: No Pre Stenosis: 95 % Pre intervention GIUSEPPE flow: 3 PROCEDURE: Cutting Balloon Angioplasty Drug Eluting Stent with pre and post dilatation Post Stenosis: 0 % Post intervention GIUSEPPE flow: 3 Lesion Devices: Semanticator ([employer]uel[employer]) Coronary FFR Wire Cordis 6 Fr XB3.0 100cm Guide Catheter [place] Sci [place] cutting balloon 2.0x10 Medtronic 2.25 x 12 [place] FRONTIER NATALIO Medtronic 2.25 x 12 [place] FRONTIER NATALIO COMPLICATIONS No Complications PROCEDURE MEDICATIONS Fentanyl 50 mcg IV Versed 1 mg IV Versed 1 mg IV Oxygen: 2 L/min via nasal cannula Brilinta 180 mg PO @ 09/02/2023 10:25:02 Heparin 4000 unit(s) IV 09/02/2023 09:46:59 Heparin 2000 unit(s) IV 09/02/2023 10:13:45 Nitro 200 mcg IC 09/02/2023 10:20:27 SUMMARY OF HEMODYNAMIC DATA Time AIR REST ECG 07:19:29 AO 113/63 (86) SA 09:16:04 LV 120/-6, 0 09:25:09 LV 118/-4, 0 09:25:17 LV 105/-3, 0 09:25:59 LVp 105/-5, 0 09:26:04 AOp 115/57 (82) 09:26:11 Signed By Wenceslao Lennon MD On 09/02/2023 11:58:49 Wenceslao Lennon MD
--- NOTE | 2023-09-02 12:22 | EKG12_ITS ---
Test Reason : POST PCI Blood Pressure : / mmHG Vent. Rate : 077 BPM Atrial Rate : 077 BPM P-R Int : 190 ms QRS Dur : 088 ms QT Int : 360 ms P-R-T Axes : 049 023 027 degrees QTc Int : 407 ms Normal sinus rhythm Normal ECG When compared with ECG of 13-NOV-2022 10:59, No significant change was found Confirmed by LYLE ALBERT MD ([id number]), news assignment editor ZAID BADILLO ([id number]) on 09/04/2023 6:31:02 AM Referred By: Lyle Albert Confirmed By:LYLE ALBERT MD
--- NOTE | 2023-09-02 14:17 | CRPHASE1_ITS ---
Patient Communication Patient Information Former Patient:: Phase I Guide to Cardiac Rehab Given to Patient:: Yes Cardiac Rehab Facility Choice List Given to Patient:: Yes Communication to Cardiac Rehab Delivery Rep:: Wencesloa Lennon Cardiac Rehabilitation Info Program Information Cardiac Rehabilitation Program Information: Cardiac Rehab The cardiac rehab team at [facility] consists of highly skilled exercise physiologists, nurses, respiratory therapists and physicians working together with you. Our purpose is to help you have a full recovery and achieve the goals you set for yourself. Over the years many of our patients have returned to activities they assumed they would never do again! We can help restore your confidence and motivation to make lifestyle changes that can have a significant impact on your health and quality of life! We can help answer questions and concerns you may have about exercise, lifestyle, medications, diet, stress and anxiety which are common following a hospitalization. WE monitor ECG and vital signs during exercise and discuss your progress with you and report to your physician(s). Cardiac Rehab is proven to help reduce readmissions, improve functional capacity and lower recurrence of problems with your heart. Our Cardiac Rehab program is Certified by the [employer] [employer]-V[employer] Pulmonary [employer] (AACVPR) and Accredited by the [employer] through our [facility]. You can contact us at . We invite you to call us with your questions or to get started in our program. If you have other questions or concerns be sure to ask your physician/provider during your follow-up visit. WE look forward to seeing you!
--- NOTE | 2023-09-02 14:18 | CRPH1.INSTRU ---
General Education Discussed with Patient CAD and cardiac anatomy and function:: Patient communicates acknowledgment Explanation of diagnoses and procedures:: Patient communicates acknowledgment Sign/Symptoms of WI:: Patient communicates acknowledgment Antiplatelet therapy: Patient communicates acknowledgment Proper use of NTG-SL: Patient communicates acknowledgment Emergency procedures and activation of EMS: Patient communicates acknowledgment Compliance of all prescribed medications: Patient communicates acknowledgment Hypertension Recommendations Recommendations Include:: Maintain BP <130/85
[2023-09-02] MEDS: Atorvastatin Calcium 80 MG Tablet PO (21:21)
[2023-09-02] MEDS: TICAGRELOR 90 MG TABLET PO (21:21)
[2023-09-03 07:11] LABS: Hematocrit 38.4 % (40-54); Hemoglobin 12.8 g/dL (13.0-16.5); Mean Corp Hgb Conc 33.3 g/dL (32-36); Mean Corpuscular Hgb 31.9 pg (27.0-32.0); Mean Corpuscular Volume 95.8 fL (80-94); Mean Platelet Vol. 8.5 fl (6.2-12.0); Platelet Count 100 K/mm3 (150-450); RBC Distribution Width CV 13.2 % (11.6-14.6); RBC Distribution Width SD 46.8 fl (35.1-43.9); Red Blood Count 4.01 M/mm3 (4.6-6.2); White Blood Count 3.4 K/mm3 (4.4-11.0)
[2023-09-03 07:36] VITALS: O2SAT 97
[2023-09-03 07:45] LABS: ALB/GLOB Ratio 1.2 RATIO (0.9-2.4); AST(SGOT) 26 U/L (15-37); Alanine Aminotransfer ALT/SGPT 38 U/L (16-61); Albumin, Serum 3.5 g/dL (3.2-5.0); Alkaline Phosphatase 62 U/L (45-117); Anion Gap 8 (5-15); BUN 16 mg/dL (7-18); Chloride 97 mmol/L (98-107); Creatinine, Serum 0.89 mg/dL (0.70-1.30); EST Glomerular Filtration Rate 89 mL/min (>60); Est Glom Filt Rate - Afr Amer 108 mL/min (>60); Estimated Creatinine Clearance 69.11 ml/min; Glucose 108 mg/dL (74-106); Potassium 3.9 mmol/L (3.5-5.1); Protein, Total 6.5 g/dL (6.4-8.2); Sodium Level 131 mmol/L (136-145)
[2023-09-03 08:21] VITALS: BP 114/74; PULSE 84; RESP 16; TEMP 36.6; O2SAT 96
[2023-09-03 08:25] VITALS: BP 114/74; PULSE 84
[2023-09-03] MEDS: Metoprolol(XL)Succ 25 MG Tablet PO (08:25)
[2023-09-03] MEDS: Pantoprazole Sodium 20 MG Tablet PO (08:25)
[2023-09-03] MEDS: Aspirin E.C. 81 MG Tablet PO (08:25)
[2023-09-03] MEDS: TICAGRELOR 90 MG TABLET PO (08:25)
--- NOTE | 2023-09-03 08:49 | PCM.PN.CARD ---
Subjective Subjective Patient seen and evaluated. Appears to be doing well. Objective Data Vital Signs: Vital Signs Temp Pulse Resp BP Pulse Ox O2 Del Method 97.8 F 84 16 114/74 96 Room Air 09/03/23 08:21 09/03/23 08:25 09/03/23 08:21 09/03/23 08:25 09/03/23 08:21 09/03/23 08:21 Oxygen Delivery Method Room Air Weight: 149 lb 14.629 oz Body Mass Index (BMI) 23.4 Intake & Output: Intake and Output for Last 24 Hours 09/01/23 09/02/23 09/03/23 23:59 23:59 23:59 Intake Total 750 / 750 Balance 750 / 750 Lab / Micro Data 09/03/23 06:40 09/03/23 06:40 Labs: Laboratory Results - last 24 hr 09/03/23 06:40: WBC 3.4 L, RBC 4.01 L, Hgb 12.8 L, Hct 38.4 L, MCV 95.8 H, MCH 31.9, MCHC 33.3, RDW Std Deviation 46.8 H, RDW Coeff of George 13.2, Plt Count 100 L, MPV 8.5, Sodium 131 L, Potassium 3.9, Chloride 97 L, Carbon Dioxide 26.0, Anion Gap 8, BUN 16, Creatinine 0.89, Estim Creat Clear Calc 69.11, Est GFR (MDRD) Af Amer 108, Est GFR (MDRD) Non-Af 89, BUN/Creatinine Ratio 18.0, Glucose 108 H, Calcium 9.0, Total Bilirubin 0.70, AST 26, ALT 38, Alkaline Phosphatase 62, Total Protein 6.5, Albumin 3.5, Globulin 3.0, Albumin/Globulin Ratio 1.2 Cardiology Labs/Tests 09/03/23 06:40: WBC 3.4 L, RBC 4.01 L, Hgb 12.8 L, Hct 38.4 L, MCV 95.8 H, MCH 31.9, MCHC 33.3, Plt Count 100 L, MPV 8.5, Sodium 131 L, Potassium 3.9, Chloride 97 L, Carbon Dioxide 26.0, Anion Gap 8, BUN 16, Creatinine 0.89, Est GFR (MDRD) Af Amer 108, Est GFR (MDRD) Non-Af 89, BUN/Creatinine Ratio 18.0, Glucose 108 H, Calcium 9.0, Total Bilirubin 0.70 Rhythm: EKG: ECHO: Stress Test: Cardiac Cath: PCI: CT Surgery: Holter monitor: EPS: PPM: CXR: Chest CT Scan: Physical Exam Const alert, oriented x3 and no apparent distress General Appearance: cooperative HEENT hearing grossly normal bilaterally Head and Scalp: atraumatic Eyes EOMs intact bilaterally Neck General: normal visual inspection Chest inspection of chest normal and palpation of chest normal Resp normal respiratory effort Auscultation: clear to auscultation bilaterally Cardio regular rate, regular rhythm, S1 normal heart sound and S2 normal heart sound Jugular Venous Distention: JVD GI normal to inspection, nondistended, normoactive bowel sounds Extremity normal capillary refill and no pedal edema Peripheral Pulses: Yes pulses 2+ throughout and femoral pulses present Skin no rashes or lesions noted Neuro oriented x3 and CN's II-XII intact bilaterally Psych Appearance: grossly normal and appropriate Assessment & Plan Assessment/Plan (1) CAD (coronary artery disease): PLAN: He underwent cardiac catheter position today which demonstrated evidence of severe diagonal vessel disease for which he underwent PCI and stenting successfully. The plan to be to continue the current medical therapy. He will be discharged for outpatient follow-up and cardiac rehabilitation (2) History of coronary artery stent placement: PLAN: Patient is status post remote PCI of the right coronary artery which is noted to be patent (3) Essential (primary) hypertension: PLAN: His blood pressure appears to be under good control on the current medical therapy no changes will be made (4) HLD (hyperlipidemia): QUALIFIERS: Hyperlipidemia type: mixed hyperlipidemia Qualified Code(s): E78.2 - Mixed hyperlipidemia PLAN: He will continue with high intensity statin.
--- NOTE | 2023-09-03 08:54 | DCINST_ITS ---
Discharge Instructions Diet Discharge Diet: No restrictions (You may continue your normal diet.) Activity Discharge Activity: Return to Normal Activity Lifting Restrictions: 10 pounds and also avoid any pushing or pulling for 3 days after your test. Additional Activity Instructions:: You must have someone drive you home. Do not drive until instructed by your doctor. You must have someone stay with you all night after your test. Rest in bed or on the couch until the next morning. Limit the number of times you go up and down stairs the day of your test. Apply pressure to the puncture site if you sneeze or cough. Dressing / Incision Call your doctor if your incision/area has: Increased Pain/ Swelling, Increased Redness, Foul Smelling Discharge and Swelling at the incision site Call your doctor if you observe: Fever of 101 or Higher Additional Dressing/Incision Instructions:: Keep the dressing (bandage) on until the next morning. You may then shower, but do not take a tub bath for 5 days after your test. It is normal to have some tenderness and discomfort at the puncture site. Sometimes bruising also occurs. However, if pain, numbness, or coldness occurs below the puncture site (in your leg, toes, arms or fingers) call your doctor at once. You may have a small, marble sized knot at the puncture site. This is normal. Do not rub it. It will go away in 4-6 weeks. Bleeding can occur from the area where the puncture was done. Blood may spurt or drip from the site. If blood spurts, apply pressure right away to stop bleeding and call 911. Although rare, bleeding into the tissue (hematoma) can also occur. If this happens, a large, firm area goose egg under the skin will appear. If any of these occur, lie down as flat as you can and have someone apply firm pressure to the cath site with a gauze pad or a clean washcloth for 10-15 minutes. Call 911 or go to the Emergency Department. Follow Up Care When: Pacer clinic on May 24 at 1:30 PM. Test Results: Test results from this visit will be discussed in further detail at your follow- up appointment, if applicable. Discharge Plan Admission Admit Date/Time: 09/02/23 11:14 Attending Provider: Lyle Albert Primary Care Provider: Brayan Pierre Chi Discharge Orders/Prescriptions Prescriptions: New Brilinta 90 mg Tablet 90 mg PO BID Qty: 60 3RF Continued omeprazole 20 mg tablet,delayed release (DR/EC) 20 mg PO DAILY aspirin [Adult Aspirin Regimen] 81 mg tablet,delayed release (DR/EC) 81 mg PO DAILY metoprolol succinate [Toprol XL] 25 mg tablet extended release 24 hr 25 mg PO DAILY Qty: 90 3RF atorvastatin 80 mg tablet 80 mg PO QHS Qty: 90 3RF Referrals / Follow Up: Brayan Pierre Chi, MD [Primary Care Provider] - Disposition Disposition (needs filled in before D/C Order can be placed): Home, Self Care
--- NOTE | 2023-09-03 10:00 | EKG12_ITS ---
Test Reason : AM EKG Blood Pressure : / mmHG Vent. Rate : 079 BPM Atrial Rate : 079 BPM P-R Int : 174 ms QRS Dur : 094 ms QT Int : 370 ms P-R-T Axes : 063 044 041 degrees QTc Int : 424 ms Normal sinus rhythm Normal ECG When compared with ECG of 02-SEP-2023 11:56, MANUAL COMPARISON REQUIRED, DATA IS UNCONFIRMED Confirmed by DEVON LEIVA, BERE ([id number]), editorial manager KODI MEI ([id number]) on 09/16/2023 10:46:09 AM Referred By: Lyle Albert Confirmed By:TIMOTHY OSORIO MD
--- NOTE | 2023-09-03 10:22 | CASEMGMT ---
Patient has order for discharge. Patient discharging on Brilinta. RN called [facility] cost of Brilinta is $47 and savings card was applied for $0 copay today. RN CM in to updated patient regarding copay prior to savings card. Patient denied needs at discharge. Patient and had no further questions or concerns at this time.
== END 2023-09-03 08:54 | disposition home or self-care (01) ==
LOC: PCU 11:18
PROVIDERS: Admitting Provider Specialist; PCP Family Medicine Geriatric Medicine; Referring Provider Internal Medicine Cardiovascular Disease; Visit Provider Internal Medicine Cardiovascular Disease
DX: I25.10 Atherosclerotic heart disease of native coronary artery without angina pectoris (principal); Z87.891 Personal history of nicotine dependence; I10 Essential (primary) hypertension; Z95.5 Presence of coronary angioplasty implant and graft; K21.9 Gastro-esophageal reflux disease without esophagitis; E78.2 Mixed hyperlipidemia; R94.39 Abnormal result of other cardiovascular function study; R42 Dizziness and giddiness; I99.8 Other disorder of circulatory system
CPT/HCPCS: 36415; 80048; 80053; 85025; 85027; 85610; 85730; 92928; 93005; 93458; 93571; 99152; 99153; 99221; C1725; J7040; Q9967; C1769; C1874; C1887; C1894; C9600; G0378; J1327

== ENCOUNTER → 2023-10-01 | Outpatient (CLI) | payer MEDICARE, SELFPAY ==
[2022-06-08 09:29] VITALS: BMI 24.9
[2023-10-01 11:07] LABS: Absolute Lymphocyte Count 1.93 X10^3/uL (0.83-4.51); Absolute Neutrophil Count 2.1 X10^3/uL (2.0-7.7); Basophil# 0.02 X10^3/uL; Basophil% 0.5 % (0-1); Eosinophil# 0.05 X10^3/uL; Eosinophils% 1.1 % (0-5); Hematocrit 37.9 % (40-54); Hemoglobin 12.3 g/dL (13.0-16.5); Lymphocyte # 1.93 X10^3/ul (0.83-4.51); Lymphocyte % 43.5 % (19-41); Mean Corp Hgb Conc 32.5 g/dL (32-36); Mean Corpuscular Hgb 31.5 pg (27.0-32.0); Mean Corpuscular Volume 96.9 fL (80-94); Mean Platelet Vol. 8.8 fl (6.2-12.0); Monocyte# 0.31 X10^3/uL; NRBC Flagged by Analyzer 0 % (0-5); Neutrophil # 2.12 X10^3/uL (2.7-7.7); Neutrophil % 47.7 % (47-70); Platelet Count 156 K/mm3 (150-450); RBC Distribution Width CV 12.4 % (11.6-14.6); RBC Distribution Width SD 44.2 fl (35.1-43.9); Red Blood Count 3.91 M/mm3 (4.6-6.2); White Blood Count 4.4 K/mm3 (4.4-11.0)
[2023-10-01 11:27] LABS: ALB/GLOB Ratio 1.1 RATIO (0.9-2.4); AST(SGOT) 24 U/L (15-37); Alanine Aminotransfer ALT/SGPT 39 U/L (16-61); Albumin, Serum 3.6 g/dL (3.2-5.0); Alkaline Phosphatase 69 U/L (45-117); Anion Gap 5 (5-15); BUN 12 mg/dL (7-18); Calcium,Total 9.2 mg/dL (8.5-10.1); Chloride 98 mmol/L (98-107); EST Glomerular Filtration Rate 78 mL/min (>60); Est Glom Filt Rate - Afr Amer 94 mL/min (>60); Globulin 3.2 g/dL (2.2-4.2); Glucose 109 mg/dL (74-106); Potassium 4.5 mmol/L (3.5-5.1); Protein, Total 6.8 g/dL (6.4-8.2); Sodium Level 131 mmol/L (136-145); Thyroid Stim Hormone (TSH) 1.81 uIU/mL (0.358-3.74)
== END | disposition home or self-care (01) ==
LOC: POLAB3 10:14
PROVIDERS: PCP Family Medicine Geriatric Medicine; Visit Provider Family Medicine Geriatric Medicine
DX: I10 Essential (primary) hypertension (principal); E55.9 Vitamin D deficiency, unspecified
CPT/HCPCS: 36415; 80053; 82306; 84443; 85025

== ENCOUNTER → 2023-12-27 | Outpatient (CLI) | payer MEDICARE, SELFPAY ==
[2022-06-08 09:29] VITALS: BMI 24.9
--- NOTE | 2023-12-27 11:35 | RAD_ITS ---
HISTORY: WHEEZING AND CONGESTION OF RESPIRATORY TRACT. TECHNIQUE: XR Chest 2 Views. COMPARISON: 06/04/2023. FINDINGS: CARDIOMEDIASTINAL BORDERS: Cardiac silhouette within normal limits in size. Mediastinal contour unremarkable with calcification of the aortic knob. LUNGS: Mild linear bibasilar opacities. PLEURA: No pleural effusion or pneumothorax seen. OSSEOUS STRUCTURES: Degenerative change. Old right seventh rib fracture. RAD/Chest PA and Lateral IMPRESSION: Mild bibasilar atelectasis or inflammation. Electronically Signed: Ana Turner MD at 10:52 EST ,
--- OUTSIDE RECORDS SUMMARY | 2023-12-27 12:01 | XMS RPT_ITS | CCD ---
Author Name Unknown Address [address] [facility] [address] [place] [address] Organization [facility] Care Team Providers Care Touring Production Manager Name Role Phone NONE, NONE Consulting Unavailable NONE, NONE Primary Care Unavailable [facility] III Attending Unavailable [facility] Admitting Unavailable Briseida Painter Unavailable Unavailable MICHELLE, ZENA Primary Care Unavailable MICHELLE, ZENA Admitting Unavailable DAVE ARANDA Consulting Unavailable MICHELLE, ZENA Attending Unavailable PROVIDER, UNKNOWN Consulting Unavailable PROVIDER, UNKNOWN Consulting Unavailable MICHELLE, ZENA Primary Care Unavailable MICHELLE, ZENA Admitting Unavailable DAVE ARANDA Consulting Unavailable MICHELLE, ZENA Attending Unavailable PROVIDER, UNKNOWN Consulting Unavailable PROVIDER, UNKNOWN Consulting Unavailable MICHELLE, ZENA Attending Unavailable DAVE ARANDA Consulting Unavailable MICHELLE, ZENA Primary Care Unavailable MICHELLE, ZENA Admitting Unavailable PROVIDER, UNKNOWN Consulting Unavailable PROVIDER, UNKNOWN Consulting Unavailable MICHELLE, ZENA Attending Unavailable MICHELLE, ZENA Admitting Unavailable DAVE ARANDA Consulting Unavailable ZENA MARTINEZ Primary Care Unavailable PROVIDER, UNKNOWN Consulting Unavailable PROVIDER, UNKNOWN Consulting Unavailable Allergies Allergy Classification Reported Allergen(s) Allergy Type Date of Onset Reaction(s) Facility (1 source) Clindamycin Drug Allergy [facility] Repository (1 source) Penicillins Drug allergy (disorder) [facility] Repository (1 source) Tetracycline Drug Allergy [facility] Repository Problems Active Problems Problem Classification Problem Date Documented Da te Episodic/Chronic Other nervous system disorders (2 sources) Post-surgery back pain; 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] Episodic Spondylosis; intervertebral disc disorders; other back problems (2 sources) Acute muscle stiffness of neck; Translations: [Acute muscle stiffness of neck] Episodic Past or Other Problems Problem Classification Problem Date Documented Da te Episodic/Chronic NEGATED: Highlighted row has not occurred!Residual codes; unclassified (14 sources) Disease Episodic Results Test Name Value Interpretation Reference Range Facil ity Encounters Encounter Date Encounter Type Care Provider Facility Start: 01-30-2021 End: 01-30-2021 Patient encounter procedure [facility] Start: 01-23-2021 End: 01-23-2021 Patient encounter procedure [facility] Start: 01-16-2021 End: 01-16-2021 Patient encounter procedure [facility] Start: 01-09-2021 End: 01-09-2021 Patient encounter procedure [facility] Start: 10-24-2020 Patient encounter procedure Briseida Painter [facility] Work Phone: Start: 10-17-2020 Patient encounter procedure Briseida Painter [facility] [place] Work Phone: Start: 10-14-2020 Patient encounter procedure Briseida Painter [facility] [place] Work Phone: Start: 10-12-2020 Patient encounter procedure Briseida Painter [facility] [place] Work Phone: Start: 10-10-2020 Patient encounter procedure Briseida Painter [facility] [place] Work Phone: Start: 10-07-2020 Patient encounter procedure Briseida Painter [facility] [place] Work Phone: Start: 10-05-2020 Patient encounter procedure Briseida Painter [facility] [place] Work Phone: Start: 10-04-2020 Patient encounter procedure NONE NONE Facility:[facility] Start: 09-27-2020 Patient encounter procedure Briseida Painter [facility] [place] Work Phone: Start: 11-11-2018 Patient encounter procedure Facility:[id number] Start: 11-07-2018 Patient encounter procedure Facility:[id number] Start: 10-17-2018 Patient encounter procedure Facility:[id number] Plan of Treatment Date Care Activity Detail Author [facility] Phone: NEGATED: Highlighted row has been ruled out! Planned Goals not documented [facility] Phone: Payers Date Payer Category Payer Medicare [id number] 1959 Unknown [id number] 1950 Unknown [id number] [id number] 1950 Unknown [id number] 2.16. [id number] 1950 Unknown [id number] 2.16. [id number] 1950 Unknown [id number] 1950 Unknown [id number] Medicare [id number] Unknown [id number] Social History Date Type Detail Facility Assertion Tobacco smoking consumption unknown (finding) [facility] Phone: Functional Status Date Assessment Result Facility NEGATED: Highlighted row Functional performance Functional status health issues are not documented [facility]: Mental Status Date Assessment Result Facility NEGATED: Highlighted row Cognitive function [Interpretation] Cognitive status health issues are not documented Disease [facility] Phone: Summary Purpose Family History No Family History Records FoundNo Family History Records FoundNo Family History Records FoundNo Family History Records FoundNo Family History Records FoundNo Family History Records FoundNo Family History Records Found Advance Directives No Advanced Directives Records FoundNo Advanced Directives Records FoundNo Advanced Directives Records FoundNo Advanced Directives Records FoundNo Advanced Directives Records FoundNo Advanced Directives Records FoundNo Advanced Directives Records Found Additional Source Comments (unrecognized sect ion and content) No Status Records FoundNo Status Records FoundNo Status Records FoundNo Status Records FoundNo Status Records FoundNo Status Records FoundNo Status Records Found INFORMATION SOURCE (unrecogn ized section and content) DATE CREATED AUTHOR AUTHOR'S ORGANIZ ATION 04/22/2019 [facility] DATE CREATED AUTHOR AUTHOR'S ORGANIZ ATION 08/26/2019 [facility] DATE CREATED AUTHOR AUTHOR'S ORGANIZ ATION 09/22/2020 [facility] DATE CREATED AUTHOR AUTHOR'S ORGANIZ ATION 11/16/2020 [facility] DATE CREATED AUTHOR AUTHOR'S ORGANIZ ATION 01/31/2021 [facility] DATE CREATED AUTHOR AUTHOR'S ORGANIZ ATION 12/04/[address] [facility] FOR RECORDS PERTAINING TO PATIENTS WHO ARE OR HAVE BEEN ENROLLED IN A CHEMICAL DEPENDENCY/SUBSTANCEABUSE PROGRAM, SOME INFORMATION MAY BE OMITTED. This clinical summary was aggregated from multiple sources. Caution should be exercised in using it in the provision of clinical care. This summary normalizes information from multiple sources, and as a consequence, information in this document may materially change the coding, format and clinical context of patient data. In addition, data may be omitted in some cases. CLINICAL DECISIONS SHOULD BE BASED ON THE PRIMARY CLINICAL RECORDS. [employer] provides no warranty or guarantee of the accuracy or completeness of information in this document.
== END | disposition home or self-care (01) ==
PROVIDERS: PCP Family Medicine Geriatric Medicine; Referring Provider Family Medicine Geriatric Medicine; Visit Provider Family Medicine Geriatric Medicine
DX: R68.83 Chills (without fever) (principal); R06.2 Wheezing; J98.8 Other specified respiratory disorders
CPT/HCPCS: 71046; 87631

== ENCOUNTER → 2024-09-15 | Outpatient (CLI) | payer MEDICARE, SELFPAY ==
[2022-06-08 09:29] VITALS: BMI 24.9
[2024-09-15 12:44] LABS: AST(SGOT) 35 U/L (15-37); Alanine Aminotransfer ALT/SGPT 52 U/L (16-61); Albumin, Serum 3.6 g/dL (3.2-5.0); Alkaline Phosphatase 90 U/L (45-117); Bilirubin, Direct 0.19 mg/dL (0.00-0.30); Cholesterol 101 mg/dL (200); Globulin 3.2 g/dL (2.2-4.2); High Density Lipoprotein 34 mg/dL; Protein, Total 6.8 g/dL (6.4-8.2); Triglycerides 79 mg/dL; Very Low Density Lipoprotein 16 mg/dL (5-40)
== END | disposition home or self-care (01) ==
LOC: LAB 11:18
PROVIDERS: PCP Family Medicine Geriatric Medicine; Referring Provider Internal Medicine Cardiovascular Disease; Visit Provider Internal Medicine Cardiovascular Disease
DX: E78.2 Mixed hyperlipidemia (principal)
CPT/HCPCS: 36415; 80061; 80076

== ENCOUNTER → 2024-09-22 | Outpatient (CLI) | payer MEDICARE, SELFPAY ==
[2022-06-08 09:29] VITALS: BMI 24.9
[2024-09-22 11:29] LABS: Microalbumin,Random Urine 6.6 mg/L (NO RANGE EST.)
[2024-09-22 11:37] LABS: Creatinine, Serum 0.82 mg/dL (0.70-1.30); EST Glomerular Filtration Rate 98 mL/min (>60); Est Glom Filt Rate - Afr Amer 118 mL/min (>60)
== END | disposition home or self-care (01) ==
PROVIDERS: PCP Family Medicine Geriatric Medicine; Referring Provider Family Medicine Geriatric Medicine; Visit Provider Family Medicine Geriatric Medicine
DX: R77.0 Abnormality of albumin (principal)
CPT/HCPCS: 36415; 82043; 82565

== ENCOUNTER → 2024-10-06 | Outpatient (CLI) | payer MEDICARE, SELFPAY ==
[2022-06-08 09:29] VITALS: BMI 24.9
[2024-10-06 10:31] LABS: Absolute Lymphocyte Count 1.95 X10^3/uL (0.83-4.51); Absolute Neutrophil Count 2.1 X10^3/uL (2.0-7.7); Basophil# 0.01 X10^3/uL; Basophil% 0.2 % (0-1); Eosinophil# 0.07 X10^3/uL; Eosinophils% 1.6 % (0-5); Hematocrit 40.6 % (40-54); Hemoglobin 13.6 g/dL (13.0-16.5); Lymphocyte # 1.95 X10^3/ul (0.83-4.51); Lymphocyte % 44.3 % (19-41); Mean Corp Hgb Conc 33.5 g/dL (32-36); Mean Corpuscular Hgb 31.1 pg (27.0-32.0); Mean Corpuscular Volume 92.7 fL (80-94); Mean Platelet Vol. 8.7 fl (6.2-12.0); Monocyte# 0.31 X10^3/uL; NRBC Flagged by Analyzer 0 % (0-5); Neutrophil # 2.05 X10^3/uL (2.7-7.7); Neutrophil % 46.7 % (47-70); Platelet Count 111 K/mm3 (150-450); RBC Distribution Width CV 12.3 % (11.6-14.6); RBC Distribution Width SD 42.1 fl (35.1-43.9); Red Blood Count 4.38 M/mm3 (4.6-6.2); White Blood Count 4.4 K/mm3 (4.4-11.0)
[2024-10-06 11:00] LABS: Vitamin D,25 Hydroxy 41.1 ng/mL
[2024-10-06 11:05] LABS: ALB/GLOB Ratio 1.2 RATIO (0.9-2.4); AST(SGOT) 24 U/L (15-37); Alanine Aminotransfer ALT/SGPT 33 U/L (16-61); Albumin, Serum 3.8 g/dL (3.2-5.0); Alkaline Phosphatase 83 U/L (45-117); Anion Gap 4 (5-15); BUN 11 mg/dL (7-18); BUN/Creat Ratio 14.6 RATIO (10-20); Calcium,Total 9.1 mg/dL (8.5-10.1); Chloride 98 mmol/L (98-107); Creatinine, Serum 0.76 mg/dL (0.70-1.30); EST Glomerular Filtration Rate 107 mL/min (>60); Est Glom Filt Rate - Afr Amer 130 mL/min (>60); Globulin 3.1 g/dL (2.2-4.2); Glucose 113 mg/dL (74-106); Potassium 4.4 mmol/L (3.5-5.1); Protein, Total 6.9 g/dL (6.4-8.2); Sodium Level 133 mmol/L (136-145)
== END | disposition home or self-care (01) ==
LOC: POLAB3 10:07
PROVIDERS: PCP Family Medicine Geriatric Medicine; Visit Provider Family Medicine Geriatric Medicine
DX: I10 Essential (primary) hypertension (principal); E55.9 Vitamin D deficiency, unspecified
CPT/HCPCS: 36415; 80053; 82306; 84443; 85025

== ENCOUNTER → 2024-12-28 | Outpatient (CLI) | payer MEDICARE, SELFPAY ==
[2022-06-08 09:29] VITALS: BMI 24.9
--- NOTE | 2024-12-28 09:39 | MRI_ITS ---
PROCEDURE: MRI lumbar spine without IV contrast REASON FOR EXAM: Pain, spinal stenosis TECHNIQUE: Multisequence multiplanar MR images of the lumbar spine were obtained without the administration of intravenous contrast. COMPARISON: None. FINDINGS: Mild dextroscoliosis. Degenerative grade 1 anterolisthesis of L3-4. Grade 1 retrolisthesis of L4-5 and L5-S1. Mild chronic compression deformity of the superior endplate of L1. Negative for acute fracture. Severe multilevel degenerative disc disease. Degenerative endplate edema from L3-L5. Conus medullaris is within normal limits and terminates at L1-2. Paraspinal muscle atrophy. Splenomegaly measuring up to 19.2 cm. T12-L1: Right central disc protrusion. Mild bilateral facet arthrosis. Moderate spinal stenosis. Mild bilateral foraminal narrowing. L1-2: Posterior disc bulge with superimposed small right central cranial disc extrusion. Mild bilateral facet arthrosis and ligamentum flavum hypertrophy. Mild/moderate spinal stenosis. Mild/moderate bilateral foraminal narrowing. L2-3: Posterior disc bulge. Moderate bilateral facet arthrosis and ligamentum flavum hypertrophy. Severe spinal stenosis. Moderate left foraminal narrowing. L3-4: Grade 1 anterolisthesis. Superimposed posterior disc bulge. Left foraminal disc protrusion. Severe bilateral facet arthrosis and ligamentum flavum hypertrophy. Severe spinal stenosis. Severe left and mild right foraminal narrowing. L4-5: Diffuse posterior disc bulge and disc osteophyte complex. Severe bilateral facet arthrosis and ligamentum flavum hypertrophy. Severe spinal stenosis. Severe right and moderate/severe left foraminal narrowing. L5-S1: Posterior disc bulge with superimposed left central protrusion and annular fissure. Moderate bilateral facet arthrosis. Mild spinal stenosis. Moderate bilateral foraminal narrowing. MRI/Spine Lumbar (Routine) IMPRESSION: 1. Acquired multilevel spinal stenosis, severe at L2-3, L3-4 and L4-5. 2. Varying degrees of multilevel foraminal narrowing, greatest on the left at L 3-4 and on the right at L4-5. 3. Mild dextroscoliosis. 4. Splenomegaly. Reading Location: [facility]
== END | disposition home or self-care (01) ==
LOC: MRI 13:55
PROVIDERS: PCP Family Medicine Geriatric Medicine; Referring Provider Student in an Organized Health Care Education/Training Program; Visit Provider Student in an Organized Health Care Education/Training Program
DX: M48.061 Spinal stenosis, lumbar region without neurogenic claudication (principal)
CPT/HCPCS: 72148

== ENCOUNTER → 2025-04-23 | Outpatient (CLI) | payer MEDICARE, SELFPAY ==
[2022-06-08 09:29] VITALS: BMI 24.9
--- NOTE | 2025-04-23 11:51 | RAD_ITS ---
EXAM: XR Chest, 2 Views CLINICAL INDICATION: COUGH TECHNIQUE: Frontal and lateral views of the chest. COMPARISON: No relevant prior studies available. FINDINGS: LUNGS AND PLEURAL SPACES: Unremarkable. No consolidation. No pneumothorax. HEART: Unremarkable. No cardiomegaly. MEDIASTINUM: Unremarkable. Normal mediastinal contour. BONES/JOINTS: Unremarkable. No acute fracture. RAD/Chest PA and Lateral IMPRESSION: No acute cardiopulmonary process. Reading Location: [id number]
[2025-04-23 12:34] LABS: Erythrocyte Sedimentation Rate 2 mm/hr (0-20)
[2025-04-23 12:42] LABS: Absolute Lymphocyte Count 1.18 X10^3/uL (0.83-4.51); Absolute Neutrophil Count 2.6 X10^3/uL (2.0-7.7); Basophil# 0.01 X10^3/uL; Basophil% 0.2 % (0-1); Hematocrit 41.9 % (40-54); Hemoglobin 14.6 g/dL (13.0-16.5); Lymphocyte # 1.18 X10^3/ul (0.83-4.51); Lymphocyte % 29.4 % (19-41); Mean Corp Hgb Conc 34.8 g/dL (32-36); Mean Platelet Vol. 9.4 fl (6.2-12.0); Monocyte# 0.25 X10^3/uL; Monocyte% 6.2 % (0-10); NRBC Flagged by Analyzer 0 % (0-5); Neutrophil # 2.56 X10^3/uL (2.7-7.7); Platelet Count 111 K/mm3 (150-450); RBC Distribution Width SD 42.9 fl (35.1-43.9); Red Blood Count 4.71 M/mm3 (4.6-6.2)
[2025-04-23 15:37] LABS: ALB/GLOB Ratio 1.7 RATIO (0.9-2.4); AST(SGOT) 47 U/L (<=37); Alanine Aminotransfer ALT/SGPT 34 U/L (<=46); Albumin, Serum 4.8 g/dL (3.4-4.8); Alkaline Phosphatase 81 U/L (40-129); Anion Gap 15 (5-15); BUN 11 mg/dL (4-19); Calcium,Total 9.5 mg/dL (7.6-11.0); Carbon Dioxide 22.6 mmol/L (21.0-32.0); Chloride 87 mmol/L (98-108); Creatinine, Serum 0.95 mg/dL (0.70-1.20); EST Glomerular Filtration Rate 84 (>60); Globulin 2.8 g/dL (2.2-4.2); Glucose 92 mg/dL (70-99); Potassium 3.9 mmol/L (3.3-5.1); Protein, Total 7.6 g/dL (5.9-8.4); Sodium Level 125 mmol/L (133-145); Total Bilirubin 0.88 mg/dL (0.00-1.30)
== END | disposition home or self-care (01) ==
LOC: LAB 13:02 → LABSPEC 13:06 → LAB 13:06
PROVIDERS: PCP Family Medicine Geriatric Medicine; Referring Provider Family Medicine Geriatric Medicine; Visit Provider Family Medicine Geriatric Medicine
DX: E78.5 Hyperlipidemia, unspecified (principal); Z87.898 Personal history of other specified conditions; R05.9 Cough, unspecified; N39.0 Urinary tract infection, site not specified
CPT/HCPCS: 36415; 71046; 80053; 85025; 85652; 86140; 87040; 87086; 87088

== ENCOUNTER → 2025-04-28 | Outpatient (CLI) | payer MEDICARE, SELFPAY ==
[2022-06-08 09:29] VITALS: BMI 24.9
== END | disposition home or self-care (01) ==
PROVIDERS: PCP Family Medicine Geriatric Medicine; Referring Provider Family Medicine Geriatric Medicine; Visit Provider Family Medicine Geriatric Medicine
DX: R19.7 Diarrhea, unspecified (principal)
CPT/HCPCS: 82274; 83630; 87177; 87209; 87493

== ENCOUNTER → 2025-04-28 | Outpatient (CLI) | payer MEDICARE, SELFPAY ==
[2022-06-08 09:29] VITALS: BMI 24.9
--- NOTE | 2025-04-28 10:50 | CT_ITS ---
PROCEDURE: CT ABD/PELVIS W/WO CONTRAST 04/28/2025 REASON FOR EXAM: History of remote liver abscess. TECHNIQUE: CT ABD/PELVIS W/WO CONTRAST Coronal and Sagittal reconstruction series were provided. CONTRAST: Isovue-300 VOLUME: 100 mL One or more dose reduction techniques were used (e.g., Automated exposure control, adjustment of the mA and/or kV according to patient size, use of iterative reconstruction technique. RADIATION DOSE SUMMARY: CTDlvol: 19.95 mGy DLP: 9.97 mGycm COMPARISON: Prior study dated February 02, 2021. FINDINGS: Lung bases: Mild degree of increased linear markings at the lung bases slightly worse on the right side suggestive of scarring and/or atelectasis. Coronary artery calcification. Liver: Normal size. No mass. Gallbladder: Unremarkable Spleen: Marked degree of splenomegaly. 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 There is dilatation of the splenic vein. Pancreas: Diffuse fatty atrophy. Adrenals: Unremarkable Kidneys: Normal renal sizes. No hydronephrosis. Bladder: Unremarkable Bowel: Unremarkable Appendix: The appendix is not identified. There is no inflammatory process identified in the right lower quadrant to suggest appendicitis. Lymph nodes: Unremarkable. Vasculature: Mild diffuse atherosclerotic calcifications are noted. Peritoneum / Retroperitoneum: Unremarkable Bones: Degenerative changes of the spine.. Straightening of the normal lumbar lordosis. CT/CT Abd/Pelvis W/WO Contrast IMPRESSION: Marked degree of splenomegaly. 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 Reading Location: [id number]
== END | disposition home or self-care (01) ==
PROVIDERS: PCP Family Medicine Geriatric Medicine; Referring Provider Family Medicine Geriatric Medicine; Visit Provider Family Medicine Geriatric Medicine
DX: K75.0 Abscess of liver (principal); R19.7 Diarrhea, unspecified
CPT/HCPCS: 74178; Q9967

== ENCOUNTER → 2025-05-05 | Outpatient (CLI) | payer MEDICARE, SELFPAY ==
[2022-06-08 09:29] VITALS: BMI 24.9
== END | disposition home or self-care (01) ==
LOC: LABSPEC 11:07
PROVIDERS: PCP Family Medicine Geriatric Medicine; Referring Provider Family Medicine Geriatric Medicine; Visit Provider Family Medicine Geriatric Medicine
DX: R19.7 Diarrhea, unspecified (principal)
CPT/HCPCS: 82274; 83630

== ENCOUNTER → 2025-06-02 | Outpatient (CLI) | payer MEDICARE, SELFPAY ==
[2022-06-08 09:29] VITALS: BMI 24.9
--- NOTE | 2025-06-02 11:02 | MRI_ITS ---
PROCEDURE: MRI ABD WITH AND W/O CONTRAST, 06/02/2025 REASON FOR EXAM: FATTY INFILTARATION OF PANCREAS, SPLEENOMEGALY TECHNIQUE: Multiplanar multisequence MRI abdomen was performed with and without IV contrast. IV contrast: 13 mL Clariscan COMPARISON: 02/02/2021 FINDINGS: Variable overall mild motion limitation. Few sequences are mild/moderately motion degraded. Diffusion was not performed. Liver: Slightly lobulated contours including posterior RIGHT lobe hepatic notching. No overt serosal nodularity. Grossly unremarkable signal characteristics.. Spleen: Splenomegaly, 17.4 cm coronal.. Gallbladder: T1 bright layering possible sludge.. Pancreas: Somewhat atrophic as before. No definite focal lesion identified. No ductal dilatation.. Adrenals: Unremarkable. Kidneys: Tiny cyst on the LEFT.. Bowel: Not well evaluated by MRI; better evaluated previously. No gross bowel dilatation. Diverticulosis.. Lymph nodes: Unremarkable. Vasculature: Atherosclerosis. Abdominal aortic ectasia to 2.5 x 2.4 cm. Slightly enlarged and tortuous splenic vein. Peritoneum: Unremarkable. Bones: Lumbar spondylosis. Mild thoracolumbar scoliosis. Multilevel spinal canal stenoses, probably up to severe at L3-L4, not well evaluated by MRI. MRI/MRI Abd WITH and W/O Contrast IMPRESSION: 1. Hepatic morphologic features which are nonspecific which may be seen in the setting of early fibrosis/cirrhosis. No definite serosal nodularity to confirm this. Correlate with clinical and laboratory yan luation. If desired, fibrosis could be detected/quantified by US elastography, as indicated. 2. Similar marked splenomegaly is nonspecific but could conceivably be related to underlying portal hypertension given the above. Enlargment and tortuosity of hte splenic vein may be a related finding. 3. Abdominal aortic ectasia to 2.5 cm. Recommend follow-up in 5 years per 2013 ACR recommendations. 4. Additional description as above. Reading Location: [id number]
== END | disposition home or self-care (01) ==
LOC: MRI 10:54
PROVIDERS: PCP Family Medicine Geriatric Medicine; Referring Provider Student in an Organized Health Care Education/Training Program; Visit Provider Student in an Organized Health Care Education/Training Program
DX: K86.89 Other specified diseases of pancreas (principal); R16.1 Splenomegaly, not elsewhere classified; I86.8 Varicose veins of other specified sites
CPT/HCPCS: 74183; A9575; A4216

== ENCOUNTER → 2025-06-17 | Outpatient (CLI) | payer MEDICARE, SELFPAY ==
[2022-06-08 09:29] VITALS: BMI 24.9
--- NOTE | 2025-06-17 09:50 | US_ITS ---
PROCEDURE: ABD LIMITED W/ ELASTOGRAPHY REASON FOR EXAM: SPLENOMEGALY, FATTY PANCREAS COMPARISON: Prior CT scan of the abdomen and pelvis dated April 28, 2025. TECHNIQUE: Right upper quadrant abdominal ultrasound. [employer] Elast[facility] shear wave elastography for non-invasive assessment of liver tissue stiffness. [facility] EPI[facility]. FINDINGS: LIVER: Size: Unremarkable Length: 16.1 cm Echotexture: Diffusely echogenic suggesting fatty infiltration Contour: Normal Lesions: None identified Elastography: EQI Med: 7.7 kPa EQI Med Rafael: 1.6 m/s IQR/Med: 19.6 %* GALLBLADDER: Normal COMMON BILE DUCT: Normal measuring 6 mm . PANCREAS: Normal Visualized portions of the right kidney are unremarkable. No right upper quadrant ascites. Splenomegaly. The spleen measures 19.3 cm 10.7 cm x 8 cm. US/ABD Limited w/ Elastography IMPRESSION: Mild hepatic fibrosis. Splenomegaly. Reference Values: SRU <1.37 m/s (5.7kPa): No to mild fibrosis 1.37 m/s - 2.2 m/s: Moderate to severe fibrosis >2.2 m/s (15kPa): Significant fibrosis / cirrhosis METAVIR Score F2 or higher: 1.34 m/s (5.7kPa) F3 or higher: 1.55 m/s (7.3kPa) F4: 1.80 m/s (10kPa) * If the IQR/Med is >30%, the variance in the measurements is a large and the a ccuracy of the measurement may be in question. Reading Location: [place] [id number]
== END | disposition home or self-care (01) ==
LOC: US 09:47
PROVIDERS: PCP Family Medicine Geriatric Medicine; Referring Provider Student in an Organized Health Care Education/Training Program; Visit Provider Student in an Organized Health Care Education/Training Program
DX: R16.1 Splenomegaly, not elsewhere classified (principal); K86.89 Other specified diseases of pancreas
CPT/HCPCS: 76705; 76981

== ENCOUNTER 2025-07-02 09:57 | Day surgery (SDC) | payer MEDICARE, SELFPAY ==
[2022-06-08 09:29] VITALS: BMI 24.9
--- NOTE | 2025-07-01 16:21 | PAT.ANESEVAL ---
Pre-Assessment Diagnosis/Proposed Procedure Planned Operative Procedure(s): EGD Anesthesia History Anesthesia History - channel account manager: Anesthesia History - channel account manager Hx Hospitalization No 07/01/25 16:03 Any Problems With Anesthesia No 07/01/25 16:03 Cholinesterase deficiency No 07/01/25 16:03 You/Your Family Experience No 07/01/25 16:03 fever (hyperthermia) with Relationship Recent Exposure to Contagious Disease Does patient have nerve No 07/01/25 16:03 stimulator Patient instructed to have device shut off --Does patient have Pacemaker or ICD? When Was Last Pacemaker Check QUESTION #4 FULL TEXT: You/Your Family Experience fever (hyperthermia) with Anesthesia Last Oral Intake Last Oral intake: Last Oral Intake NPO since Meds taken in AM with sips of water? Meds patient instructed to take am of surgery PONV PONV - channel account manager: PONV - channel account manager Female No 07/01/25 16:03 HX of Motion Sickness No 07/01/25 16:03 HX of N/V After Surgery No 07/01/25 16:03 Non-Smoker Yes 07/01/25 16:03 Duration of Surgery greater No 07/01/25 16:03 than 60 minutes Number of Risk Factors 1 07/01/25 16:03 PONV Score Low Risk 07/01/25 16:03 Height & Weight Height & Weight: Anesthesia: Height & Weight Height 5 ft 6 in 11/26/24 13:22 Respiratory Assessment Respiratory Assessment - channel account manager: Respiratory Tract Infection Hx - channel account manager Hx Respiratory Tract Infection No 07/01/25 16:03 STOP Sleep Apnea STOP Sleep Apnea - channel account manager: STOP Sleep Apnea - channel account manager Hx Hypertension Yes: CONTROLLED WITH MED 07/01/25 16:03 Hx Sleep Apnea No 07/01/25 16:03 CPAP BIPAP Do you snore loudly (louder No 07/01/25 16:03 than talking or can be heard Do you often feel tired/ No 07/01/25 16:03 fatigued/ sleepy during daytime? Has anyone observed you stop No 07/01/25 16:03 breathing during sleep? STOP Results Negative 07/01/25 16:03 QUESTION #5 FULL TEXT : Do you snore loudly (louder than talking or can be heard through closed doors)? 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 Specify any problems Hx of Preganancy in last 3 N/A 07/01/25 16:03 Months Nurse Filling Out Transfusion DSCHRIBER 07/01/25 16:03 & Questions: Date: 07/01/25 07/01/25 16:03 Time: 16:04 07/01/25 16:03 Patient unable to answer at this time (ie. confused, unrespo /Reproduction History /Reproductive History - channel account manager: /Reproductive Hx- channel account manager Hx Now No 07/01/25 16:03 Gestational Age (in weeks): EDC: Hx Hx Para Hx Section SAB No 07/01/25 16:03 PFSH Medical History (Updated 07/01/25 @ 16:12 by Emerald Murillo) Loss of hearing Wears glasses Cancer Alcohol use Arthritis Low iron Anemia High cholesterol Easy bruising Back pain Syncope Difficulty swallowing Former smoker History of edema History of echocardiogram History of stress test Cardiology follow-up encounter Essential (primary) hypertension Liver mass Elevated liver transaminase level Lactic acidosis Bacteremia due to Gram-positive bacteria GERD (gastroesophageal reflux disease) Atherosclerosis of coronary artery without angina pectoris Squamous cell carcinoma Hyponatremia Home Medications ?Medication ?Instructions ?Recorded ?Last Taken ?Type omeprazole 20 mg tablet,delayed 20 mg PO DAILY reflux 12/01/19 09/02/23 History release metoprolol succinate 25 mg 25 mg PO DAILY blood pressure #90 12/21/21 09/02/23 Rx tablet,extended release 24 hr tabs (Toprol XL) atorvastatin 80 mg tablet 80 mg PO QHS cholesterol #90 tabs 09/19/22 Unknown Rx aspirin 81 mg tablet,delayed 81 mg PO DAILY heart health 09/02/23 06/26/25 History release (Adult Aspirin Regimen) fluticasone propionate 50 1 spray intranasal DAILY PRN nasal 05/05/24 Unknown History mcg/actuation nasal congestion spray,suspension Allergy/AdvReac Type Severity Reaction Status Date / Time ticagrelor Allergy Severe Rash and Verified 07/01/25 16:00 Hives all over clindamycin Allergy Other Verified 07/01/25 16:00 Penicillins Allergy Rash Verified 07/01/25 16:00 Sulfa (Sulfonamide Allergy Hives Verified 07/01/25 16:00 Antibiotics) tetracycline (Tetracycline) Allergy Anaphylaxis Verified 07/01/25 16:00 Family History Mother Cancer Ascending aortic aneurysm Carotid artery disease CVA (cerebral vascular accident) Brother Cancer Other Hypertension Surgical History (Updated 07/01/25 @ 16:13 by Emerald Murillo) History of cardiac catheterization Hx of right cataract extraction Hx of left cataract extraction Hx of colonoscopy Hx of knee surgery History of appendectomy History of shoulder surgery History of coronary artery stent placement H/O cervical spine surgery History of repair of rotator cuff Social History Smoking Status: Former smoker quit date: 11/04/99 pack-years: 25 how long ago did patient quit smokin alcohol intake: current alcohol intake frequency: a few times a week Alcohol type: beer and wine substance use type: does not use caffeine: Yes Type: coffee Number of servings: 3 Audit: Pertinent Findings Pertinent Findings Stress test pertinent findings: 08/13/2023. EF is 70%. No obvious ischemia noted on images. EKG criteria suggestive of ischemia at high workload. (See cath below) Echo (EF%) pertinent findings: 12/20/2020. EF of 65%. RVSP is 29 mmHg. No aortic stenosis noted. Heart catheterization pertinent findings: 09/02/2023. First diagonal (ostial) 95% stenosis. PCI/NATALIO performed with post stent 0% stenosis. Medical management for LAD stenosis. Consult pertinent findings: 09/15/2024. Dr. Albert. 1. History coronary artery stent placement-status post PCI/NATALIO to the mid RCA 12/18/2019. Status post NATALIO to the ostial D1 09/02/2023. Patient is active without symptoms. Continue current medication. Discontinue Plavix. 2. Vctqdtlrxhco-amou-sjgmvzexla. Continue medical therapy. Additional pertinent findings: Sodium done April 23, 2025 was 125. Recommendation Anesthesia Recommendation Anesthesia recommendation: F/U recommended (Latest sodium is 125 in April 2025. Repeat sodium on day of surgery. Patient needs to be above 130 for surgery. Normal saline for IV fluids during surgery.)
[2025-07-02] VITALS (9 sets, daily range): BP systolic 117–161; BP diastolic 67–86; PULSE 66–71; RESP 16–95; TEMP 36.2–36.9; O2SAT 96–100; BMI 23.5
--- NOTE | 2025-07-02 10:25 | PCM.PRE.AN2 ---
ASA Classification* ASA Classification ASA Classification: 3 Assessment & Plan Anesthesia* Anesthesia Assessment Anesthesia Assessment: Discussed sedation and/or anesthesia options, risks, benefits, and alternatives with patient/parents/legal guardian/POA. Questions invited. The patient/parents/legal guardian/POA seems to understand and agrees to proceed with anesthesia plan. Reviewed the physical assessment, medical history, allergy history and patient home medications list prior to surgery/procedure/anesthetic and documented any changes. Performed airway and anesthesia risk assessments. Anesthesia Type Anesthesia Type: MAC Anesthesia Focused Assessment* Airway Assessment Mouth opens: >3 cm Mallampati Score: II Labs Anesthesia Preop lab: CBC WBC 4.0 K/mm3 (4.4-11.0) L 04/23/25 11:13 04/23/25 RBC 4.71 M/mm3 (4.6-6.2) 04/23/25 11:13 04/23/25 Hgb 14.6 g/dL (13.0-16.5) 04/23/25 11:13 04/23/25 Hct 41.9 % (40-54) 04/23/25 11:13 04/23/25 Plt Count 111 K/mm3 (150-450) L 04/23/25 11:13 04/23/25 CHEMISTRY Potassium 3.9 mmol/L (3.3-5.1) 04/23/25 11:13 04/23/25 Sodium 125 mmol/L (133-145) L 04/23/25 11:13 04/23/25 BUN 11 mg/dL (4-19) 04/23/25 11:13 04/23/25 Creatinine 0.95 mg/dL (0.70-1.20) 04/23/25 11:13 04/23/25 Glucose 92 mg/dL (70-99) 04/23/25 11:13 04/23/25 TSH 1.600 uIU/mL (0.358-3.740) 10/06/24 10:07 10/06/24 COAG PT 14.2 SECONDS (11.7-14.9) 08/28/23 15:37 08/28/23 Pre-Assessment Diagnosis/Proposed Procedure Planned Operative Procedure(s): EGD Anesthesia History 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 When Was Last Pacemaker Check QUESTION #4 FULL TEXT: You/Your Family Experience fever (hyperthermia) with Anesthesia Last Oral Intake Last Oral intake: Last Oral Intake NPO since Meds taken in AM with sips of water? Meds patient instructed to take am of surgery PONV PONV - captain airline pilot: PONV - captain airline pilot Female No 07/01/25 16:03 HX of Motion Sickness No 07/01/25 16:03 HX of N/V After Surgery No 07/01/25 16:03 Non-Smoker Yes 07/01/25 16:03 Duration of Surgery greater No 07/01/25 16:03 than 60 minutes Number of Risk Factors 1 07/01/25 16:03 PONV Score Low Risk 07/01/25 16:03 Height & Weight Height & Weight: Anesthesia: Height & Weight Height 5 ft 6 in 11/26/24 13:22 Respiratory Assessment Respiratory Assessment - captain airline pilot: Respiratory Tract Infection Hx - captain airline pilot Hx Respiratory Tract Infection No 07/01/25 16:03 STOP Sleep Apnea STOP Sleep Apnea - captain airline pilot: STOP Sleep Apnea - captain airline pilot Hx Hypertension Yes: CONTROLLED WITH MED 07/01/25 16:03 Hx Sleep Apnea No 07/01/25 16:03 CPAP BIPAP Do you snore loudly (louder No 07/01/25 16:03 than talking or can be heard Do you often feel tired/ No 07/01/25 16:03 fatigued/ sleepy during daytime? Has anyone observed you stop No 07/01/25 16:03 breathing during sleep? STOP Results Negative 07/01/25 16:03 QUESTION #5 FULL TEXT : Do you snore loudly (louder than talking or can be heard through closed doors)? 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 Specify any problems Hx of Preganancy in last 3 N/A 07/01/25 16:03 Months Nurse Filling Out Transfusion DSCHRIBER 07/01/25 16:03 & Questions: Date: 07/01/25 07/01/25 16:03 Time: 16:04 07/01/25 16:03 Patient unable to answer at this time (ie. confused, unrespo /Reproduction History /Reproductive History - captain airline pilot: /Reproductive Hx- captain airline pilot Hx Now No 07/01/25 16:03 Gestational Age (in weeks): EDC: Hx Hx Para Hx Section SAB No 07/01/25 16:03 Active Medications Active Medications: Current Medications Generic Name Dose Route Start Last Admin Trade Name Freq PRN Reason Stop Dose Admin Lactated Ringer's 1,000 mls @ 15 mls/hr 07/02/25 10:15 IV .Q48H ELDA PFSH Medical History (Updated 07/01/25 @ 16:12 by Emerald Murillo) Loss of hearing Wears glasses Cancer Alcohol use Arthritis Low iron Anemia High cholesterol Easy bruising Back pain Syncope Difficulty swallowing Former smoker History of edema History of echocardiogram History of stress test Cardiology follow-up encounter Essential (primary) hypertension Liver mass Elevated liver transaminase level Lactic acidosis Bacteremia due to Gram-positive bacteria GERD (gastroesophageal reflux disease) Atherosclerosis of coronary artery without angina pectoris Squamous cell carcinoma Hyponatremia Home Medications ?Medication ?Instructions ?Recorded ?Last Taken ?Type omeprazole 20 mg tablet,delayed 20 mg PO DAILY reflux 12/01/19 07/02/25 07:00 History release metoprolol succinate 25 mg 25 mg PO DAILY blood pressure #90 12/21/21 07/02/25 07:00 Rx tablet,extended release 24 hr tabs (Toprol XL) atorvastatin 80 mg tablet 80 mg PO QHS cholesterol #90 tabs 09/19/22 Unknown Rx aspirin 81 mg tablet,delayed 81 mg PO DAILY heart health 09/02/23 06/26/25 History release (Adult Aspirin Regimen) fluticasone propionate 50 1 spray intranasal DAILY PRN nasal 05/05/24 Unknown History mcg/actuation nasal congestion spray,suspension Allergy/AdvReac Type Severity Reaction Status Date / Time ticagrelor Allergy Severe Rash and Verified 07/02/25 10:19 Hives all over clindamycin Allergy Other Verified 07/02/25 10:19 Penicillins Allergy Rash Verified 07/02/25 10:19 Sulfa (Sulfonamide Allergy Hives Verified 07/02/25 10:19 Antibiotics) tetracycline (Tetracycline) Allergy Anaphylaxis Verified 07/02/25 10:19 Family History Mother Cancer Ascending aortic aneurysm Carotid artery disease CVA (cerebral vascular accident) Brother Cancer Other Hypertension Surgical History (Updated 07/01/25 @ 16:13 by Emerald Murillo) History of cardiac catheterization Hx of right cataract extraction Hx of left cataract extraction Hx of colonoscopy Hx of knee surgery History of appendectomy History of shoulder surgery History of coronary artery stent placement H/O cervical spine surgery History of repair of rotator cuff Social History Smoking Status: Former smoker quit date: 11/04/99 pack-years: 25 how long ago did patient quit smokin alcohol intake: current alcohol intake frequency: a few times a week Alcohol type: beer and wine substance use type: does not use caffeine: Yes Type: coffee Number of servings: 3 Review of Systems (Anesthesia) ROS Narrative System reviewed and no additional complaints, except as documented.
[2025-07-02] MEDS: Lactated Ringers 1,000 ML 15 ML IV (10:29)
--- NOTE | 2025-07-02 11:00 | EGD_PTH ---
PATIENT: DARIEL SUERO LOC: EN U#:[id number] AGE/SX: 74/M ROOM: RE07/02/[address]: Dr. Fady Guerrero DO : 1950 BED: DIS: 07/02/2025 SPEC #: [id number] RECD: 07/02/25 12:42 STATUS: TAYLOR RESergio #: [id number] AMMON: 07/02/25 11:[address]: Fady Guerrero DEPT: SURGICAL PATHOLOGY RECD BY: Leland Gonzalez ENTERED: 07/02/25 14:44 SP TYPE: EGD BIOPSY LIBAN DR: Dr. Brayan Pierre MD Tissues: A - Gastric mucous membrane B - Esophagus, NOS Procedures: Special Stain Group I Surgery Specimen Level IV Iron Stain (control) HEADER OPERATION: EGD with biopsies PRE-OP DIAGNOSIS: Splenic varices, splenomegaly, fatty pancreas TISSUE SUBMITTED: A- Gastric body biopsy, B- Distal esophagus biopsy MICROSCOPIC DIAGNOSIS A. Gastric body, biopsy: Oxyntic mucosa with reactive changes and focal superficial mucosal pigment - see note. Note: Iron special stain highlights the pigment suggesting ingestion of iron-containing compound. B. Distal esophagus, biopsy: Squamocolumnar mucosa with reactive changes. Negative for goblet cell metaplasia, negative for dysplasia. MICROSCOPIC DESCRIPTION Slides are reviewed. GROSS DESCRIPTION A. Received in fixative is one container labeled with the patient's name and designated Gastric body biopsy. The specimen consists of multiple irregular fragments of light lugo soft tissue that in aggregate measure 1.2 x 0.3 x 0.1 cm. The specimen is totally submitted in one cassette. B. Received in fixative is one container labeled with the patient's name and designated Distal esophagus biopsy. The specimen consists of two irregular fragments of light lugo soft tissue that measure 0.3 and 0.5 cm. The specimen is totally submitted in one cassette. DE 07/02/2025 CPT:[id number] ,[id number]
--- NOTE | 2025-07-02 11:30 | HP.PCM_ITS ---
HPI - General General Date of Service: 07/02/25 HPI Narrative DARIEL SUERO, is a 74 M who presentsChief Complaint: splenomegaly Pt referred from PCP after incidental finding of splenomegaly, splenic varices and dilated splenic vein. Pt is not sure why he was referred. Pt endorses alcohol use with drinking beer 3-4 times per. He notes he did drink more in the past. He has no hx of pancreatitis. Pt does have heartburn chronically and is on PPI. He has occasional issues with swallowing. Last colonoscopy was about 8 years ago with no recommendation to repeat. CT abd/pelvis;Marked degree of splenomegaly. 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 [facility] Medical History Loss of hearing Wears glasses Cancer Alcohol use Arthritis Low iron Anemia High cholesterol Easy bruising Back pain Syncope Difficulty swallowing Former smoker History of edema History of echocardiogram History of stress test Cardiology follow-up encounter Essential (primary) hypertension Liver mass Elevated liver transaminase level Lactic acidosis Bacteremia due to Gram-positive bacteria GERD (gastroesophageal reflux disease) Atherosclerosis of coronary artery without angina pectoris Squamous cell carcinoma Hyponatremia Home Medications ?Medication ?Instructions ?Recorded ?Last Taken ?Type omeprazole 20 mg tablet,delayed 20 mg PO DAILY reflux 12/01/19 07/02/25 07:00 History release metoprolol succinate 25 mg 25 mg PO DAILY blood pressu re #90 12/21/21 07/02/25 07:00 Rx tablet,extended release 24 hr tabs (Toprol XL) atorvastatin 80 mg tablet 80 mg PO QHS cholesterol #90 tabs 09/19/22 Unknown Rx aspirin 81 mg tablet,delayed 81 mg PO DAILY heart heal th 09/02/23 06/26/25 History release (Adult Aspirin Regimen) fluticasone propionate 50 1 spray intranasal DAILY PRN nasal 05/05/24 Unknown History mcg/actuation nasal congestion spray,suspension Allergy/AdvReac Type Severity Reaction Status Date / Time ticagrelor Allergy Severe Rash and Verified 07/02/25 10:19 Hives all over clindamycin Allergy Other Verified 07/02/25 10:19 Penicillins Allergy Rash Verified 07/02/25 10:19 Sulfa (Sulfonamide Allergy Hives Verified 07/02/25 10:19 Antibiotics) tetracycline (Tetracycline) Allergy Anaphylaxis Verified 07/02/25 10:19 Family History Mother Cancer Ascending aortic aneurysm Carotid artery disease CVA (cerebral vascular accident) Brother Cancer Other Hypertension Surgical History History of cardiac catheterization Hx of right cataract extraction Hx of left cataract extraction Hx of colonoscopy Hx of knee surgery History of appendectomy History of shoulder surgery History of coronary artery stent placement H/O cervical spine surgery History of repair of rotator cuff Social History Smoking Status: Former smoker quit date: 11/04/99 pack-years: 25 how long ago did patient quit smokin alcohol intake: current alcohol intake frequency: a few times a week Alcohol type: beer and wine substance use type: does not use caffeine: Yes Type: coffee Number of servings: 3 ROS Constitutional Constitutional: Denies fatigue, fever(s), poor appetite, weight gain or weight loss Gastrointestinal Gastrointestinal: Denies belching, bloating, change in bowel habits, change in stool character, chewing difficulty, coffee ground emesis, constipation, cramping, diarrhea, dyspepsia, dysphagia, early satiety, excessive flatus, fecal incontinence, heartburn, hematemesis, hematochezia, hemorrhoids, loose stools, melena, nausea, odynophagia, rectal bleeding, tenesmus, vomiting or weight changes Vital Signs Vital Signs Vital Signs: 07/02/25 10:30 07/02/25 10:30 Temperature 97.8 F Temperature Source Temporal Pulse Rate 71 Respiratory Rate 16 Respiratory Pattern Normal Blood Pressure 161/86 H Blood Pressure Mean 111 Blood Pressure Source Monitor Blood Pressure Position Semi-Fowlers Blood Pressure Location Right Arm Pulse Ox 100 Oxygen Delivery Method Room Air Weight Weight: 145 lb 11.609 oz Body Mass Index (BMI) 23.5 Physical Exam Const alert, oriented x3, no apparent distress and healthy appearing General Appearance: cooperative GI normal to inspection, nondistended, normoactive bowel sounds, soft to palpation, non-tender and non-distended Percussion: normal to percussion Rectal Exam: deferred Results Lab / Micro Data 07/02/25 10:27 Labs: Laboratory Results - last 24 hr 08/29/25 10:27: Sodium 130 L Assessment & Plan Assessment/Plan (1) Splenic varices: (2) Splenomegaly: (3) Fatty pancreas: PLAN: Assessment and Plan Assessment and Plan (1) Fatty pancreas: Status: Acute Plan: Dariel is a 74 yo male pt here today for evaluation after CT abd/pelvis showing fatty pancreas, splenomegaly, splenic varices and dilated splenic vein. He denies any abd pain. It is unclear at this point, why he has abnormality with the spleen. This may be related to splenic vein thrombus, chronic pancreatitis or pancreatic neoplasm. With the findings of fatty pancreas on CT and hx of frequent alcohol use in the past he may have chronic pancreatitis. He denies hx of acute pancreatitis. He will undergo MRI with MRCP to evaluate his pancreas. He will also undergo EGD to evaluate for further varices within his upper GI tract. He also has a hx of chronic GERD and occasional dysphagia therefore EGD will also evaluate this. I have ordered a US of the spleen with Doppler of the splenic vein. I explained findings and plan with pt and his . He was agreeable to proceed. -EGD -MRI with MRCP -US of spleen with Doppler -f/u (2) Splenomegaly: Status: Acute (3) Splenic varices: Status: Acute Orders: Orders MRI Abd WITH and W/O Contrast Today I86.8 - Varicose veins of other specified sites, K86.89 - Other specified diseases of pancreas, R16.1 - Splenomegaly, not elsewhere classified Abdomen Limited Today I86.8 - Varicose veins of other specified sites, K86.89 - Other specified diseases of pancreas, R16.1 - Splenomegaly, not elsewhere classified
[2025-07-02] MEDS: Lactated Ringers 500 ML IV (11:50)
--- NOTE | 2025-07-02 12:00 | PCM.POST.ANE ---
Anesthesia: Postop Eval I Current Vital Signs Temperature: 97.1 F Pulse Rate: 71 Blood Pressure: 117/68 Respiratory Rate: 95 Pulse Ox: 99 Oxygen Delivery Method: Room Air Assessment Airway patent: Yes Spontaneous unlabored respirations: Yes Mental status: Asleep nausea: No Vomiting: No Anesthesia Complication: No Fluid Hydration Crystalloid volume administer (ml): 500 Total IV fluid infused: 500 Progress Note Anesthesia document: Postop Eval 1 completed: Yes
--- NOTE | 2025-07-02 12:03 | OP.PROVAT_ITS ---
07/02/2025 Brayan Pierre MD [address] [place] [address] Re : Upper GI endoscopy procedure for Leonel Johnston Dear Dr. Pierre This procedure was performed on Wednesday, July 02, 2025. My impressions and recommendations are as follows: Impressions : - Z-line irregular, 40 cm from the incisors. Biopsied. - Chronic gastritis. Biopsied. - No gross lesions in the entire examined duodenum. Recommendations : - Discharge patient to home. - Resume previous diet. - Continue present medications. - Await pathology results. My findings are described in the full procedure note, which is enclosed. If I can be of further assistance, please feel free to contact me at . Sincerely, Fady Friend, 07/02/2025 12:02:57 PM This report has been signed electronically.
--- NOTE | 2025-07-02 12:03 | OP.EGD_ITS ---
Patient Name: Leonel Johnston Procedure Date: 07/02/2025 11:37 AM Date of : 1950 Age: 74 Procedure: Upper GI endoscopy Indications: Epigastric abdominal pain, Functional Dyspepsia, Indigestion Providers: Fady Guerrero DO Referring MD: Brayan Pierre MD Medicines: Monitored Anesthesia Care Patient Profile: This is a 74 year old male. Refer to note in patient chart for documentation of history and physical. Patient has symptoms of acute epigastric abdominal pain and chronic dyspepsia. Complications: No immediate complications. Procedure: Pre-Anesthesia Assessment: - Prior to the procedure, a History and Physical was performed, and patient medications and allergies were reviewed. The patient is competent. The risks and benefits of the procedure and the sedation options and risks were discussed with the patient. All questions were answered and informed consent was obtained. Patient identification and proposed procedure were verified by the physician in the pre-procedure area. Mental Status Examination: alert and oriented. Airway Examination: normal oropharyngeal airway and neck mobility. Respiratory Examination: clear to auscultation. CV Examination: normal. Prophylactic Antibiotics: The patient does not require prophylactic antibiotics. Prior Anticoagulants: The patient has taken no anticoagulant or antiplatelet agents except for NSAID medication. ASA Grade Assessment: II - A patient with mild systemic disease. After reviewing the risks and benefits, the patient was deemed in satisfactory condition to undergo the procedure. The anesthesia plan was to use monitored anesthesia care (MAC). Immediately prior to administration of medications, the patient was re-assessed for adequacy to receive sedatives. The heart rate, respiratory rate, oxygen saturations, blood pressure, adequacy of pulmonary ventilation, and response to care were monitored throughout the procedure. The physical status of the patient was re-assessed after the procedure. After obtaining informed consent, the endoscope was passed under direct vision. Throughout the procedure, the patient's blood pressure, pulse, and oxygen saturations were monitored continuously. The gastroscope was introduced through the mouth, and advanced to the second part of duodenum. The upper GI endoscopy was accomplished without difficulty. The patient tolerated the procedure well. Scope In: Scope Out: 11:52:45 AM Findings: The Z-line was irregular and was found 40 cm from the incisors. Biopsies were taken with a cold forceps for histology. Verification of patient identification for the specimen was done. Estimated blood loss was minimal. Segmental moderate inflammation characterized by erosions, erythema, friability, granularity and shallow ulcerations was found in the gastric body. Biopsies were taken with a cold forceps for histology. Verification of patient identification for the specimen was done. Estimated blood loss was minimal. Biopsies were taken with a cold forceps for Helicobacter pylori testing. Verification of patient identification for the specimen was done. Estimated blood loss was minimal. No gross lesions were noted in the entire examined duodenum. Impression: - Z-line irregular, 40 cm from the incisors. Biopsied. - Chronic gastritis. Biopsied. - No gross lesions in the entire examined duodenum. Recommendation: - Discharge patient to home. - Resume previous diet. - Continue present medications. - Await pathology results. Procedure Code(s): --- Professional --- 79399, Esophagogastroduodenoscopy, flexible, transoral; with biopsy, single or multiple CPT copyright 2021 [employer]. All rights reserved. The codes documented in this report are preliminary and upon network designer review may be revised to meet current compliance requirements. Fady Guerrero DO 07/02/2025 12:02:57 PM This report has been signed electronically. Number of Addenda: 0 Note Initiated On: 07/02/2025 11:37 AM
--- NOTE | 2025-07-02 12:32 | POSTOPAN2_ITS ---
Anesthesia Postop Eval I Sum Postop Eval Completion status Anesthesia document: Postop Eval 1 completed: Yes Anesthesia Postop Eval I Summary Anesthesia Postop Eval I Summary: Anesthesia Postop Eval I: Assessment Summary Airway patent Yes 07/02/25 12:01 CORPORATE ACCOUNTING MANAGER.ACAR Spontaneous unlabored Yes 07/02/25 12:01 CORPORATE ACCOUNTING MANAGER.ACAR respirations Mental status Asleep 07/02/25 12:01 CORPORATE ACCOUNTING MANAGER.ACAR nausea No 07/02/25 12:01 CORPORATE ACCOUNTING MANAGER.ACAR Vomiting No 07/02/25 12:01 CORPORATE ACCOUNTING MANAGER.ACAR Anesthesia Postop Eval I: Fluid Summary Crystalloid volume administer 500 07/02/25 12:01 CORPORATE ACCOUNTING MANAGER.ACAR (ml) Colloids volume administered ( ml) Blood Product volume administered (ml) Total IV fluid infused 500 07/02/25 12:01 CORPORATE ACCOUNTING MANAGER.ACAR Anesthesia Postop Eval I: Summary Notes Anesthesia Complication No 07/02/25 12:01 CORPORATE ACCOUNTING MANAGER.ACAR Anesthesia Complication Comment: Post-operative progress note Anesthesia: Postop Eval II Evaluation Mental status: Awake Pain Level: 0 nausea: No Vomiting: No
--- NOTE | 2025-07-02 12:32 | PCM.POSTANE2 ---
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 Spontaneous unlabored Yes 07/02/25 12:01 CARTON FORMING MACHINE HELPER.ACAR respirations Mental status Asleep 07/02/25 12:01 C[employer]ON FORMING MACHINE HELPER.ACAR nausea No 07/02/25 12:01 CARTON FORMING MACHINE HELPER.ACAR Vomiting No 07/02/25 12:01 CARTON FORMING MACHINE HELPER.ACAR Anesthesia Postop Eval I: Fluid Summary Crystalloid volume administer 500 07/02/25 12:01 CARTON FORMING MACHINE HELPER.ACAR (ml) Colloids volume administered ( ml) Blood Product volume administered (ml) Total IV fluid infused 500 07/02/25 12:01 CARTON FORMING MACHINE HELPER.ACAR Anesthesia Postop Eval I: Summary Notes Anesthesia Complication No 07/02/25 12:01 CARTON FORMING MACHINE HELPER.ACAR Anesthesia Complication Comment: Post-operative progress note Anesthesia: Postop Eval II Evaluation Mental status: Awake Pain Level: 0 nausea: No Vomiting: No
== END 2025-07-02 12:52 | disposition home or self-care (01) ==
LOC: EN 09:59 → AC 10:01
PROVIDERS: PCP Family Medicine Geriatric Medicine; Referring Provider Family Medicine Geriatric Medicine; Visit Provider Internal Medicine Gastroenterology
PROC: 0DJ08ZZ Inspection of Upper Intestinal Tract, Via Natural or Artificial Opening Endoscopic (ICD-10-PCS; CPT 43235; principal; 2025-07-02 10:55)
DX: K29.50 Unspecified chronic gastritis without bleeding (principal); K86.89 Other specified diseases of pancreas; K30 Functional dyspepsia; I86.8 Varicose veins of other specified sites; R16.1 Splenomegaly, not elsewhere classified; I10 Essential (primary) hypertension; E78.00 Pure hypercholesterolemia, unspecified; Z79.82 Long term (current) use of aspirin; Z79.899 Other long term (current) drug therapy; Z87.891 Personal history of nicotine dependence
CPT/HCPCS: 43239; 36415; 84295; 88305; 88312

== ENCOUNTER 2025-07-28 12:28 | Outpatient (CLI) | payer MEDICARE, SELFPAY ==
[2022-06-08 09:29] VITALS: BMI 24.9
[2025-07-28 13:26] LABS: Hematocrit 40.5 % (40-54); Hemoglobin 14.1 g/dL (13.0-16.5); Immature Granulocytes Count 0.010 X10^3/uL (0.0-0.0); Mean Corp Hgb Conc 34.8 g/dL (32-36); Mean Corpuscular Volume 90.6 fL (80-94); Mean Platelet Vol. 8.9 fl (6.2-12.0); NRBC Flagged by Analyzer 0 % (0-5); Platelet Count 127 K/mm3 (150-450); RBC Distribution Width CV 12.5 % (11.6-14.6); RBC Distribution Width SD 41.8 fl (35.1-43.9); Red Blood Count 4.47 M/mm3 (4.6-6.2); White Blood Count 4.7 K/mm3 (4.4-11.0)
[2025-07-28 13:33] LABS: Prothrombin Time (Protime)PT. 14.9 SECONDS (11.7-14.9)
[2025-07-28 14:14] LABS: AST(SGOT) 41 U/L (<=37); Alanine Aminotransfer ALT/SGPT 36 U/L (<=46); Albumin, Serum 4.4 g/dL (3.4-4.8); Alkaline Phosphatase 66 U/L (40-129); Anion Gap 10 (5-15); BUN 12 mg/dL (4-19); BUN/Creat Ratio 14.0 RATIO (10-20); Calcium,Total 9.5 mg/dL (7.6-11.0); Carbon Dioxide 26.8 mmol/L (21.0-32.0); Chloride 95 mmol/L (98-108); Globulin 2.4 g/dL (2.2-4.2); Glucose 102 mg/dL (70-99); Potassium 4.5 mmol/L (3.3-5.1)
[2025-07-28 14:38] LABS: Iron 84 ug/dL (65-175); Iron Binding Capacity,Total 273 ug/dL (250-450); Iron Binding Capacity,Unsat 189 ug/dL (228-428)
[2025-07-30 14:08] LABS: Anti-Chromatin <0.2 AI (0.0-0.9); Anti-Jo <0.2 AI (0.0-0.9); Anti-dsDNA Ab <1 IU/mL (0-9); SJOGREN'S Anti-SS-A test < 0.2 AI (0.0-0.9); SJOGREN'S Anti-SS-B test < 0.2 AI (0.0-0.9)
[2025-08-01 00:07] LABS: Anti-Smooth Muscle ABS 3 Units (0-19); Copper, Serum or Plasma 113 ug/dL (69-132); Cytoplasmic Ab (C-ANCA) <1:20 titer (Neg:<1:20); HEPATITIS B SURFACE AG Negative (Negative); Hep C Antibodies Non Reactive (Non Reactive); Perinuclear Ab (P-ANCA) <1:20 titer (Neg:<1:20)
== END 2025-07-28 23:59 | disposition home or self-care (01) ==
LOC: LAB 12:29
PROVIDERS: PCP Family Medicine Geriatric Medicine; Referring Provider Student in an Organized Health Care Education/Training Program; Visit Provider Student in an Organized Health Care Education/Training Program
DX: K86.89 Other specified diseases of pancreas (principal); K74.00 Hepatic fibrosis, unspecified; R16.1 Splenomegaly, not elsewhere classified; I86.8 Varicose veins of other specified sites
CPT/HCPCS: 36415; 80053; 80074; 82390; 82525; 83516; 83540; 83550; 85025; 85610; 86037; 86225; 86235

== ENCOUNTER → 2025-10-07 | Outpatient (CLI) | payer MEDICARE, SELFPAY ==
[2022-06-08 09:29] VITALS: BMI 24.9
[2025-10-07 11:42] LABS: Hematocrit 34.3 % (40-54); Hemoglobin 11.8 g/dL (13.0-16.5); Immature Granulocytes Count 0.010 X10^3/uL (0.0-0.0); Mean Corp Hgb Conc 34.4 g/dL (32-36); Mean Corpuscular Volume 89.3 fL (80-94); Mean Platelet Vol. 8.6 fl (6.2-12.0); NRBC Flagged by Analyzer 0 % (0-5); POSITIVE MORPHOLOGY YES; Platelet Count 107 K/mm3 (150-450); RBC Distribution Width CV 12.8 % (11.6-14.6); RBC Distribution Width SD 41.8 fl (35.1-43.9); Red Blood Count 3.84 M/mm3 (4.6-6.2); White Blood Count 3.8 K/mm3 (4.4-11.0)
[2025-10-07 12:14] LABS: Differential Indicated SCAN CRITERIA MET
[2025-10-07 12:20] LABS: AST(SGOT) 29 U/L (<=37); Alanine Aminotransfer ALT/SGPT 30 U/L (<=46); Albumin, Serum 4.2 g/dL (3.4-4.8); Alkaline Phosphatase 67 U/L (40-129); Anion Gap 9 (5-15); BUN 15 mg/dL (4-19); BUN/Creat Ratio 16.2 RATIO (10-20); Calcium,Total 9.2 mg/dL (7.6-11.0); Carbon Dioxide 26.2 mmol/L (21.0-32.0); Chloride 94 mmol/L (98-108); Differential Comment SCANNED; Globulin 2.1 g/dL (2.2-4.2); Glucose 106 mg/dL (70-99); Potassium 4.0 mmol/L (3.3-5.1); Vitamin D,25 Hydroxy 36.1 ng/mL (30-100)
[2025-10-07 19:10] LABS: Xtra Tube Kwok EXTRA TUBE
== END | disposition home or self-care (01) ==
LOC: POLAB3 11:09
PROVIDERS: PCP Family Medicine Geriatric Medicine; Visit Provider Family Medicine Geriatric Medicine
DX: E55.9 Vitamin D deficiency, unspecified (principal); E78.5 Hyperlipidemia, unspecified; I10 Essential (primary) hypertension
CPT/HCPCS: 36415; 80053; 82306; 84443; 85025

== ENCOUNTER → 2025-10-18 | Outpatient (CLI) | payer MEDICARE, SELFPAY ==
[2022-06-08 09:29] VITALS: BMI 24.9
[2025-10-18 14:14] LABS: Anion Gap 7 (5-15); BUN 13 mg/dL (4-19); BUN/Creat Ratio 13.6 RATIO (10-20); Calcium,Total 9.3 mg/dL (7.6-11.0); Carbon Dioxide 26.9 mmol/L (21.0-32.0); Chloride 96 mmol/L (98-108); Glucose 97 mg/dL (70-99); Potassium 4.2 mmol/L (3.3-5.1)
== END | disposition home or self-care (01) ==
LOC: LAB 13:27
PROVIDERS: PCP Family Medicine Geriatric Medicine; Referring Provider Family Medicine Geriatric Medicine; Visit Provider Family Medicine Geriatric Medicine
DX: E87.1 Hypo-osmolality and hyponatremia (principal)
CPT/HCPCS: 36415; 80048